=== PATIENT | male | born 1945 | race Caucasian/White ===

== ENCOUNTER 2018-01-18 22:55 | Emergency (ER) | payer MEDICARE, SELFPAY ==
[2018-01-18 22:56] VITALS: BP 107/58; PULSE 76; RESP 16; TEMP 36.7; O2SAT 95; BMI 24.5
--- NOTE | 2018-01-18 23:06 | ED.VISSUMM ---
- ER Visit Summary Date of Service: 01/18/18 Chief Complaint: Intoxicated History of Present Illness: The patient is a 72 M denies any significant past medical history. Currently is on no medications and also does not have a primary care physician. Patient states that he has been drinking heavily today he drinks daily and knows that he is an alcoholic. He has been through detox before but has no interest in detox at this time. States he was at a [facility] was transiently lightheaded which is since resolved. And they want to have him evaluated. He denies any falls or trauma. He denies any headaches, chest pain, shortness of breath, abdominal pain, nausea, vomiting, diarrhea, melena or fever. Currently states he feels fine. There was a male friend here with him and he told him was a gentleman was leaving that he was seen at the [facility]. Currently he denies any complaints whatsoever. Physical Examination: Well appearing older male. Vital signs are stable and afebrile. He does not look septic or toxic. He is in no acute distress. Clinically I assume that he is intoxicated but is a chronic alcoholic and tolerates this well. HEENT exam unremarkable. No facial droop. No signs of trauma. Moist mucous membranes. Neck nontender. No lymphadenopathy. Lungs clear to auscultation bilaterally. Heart regular rhythm no murmur. Chest wall nontender. Abdomen soft and nontender. Normal bowel sounds no peritoneal signs. Moving all 4 extremities. Neurovascularly intact. Nontender no deformity. Normal range of motion. Back exam nontender and no signs of trauma. Neurologically is awake and alert. He is answering questions and following commands. He is not belligerent or violent. He is calm and follows commands. Test Results: Alcohol level equals 96. Emergency Department Course and Treatment: Clinically this patient looks good and stable. Checking alcohol level. Treatment Plan: Repeat exam at 2338 the patient is doing well. His son is present in the room. And is comfortable taking his dad at home. He will overseen the night and ensures me that he would only drink anymore alcohol. Repeat exam the patient is doing well. His vital signs are stable. Disposition: Discharge Impression: Acute alcohol intoxication History of chronic alcoholism This note was generated with [employer] dictation software. It may contain incorrect words, spelling, and punctuation that were not noted in review of the chart prior to signing ED Disposition - Plan for ED Patient: Disposition: Home or Assisted Living Chief Complaint: ETOH Intox Instructions: ED Alcohol Intoxication Referrals: Brennon Arriaza MD [STAFF PHYSICIAN] - 1 Week Additional Instructions: Plenty of fluids and rest. Tylenol for headache and hangover. Probably consider alcohol counseling and detoxification. Definitely try to decrease her alcohol consumption. Stop smoking
--- NOTE | 2018-01-18 23:10 | ED.DCSUM_ITS ---
- ER Visit Summary Date of Service: 01/18/18 Chief Complaint: Intoxicated History of Present Illness: The patient is a 72 M denies any significant past medical history. Currently is on no medications and also does not have a primary care physician. Patient states that he has been drinking heavily today he drinks daily and knows that he is an alcoholic. He has been through detox before but has no interest in detox at this time. States he was at a [facility] was transiently lightheaded which is since resolved. And they want to have him evaluated. He denies any falls or trauma. He denies any headaches, chest pain, shortness of breath, abdominal pain, nausea, vomiting, diarrhea, melena or fever. Currently states he feels fine. There was a male friend here with him and he told him was a gentleman was leaving that he was seen at the [facility]. Currently he denies any complaints whatsoever. Physical Examination: Well appearing older male. Vital signs are stable and afebrile. He does not look septic or toxic. He is in no acute distress. Clinically I assume that he is intoxicated but is a chronic alcoholic and tolerates this well. HEENT exam unremarkable. No facial droop. No signs of trauma. Moist mucous membranes. Neck nontender. No lymphadenopathy. Lungs clear to auscultation bilaterally. Heart regular rhythm no murmur. Chest wall nontender. Abdomen soft and nontender. Normal bowel sounds no peritoneal signs. Moving all 4 extremities. Neurovascularly intact. Nontender no deformity. Normal range of motion. Back exam nontender and no signs of trauma. Neurologically is awake and alert. He is answering questions and following commands. He is not belligerent or violent. He is calm and follows commands. Test Results: Alcohol level equals 96. Emergency Department Course and Treatment: Clinically this patient looks good and stable. Checking alcohol level. Treatment Plan: Repeat exam at 2338 the patient is doing well. His son is present in the room. And is comfortable taking his dad at home. He will overseen the night and ensures me that he would only drink anymore alcohol. Repeat exam the patient is doing well. His vital signs are stable. Disposition: Discharge Impression: Acute alcohol intoxication History of chronic alcoholism This note was generated with [employer] dictation software. It may contain incorrect words, spelling, and punctuation that were not noted in review of the chart prior to signing ED Disposition - Plan for ED Patient: Disposition: Home or Assisted Living Chief Complaint: ETOH Intox Instructions: ED Alcohol Intoxication Referrals: Brennon Arriaza MD [STAFF PHYSICIAN] - 1 Week Additional Instructions: Plenty of fluids and rest. Tylenol for headache and hangover. Probably consider alcohol counseling and detoxification. Definitely try to decrease her alcohol consumption. Stop smoking
--- NOTE | 2018-01-18 23:16 | ED.DEP ---
ED Disposition - Plan for ED Patient: Disposition: Home or Assisted Living Chief Complaint: ETOH Intox Instructions: ED Alcohol Intoxication Referrals: Brennon Arriaza MD [STAFF PHYSICIAN] - 1 Week Additional Instructions: Plenty of fluids and rest. Tylenol for headache and hangover. Probably consider alcohol counseling and detoxification. Definitely try to decrease her alcohol consumption. Stop smoking
[2018-01-18 23:40] VITALS: BP 114/62; PULSE 79; RESP 18; O2SAT 97
--- NOTE | 2018-01-18 23:46 | ED.RN ---
pt sent home with son and son states he will be responsible for him.
== END 2018-01-18 23:46 | disposition home or self-care (01) ==
PROVIDERS: Emergency Provider Emergency Medicine
DX: F10.229 Alcohol dependence with intoxication, unspecified (principal); Y90.4 Blood alcohol level of 80-99 mg/100 ml; Z72.0 Tobacco use
CPT/HCPCS: 80320; 99285; A4216; G0480

== ENCOUNTER 2019-03-30 02:17 | Observation (INO) | payer MEDICARE, SELFPAY ==
[2019-03-30] VITALS (10 sets, daily range): BP systolic 98–149; BP diastolic 45–87; PULSE 48–547; RESP 15–24; TEMP 36.7–37.7; O2SAT 93–98; BMI 25.2; BMI 23.0
--- NOTE | 2019-03-30 02:28 | CT_ITS ---
STUDY: CT BRAIN WITHOUT CONTRAST REASON FOR EXAM: Male, 73 years old. Fall, EtOH RADIATION DOSAGE (If Supplied By Facility): CTDIvol = ( 44.99 ) mGy, DLP = ( 849.54 ) mGycm TECHNIQUE: Transaxial CT imaging of the brain was performed without administration of intravenous contrast material. Individualized dose optimization techniques were used for this CT. COMPARISON: CT head from 07/19/2014 FINDINGS: Normal soft tissue structures. Normal calvarium. Normal size ventricles and extra-axial spaces for the patient's age. Normal white matter tracts of the cerebral hemispheres. Normal basal ganglia and thalami. Normal brainstem. Normal cerebellum. There is no intracranial hemorrhage. There are no findings of an acute ischemic infarction. There is opacification of the left maxillary sinus. CT/Brain/Head without Contrast IMPRESSION: Negative unenhanced CT scan of the brain for acute intracranial abnormality. Left maxillary sinusitis. Electronically Signed: Rigoberto Reeves, at 3:02 EDT Tel , Service support ,
--- NOTE | 2019-03-30 02:30 | ED.DCSUM_ITS ---
History of Present Illness Chief Complaint: Fall Informant: Patient, Cast Associate Onset: Hours - 1 Mechanism/Context: Fall Quality of Pain: Aching Location: left ribcage Current Severity: Moderate Maximum Severity: Moderate Worsened by: palpation, movement, deep breathing, coughing Relieved by: breathing easy, remaining still Associated Symptoms: Loss of consciousness. Negative for: Parasthesias, Weakness, Loss of function, Inability to ambulate, Amnesia Length of loss of consciousness: brief Narrative: Patient states he was drinking the night, he went to the refrigerator to get some ice water, lost his balance and fell into the refrigerator hitting his head on it, and thinks he lost consciousness as a result of hitting his head which he does remember. He woke up and felt a lot of pain in his left rib cage from hitting it on a nearby counter/cabinet. He feels a little short of breath because it hurts to breathe. He denies headache or vision trouble. No bleeding from anywhere or epistaxis. No other injuries. States his roommate called the ambulance for him. Recent Illness/Hospitalization: No Past Medical History - Allergies and Home Meds Allergies/Adverse Reactions: Allergies No Known Allergies Allergy (Verified 01/18/18 22:56) Primary Care Physician: Ez Alexandre MD [Primary Care Provider] - Past Medical History: None - I drink too much, but I do OK for an old man Lives: Roommate Smoking Status: Current every day smoker Alcohol: Occasional Drugs: None Review of Systems General: Denies: Chills, Fever, Sweats Eyes: Denies: Visual changes - bilaterally, Diplopia ENT: Denies: Rhinorrhea, Sore throat Cardiovascular: Reports: Chest pain. Denies: Palpitations Respiratory: Reports: Dyspnea, Dyspnea on exertion - occasionally. Denies: Cough Gastrointestinal: Reports: Hematochezia - occasionally, not today. Denies: Abdominal pain, Nausea, Vomiting, Diarrhea, Melena Genitourinary: Denies: Dysuria, Hematuria, Frequency Musculoskeletal: Denies: Back pain, Extremity Pain Skin: Reports: Abrasions - LUE. Denies: Rash, Wounds Neurological: Denies: Headache, Weakness, Numbness Physical Exam Vital Signs/Narrative: Vital Signs Temp Pulse Resp BP Pulse Ox 03/30/19 02:21 92 24 H 149/70 H 97 03/30/19 02:18 98.0 F 547 H 17 149/70 H 94 Inital Vital Signs reviewed: Yes General: Well nourished, Well developed Head: Normocephalic, Atraumatic Eyes: Perrl, EOMI ENT: TM's clear, No hemotympanum or drainage, No trauma, - - no Morrison sign. no CSF otorhinorrhea.. Negative for: Nasal trauma Neck: Nontender, Full ROM. Negative for: Spinal Tenderness Cardiovascular: Regular rate, Regular rhythm, No murmurs Respiratory: No distress, CTA bilaterally, Chest tenderness - w/ guarding left ant-lat ribcage around 6-7th ribs. no crepitance, no flail. no outward signs of trauma on inspection. no posterior or sternal or clavicular tenderness. Abdomen: Soft, Nontender, Nondistended, Normal bowel sounds Back: Nontender Extremeties: Full range of motion throughout all 4 extremities, abrasion and ecchymosis dorsal proximal left forearm, no bony tenderness. Skin: Normal color, No rash, Trauma - abrasion/contusion left dorsal forearm Neurological: Alert, Oriented x3, Cranial nerves II-XII grossly intact, Normal Strength, Normal Sensation, - - pleasantly intoxicated Psychological: Normal affect, Normal Mood - Glascow Coma Scale Eye Opening: Spontaneous Motor: Obeys Commands Verbal: Oriented Coma Scale Total: 15 Diagnostic/Tx/Re-eval Impressions Brain CT 03/30/19 02:28 IMPRESSION: Negative unenhanced CT scan of the brain for acute intracranial abnormality. Left maxillary sinusitis. Electronically Signed: Rigoberto Reeves, at 3:02 EDT Tel , Service support , Ribs w/Chest X-Ray 03/30/19 02:50 IMPRESSION: RIBS: Left lateral fifth to seventh rib fractures. CHEST: Probable left lung base atelectasis. No pneumothorax visualized. Electronically Signed: Rigoberto Reeves, at 3:30 EDT Tel , Service support , Chest CT 03/30/19 03:33 IMPRESSION: Left 5th-7th rib fractures. No evidence for pneumothorax. Bibasilar lung atelectasis. Right glenoid fracture with extension into the joint space. Electronically Signed: Rigoberto Reeves, at 4:24 EDT Tel , Service support , 03/30/19 02:28 Brain/Head without Contrast [CT] Stat 03/30/19 02:50 Ribs Uni Min 3V w/PA Chest [RAD] Stat 03/30/19 03:33 CT Chest [Chest without Contrast] [CT] Stat Laboratory Results 03/30/19 03/30/19 03/30/19 03:30 03:30 03:30 WBC 4.8 RBC 3.69 L Hgb 7.5 L Hct 26.5 L MCV 71.8 L MCH 20.3 L MCHC 28.3 L RDW 18.3 H RDW Differential 46.3 H Plt Count 227 MPV 8.8 Immature Gran % (Auto) 0.200 Neut % (Auto) 70.7 H Lymph % (Auto) 17.4 L [place] % (Auto) 10.5 H Eos % (Auto) 0.8 Baso % (Auto) 0.4 Absolute Neuts (auto) 3.4 Absolute Lymphs (auto) 0.84 Total Counted Not Reportable Differential Comment SCANNED Platelet Estimate ADEQUATE Hypochromasia 3+ Microcytosis 2+ Macrocytosis RARE Sodium 135 L Potassium 4.5 Chloride 104 Carbon Dioxide 20.0 L Anion Gap 11 BUN 13 Creatinine 0.88 Estim Creat Clear Calc 80.81 Est GFR (MDRD) Af Amer 109 Est GFR (MDRD) Non-Af 90 BUN/Creatinine Ratio 14.8 Glucose 91 Calcium 8.3 L Troponin I Ethyl Alcohol 148.0 03/30/19 03:30 WBC RBC Hgb Hct MCV MCH MCHC RDW RDW Differential Plt Count MPV Immature Gran % (Auto) Neut % (Auto) Lymph % (Auto) [place] % (Auto) Eos % (Auto) Baso % (Auto) Absolute Neuts (auto) Absolute Lymphs (auto) Total Counted Differential Comment Platelet Estimate Hypochromasia Microcytosis Macrocytosis Sodium Potassium Chloride Carbon Dioxide Anion Gap BUN Creatinine Estim Creat Clear Calc Est GFR (MDRD) Af Amer Est GFR (MDRD) Non-Af BUN/Creatinine Ratio Glucose Calcium Troponin I < 0.015 Ethyl Alcohol - EKG Initial EKG Interpretation: No Acute Injury Pattern, - - Wandering pacemaker. PVCs and fusion beats present. occasional nonconducted P waves. - Medical Decision Making CT head shows no acute traumatic abnormality, rib series with PA chest shows no pneumothorax and atelectasis in the base on the left. My concern is that this could represent a traumatic pulmonary contusion given its proximity with the acute rib fracture. My suspicion for this was high because patient felt dyspneic, had some occasional Rales in the left base, and occasionally dropped his pulse ox although the waveform was not necessarily good on the monitor when this happened. Therefore I obtain CT of the thorax, and it shows no evidence for lung injury or pulmonary contusion. It does, however, show a displaced glenoid fossa fracture on the right. I reexamined the patient. He has full range of motion of the right shoulder and states it does not hurt. However when I axially loaded his glenoid with lateral pressure on the humeral head, he does have pain. He is neurovascularly intact distally. I discussed this finding with orthopedics Dr. Hare, who states given that abnormality he can follow-up with a sling as an outpatient. Given all this, I do not think he needs to be transferred to a trauma center at this time. In further evaluating his blunt thoracic trauma, I obtained EKG and troponin, the latter of which is normal. His EKG shows an irregular rhythm that appears to be most consistent with wandering pacemaker but he has some occasional nonconducted Ps and ectopy that confuses the interpretation. I see no signs of an acute injury. His heart rate varies from 45-90. He has no symptoms when he is bradycardic and does not have any noticeable palpitations in his chest or angina. His alcohol is in the 160s. 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 My other main concern is his hemoglobin of 7.5. The last reading that we have was over 11 but it was 2 years ago. He states he occasionally has some minor rectal bleeding but denies any significant heavy bleeding recently or melena. I performed a rectal, there was nonbloody non-melanotic stool, and Hemoccult was sent to the lab and is negative. In further discussion with the patient, this is likely chronic. It is microcytic and may be iron deficiency-related. I added iron studies; they all returned while pt was in the ED, and are consistent with iron deficiency. I will prescribe him iron in addition to analgesics. Given his lack of symptoms, I do not think he requires an emergent blood transfusion at this time. I offered admission for his pain but he declines and states the analgesics made it tolerable and prefers to sleep until his son can pick him up, then go home. He will be observed and allowed to sleep off his alcohol here in the emergency department until he can get his ride home. Will be discussed w/ oncoming ED physician for continued care until discharge. ED Disposition - Plan for ED Patient: Disposition: Home or Assisted Living Diagnosis: Multiple fractures of ribs, left side, initial encounter for closed fracture, Closed fracture of glenoid cavity of right scapula, Microcytic anemia, Alcohol intoxication, Closed head injury without concussion Instructions: FRACTURE, Shoulder, ANEMIA, Iron Deficiency (Adult), FRACTURE, Rib, Sling Prescriptions: Docusate Sodium [Colace] 100 mg PO DAILY #30 cap Prescription Printed Ferrous Sulfate [Iron] 325 mg PO TID #90 tab Prescription Printed Hydrocodone Bitart/Apap 5-325 [[place] 5MG-325MG] 1 tab PO Q4H PRN PRN 2 Days #10 tab PRN Reason: Pain Prescription Printed Referrals: Ez Alexandre MD [Primary Care Provider] - 3-5 Days (call today for appt) Gianluca Hare MD [STAFF PHYSICIAN] - As soon as possible (regarding your right shoulder; call for appt)
[2019-03-30] MEDS: HYDROcodone Bitartrate/Apap 5/325 Tablet PO (02:32)
--- NOTE | 2019-03-30 02:50 | RAD_ITS ---
STUDY: X-RAY - UNILATERAL RIBS ( LEFT ) WITH CHEST REASON FOR EXAM: Male, 73 years old. Left mid chest pain TECHNIQUE - RIBS: 5 view(s) of the ribs. TECHNIQUE - CHEST: PA COMPARISON: None. FINDINGS - RIBS: There are fractures of the left lateral fifth through seventh ribs. FINDINGS - CHEST: The lungs demonstrate mild patchy left lung base opacity. There is no demonstrated pleural abnormality. Normal size heart. Normal mediastinum and samson. Normal visualized pulmonary arteries. Normal visualized aortic arch and descending thoracic aorta. There are diffuse degenerative changes of the visualized thoracic spine. There is no demonstrated abnormality of the visualized soft tissue structures of the upper abdomen. RAD/Ribs Uni Min 3V w/PA Chest IMPRESSION: RIBS: Left lateral fifth to seventh rib fractures. CHEST: Probable left lung base atelectasis. No pneumothorax visualized. Electronically Signed: Rigoberto Reeves, at 3:30 EDT Tel , Service support ,
[2019-03-30] MEDS: Morphine 4 MG/ML Syringe IV (03:29)
--- NOTE | 2019-03-30 03:33 | CT_ITS ---
STUDY: CT CHEST WITHOUT CONTRAST REASON FOR EXAM: Male, 73 years old. Fall with left-sided chest. RADIATION DOSAGE (If Supplied By Facility): CTDIvol = ( 14.34 ) mGy, DLP = ( 93016 ) mGycm TECHNIQUE: Transaxial imaging was performed without the administration of intravenous contrast material. Individualized dose optimization techniques were used for this CT. COMPARISON: None. FINDINGS: The lungs demonstrate bibasilar atelectasis and a small apical subpleural bleb formation.. There is no demonstrated pleural abnormality. No pneumothorax visualized. Normal heart and pericardium. Normal mediastinum. Normal hilar regions. Normal unenhanced pulmonary arteries. Normal aorta arch and descending thoracic aorta. There is fracture of the left lateral 5th-7th ribs which are minimally displaced. Also noted is fracture of the right glenoid which is minimally displaced with extension into the joint space. No shoulder dislocation. There is no demonstrated abnormality of the visualized upper abdomen. Tiny gallbladder calculus versus wall calcification. CT/Chest without Contrast IMPRESSION: Left 5th-7th rib fractures. No evidence for pneumothorax. Bibasilar lung atelectasis. Right glenoid fracture with extension into the joint space. Electronically Signed: Rigoberto Reeves, at 4:24 EDT Tel , Service support ,
--- NOTE | 2019-03-30 03:35 | EKG12_ITS ---
Test Reason : FALL Blood Pressure : / mmHG Vent. Rate : 072 BPM Atrial Rate : 082 BPM P-R Int : 000 ms QRS Dur : 102 ms QT Int : 422 ms P-R-T Axes : 000 056 035 degrees QTc Int : 462 ms Normal Sinus Rhythm with PAC's Otherwise normal ECG Confirmed by CHRISTINA CAMPBELL, RASHID ([id number]), newspaper or periodical editor RENALDO ACOSTA ([id number]) on 03/30/2019 1:17:45 PM Referred By: BB Confirmed By:RASHID VASQUEZ MD
[2019-03-30 03:46] LABS: Absolute Lymphocyte Count 0.84 X10^3/ul (0.83-4.51); Absolute Neutrophil Count 3.4 X10^3/uL (2.0-7.7); Basophil# 0.02 X10^3/uL; Basophil% 0.4 % (0-1); Eosinophil# 0.04 X10^3/uL; Eosinophils% 0.8 % (0-5); Hematocrit 26.5 % (40-54); Hemoglobin 7.5 g/dl (13.0-16.5); Lymphocyte # 0.84 X10^3/ul (4.0); Lymphocyte % 17.4 % (19-41); Mean Corp Hgb Conc 28.3 g/gl (32-36); Mean Corpuscular Hgb 20.3 pg (27.0-32.0); Mean Corpuscular Volume 71.8 fL (80-94); Mean Platelet Vol. 8.8 fl (6.2-12.0); Monocyte# 0.51 X10^3/uL; Monocyte% 10.5 % (0-10); Neutrophil # 3.42 X10^3/uL (2.7-7.7); Neutrophil % 70.7 % (47-70); Platelet Count 227 K/mm3 (150-450); RBC Distribution Width CV 18.3 % (11.6-14.6); RBC Distribution Width SD 46.3 fl (35.1-43.9); Red Blood Count 3.69 M/mm3 (4.6-6.2); White Blood Count 4.8 K/mm3 (4.4-11.0)
[2019-03-30 03:48] LABS: Anion Gap 11 (5-15); BUN 13 mg/dL (7-18); BUN/Creat Ratio 14.8 RATIO (10-20); Calcium,Total 8.3 mg/dL (8.5-10.1); Chloride 104 mmol/L (98-107); Creatinine, Serum 0.88 mg/dL (0.70-1.30); EST Glomerular Filtration Rate 90 mL/min (>60); Est Glom Filt Rate - Afr Amer 109 mL/min (>60); Estimated Creatinine Clearance 80.81 ml/min; Glucose 91 mg/dL (74-106); Potassium 4.5 mmol/L (3.5-5.1); Sodium Level 135 mmol/L (136-145)
[2019-03-30 03:49] LABS: Differential Indicated SCAN CRITERIA MET; POSITIVE COUNT NO; POSITIVE DIFFERENTIAL NO; POSITIVE MORPHOLOGY YES
[2019-03-30 04:14] LABS: Differential Comment SCANNED; Hypochromasia 3+; Macrocytosis RARE; Microcytosis 2+; Platelet Estimate ADEQUATE (ADEQ)
[2019-03-30 06:29] LABS: Ferritin 14 ng/mL (26-388); Iron 23 ug/dL (65-175); Iron Binding Capacity,Total 480 ug/dL (250-450); PERCENT IRON SATURATION 4.8 % (15.0-55.0)
--- NOTE | 2019-03-30 08:12 | CT_ITS ---
STUDY: CT ABDOMEN AND PELVIS WITHOUT CONTRAST REASON FOR EXAM: Male, 73 years old. Fall, ethanol, left rib pain and fractures. RADIATION DOSAGE (If Supplied By Facility): CTDIvol = ( 9.19 ) mGy, DLP = ( 514.19 ) mGycm TECHNIQUE: Transaxial images were obtained from the dome of the diaphragm to the symphysis pubis without oral contrast, and without intravenous contrast. Sagittal and coronal images were reconstructed. Individualized dose optimization techniques were used for this CT. COMPARISON: CT chest 03/30/2019, x-ray ribs 03/30/2019. FINDINGS: Body wall soft tissues: No acute process. Osseous structures: Fractures of the left lateral 10th, and 9th ribs, subtle, nondisplaced. Displaced fracture of the lateral 8th and 7th ribs. No visible spinal fracture. L5-S1 anterolisthesis 10 mm associated with facet hypertrophy, mild disc bulging and foraminal narrowing. L4-L5 minimal retrolisthesis severe disc narrowing and facet hypertrophy associated with moderate bilateral foraminal narrowing. Mild disc narrowing between L2-L3 and L3-L4 associated with facet hypertrophy and mild foraminal stenosis. Sacrum, pelvis, hips intact. Inferior chest: Bibasilar atelectasis, minimal left effusion. Normal distal esophagus. Mild cardiomegaly. Mild aortic valve calcifications. No pericardial effusion. Hepatobiliary: Nodular contour the liver consistent with cirrhosis with minimal ascites adjacent. Normal gallbladder and biliary tree. Pancreas: No acute process. Spleen: Borderline splenic megaly, craniocaudal spleen 12.5 cm. Adrenal glands: Normal. Urogenital: Unremarkable kidneys, collecting systems, ureters, urinary bladder. Mild prostatomegaly. Pelvic floor and sidewalls and retroperitoneum: No mass or adenopathy. Vasculature: Mild atherosclerosis of the aorta, moderate plaque in the proximal internal iliac arteries, minimal plaque in the external iliac arteries. Dense focus of plaque in the right [facility] may contribute to stenosis in the range of 50%. Moderate plaque in the left [employer]. Stomach: No acute process. Small bowel and mesentery: No acute process. Large bowel: Normal appendix. Sigmoid diverticulosis without diverticulitis. Normal rectum. Free fluid or free air: Trace ascites. CT/Abdomen/Pelvis without Cont IMPRESSION: Cirrhosis, borderline splenomegaly, no varices, trace ascites. Bibasilar atelectasis of the lungs. Trace left effusion. Left rib fractures. No acute intra-abdominal injury. Multilevel lumbar spondylosis with L4-L5 and L5-S1 spondylolisthesis. No evidence of spinal injury. Electronically Signed: Temo Schmid MD at 9:01 EDT Tel , Service support ,
--- NOTE | 2019-03-30 09:09 | NURSING ---
DR CHERRIE LAROSE
--- NOTE | 2019-03-30 09:13 | NURSING ---
MED SURG CHERRIE OBS FALL, MULTIPLE LEFT SIDED RIB FXS, RT GLENOID FX, ALCOHOL ABUSE
--- NOTE | 2019-03-30 10:11 | PCM.HP.STD ---
History of Present Illness The patient is a 73 year old M [] Past Medical History Allergies No Known Allergies Allergy (Verified 01/18/18 22:56) Home Medications: Ambulatory Orders Medication Instructions Recorded Docusate Sodium [Colace] 100 mg PO DAILY #30 cap 03/30/19 Ferrous Sulfate [Iron] 325 mg PO TID #90 tab 03/30/19 Hydrocodone Bitart/Apap 5-325 1 tab PO Q4H PRN PRN 2 Days #10 tab 03/30/19 [[place] 5MG-325MG] Lives: Roommate Smoking Status: Current every day smoker Alcohol: Occasional Drugs: None Patient Problems: Active and Suspected Problems Multiple fractures of ribs, left side, initial encounter for closed fracture (Acute) Closed fracture of glenoid cavity of right scapula (Acute) Microcytic anemia (Acute) Alcohol intoxication (Acute) Closed head injury without concussion (Acute) - Physical Exam Vital Signs Temp Pulse Resp BP Pulse Ox 98.0 F 61 15 98/45 L 95 03/30/19 02:18 03/30/19 09:33 03/30/19 09:33 03/30/19 09:33 03/30/19 09:33 Oxygen Flow Rate (L/min) 2 Oxygen Delivery Method Room Air Weight: 180 lb 12.465 oz Body Mass Index (BMI) 25.2 Microbiology Past 72 Hours 03/30/19 05:30 Stool Occult Blood (BOBBY) - Final Stool Laboratory Tests Past 24 Hrs 03/30/19 03/30/19 03/30/19 03:30 03:30 03:30 WBC 4.8 RBC 3.69 L Hgb 7.5 L Hct 26.5 L MCV 71.8 L MCH 20.3 L MCHC 28.3 L RDW 18.3 H RDW Differential 46.3 H Plt Count 227 MPV 8.8 Immature Gran % (Auto) 0.200 Neut % (Auto) 70.7 H Lymph % (Auto) 17.4 L [place] % (Auto) 10.5 H Eos % (Auto) 0.8 Baso % (Auto) 0.4 Absolute Neuts (auto) 3.4 Absolute Lymphs (auto) 0.84 Total Counted Not Reportable Differential Comment SCANNED Platelet Estimate ADEQUATE Hypochromasia 3+ Microcytosis 2+ Macrocytosis RARE Sodium 135 L Potassium 4.5 Chloride 104 Carbon Dioxide 20.0 L Anion Gap 11 BUN 13 Creatinine 0.88 Estim Creat Clear Calc 80.81 Est GFR (MDRD) Af Amer 109 Est GFR (MDRD) Non-Af 90 BUN/Creatinine Ratio 14.8 Glucose 91 Calcium 8.3 L Iron TIBC Iron Saturation Ferritin Troponin I Ethyl Alcohol 148.0 03/30/19 03/30/19 03:30 03:30 WBC RBC Hgb Hct MCV MCH MCHC RDW RDW Differential Plt Count MPV Immature Gran % (Auto) Neut % (Auto) Lymph % (Auto) [place] % (Auto) Eos % (Auto) Baso % (Auto) Absolute Neuts (auto) Absolute Lymphs (auto) Total Counted Differential Comment Platelet Estimate Hypochromasia Microcytosis Macrocytosis Sodium Potassium Chloride Carbon Dioxide Anion Gap BUN Creatinine Estim Creat Clear Calc Est GFR (MDRD) Af Amer Est GFR (MDRD) Non-Af BUN/Creatinine Ratio Glucose Calcium Iron 23 L TIBC 480 H Iron Saturation 4.8 L Ferritin 14 L Troponin I < 0.015 Ethyl Alcohol Assessment/Plan All Active Problems Multiple fractures of ribs, left side, initial encounter for closed fracture (Acute) Closed fracture of glenoid cavity of right scapula (Acute) Microcytic anemia (Acute) Alcohol intoxication (Acute) Closed head injury without concussion (Acute)
[2019-03-30 12:32] LABS: AST(SGOT) 44 U/L (15-37); Alanine Aminotransfer ALT/SGPT 23 U/L (16-61); Albumin, Serum 3.5 g/dL (3.2-5.0); Alkaline Phosphatase 90 U/L (45-117); Bilirubin, Direct 0.21 mg/dL (0.00-0.30); Globulin 4.7 g/dL (2.2-4.2); Protein, Total 8.2 g/dL (6.4-8.2)
[2019-03-30 12:34] LABS: Vitamin B12 306 pg/mL (211-911)
[2019-03-30 12:39] LABS: Lipase 275 U/L (73-393)
[2019-03-30] MEDS: LORazepam 1 MG Tablet PO ×3 (13:28→19:53)
--- NOTE | 2019-03-30 13:46 | HP.PCM_ITS ---
<Cooper Anand - Last Filed: 03/30/19 13:46> Problem List (1) Closed head injury without concussion Status: Acute (2) Multiple fractures of ribs, left side, initial encounter for closed fracture Status: Acute (3) Closed fracture of glenoid cavity of right scapula Status: Acute (4) Alcohol intoxication Status: Acute (5) Alcoholism Status: Chronic (6) Cirrhosis Status: Chronic (7) Hepatitis C Status: Chronic (8) Nicotine abuse Status: Chronic (9) Microcytic anemia Status: Chronic History of Present Illness Date of Admission: 03/30/19 Chief Complaint: left shoulder and rib pain The patient is a 73 year old M with pmhx of hepatitis C, alcoholism since late teens, cirrhosis, nicotine abuse, who presented to the ER after falling this AM. The patient was intoxicated and walked to the fridge to get a snack. He slipped and lost balance on the kitchen floor, falling forward. He struck his forehead on the fridge, and struck his ribs and shoulder on a counter. He fell to the floor and lost consciousness. He woke up about a half hour later (he estimates based on the tv show he was watching). His roomate called the squad who brought him to the ER. He had left rib and left shoulder pain - Xray revealed left 5th- 7th rib fracture, and glenoid fracture. He currently has no headache, blurry vi marlon, double vision, numbness/tingling, nausea, vomiting, or vertigo. He complains of aching pain in the above locations. [] Past Medical History Past Medical History (Chronic Problems): Chronic Problems Microcytic anemia (Chronic) Alcoholism (Chronic) Cirrhosis (Chronic) Hepatitis C (Chronic) Nicotine abuse (Chronic) Allergies No Known Allergies Allergy (Verified 01/18/18 22:56) Home Medications: Ambulatory Orders Medication Instructions Recorded Docusate Sodium [Colace] 100 mg PO DAILY #30 cap 03/30/19 Ferrous Sulfate [Iron] 325 mg PO TID #90 tab 03/30/19 Hydrocodone Bitart/Apap 5-325 1 tab PO Q4H PRN PRN 2 Days #10 tab 03/30/19 [[place] 5MG-325MG] Surgical History: herniorrhaphy Psychiatric History: No pertinent psych hx Lives: Roommate Smoking Status: Current every day smoker Tobacco Use: Cigarettes Alcohol: Heavy Drugs: None - *Family History Maternal History Items: Diabetes Paternal History Items: - - alcoholism Review of Systems Constitutional: Denies: Chills, Fever, Weight Change HEENT: Denies: Head Aches, Sinus Congestion, Sinus Drainage Cardiovascular: Denies: Chest Pain, Palpitations Respiratory: Denies: Cough, Shortness of breath at rest, Sputum production Gastrointestinal: Denies: Abdominal Pain, Nausea, Vomiting Genitourinary: Denies: Dysuria Musculoskeletal: Reports: Joint swelling, Joint Tenderness, Shoulder Pain, - - rib pain. Denies: Joint Pain Skin: Denies: Rash, Wounds Neurological: Denies: Numbness, Tingling, Focal weakness Psychiatric: Denies: Anxiety, Depression, Homicidal Ideations, Suicidal Ideations Hematologic/ Lymphatic: Denies: Easy Bruising, Easy Bleeding VTE Information - Inpt Only VTE Present on Admission: No VTE Mechan Device Prophylaxis: None VTE Pharm Prophylaxis ordered?: Yes Patient Problems: Active and Suspected Problems Multiple fractures of ribs, left side, initial encounter for closed fracture (Acute) Closed fracture of glenoid cavity of right scapula (Acute) Alcohol intoxication (Acute) Closed head injury without concussion (Acute) - Physical Exam General: Alert, Oriented x3, Cooperative HEENT: Atraumatic, PERRLA, EOMI, Normocephalic Neck: Supple, No JVD, Negative Carotid Bruits Lungs: Clear to auscultation, Normal air movement Cardiovascular: Regular rate, Murmur - RSB 2nd ic space, 2/6 Abdomen: Bowel Sounds Present, Soft, Non Tender Extremities: No edema, Capillary Refill Less than 3 Seconds Skin: No rashes, No breakdown Musculoskeletal: No Tenderness to Palpation of Joints or Extremities Neurological: Cranial nerves II-XII grossly intact Psych/Mental Status: Normal Affect, Appropriate, Alert and oriented to time, place, person, mood and affect Vital Signs Temp Pulse Resp BP Pulse Ox 98.4 F 78 18 126/68 H 97 03/30/19 10:56 03/30/19 10:56 03/30/19 10:56 03/30/19 10:56 03/30/19 10:56 Oxygen Flow Rate (L/min) 2 Oxygen Delivery Method Room Air Weight: 165 lb Body Mass Index (BMI) 23.0 Intake and Output for Last 24 Hours 03/28/19 03/29/19 03/30/19 23:59 23:59 23:59 Intake Total 0 / 0 Output Total 450 / 450 Balance -450 / -450 Microbiology Past 72 Hours 03/30/19 05:30 Stool Occult Blood (BOBBY) - Final Stool Laboratory Tests Past 24 Hrs 03/30/19 03/30/19 03/30/19 03:30 03:30 03:30 WBC 4.8 RBC 3.69 L Hgb 7.5 L Hct 26.5 L MCV 71.8 L MCH 20.3 L MCHC 28.3 L RDW 18.3 H RDW Differential 46.3 H Plt Count 227 MPV 8.8 Immature Gran % (Auto) 0.200 Neut % (Auto) 70.7 H Lymph % (Auto) 17.4 L [place] % (Auto) 10.5 H Eos % (Auto) 0.8 Baso % (Auto) 0.4 Absolute Neuts (auto) 3.4 Absolute Lymphs (auto) 0.84 Total Counted Not Reportable Differential Comment SCANNED Platelet Estimate ADEQUATE Hypochromasia 3+ Microcytosis 2+ Macrocytosis RARE Sodium 135 L Potassium 4.5 Chloride 104 Carbon Dioxide 20.0 L Anion Gap 11 BUN 13 Creatinine 0.88 Estim Creat Clear Calc 80.81 Est GFR (MDRD) Af Amer 109 Est GFR (MDRD) Non-Af 90 BUN/Creatinine Ratio 14.8 Glucose 91 Calcium 8.3 L Iron TIBC Iron Saturation Ferritin Total Bilirubin Direct Bilirubin AST ALT Alkaline Phosphatase Troponin I Total Protein Albumin Globulin Lipase Vitamin B12 Folate Ethyl Alcohol 148.0 03/30/19 03/30/19 03/30/19 03:30 03:30 03:30 WBC RBC Hgb Hct MCV MCH MCHC RDW RDW Differential Plt Count MPV Immature Gran % (Auto) Neut % (Auto) Lymph % (Auto) [place] % (Auto) Eos % (Auto) Baso % (Auto) Absolute Neuts (auto) Absolute Lymphs (auto) Total Counted Differential Comment Platelet Estimate Hypochromasia Microcytosis Macrocytosis Sodium Potassium Chloride Carbon Dioxide Anion Gap BUN Creatinine Estim Creat Clear Calc Est GFR (MDRD) Af Amer Est GFR (MDRD) Non-Af BUN/Creatinine Ratio Glucose Calcium Iron 23 L TIBC 480 H Iron Saturation 4.8 L Ferritin 14 L Total Bilirubin Direct Bilirubin AST ALT Alkaline Phosphatase Troponin I < 0.015 Total Protein Albumin Globulin Lipase 275 Vitamin B12 Folate 18.00 Ethyl Alcohol 03/30/19 03/30/19 03:30 03:30 WBC RBC Hgb Hct MCV MCH MCHC RDW RDW Differential Plt Count MPV Immature Gran % (Auto) Neut % (Auto) Lymph % (Auto) [place] % (Auto) Eos % (Auto) Baso % (Auto) Absolute Neuts (auto) Absolute Lymphs (auto) Total Counted Differential Comment Platelet Estimate Hypochromasia Microcytosis Macrocytosis Sodium Potassium Chloride Carbon Dioxide Anion Gap BUN Creatinine Estim Creat Clear Calc Est GFR (MDRD) Af Amer Est GFR (MDRD) Non-Af BUN/Creatinine Ratio Glucose Calcium Iron TIBC Iron Saturation Ferritin Total Bilirubin 0.50 Direct Bilirubin 0.21 AST 44 H ALT 23 Alkaline Phosphatase 90 Troponin I Total Protein 8.2 Albumin 3.5 Globulin 4.7 H Lipase Vitamin B12 306 Folate Ethyl Alcohol Assessment/Plan All Active Problems Multiple fractures of ribs, left side, initial encounter for closed fracture (Acute) Closed fracture of glenoid cavity of right scapula (Acute) Alcohol intoxication (Acute) Closed head injury without concussion (Acute) 1. Fall with head contusion, LOC, ? concussion, left rib fractures, glenoid fracture - consult Orthopedics. Supportive care. arm in sling, add IS. 2. Alcoholism - long hx alcoholism and many times through rehab. States he drinks up to 6 budweisers per day, no liquor. CIWA protocol, ativan taper. No hx withdrawal seizure. Intoxicated at presentation. B12 / folate normal. EtOH 148 at admission. 3. Cirrhosis - pt previously unaware, seen on imaging today. Likely 2/2 untreated hep C and alcoholism. AST elevated. 4. Iron def anemia - Hgb 7.6. No acute bleeding noted. see iron studies from today. Stool occult blood negative. Give venofer x 3 and start PO iron. 5. Abd pain - lipase negative. no hx pancreatitis. ? gastritis - start PPI. 6. Nicotine abuse - smokes 1/2 ppd. Declines patch. DVT ppx: SCDs DC planning: PTOT This patient was seen by Cooper Anand PA-C under the supervision of Dr. Orona. <Eliseo Orona - Last Filed: 03/30/19 16:10> History of Present Illness The patient is a 73 year old M with history of chronic alcohol use, dependence and tolerance since late teen, chronic nicotine use and hepatitis C was found to cirrhosis with trace ascites on CT abdomen in ER is being admitted for fall, fracture of ribs and left glenoid fracture. Patient is intoxicated with alcohol and had slip and fall on left side. He was on the floor for about 30 minutes with loss of consciousness. Patient further outside he had blood in the stool about 2 years ago but never had formal EGD or colonoscopy. EGD was found left-sided fifth through seventh rib fracture and glenoid fracture. [] Past Medical History Allergies No Known Allergies Allergy (Verified 01/18/18 22:56) Review of Systems Constitutional: Denies: Chills, Fever, Weight Change Musculoskeletal: Reports: Joint swelling, Joint Tenderness, Shoulder Pain, - VTE Information - Inpt Only VTE Present on Admission: No VTE Mechan Device Prophylaxis: None VTE Pharm Prophylaxis ordered?: No Reason prophylaxis not ordered:: Medical Contraindication - Stool for occult blood positive. - Physical Exam General: Alert, Oriented x3, Cooperative, - - Sometimes he speaks fast and mix of the sentence. HEENT: Atraumatic, PERRLA, EOMI, Normocephalic Oral: - - Missing teeth Neck: Supple, No JVD, Negative Carotid Bruits Lungs: Clear to auscultation, Normal air movement, No rhonchi, No wheeze, No rales, Diminished Cardiovascular: Regular rate, Normal S1, Normal S2, Murmur, - Abdomen: Bowel Sounds Present, Soft, Non Tender, Non-Distended, - - No ascites on palpation Extremities: No edema, Capillary Refill Less than 3 Seconds, Tenderness - Disorder left side of rib. Skin: No rashes, No breakdown Musculoskeletal: No Tenderness to Palpation of Joints or Extremities, Arthritic Changes, Muscle Wasting Neurological: Cranial nerves II-XII grossly intact, Deep Tendon Reflexes 2+/4 and Symmetrical, Neuro grossly intact Psych/Mental Status: Normal Affect, Appropriate Vital Signs Temp Pulse Resp BP Pulse Ox 98.4 F 60 18 124/67 H 93 03/30/19 14:50 03/30/19 14:50 03/30/19 14:50 03/30/19 14:50 03/30/19 14:50 Oxygen Flow Rate (L/min) 2 Oxygen Delivery Method Room Air Weight: 165 lb Body Mass Index (BMI) 23.0 Intake and Output for Last 24 Hours 03/28/19 03/29/19 03/30/19 23:59 23:59 23:59 Intake Total 0 / 0 Output Total 450 / 450 Balance -450 / -450 Microbiology Past 72 Hours 03/30/19 05:30 Stool Occult Blood (BOBBY) - Final Stool Laboratory Tests Past 24 Hrs 03/30/19 03/30/19 03/30/19 03:30 03:30 03:30 WBC 4.8 RBC 3.69 L Hgb 7.5 L Hct 26.5 L MCV 71.8 L MCH 20.3 L MCHC 28.3 L RDW 18.3 H RDW Differential 46.3 H Plt Count 227 MPV 8.8 Immature Gran % (Auto) 0.200 Neut % (Auto) 70.7 H Lymph % (Auto) 17.4 L [place] % (Auto) 10.5 H Eos % (Auto) 0.8 Baso % (Auto) 0.4 Absolute Neuts (auto) 3.4 Absolute Lymphs (auto) 0.84 Total Counted Not Reportable Differential Comment SCANNED Platelet Estimate ADEQUATE Hypochromasia 3+ Microcytosis 2+ Macrocytosis RARE Sodium 135 L Potassium 4.5 Chloride 104 Carbon Dioxide 20.0 L Anion Gap 11 BUN 13 Creatinine 0.88 Estim Creat Clear Calc 80.81 Est GFR (MDRD) Af Amer 109 Est GFR (MDRD) Non-Af 90 BUN/Creatinine Ratio 14.8 Glucose 91 Calcium 8.3 L Iron TIBC Iron Saturation Ferritin Total Bilirubin Direct Bilirubin AST ALT Alkaline Phosphatase Troponin I Total Protein Albumin Globulin Lipase Vitamin B12 Folate Ethyl Alcohol 148.0 03/30/19 03/30/19 03/30/19 03:30 03:30 03:30 WBC RBC Hgb Hct MCV MCH MCHC RDW RDW Differential Plt Count MPV Immature Gran % (Auto) Neut % (Auto) Lymph % (Auto) [place] % (Auto) Eos % (Auto) Baso % (Auto) Absolute Neuts (auto) Absolute Lymphs (auto) Total Counted Differential Comment Platelet Estimate Hypochromasia Microcytosis Macrocytosis Sodium Potassium Chloride Carbon Dioxide Anion Gap BUN Creatinine Estim Creat Clear Calc Est GFR (MDRD) Af Amer Est GFR (MDRD) Non-Af BUN/Creatinine Ratio Glucose Calcium Iron 23 L TIBC 480 H Iron Saturation 4.8 L Ferritin 14 L Total Bilirubin Direct Bilirubin AST ALT Alkaline Phosphatase Troponin I < 0.015 Total Protein Albumin Globulin Lipase 275 Vitamin B12 Folate 18.00 Ethyl Alcohol 03/30/19 03/30/19 03:30 03:30 WBC RBC Hgb Hct MCV MCH MCHC RDW RDW Differential Plt Count MPV Immature Gran % (Auto) Neut % (Auto) Lymph % (Auto) [place] % (Auto) Eos % (Auto) Baso % (Auto) Absolute Neuts (auto) Absolute Lymphs (auto) Total Counted Differential Comment Platelet Estimate Hypochromasia Microcytosis Macrocytosis Sodium Potassium Chloride Carbon Dioxide Anion Gap BUN Creatinine Estim Creat Clear Calc Est GFR (MDRD) Af Amer Est GFR (MDRD) Non-Af BUN/Creatinine Ratio Glucose Calcium Iron TIBC Iron Saturation Ferritin Total Bilirubin 0.50 Direct Bilirubin 0.21 AST 44 H ALT 23 Alkaline Phosphatase 90 Troponin I Total Protein 8.2 Albumin 3.5 Globulin 4.7 H Lipase Vitamin B12 306 Folate Ethyl Alcohol Assessment/Plan This is a 73-year-old gentleman who is admitted after a fall with injury, possible head contusion and has loss of consciousness. Patient had fracture of left-sided ribs and glenoid cavity of right side. Patient is on IV fluid. Patient also has iron deficiency anemia with hemoglobin 7.6. Stool for occult blood negative. CT abdomen shows cirrhosis with trace edema, borderline splenomegaly but no varices. No acute intra-abdominal injury. CT head is negative of acute intracranial abnormality. Patient had mild abdominal pain in the epigastric region mostly secondary to GERD or peptic ulcer disease. Patient has severe iron Anemia with hemoglobin 7.6. Possible has chronic GI blood loss. Currently stool for occult blood negative. No aspirin/antiplatelet or anticoagulation. Will need outpatient EGD/colonoscopy with GI work-up. Continue PPI. Alcohol withdrawal: CIWA monitoring. On Ativan as needed protocol. Orthopedic surgery was consulted and wanted the patient to the office. Clinical Impression(s) from Imaging Studies Brain CT 03/30/19 02:28 IMPRESSION: Negative unenhanced CT scan of the brain for acute intracranial abnormality. Left maxillary sinusitis. Ribs w/Chest X-Ray 03/30/19 02:50 IMPRESSION: RIBS: Left lateral fifth to seventh rib fractures. CHEST: Probable left lung base atelectasis. No pneumothorax visualized. Chest CT 03/30/19 03:33 IMPRESSION: Left 5th-7th rib fractures. No evidence for pneumothorax. Bibasilar lung atelectasis. Right glenoid fracture with extension into the joint space. Abdomen/Pelvis CT 03/30/19 08:12 IMPRESSION: Cirrhosis, borderline splenomegaly, no varices, trace ascites. Bibasilar atelectasis of the lungs. Trace left effusion. Left rib fractures. No acute intra-abdominal injury. Multilevel lumbar spondylosis with L4-L5 and L5-S1 spondylolisthesis. No evidence of spinal injury. Code Visit Inpatient E&M: 43855 Init Hosp L3
--- NOTE | 2019-03-30 16:15 | RAD_ITS ---
STUDY: X-RAY - LEFT SHOULDER REASON FOR EXAM: Male, 73 years old. Trauma TECHNIQUE: 2 view(s) of the shoulder. COMPARISON: None. FINDINGS: Normal glenohumeral articulation. Normal acromioclavicular joint. Normal acromion. Normal humeral head and visualized proximal humerus. The soft tissue structures are unremarkable. There are slightly displaced fractures of the anterior left sixth and seventh ribs. There is left basilar atelectasis. RAD/Shoulder min 2 Views IMPRESSION: There is no evidence of fracture, dislocation, or significant degenerative disease of the osseous structures of the left shoulder joint. There are slightly displaced fractures of the anterior left sixth and seventh ribs. There is left basilar discoid atelectasis. Electronically Signed: Davide Sánchez MD at 16:32 EDT , Service support ,
[2019-03-30] MEDS: Pantoprazole Sodium 40 MG Tablet PO (16:40)
[2019-03-30] MEDS: Ferrous Sulfate 325 MG Tablet PO (16:40)
[2019-03-30 21:30] LABS: Hematocrit 28.8 % (40-54); Hemoglobin 8.1 g/dl (13.0-16.5)
[2019-03-31] MEDS: LORazepam 1 MG Tablet PO ×2 (00:16→04:03)
[2019-03-31 02:00] VITALS: BP 123/57; PULSE 74; RESP 18; TEMP 38.1; O2SAT 93
[2019-03-31] MEDS: oxyCODONE 5 MG Tablet PO (04:31)
[2019-03-31 06:00] VITALS: BP 91/52; PULSE 88; RESP 20; TEMP 37.4; O2SAT 96
[2019-03-31 06:12] LABS: Absolute Lymphocyte Count 0.98 X10^3/ul (0.83-4.51); Absolute Neutrophil Count 4.5 X10^3/uL (2.0-7.7); Basophil# 0.03 X10^3/uL; Basophil% 0.5 % (0-1); Eosinophil# 0.03 X10^3/uL; Eosinophils% 0.5 % (0-5); Hematocrit 26.4 % (40-54); Hemoglobin 7.4 g/dl (13.0-16.5); Lymphocyte # 0.98 X10^3/ul (4.0); Lymphocyte % 15.5 % (19-41); Mean Corpuscular Hgb 20.1 pg (27.0-32.0); Mean Corpuscular Volume 71.5 fL (80-94); Mean Platelet Vol. 8.6 fl (6.2-12.0); Monocyte# 0.79 X10^3/uL; Monocyte% 12.5 % (0-10); Neutrophil # 4.48 X10^3/uL (2.7-7.7); Platelet Count 210 K/mm3 (150-450); RBC Distribution Width CV 18.6 % (11.6-14.6); RBC Distribution Width SD 46.6 fl (35.1-43.9); Red Blood Count 3.69 M/mm3 (4.6-6.2); White Blood Count 6.3 K/mm3 (4.4-11.0)
[2019-03-31 06:15] LABS: Differential Indicated SCAN CRITERIA MET; POSITIVE COUNT NO; POSITIVE DIFFERENTIAL NO; POSITIVE MORPHOLOGY YES
[2019-03-31 06:37] LABS: ALB/GLOB Ratio 0.6 RATIO (0.9-2.4); AST(SGOT) 32 U/L (15-37); Alanine Aminotransfer ALT/SGPT 20 U/L (16-61); Albumin, Serum 2.9 g/dL (3.2-5.0); Alkaline Phosphatase 80 U/L (45-117); Anion Gap 8 (5-15); BUN 10 mg/dL (7-18); BUN/Creat Ratio 13.3 RATIO (10-20); Calcium,Total 8.4 mg/dL (8.5-10.1); Chloride 106 mmol/L (98-107); Creatinine, Serum 0.75 mg/dL (0.70-1.30); EST Glomerular Filtration Rate 108 mL/min (>60); Est Glom Filt Rate - Afr Amer 131 mL/min (>60); Estimated Creatinine Clearance 70.69 ml/min; Globulin 4.6 g/dL (2.2-4.2); Glucose 110 mg/dL (74-106); Potassium 3.8 mmol/L (3.5-5.1); Protein, Total 7.5 g/dL (6.4-8.2); Sodium Level 137 mmol/L (136-145)
[2019-03-31 06:57] LABS: Anisocytosis 1+; Differential Comment SCAN; Hypochromasia 1+; Polychromasia 1+
[2019-03-31 06:58] LABS: Microcytosis 1+
--- NOTE | 2019-03-31 09:06 | RAD_ITS ---
STUDY: X-RAY CHEST REASON FOR EXAM: Male, 73 years old. Cough, left-sided pain TECHNIQUE: PA and lateral views of the chest. COMPARISON: 2012 FINDINGS: Lungs are expanded with superimposed interstitial edema and bilateral pleural effusions best seen on the lateral view. Findings suggest CHF. Follow-up recommended to assure resolution. Normal size heart. Normal mediastinum and samson. Normal visualized pulmonary arteries. Normal visualized aortic arch and descending thoracic aorta. Normal visualized thoracic spine. Normal visualized ribs, clavicles, and shoulders. There is no demonstrated abnormality of the visualized soft tissue structures of the upper abdomen. RAD/Chest PA and Lateral IMPRESSION: Normally expanded lungs with superimposed interstitial edema and bilateral pleural effusions. Findings suggest CHF. Follow-up recommended to assure resolution Electronically Signed: Yonatan Berry MD at 12:19 EDT , Service support ,
[2019-03-31 09:13] VITALS: BP 113/56; PULSE 52; RESP 16; TEMP 36.8; O2SAT 94
[2019-03-31] MEDS: Multivitamins,Therapeutic Tablet 1 TABLET PO (09:16)
[2019-03-31] MEDS: Pantoprazole Sodium 40 MG Tablet PO (09:16)
[2019-03-31] MEDS: Ferrous Sulfate 325 MG Tablet PO ×2 (09:16→15:57)
[2019-03-31] MEDS: Thiamine Hydrochloride 100 MG Tablet PO (09:16)
[2019-03-31] MEDS: Folic Acid 1 MG Tablet PO (09:16)
--- NOTE | 2019-03-31 09:28 | CASEMGMT ---
SW attempted to talk with patient this am regarding ETOH resources. However, he would doze off and was not able to stay engaged in conversation. SW will try again later. Jessica FERRARI MSW
--- NOTE | 2019-03-31 10:01 | PN_ITS ---
<Cooper Anand - Last Filed: 03/31/19 10:01> Patient Problems: Active and Suspected Problems Multiple fractures of ribs, left side, initial encounter for closed fracture (Acute) Closed fracture of glenoid cavity of right scapula (Acute) Alcohol intoxication (Acute) Closed head injury without concussion (Acute) Subjective: Fever 100.6 overnight and development of cough productive of copious white sputum. Denies SOB. Sling on left arm however no fracture here - glenoid fracture on right shoulder. Denies pain in either this AM. Good Active and passive ROM. No CP. He is heavily slurring his speech. His upper extremities are tremulous. He is very weak and unable to sit up in bed without assistance. - Physical Exam General: Alert, Oriented x3, Cooperative HEENT: Atraumatic, PERRLA, EOMI, Normocephalic Neck: Supple, No JVD, Negative Carotid Bruits Lungs: Clear to auscultation, Normal air movement Cardiovascular: Regular rate, No murmurs Abdomen: Bowel Sounds Present, Soft, Non Tender Extremities: No edema, Capillary Refill Less than 3 Seconds Skin: No rashes, No breakdown Musculoskeletal: No Tenderness to Palpation of Joints or Extremities Neurological: Cranial nerves II-XII grossly intact Psych/Mental Status: Normal Affect, Appropriate, Anxious Vital Signs Temp Pulse Resp BP Pulse Ox 98.3 F 52 L 16 113/56 L 94 03/31/19 09:13 03/31/19 09:13 03/31/19 09:13 03/31/19 09:13 03/31/19 09:13 Oxygen Flow Rate (L/min) 2 Oxygen Delivery Method Room Air Weight: 165 lb Body Mass Index (BMI) 23.0 Intake and Output for Last 24 Hours 03/29/19 03/30/19 03/31/19 23:59 23:59 23:59 Intake Total 800 / 800 240 / 240 Output Total 800 / 800 225 / 225 Balance 0 / 0 15 / 15 Microbiology Past 72 Hours 03/30/19 05:30 Stool Occult Blood (BOBBY) - Final Stool Laboratory Tests Past 24 Hrs 03/30/19 03/30/19 03/30/19 03:30 03:30 03:30 WBC RBC Hgb Hct MCV MCH MCHC RDW RDW Differential Plt Count MPV Immature Gran % (Auto) Neut % (Auto) Lymph % (Auto) [place] % (Auto) Eos % (Auto) Baso % (Auto) Absolute Neuts (auto) Absolute Lymphs (auto) Total Counted Differential Comment Polychromasia Hypochromasia Anisocytosis Microcytosis Sodium Potassium Chloride Carbon Dioxide Anion Gap BUN Creatinine Estim Creat Clear Calc Est GFR (MDRD) Af Amer Est GFR (MDRD) Non-Af BUN/Creatinine Ratio Glucose Calcium Total Bilirubin 0.50 Direct Bilirubin 0.21 AST 44 H ALT 23 Alkaline Phosphatase 90 Total Protein 8.2 Albumin 3.5 Globulin 4.7 H Albumin/Globulin Ratio Lipase 275 Vitamin B12 306 Folate 18.00 03/30/19 03/31/19 03/31/19 21:15 05:48 05:48 WBC 6.3 RBC 3.69 L Hgb 8.1 L 7.4 L Hct 28.8 L 26.4 L MCV 71.5 L MCH 20.1 L MCHC 28.0 L RDW 18.6 H RDW Differential 46.6 H Plt Count 210 MPV 8.6 Immature Gran % (Auto) 0.000 Neut % (Auto) 71.0 H Lymph % (Auto) 15.5 L [place] % (Auto) 12.5 H Eos % (Auto) 0.5 Baso % (Auto) 0.5 Absolute Neuts (auto) 4.5 Absolute Lymphs (auto) 0.98 Total Counted Not Reportable Differential Comment SCAN Polychromasia 1+ Hypochromasia 1+ Anisocytosis 1+ Microcytosis 1+ Sodium 137 Potassium 3.8 Chloride 106 Carbon Dioxide 23.0 Anion Gap 8 BUN 10 Creatinine 0.75 Estim Creat Clear Calc 70.69 Est GFR (MDRD) Af Amer 131 Est GFR (MDRD) Non-Af 108 BUN/Creatinine Ratio 13.3 Glucose 110 H Calcium 8.4 L Total Bilirubin 0.70 Direct Bilirubin AST 32 ALT 20 Alkaline Phosphatase 80 Total Protein 7.5 Albumin 2.9 L Globulin 4.6 H Albumin/Globulin Ratio 0.6 L Lipase Vitamin B12 Folate Medical Necessity - Tobacco Use Smoking Status: Current every day smoker Tobacco Use: Cigarettes Assessment/Plan All Active Problems Multiple fractures of ribs, left side, initial encounter for closed fracture (Acute) Closed fracture of glenoid cavity of right scapula (Acute) Alcohol intoxication (Acute) Closed head injury without concussion (Acute) 1. Fall with head contusion, LOC, ? concussion, left rib fractures, glenoid fracture - consult Orthopedics. Supportive care. arm in sling, add IS. Right glenoid fracture - sling removed off left arm. Good ROM/minimal pain. O/p follow up with Ortho. -He had pain in the left shoulder, none today on my exam, left shoulder xray without fracture, suspect strain/sprain . 2. Alcoholism - long hx alcoholism and many times through rehab. States he drinks up to 6 budweisers per day, no liquor. CIWA protocol, ativan taper. No hx withdrawal seizure. Intoxicated at presentation. B12 / folate normal. EtOH 148 at admission. 3. Cough/fever/mucus production - repeat CXR. Check speech eval. Difficulty sp eaking. 4. Cirrhosis - pt previously unaware, seen on imaging today. Likely 2/2 untreated hep C and alcoholism. AST elevated. 5. Iron def anemia - Hgb 7.6. No acute bleeding noted. see iron studies from today. Stool occult blood negative. Give venofer x 3 and start PO iron. 6. Abd pain - lipase negative. no hx pancreatitis. ? gastritis - start PPI. 7. Nicotine abuse - smokes 1/2 ppd. Declines patch. DVT ppx: SCDs DC planning: PTOT This patient was seen by Cooper Anand PA-C under the supervision of Dr. Orona. <Eliseo Orona - Last Filed: 03/31/19 16:42> Subjective: Seen and examined. Patient has alcohol withdrawal symptoms of tremors, slurring speech and difficult comprehensibility. Also noted fever 100.6 Fahrenheit with cough. - Physical Exam General: Alert, Oriented x3, Cooperative HEENT: Atraumatic, PERRLA, EOMI, Normocephalic Neck: Supple, No JVD, Negative Carotid Bruits Lungs: Clear to auscultation, Normal air movement, No rhonchi, No wheeze, No rales, Diminished - Air entry is diminished in bilateral lung bases Cardiovascular: Regular rate, Regular Rhythm, Normal S1, Normal S2, No murmurs Abdomen: Bowel Sounds Present, Soft, Non Tender, Non-Distended Extremities: No edema, Capillary Refill Less than 3 Seconds Skin: No rashes, No breakdown Musculoskeletal: No Tenderness to Palpation of Joints or Extremities, Arthritic Changes, Muscle Wasting, Tenderness - Tenderness on left lower ribs. Tenderness also present on the inferior aspect of left shoulder at the apex of axilla. Neurological: Cranial nerves II-XII grossly intact, Neuro grossly intact Psych/Mental Status: Anxious, Flat Affect Vital Signs Temp Pulse Resp BP Pulse Ox 98.6 F 62 19 H 105/62 92 03/31/19 15:18 03/31/19 15:18 03/31/19 15:18 03/31/19 15:18 03/31/19 15:18 Oxygen Flow Rate (L/min) 2 Oxygen Delivery Method Room Air Weight: 165 lb Body Mass Index (BMI) 23.0 Intake and Output for Last 24 Hours 03/29/19 03/30/19 03/31/19 23:59 23:59 23:59 Intake Total 800 / 800 425 / 425 Output Total 800 / 800 425 / 425 Balance 0 / 0 0 / 0 Microbiology Past 72 Hours 03/30/19 05:30 Stool Occult Blood (BOBBY) - Final Stool Laboratory Tests Past 24 Hrs 03/30/19 03/31/19 03/31/19 21:15 05:48 05:48 WBC 6.3 RBC 3.69 L Hgb 8.1 L 7.4 L Hct 28.8 L 26.4 L MCV 71.5 L MCH 20.1 L MCHC 28.0 L RDW 18.6 H RDW Differential 46.6 H Plt Count 210 MPV 8.6 Immature Gran % (Auto) 0.000 Neut % (Auto) 71.0 H Lymph % (Auto) 15.5 L [place] % (Auto) 12.5 H Eos % (Auto) 0.5 Baso % (Auto) 0.5 Absolute Neuts (auto) 4.5 Absolute Lymphs (auto) 0.98 Total Counted Not Reportable Differential Comment SCAN Polychromasia 1+ Hypochromasia 1+ Anisocytosis 1+ Microcytosis 1+ Sodium 137 Potassium 3.8 Chloride 106 Carbon Dioxide 23.0 Anion Gap 8 BUN 10 Creatinine 0.75 Estim Creat Clear Calc 70.69 Est GFR (MDRD) Af Amer 131 Est GFR (MDRD) Non-Af 108 BUN/Creatinine Ratio 13.3 Glucose 110 H Calcium 8.4 L Total Bilirubin 0.70 AST 32 ALT 20 Alkaline Phosphatase 80 Total Protein 7.5 Albumin 2.9 L Globulin 4.6 H Albumin/Globulin Ratio 0.6 L Assessment/Plan This is a 73-year-old gentleman who is admitted after a fall with injury, possible head contusion and has loss of consciousness. Patient had fracture of left-sided ribs and glenoid cavity of right side. Patient is on IV fluid. Patient has iron deficiency anemia with hemoglobin 7.6. Stool for occult blood negative. Patient received IV iron infusion. Repeat H&H showed transient improvement but back to 7.4/26.4, perhaps related to fluid shift. CT abdomen shows cirrhosis with trace edema, borderline splenomegaly but no varices. No acute intra-abdominal injury. CT head is negative of acute intracranial abnormality. Patient also has a productive cough: Chest x-ray was done and shows shows interstitial edema and bilateral small pleural effusion. Previous chest CT on 03/30 sound bibasilar atelectasis and small apical subpleural bleb formation. Overall imaging suggest patient has possible COPD. Fluid overload from hydration or has baseline heart failure. BNP ordered. 1 dose of Lasix 40 mg ordered. Patient had mild abdominal pain in the epigastric region mostly secondary to GERD or peptic ulcer disease. Patient has severe iron Anemia with hemoglobin 7.6. Possible has chronic GI blood loss. Currently stool for occult blood negative. No aspirin/antiplatelet or anticoagulation. Will need outpatient EGD/colonoscopy with GI work-up. Continue PPI. Alcohol withdrawal: CIWA monitoring. On Ativan as needed protocol. Librium low-dose added for as needed agitation or if CIWA score worsens Orthopedic surgery was consulted and wanted the patient to the office. Microbiology Past 72 Hours 03/30/19 05:30 Stool Stool Occult Blood (BOBBY) - Final Laboratory Results 03/30/19 21:15: Hgb 8.1 L, Hct 28.8 L 03/31/19 05:48: Sodium 137, Potassium 3.8, Chloride 106, Carbon Dioxide 23.0, Anion Gap 8, BUN 10, Creatinine 0.75, Estim Creat Clear Calc 70.69, Est GFR (MDRD) Af Amer 131, Est GFR (MDRD) Non-Af 108, BUN/Creatinine Ratio 13.3, Glucose 110 H, Calcium 8.4 L, Total Bilirubin 0.70, AST 32, ALT 20, Alkaline Phosphatase 80, Total Protein 7.5, Albumin 2.9 L, Globulin 4.6 H, Albumin/Globulin Ratio 0.6 L 03/31/19 05:48: WBC 6.3, RBC 3.69 L, Hgb 7.4 L, Hct 26.4 L, MCV 71.5 L, MCH 20.1 L, MCHC 28.0 L, RDW 18.6 H, RDW Differential 46.6 H, Plt Count 210, MPV 8.6, Immature Gran % (Auto) 0.000, Neut % (Auto) 71.0 H, Lymph % (Auto) 15.5 L, [place] % (Auto) 12.5 H, Eos % (Auto) 0.5, Baso % (Auto) 0.5, Absolute Neuts (auto) 4.5, Absolute Lymphs (auto) 0.98, Total Counted Not Reportable, Differential Comment SCAN, Polychromasia 1+, Hypochromasia 1+, Anisocytosis 1+, Microcytosis 1+ Clinical Impression(s) from Imaging Studies Brain CT 03/30/19 02:28 IMPRESSION: Negative unenhanced CT scan of the brain for acute intracranial abnormality. Left maxillary sinusitis. Ribs w/Chest X-Ray 03/30/19 02:50 IMPRESSION: RIBS: Left lateral fifth to seventh rib fractures. CHEST: Probable left lung base atelectasis. No pneumothorax visualized. Chest CT 03/30/19 03:33 IMPRESSION: Left 5th-7th rib fractures. No evidence for pneumothorax. Bibasilar lung atelectasis. Right glenoid fracture with extension into the joint space. Abdomen/Pelvis CT 03/30/19 08:12 IMPRESSION: Cirrhosis, borderline splenomegaly, no varices, trace ascites. Bibasilar atelectasis of the lungs. Trace left effusion. Left rib fractures. No acute intra-abdominal injury. Multilevel lumbar spondylosis with L4-L5 and L5-S1 spondylolisthesis. No evidence of spinal injury. Code Visit Inpatient E&M: 21463 Subs Hosp L3
--- NOTE | 2019-03-31 10:01 | CASEMGMT ---
Addendum entered by Dayne Parson 03/31/19 10:03: Also attempted to complete RENE form. Pt unable to have form explained and understood at this time. Jennifer RODRIGUEZ Original Note: RN CM Note: Attempted to complete RN CM Assessment. Pt is sleepy and not able to participate at this time. Jennifer STAPLETON RN ACM
[2019-03-31 15:18] VITALS: BP 105/62; PULSE 62; RESP 19; TEMP 37; O2SAT 92
[2019-03-31] MEDS: chlordiazePOXIDE 25 MG Capsule PO (15:57)
--- NOTE | 2019-03-31 16:40 | ECHOD_ITS ---
Reason For Study: Pulm Edema, SOB Procedure This was a 2D Doppler, Color Flow transthoracic echocardiogram. Patient scanned supine due to rib fractures. Exam performed portable in patient room. Left Ventricle Normal size and thickness. The estimated ejection fraction is 60 %. Unable to assess diastolic dysfunction due to arrhythmia. No regional wall motion abnormalities noted. Right Ventricle Normal size and thickness. Normal systolic function. Atria Normal left atrium. Normal right atrium. Normal atrial septum. Mitral Valve The mitral valve is structurally normal. No prolapse or stenosis seen. Tricuspid Valve Normal tricuspid valve. Trivial tricuspid valve insufficiency. Right ventricular systolic pressure estimated to be 29 mmHg. Aortic Valve Trisinus/trileaflet aortic valve. Focal leaflet thickening and calcification along right coronary cusp. Mild restriction of the aortic valve. There is no aortic stenosis. Mild (1+) aortic valve insufficiency. Pulmonic Valve The pulmonic valve is not well visualized. Great Vessels Normal aortic root. Normal arch. The inferior vena cava is dilated. No collapse of the inferior vena cava. Pericardium/Pleural No pericardial effusion. MMode/2D Measurements & Calculations LVIDd: 4.6 cm IVSd: 1.3 cm Ao root diam: 3.3 cm LVIDs: 3.5 cm LVPWd: 1.2 cm RVDd: 3.5 cm FS: 23.2 % LAV(MOD-bp): 26.1 ml LVAd ap4: 25.7 cm2 SV(MOD-sp4): 39.1 ml LAV(MOD-bp) Indexed: 13.4 ml/m2 EDV(MOD-sp4): 76.8 ml LAV(MOD-sp2): 15.7 ml EDV(sp4-el): 79.5 ml LAV(MOD-sp4): 27.0 ml LVAs ap4: 16.5 cm2 ESV(MOD-sp4): 37.7 ml ESV(sp4-el): 38.1 ml EF(MOD-sp4): 50.9 % EF(sp4-el): 52.1 % SV(sp4-el): 41.4 ml LA A4 area: 13.8 cm2 LA dimension(2D): 3.3 cm RA A4 area: 13.7 cm2 Doppler Measurements & Calculations MV E max caity: 97.7 cm/sec Ao V2 max: 186.9 cm/sec LV V1 max: 96.6 cm/sec Ao max P.0 mmHg LV V1 max P.8 mmHg Ao V2 mean: 142.4 cm/sec Ao mean P.7 mmHg Ao V2 VTI: 33.3 cm PA V2 max: 86.9 cm/sec TR max caity: 224.8 cm/sec TR max P.4 mmHg Interpretation Summary The estimated ejection fraction is 60 %. Unable to assess diastolic dysfunction due to arrhythmia. Trivial tricuspid valve insufficiency. Right ventricular systolic pressure estimated to be 29 mmHg, but may be underestimated. Focal leaflet thickening and calcification along right coronary cusp. Mild (1+) aortic valve insufficiency. There is no comparison study available. Ordering Physician: Eliseo Orona Referring Physician: Ez Alexandre Performed By: Lo Roman RDCS, RVT
[2019-03-31] MEDS: Furosemide 40 MG/4 ML Vial IV (17:01)
[2019-03-31 17:46] LABS: BNP,B-Type NATRIURETIC PEPTIDE 311.8 pg/mL (0-100)
[2019-03-31 21:24] VITALS: BP 121/55; PULSE 87; RESP 16; TEMP 37.3; O2SAT 92
[2019-04-01] VITALS (8 sets, daily range): BP systolic 104–121; BP diastolic 53–66; PULSE 65–106; RESP 18–20; TEMP 37.1–37.6; O2SAT 87–94
[2019-04-01] MEDS: Methocarbamol 750 MG Tablet PO (00:02)
[2019-04-01] MEDS: chlordiazePOXIDE 25 MG Capsule PO (03:42)
[2019-04-01 06:12] LABS: Absolute Neutrophil Count 5.8 X10^3/uL (2.0-7.7); Basophil# 0.02 X10^3/uL; Basophil% 0.3 % (0-1); Eosinophil# 0.06 X10^3/uL; Eosinophils% 0.8 % (0-5); Hematocrit 29.2 % (40-54); Hemoglobin 8.3 g/dl (13.0-16.5); Lymphocyte % 12.7 % (19-41); Mean Corp Hgb Conc 28.4 g/gl (32-36); Mean Corpuscular Hgb 20.3 pg (27.0-32.0); Mean Corpuscular Volume 71.6 fL (80-94); Mean Platelet Vol. 8.9 fl (6.2-12.0); Monocyte% 12.7 % (0-10); Neutrophil # 5.78 X10^3/uL (2.7-7.7); Neutrophil % 73.2 % (47-70); Platelet Count 220 K/mm3 (150-450); RBC Distribution Width CV 18.9 % (11.6-14.6); RBC Distribution Width SD 47.2 fl (35.1-43.9); Red Blood Count 4.08 M/mm3 (4.6-6.2); White Blood Count 7.9 K/mm3 (4.4-11.0)
[2019-04-01 06:18] LABS: Differential Indicated SCAN CRITERIA MET; POSITIVE COUNT NO; POSITIVE DIFFERENTIAL NO; POSITIVE MORPHOLOGY YES
[2019-04-01 06:34] LABS: Anisocytosis 1+; Differential Comment SCAN; Hypochromasia 1+; Microcytosis 1+; Platelet Estimate ADEQUATE (ADEQ); Platelet Morphology GIANT; Polychromasia 1+
[2019-04-01] MEDS: Multivitamins,Therapeutic Tablet 1 TABLET PO (09:10)
[2019-04-01] MEDS: Ferrous Sulfate 325 MG Tablet PO ×2 (09:10→17:35)
[2019-04-01] MEDS: Folic Acid 1 MG Tablet PO (09:10)
[2019-04-01] MEDS: Thiamine Hydrochloride 100 MG Tablet PO (09:10)
[2019-04-01] MEDS: Pantoprazole Sodium 40 MG Tablet PO (09:10)
--- NOTE | 2019-04-01 11:23 | CASEMGMT ---
Addendum entered by Mar Duong 04/01/19 12:20: Call from Deepti at [facility] and they are able to accept pt. Precert to be started at this time. With pt permission, phone call to pt son to inform of d/c plan. Call place but unable to leave message as VM is not set up. Plan: [facility], pending insurance authorization NAVDEEP Raphael Original Note: Social Work Spoke with therapist who state pt would benefit from short term SNF and his functionality is declined. SW met with pt in room and pt had friend in room as well. Permission given to speak with friend in the room. Discussed with pt functional limitations and need for short term SNF. Pt is agreeable to SNF for rehab and would like [facility]. SW spoke with pt regarding ETOH. Pt acknowledges that he does have an alcohol problem and has been through every program in the area and none have been helpful. SW inquired about 180. Pt denies use of this program in the past but stating he will focus on physical rehab prior to addressing alcohol abuse issues. Pt stating he knows that he just needs to quite cold turkey. SW discussed with pt option of having a friend clean alcohol out of house prior to return home from SNF as he will have gone through a length of time without alcohol when ready to return home. Pt stating he does not have any alcohol in his home at this time as he drank it all. Referral made to Deepti at [facility] and information faxed. Will await determination if they can accept. Plan: [facility], pending acceptance and insurance preautNAVDEEP Bond
--- NOTE | 2019-04-01 11:30 | PCM.TXEXTCAR ---
- Diet 03/30/19 10:30 Diet: 2 Gram Sodium - Routine Orders/Code Status Suppository Type: Dulcolax 10mg Suppository Frequency: Daily PRN Routine Lab Work: CBC, BMP - on 04/06/19 - Therapies Weight Bearing: Weight bearing as tolerated Extremity Affected:: Bilateral Lower Physical Therapy: Eval and Treat Occupational Therapy: Eval and Treat Speech Therapy: Eval and Treat - Allergies/Procedures Done in Hospital Allergies/Adverse Reactions: Allergies No Known Allergies Allergy (Verified 01/18/18 22:56) - Type of Care/Length of Stay Estimated LOS: Convalescent Care Less Than 30 days Type of Care Needed: Skilled Rehab Potential: Good Prognosis: Good - Additional Orders/Day of Discharge Day of Discharge: 04/01/19 - Follow Up Care Primary Care Physician: Gianluca Hare MD [STAFF PHYSICIAN] - As soon as possible (regarding your right shoulder; call for appt) Ez Alexandre MD [Primary Care Provider] - 3-5 Days (call today for appt) Please Follow Up With: Vasu Cervantes MD When: in 1-2 weeks for anemia for endoscopy evaluation Please Follow Up With: Riki Stoner MD When: 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
--- NOTE | 2019-04-01 12:11 | PCM.DC.SUM ---
Discharge Date and Diagnosis - Problem List Patient Problems: Active and Suspected Problems Multiple fractures of ribs, left side, initial encounter for closed fracture (Acute) Closed fracture of glenoid cavity of right scapula (Acute) Alcohol intoxication (Acute) Closed head injury without concussion (Acute) Date of Admission: 03/30/19 Date of Discharge: 04/01/19 - Primary Discharge Diagnosis Active and Suspected Problems Multiple fractures of ribs, left side, initial encounter for closed fracture (Acute) Closed fracture of glenoid cavity of right scapula (Acute) Alcohol intoxication (Acute) Closed head injury without concussion (Acute) - Secondary Discharge Diagnosis Chronic Problems Microcytic anemia (Chronic) Alcoholism (Chronic) Cirrhosis (Chronic) Hepatitis C (Chronic) Nicotine abuse (Chronic) Hospital Course and Treatment Summary of Care Provided: ] This is a 73-year-old gentleman who is admitted after a fall with injury, possible head contusion and has loss of consciousness. Patient had fracture of left-sided ribs and glenoid cavity of right side. Patient is on IV fluid. Patient has iron deficiency anemia with hemoglobin 7.6. Stool for occult blood negative. Patient received IV iron infusion. Repeat H&H showed transient improvement but back to 7.4/26.4, perhaps related to fluid shift. Repeat H&H showed 8.3/29.2 with microcytic picture in peripheral blood smear. RDW 18.9 high. Patient was given iron infusion and discharged on ferrous sulfate. Currently stool for occult blood negative. No aspirin/antiplatelet or anticoagulation. Will need outpatient EGD/colonoscopy with GI work-up. Continue PPI. Patient has alcoholic cirrhosis. CT abdomen shows cirrhosis with trace edema, borderline splenomegaly but no varices. No acute intra-abdominal injury. CT head is negative of acute intracranial abnormality. Acute pulmonary congestion/bilateral small pleural effusion secondary to fluid overload secondary to aggressive IV fluid resuscitation or acute on chronic heart failure with preserved EF secondary to aggressive fluid resuscitation: Patient also has a productive cough: Chest x-ray was done and shows shows interstitial edema and bilateral small pleural effusion. No focal consolidation. Previous chest CT on 03/30 sound bibasilar atelectasis and small apical subpleural bleb formation. CT chest on 03/30 reviewed and does not show significant pleural effusion. Overall imaging suggest patient has possible COPD. Fluid overload from hydration or has baseline heart failure. BNP 311. Echo shows EF 60% no regional wall motion normal. Normal right ventricle. Normal right and left atria. Mitral valve normal. Trivial TR, RVSP 20 mmHg. Normal tricuspid valve. Mild AI. Patient was diuresed well. Patient does not have shortness of breath. Alcohol withdrawal: CIWA monitoring. On Ativan as needed protocol. Librium low-dose added for as needed agitation or if CIWA score worsens patient received 2 doses of Librium during hospital course. Orthopedic surgery was consulted and wanted the patient to the office. Discharge medication reconciliation done. Discharge follow-up instructions completed. Discharge process discussed with the patient and all questions were answered to patient's satisfaction. Patient is being discharged to SNF. Follow-up appointments given. Total time spent, exact 35 minutes on discharge meds reconciliation, examination, review of imaging and blood test and discussion with the patient on follow-up instructions. Microbiology Past 72 Hours 03/30/19 05:30 Stool Stool Occult Blood (BOBBY) - Final Laboratory Results 03/31/19 05:48: B-Natriuretic Peptide 311.8 H 04/01/19 05:42: WBC 7.9, RBC 4.08 L, Hgb 8.3 L, Hct 29.2 L, MCV 71.6 L, MCH 20.3 L, MCHC 28.4 L, RDW 18.9 H, RDW Differential 47.2 H, Plt Count 220, MPV 8.9, Immature Gran % (Auto) 0.300, Neut % (Auto) 73.2 H, Lymph % (Auto) 12.7 L, Maries % (Auto) 12.7 H, Eos % (Auto) 0.8, Baso % (Auto) 0.3, Absolute Neuts (auto) 5.8, Absolute Lymphs (auto) 1.00, Total Counted Not Reportable, Differential Comment SCAN, Platelet Estimate ADEQUATE, Plt Morphology Comment GIANT, Polychromasia 1+, Hypochromasia 1+, Anisocytosis 1+, Microcytosis 1+ Clinical Impression(s) from Imaging Studies Brain CT 03/30/19 02:28 IMPRESSION: Negative unenhanced CT scan of the brain for acute intracranial abnormality. Left maxillary sinusitis. Electronically Signed: Rigoberto Reeves, at 3:02 EDT Tel , Service support , Ribs w/Chest X-Ray 03/30/19 02:50 IMPRESSION: RIBS: Left lateral fifth to seventh rib fractures. CHEST: Probable left lung base atelectasis. No pneumothorax visualized. Electronically Signed: Rigoberto Reeves, at 3:30 EDT Tel , Service support , Chest CT 03/30/19 03:33 IMPRESSION: Left 5th-7th rib fractures. No evidence for pneumothorax. Bibasilar lung atelectasis. Right glenoid fracture with extension into the joint space. Electronically Signed: Rigboerto Chaneyassen, at 4:24 EDT Tel , Service support , Abdomen/Pelvis CT 03/30/19 08:12 IMPRESSION: Cirrhosis, borderline splenomegaly, no varices, trace ascites. Bibasilar atelectasis of the lungs. Trace left effusion. Left rib fractures. No acute intra-abdominal injury. Multilevel lumbar spondylosis with L4-L5 and L5-S1 spondylolisthesis. No evidence of spinal injury. Electronically Signed: Temo Schmid MD at 9:01 EDT Tel , Service support , Shoulder X-Ray 03/30/19 16:15 IMPRESSION: There is no evidence of fracture, dislocation, or significant degenerative disease of the osseous structures of the left shoulder joint. There are slightly displaced fractures of the anterior left sixth and seventh ribs. There is left basilar discoid atelectasis. Electronically Signed: Davide Sánchez MD at 16:32 EDT , Service support , Chest X-Ray 03/31/19 09:06 IMPRESSION: Normally expanded lungs with superimposed interstitial edema and bilateral pleural effusions. Findings suggest CHF. Follow-up recommended to assure resolution Electronically Signed: Yonatan Berry MD at 12:19 EDT , Service support , Active Medications Chlordiazepoxide (Librium) 25 mg PO TID PRN PRN PRN Reason: AGITATION Last Admin: 04/01/19 03:42 Dose: 25 mg Documented by: Dicyclomine HCl (Bentyl) 20 mg PO Q6H PRN PRN PRN Reason: abdominal discomfort [facility]ous S[facility] ([facility]) [facility] Last Admin: 04/01/19 09:10 Dose: 325 mg Documented by: Folic Acid (Folic Acid) [facility] Stop: 04/02/19 08:01 Last Admin: 04/01/19 09:10 Dose: 1 mg Documented by: Lorazepam (Ativan) 1 mg IV Q4H PRN PRN PRN Reason: Severe Anxiety Lorazepam (Ativan) 2 mg IV X1 PRN PRN Reason: Seizure Methocarbamol (Methocarbamol) 750 mg PO Q6H PRN PRN PRN Reason: Muscle Aches Last Admin: 04/01/19 00:02 Dose: 750 mg Documented by: Multivitamins (Multivitamin) [facility] tablet [facility] Last Admin: 04/01/19 09:10 Dose: 1 tablet Documented by: Pantoprazole Sodium (Protonix) 40 mg PO DAILY [facility] Last Admin: 04/01/19 09:10 Dose: 40 mg Documented by: Sodium Chloride () 10 - 40 ml IV UD PRN PRN Reason: SALINE FLUSH Thiamine HCl (Vitamin B1) [facility] Stop: 04/02/19 08:01 Last Admin: 04/01/19 09:10 Dose: 100 mg Documented by: Patient Problems: Active and Suspected Problems Multiple fractures of ribs, left side, initial encounter for closed fracture (Acute) Closed fracture of glenoid cavity of right scapula (Acute) Alcohol intoxication (Acute) Closed head injury without concussion (Acute) Subjective: The patient seen and examined. Patient is more awake and alert. Withdrawal symptoms been well controlled. Patient also walked along with physical therapist. No fever/chill last 24 hours. - Physical Exam General: Alert, Oriented x3, Cooperative HEENT: Atraumatic, PERRLA, EOMI, Normocephalic Neck: Supple, No JVD, Negative Carotid Bruits Lungs: No rhonchi, No wheeze, No rales, Diminished, - - Air entry is diminished in bilateral lung bases. Tenderness present on left lower ribs and inferior aspect of left shoulder at the apex of axilla. Cardiovascular: Regular rate, Regular Rhythm, Normal S1, Normal S2, No murmurs Abdomen: Bowel Sounds Present, Soft, Non Tender, Non-Distended Extremities: No edema, Capillary Refill Less than 3 Seconds Skin: No rashes, No breakdown Musculoskeletal: No Tenderness to Palpation of Joints or Extremities, Arthritic Changes, Muscle Wasting Lymphatic: No Cervical, Supraclavicular, or Inguinal Adenopathy Neurological: Cranial nerves II-XII grossly intact, Deep Tendon Reflexes 2+/4 and Symmetrical, Neuro grossly intact Psych/Mental Status: Normal Affect, Appropriate Vital Signs Temp Pulse Resp BP Pulse Ox 99.0 F 65 20 H 121/53 H 93 04/01/19 09:09 04/01/19 09:09 04/01/19 09:09 04/01/19 09:09 04/01/19 09:09 Oxygen Flow Rate (L/min) 2 Oxygen Delivery Method Room Air Weight: 165 lb Body Mass Index (BMI) 23.0 Intake and Output for Last 24 Hours 03/30/19 03/31/19 04/01/19 23:59 23:59 23:59 Intake Total 800 / 800 785 / 785 400 / 400 Output Total 800 / 800 875 / 875 950 / 950 Balance 0 / 0 -90 / -90 -550 / -550 Microbiology Past 72 Hours 03/30/19 05:30 Stool Occult Blood (BOBBY) - Final Stool Laboratory Tests Past 24 Hrs 03/31/19 04/01/19 05:48 05:42 WBC 7.9 RBC 4.08 L Hgb 8.3 L Hct 29.2 L MCV 71.6 L MCH 20.3 L MCHC 28.4 L RDW 18.9 H RDW Differential 47.2 H Plt Count 220 MPV 8.9 Immature Gran % (Auto) 0.300 Neut % (Auto) 73.2 H Lymph % (Auto) 12.7 L Maries % (Auto) 12.7 H Eos % (Auto) 0.8 Baso % (Auto) 0.3 Absolute Neuts (auto) 5.8 Absolute Lymphs (auto) 1.00 Total Counted Not Reportable Differential Comment SCAN Platelet Estimate ADEQUATE Plt Morphology Comment GIANT Polychromasia 1+ Hypochromasia 1+ Anisocytosis 1+ Microcytosis 1+ B-Natriuretic Peptide 311.8 H Home Medications: Medications to take at Discharge Docusate Sodium [Colace] 100 mg PO DAILY #30 cap 03/30/19 Ferrous Sulfate [Iron] 325 mg PO TID #90 tab 03/30/19 Ferrous Sulfate 325 mg PO BIDCM tab 04/01/19 Folic Acid 1 mg PO DAILYCM tab 04/01/19 Pantoprazole Sodium [Protonix] 40 mg PO DAILY tab 04/01/19 Thiamine Hydrochloride [Vitamin B1] 100 mg PO DAILYCM tab 04/01/19 Following Prescrptions Were Given to Patient: Docusate Sodium [Colace] 100 mg PO DAILY #30 cap Prescription Printed Ferrous Sulfate [Iron] 325 mg PO TID #90 tab Prescription Printed Primary Care Physician: Gianluca Haer MD [STAFF PHYSICIAN] - As soon as possible (regarding your right shoulder; call for appt) Ez Alexandre MD [Primary Care Provider] - 3-5 Days (call today for appt) Please Follow Up With: Vasu Cervantes MD When: in 1-2 weeks for anemia for endoscopy evaluation Please Follow Up With: Riki Stoner MD When: 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 Patient Instructions: ANEMIA, Iron Deficiency (Adult), FRACTURE, Rib, FRACTURE, Shoulder, Sling Medical Necessity - Tobacco Use Smoking Status: Current every day smoker Tobacco Use: Cigarettes Meaningful Use Info Meaningful Use Diagnoses (Choose all that apply): None applicable Code Visit Inpatient E&M: 03949 Disch Hosp
--- NOTE | 2019-04-01 14:54 | CASEMGMT ---
Intro role of CM to patient and RENE form explained re: Observation status for treatment of rib fractures and closed head injury without concussion. Explained hospitalization will be paid per? insurance policy for Outpatient billing?and condition will continue to be evaluated for Inpt necessity. Also let pt know that [facility] sends paper in the billing packet with their phone number if questions arise. Discussed Pharmacy section of RENE form and self administered medication guideline.? Pt verbalizes understanding and does not have further questions. Form signed and placed in chart, copy to pt. YARON LUTZ BSN CM
--- NOTE | 2019-04-01 16:56 | PCM.PN.HOSP ---
Patient Problems: Active and Suspected Problems Multiple fractures of ribs, left side, initial encounter for closed fracture (Acute) Closed fracture of glenoid cavity of right scapula (Acute) Alcohol intoxication (Acute) Closed head injury without concussion (Acute) Subjective: The patient is mildly short of breath. Saturation 92% on room air. Repeat chest x-ray shows mild bilateral pleural effusion. Echo reviewed. Objective: General: Alert, Oriented x3, Cooperative HEENT: Atraumatic, PERRLA, EOMI, Normocephalic Neck: Supple, No JVD, Negative Carotid Bruits Lungs: No rhonchi, No wheeze, No rales, Diminished, - - Air entry is diminished in bilateral lung bases. Tenderness present on left lower ribs and inferior aspect of left shoulder at the apex of axilla. Cardiovascular: Regular rate, Regular Rhythm, Normal S1, Normal S2, No murmurs Abdomen: Bowel Sounds Present, Soft, Non Tender, Non-Distended Extremities: No edema, Capillary Refill Less than 3 Seconds Skin: No rashes, No breakdown Musculoskeletal: No Tenderness to Palpation of Joints or Extremities, Arthritic Changes, Muscle Wasting Lymphatic: No Cervical, Supraclavicular, or Inguinal Adenopathy Neurological: Cranial nerves II-XII grossly intact, Deep Tendon Reflexes 2+/4 and Symmetrical, Neuro grossly intact Psych/Mental Status: Normal Affect, Appropriate Vitals/I&O's: Vital Signs Temp Pulse Resp BP Pulse Ox 99.3 F H 77 20 H 116/63 92 04/01/19 14:11 04/01/19 14:11 04/01/19 14:11 04/01/19 14:11 04/01/19 14:11 Oxygen Flow Rate (L/min) 2 Oxygen Delivery Method Room Air Weight: 165 lb Body Mass Index (BMI) 23.0 Intake and Output for Last 24 Hours 03/30/19 03/31/19 04/01/19 23:59 23:59 23:59 Intake Total 800 / 800 785 / 785 810 / 810 Output Total 800 / 800 875 / 875 1100 / 1100 Balance 0 / 0 -90 / -90 -290 / -290 Microbiology Past 72 Hours 03/30/19 05:30 Stool Stool Occult Blood (BOBBY) - Final Laboratory Results 03/31/19 05:48: B-Natriuretic Peptide 311.8 H 04/01/19 05:42: WBC 7.9, RBC 4.08 L, Hgb 8.3 L, Hct 29.2 L, MCV 71.6 L, MCH 20.3 L, MCHC 28.4 L, RDW 18.9 H, RDW Differential 47.2 H, Plt Count 220, MPV 8.9, Immature Gran % (Auto) 0.300, Neut % (Auto) 73.2 H, Lymph % (Auto) 12.7 L, Corson % (Auto) 12.7 H, Eos % (Auto) 0.8, Baso % (Auto) 0.3, Absolute Neuts (auto) 5.8, Absolute Lymphs (auto) 1.00, Total Counted Not Reportable, Differential Comment SCAN, Platelet Estimate ADEQUATE, Plt Morphology Comment GIANT, Polychromasia 1+, Hypochromasia 1+, Anisocytosis 1+, Microcytosis 1+ Current Medications Albuterol/Ipratropium (Duoneb) 3 ml INHALATION Q6HWA.RT [facility] Chlordiazepoxide (Librium) 25 mg PO TID PRN PRN PRN Reason: AGITATION Last Admin: 04/01/19 03:42 Dose: 25 mg Documented by: Dicyclomine HCl (Bentyl) 20 mg PO Q6H PRN PRN PRN Reason: abdominal discomfort [facility]ous S[facility] Last Admin: 04/01/19 09:10 Dose: 325 mg Documented by: Folic Acid (Folic Acid) [facility] Stop: 04/02/19 08:01 Last Admin: 04/01/19 09:10 Dose: 1 mg Documented by: Guaifenesin (Mucinex) 1,200 mg PO BID [facility] Lorazepam (Ativan) 1 mg IV Q4H PRN PRN PRN Reason: Severe Anxiety Lorazepam (Ativan) 2 mg IV X1 PRN PRN Reason: Seizure Methocarbamol (Methocarbamol) 750 mg PO Q6H PRN PRN PRN Reason: Muscle Aches Last Admin: 04/01/19 00:02 Dose: 750 mg Documented by: Multivitamins (Multivitamin) [facility] Last Admin: 04/01/19 09:10 Dose: 1 tablet Documented by: Pantoprazole Sodium (Protonix) 40 mg PO DAILY [facility] Last Admin: 04/01/19 09:10 Dose: 40 mg Documented by: Sodium Chloride () 10 - 40 ml IV UD PRN PRN Reason: SALINE FLUSH Thiamine HCl (Vitamin B1) 100 mg PO DAILYCM [facility] Stop: 04/02/19 08:01 Last Admin: 04/01/19 09:10 Dose: 100 mg Documented by: Medical Necessity - Tobacco Use Smoking Status: Current every day smoker Tobacco Use: Cigarettes Assessment/Plan All Active Problems Multiple fractures of ribs, left side, initial encounter for closed fracture (Acute) Closed fracture of glenoid cavity of right scapula (Acute) Alcohol intoxication (Acute) Closed head injury without concussion (Acute) This is a 73-year-old gentleman who is admitted after a fall with injury, possible head contusion and has loss of consciousness. Patient had fracture of left-sided ribs and glenoid cavity of right side. Patient is on IV fluid. Patient has iron deficiency anemia with hemoglobin 7.6. Stool for occult blood negative. Patient received IV iron infusion. Repeat H&H showed transient improvement but back to 7.4/26.4, perhaps related to fluid shift. Repeat H&H showed 8.3/29.2 with microcytic picture in peripheral blood smear. RDW 18.9 high. Patient was given iron infusion and discharged on ferrous sulfate. Currently stool for occult blood negative. No aspirin/antiplatelet or anticoagulation. Will need outpatient EGD/colonoscopy with GI work-up. Continue PPI. Patient has alcoholic cirrhosis. CT abdomen shows cirrhosis with trace edema, borderline splenomegaly but no varices. No acute intra-abdominal injury. CT head is negative of acute intracranial abnormality. Acute pulmonary congestion/bilateral small pleural effusion secondary to fluid overload secondary to aggressive IV fluid resuscitation or acute on chronic heart failure with preserved EF secondary to aggressive fluid resuscitation: Patient also has a productive cough: Chest x-ray was done and shows shows interstitial edema and bilateral small pleural effusion. No focal consolidation. Previous chest CT on 03/30 sound bibasilar atelectasis and small apical subpleural bleb formation. CT chest on 03/30 reviewed and does not show significant pleural effusion. Overall imaging suggest patient has possible COPD. Fluid overload from hydration or has baseline heart failure. BNP 311. Echo shows EF 60% no regional wall motion normal. Normal right ventricle. Normal right and left atria. Mitral valve normal. Trivial TR, RVSP 20 mmHg. Normal tricuspid valve. Mild AI. Patient was diuresed well. Patient does not have shortness of breath. Alcohol withdrawal: CIWA monitoring. On Ativan as needed protocol. Librium low-dose added for as needed agitation or if CIWA score worsens patient received 2 doses of Librium during hospital course. Orthopedic surgery was consulted and wanted the patient to the office. Discharge medication reconciliation done. Discharge follow-up instructions completed. Discharge process discussed with the patient and all questions were answered to patient's satisfaction. Patient is being discharged to SNF. Follow-up appointments given. Total time spent, exact 35 minutes on discharge meds reconciliation, examination, review of imaging and blood test and discussion with the patient on follow-up instructions. Microbiology Past 72 Hours 03/30/19 05:30 Stool Stool Occult Blood (BOBBY) - Final Laboratory Results 03/31/19 05:48: B-Natriuretic Peptide 311.8 H 04/01/19 05:42: WBC 7.9, RBC 4.08 L, Hgb 8.3 L, Hct 29.2 L, MCV 71.6 L, MCH 20.3 L, MCHC 28.4 L, RDW 18.9 H, RDW Differential 47.2 H, Plt Count 220, MPV 8.9, Immature Gran % (Auto) 0.300, Neut % (Auto) 73.2 H, Lymph % (Auto) 12.7 L, Corson % (Auto) 12.7 H, Eos % (Auto) 0.8, Baso % (Auto) 0.3, Absolute Neuts (auto) 5.8, Absolute Lymphs (auto) 1.00, Total Counted Not Reportable, Differential Comment SCAN, Platelet Estimate ADEQUATE, Plt Morphology Comment GIANT, Polychromasia 1+, Hypochromasia 1+, Anisocytosis 1+, Microcytosis 1+ Code Visit Inpatient E&M: 03472 Subs Hosp L3
[2019-04-01] MEDS: Furosemide 40 MG Tablet PO (17:35)
--- NOTE | 2019-04-01 17:49 | PCA ---
precert to snf has been obtained, snf can take patient tomorrow, snf needs a hens form from [facility].
[2019-04-01] MEDS: guaiFENesin 1,200 MG Tablet 1200 MG PO ×2 (18:52→21:11)
[2019-04-01] MEDS: Ipratropium/Albuterol Sulfate 3 ML AMPUL.NEB INHALATION (19:25)
--- NOTE | 2019-04-01 21:40 | EKG12_ITS ---
Test Reason : RHYTHUM Blood Pressure : / mmHG Vent. Rate : 114 BPM Atrial Rate : 019 BPM P-R Int : 000 ms QRS Dur : 092 ms QT Int : 364 ms P-R-T Axes : 000 037 036 degrees QTc Int : 501 ms Atrial fibrillation with rapid ventricular response Abnormal ECG Confirmed by CHRISTINA CAMPBELL, RASHID ([id number]), slot editor RENALDO ACOSTA ([id number]) on 04/07/2019 2:08:04 PM Referred By: CHERRIE Confirmed By:RASHID VASQUEZ MD
--- NOTE | 2019-04-01 22:26 | PCM.PN.BLA ---
Progress Note Notified by nurse that patient had irregular irregular heart rate. Nurse went ahead to get EKG which showed Afib with ventricular rate of 114. Patient documented heart rate is 50S to 80s. Patient was accessed at bedside. Patient denies any history of A. fib. Heart rate irregular irregular. Patient noted to have anemia and received iron transfusion earlier today. Also patient on Protonix. Will not start anticoagulation at this time. Echocardiogram was done today. We will check a TSH and magnesium. Magnesium originally ordered in am by rounding doctor discontinued. Potassium level on 03/31/19 was 3.8. Optimized by giving 20meq KCL. BMP already schedule for am. Patient does not require rate control at this time. Change to PCU status and placed on Telemetry. Consider discussing with Cardiology.
[2019-04-01 23:59] LABS: Magnesium 1.8 mg/dL (1.6-2.6); Thyroid Stim Hormone (TSH) 1.34 uIU/mL (0.358-3.74)
[2019-04-02] VITALS (8 sets, daily range): BP systolic 94–104; BP diastolic 54–68; PULSE 58–100; RESP 18–20; TEMP 36.7–37.3; O2SAT 95–100
[2019-04-02] MEDS: Methocarbamol 750 MG Tablet PO (05:50)
--- NOTE | 2019-04-02 05:55 | EKG12_ITS ---
Test Reason : AM Blood Pressure : / mmHG Vent. Rate : 103 BPM Atrial Rate : 103 BPM P-R Int : 000 ms QRS Dur : 096 ms QT Int : 358 ms P-R-T Axes : 000 043 042 degrees QTc Int : 468 ms Atrial fibrillation with rapid ventricular response with premature ventricular or aberrantly conducte d complexes Abnormal ECG Confirmed by DIAMOND CAMPBELL, JENNIFER ([id number]), editor producer JULIA WEI ([id number]) on 04/06/2019 1:46:04 PM Referred By: CHERRIE Confirmed By:JENNIFER FIELDS MD
--- NOTE | 2019-04-02 07:45 | RAD_ITS ---
STUDY: X-RAY CHEST REASON FOR EXAM: Male, 73 years old. Dyspnea, shortness of breath TECHNIQUE: AP and lateral views of the chest. COMPARISON: 03/31/2019 FINDINGS: There are low lung volumes with airspace disease in the lung bases with pleural effusion best seen on lateral view. Aeration in the left base appears improved. Pleural thickening along the left mid chest wall is stable. There is mild cardiac enlargement. Normal mediastinum and samson. Normal visualized pulmonary arteries. Normal visualized aortic arch and descending thoracic aorta. There are diffuse degenerative changes of the visualized thoracic spine. Normal visualized ribs, clavicles, and shoulders. There is no demonstrated abnormality of the visualized soft tissue structures of the upper abdomen. RAD/Chest PA and Lateral IMPRESSION: Bilateral basilar airspace disease and pleural effusion, cardiac enlargement with improved aeration in the left base. Electronically Signed: Yessi Gamez MD at 11:43 EDT , Service support ,
[2019-04-02 07:58] LABS: Anion Gap 8 (5-15); BUN 13 mg/dL (7-18); BUN/Creat Ratio 17.8 RATIO (10-20); Calcium,Total 8.2 mg/dL (8.5-10.1); Chloride 105 mmol/L (98-107); Creatinine, Serum 0.73 mg/dL (0.70-1.30); EST Glomerular Filtration Rate 112 mL/min (>60); Est Glom Filt Rate - Afr Amer 136 mL/min (>60); Estimated Creatinine Clearance 70.69 ml/min; Glucose 99 mg/dL (74-106); Potassium 3.7 mmol/L (3.5-5.1); Sodium Level 136 mmol/L (136-145)
[2019-04-02] MEDS: Folic Acid 1 MG Tablet PO (08:31)
[2019-04-02] MEDS: Ferrous Sulfate 325 MG Tablet PO (08:31)
[2019-04-02] MEDS: Multivitamins,Therapeutic Tablet 1 TABLET PO (08:31)
[2019-04-02] MEDS: Thiamine Hydrochloride 100 MG Tablet PO (08:31)
[2019-04-02 10:23] LABS: Absolute Lymphocyte Count 1.04 X10^3/ul (0.83-4.51); Absolute Neutrophil Count 5.1 X10^3/uL (2.0-7.7); Basophil# 0.04 X10^3/uL; Basophil% 0.5 % (0-1); Differential Indicated SCAN CRITERIA MET; Eosinophil# 0.25 X10^3/uL; Eosinophils% 3.3 % (0-5); Hematocrit 28.6 % (40-54); Hemoglobin 8.2 g/dl (13.0-16.5); Lymphocyte # 1.04 X10^3/ul (4.0); Lymphocyte % 13.8 % (19-41); Mean Corp Hgb Conc 28.7 g/gl (32-36); Mean Corpuscular Hgb 20.9 pg (27.0-32.0); Mean Corpuscular Volume 72.8 fL (80-94); Mean Platelet Vol. 9.5 fl (6.2-12.0); Monocyte# 1.06 X10^3/uL; Monocyte% 14.1 % (0-10); POSITIVE COUNT NO; POSITIVE DIFFERENTIAL NO; POSITIVE MORPHOLOGY YES; Platelet Count 235 K/mm3 (150-450); RBC Distribution Width CV 19.6 % (11.6-14.6); RBC Distribution Width SD 46.8 fl (35.1-43.9); Red Blood Count 3.93 M/mm3 (4.6-6.2); White Blood Count 7.5 K/mm3 (4.4-11.0)
[2019-04-02 10:33] LABS: Anisocytosis 2+; Differential Comment SCANNED; Hypochromasia 2+; Microcytosis 2+
[2019-04-02] MEDS: guaiFENesin 1,200 MG Tablet 1200 MG PO (10:41)
[2019-04-02] MEDS: Furosemide 20 MG Tablet PO (10:41)
[2019-04-02] MEDS: Pantoprazole Sodium 40 MG Tablet PO (10:41)
--- NOTE | 2019-04-02 10:54 | NURSING ---
Sandra from [facility] called and sated that they received percert. Dr. Orona aware and plans are to dc patient.
--- NOTE | 2019-04-02 11:14 | PCM.TXEXTCAR ---
- Diet 03/30/19 10:30 Diet: 2 Gram Sodium - Routine Orders/Code Status Suppository Type: Dulcolax 10mg Suppository Frequency: Daily PRN Routine Lab Work: CBC, BMP - on 04/06/19 - Therapies Weight Bearing: Weight bearing as tolerated Extremity Affected:: Bilateral Lower Physical Therapy: Eval and Treat Occupational Therapy: Eval and Treat Speech Therapy: Eval and Treat - Allergies/Procedures Done in Hospital Allergies/Adverse Reactions: Allergies No Known Allergies Allergy (Verified 01/18/18 22:56) - Type of Care/Length of Stay Estimated LOS: Convalescent Care Less Than 30 days Type of Care Needed: Skilled Rehab Potential: Good Prognosis: Good - Additional Orders/Day of Discharge Day of Discharge: 04/02/19 - Follow Up Care Primary Care Physician: Gianluca Hare MD [STAFF PHYSICIAN] - As soon as possible (regarding your right shoulder; call for appt) Ez Alexandre MD [Primary Care Provider] - 3-5 Days (call today for appt) Please Follow Up With: Vasu Cervantes MD When: in 1-2 weeks for anemia for endoscopy evaluation Please Follow Up With: Riki Stoner MD When: 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 Please Follow Up With: Estevan Brown MD When: in 3-4 weeks
--- NOTE | 2019-04-02 11:15 | DS.PCM_ITS ---
Discharge Date and Diagnosis Date of Admission: 03/30/19 Date of Discharge: 04/02/19 - Primary Discharge Diagnosis Active and Suspected Problems Multiple fractures of ribs, left side, initial encounter for closed fracture (Acute) Closed fracture of glenoid cavity of right scapula (Acute) Alcohol intoxication (Acute) Closed head injury without concussion (Acute) - Secondary Discharge Diagnosis Chronic Problems Microcytic anemia (Chronic) Alcoholism (Chronic) Cirrhosis (Chronic) Hepatitis C (Chronic) Nicotine abuse (Chronic) Hospital Course and Treatment Imaging Results: 04/02/19 07:45 Chest PA and Lateral [RAD] AM (NON MEDS) Summary of Care Provided: [] This is a 73-year-old gentleman who is admitted after a fall with inj ury, possible head contusion and has loss of consciousness. Patient had fracture of left-sided ribs and glenoid cavity of right side. Patient is on IV fluid. Patient has iron deficiency anemia with hemoglobin 7.6. Stool for occult blood negative. Patient received IV iron infusion. Repeat H&H showed transient improvement but back to 7.4/26.4, perhaps related to fluid shift. Repeat H&H showed 8.3/29.2 with microcytic picture in peripheral blood smear. RDW 18.9 high. Patient was given iron infusion and discharged on ferrous sulfate. Currently stool for occult blood negative. No aspirin/antiplatelet or anticoagulation. Will need outpatient EGD/colonoscopy with GI work-up. Continue PPI. Patient was advised to follow-up with surgical associate. Fall with left-sided rib fracture and right heart fracture with extension into joint space. Patient has decompensated alcoholic cirrhosis with trace ascites, borderline splenomegaly but no gastric varices. CT abdomen shows cirrhosis with trace ascites, borderline splenomegaly but no varices. No acute intra- abdominal injury. CT head is negative of acute intracranial abnormality. A. fib, new onset: Patient heart rate was controlled in the beginning. After fluid retention heart rate went up to maximum 106. Patient was started on metoprolol 12.5 mg twice daily because of tenuous blood pressure. Echo was done as mentioned below. Patient is not a candidate of anticoagulant secondary to severe anemia as noted above along with chronic alcohol use and dependence and fall. Advised to further follow-up with engine research engineer Acute pulmonary congestion/bilateral small pleural effusion secondary acute on chronic heart failure with preserved EF secondary to aggressive fluid resuscitation: Patient also has a productive cough: Chest x-ray was done and shows shows interstitial edema and bilateral small pleural effusion. No focal consolidation. Previous chest CT on 03/30 sound bibasilar atelectasis and small apical subpleural bleb formation. CT chest on 03/30 reviewed and does not show significant pleural effusion. Overall imaging suggest patient has possible COPD. Fluid overload from hydration or has baseline heart failure. BNP 311. Echo shows EF 60% no regional wall motion normal. Normal right ventricle. Normal right and left atria. Mitral valve normal. Trivial TR, RVSP 20 mmHg. Normal tricuspid valve. Mild AI. Patient was diuresed well. Patient does not have shortness of breath. Repeat chest x-ray shows improvement of interstitial edema and pleural effusion. Discharged on Lasix 20 mg as needed for shortness of breath/pulmonary edema or leg edema. Alcohol withdrawal: CIWA monitoring. On Ativan as needed protocol. Librium low-dose added for as needed agitation or if CIWA score worsens patient received 2 doses of Librium during hospital course. Orthopedic surgery was consulted and wanted the patient to the office. Discharge medication reconciliation done. Discharge follow-up instructions completed. Discharge process discussed with the patient, her daughter and daughter's boyfriend and all questions were answered to patient's satisfaction. Patient is being discharged to SNF. Follow-up appointments given. Patient was advised to follow-up with the [facility] engine research engineer in 2 to 3 weeks, orthopedic surgeon in 2 weeks, [facility] in 2 to 3 weeks and PCP in 1 to 2 weeks Total time spent, exact 35 minutes on discharge meds reconciliation, examination, review of imaging and blood test and discussion with the patient on follow-up instructions. Subjective: Seen and examined. Patient shortness of breath is much improved. Patient is also more awake, alert and verbally responsive. Talked with the patient's daughter and daughter's boyfriend present in the room. Patient admission, hospital course and management and further follow-up explained to them. Objective: General: Alert, Oriented x3, Cooperative HEENT: Atraumatic, PERRLA, EOMI, Normocephalic Neck: Supple, No JVD, Negative Carotid Bruits Lungs: No rhonchi, No wheeze, No rales, Air entry is diminished in bilateral lung bases. Tenderness present on left lower ribs and inferior aspect of left shoulder at the apex of axilla although has improved. Cardiovascular: Regular rate, Regular Rhythm, Normal S1, Normal S2, No murmurs Abdomen: Bowel Sounds Present, Soft, Non Tender, Non-Distended. No clinically palpable ascites Extremities: No edema, Capillary Refill Less than 3 Seconds Skin: No rashes, No breakdown Musculoskeletal: No Tenderness to Palpation of Joints or Extremities, Arthritic Changes, Muscle Wasting Lymphatic: No Cervical, Supraclavicular, or Inguinal Adenopathy Neurological: Cranial nerves II-XII grossly intact, Deep Tendon Reflexes 2+/4 and Symmetrical, Neuro grossly intact Psych/Mental Status: Normal Affect, Appropriate - Physical Exam Vital Signs Temp Pulse Resp BP Pulse Ox 98.8 F 58 L 18 94/54 L 95 04/02/19 10:37 04/02/19 10:37 04/02/19 10:37 04/02/19 10:37 04/02/19 10:37 Oxygen Flow Rate (L/min) 4 Oxygen Delivery Method Nasal Cannula Weight: 165 lb Body Mass Index (BMI) 23.0 Intake and Output for Last 24 Hours 03/31/19 04/01/19 04/02/19 23:59 23:59 23:59 Intake Total 785 / 785 1310 / 1310 200 / 200 Output Total 875 / 875 1550 / 1550 300 / 300 Balance -90 / -90 -240 / -240 -100 / -100 Microbiology Past 72 Hours 04/01/19 18:50 Respiratory Panel (PCR) - Final Mucosa - Nasopharyngeal Laboratory Tests Past 24 Hrs 04/01/19 04/02/19 04/02/19 23:19 07:00 07:00 WBC 7.5 RBC 3.93 L Hgb 8.2 L Hct 28.6 L MCV 72.8 L MCH 20.9 L MCHC 28.7 L RDW 19.6 H RDW Differential 46.8 H Plt Count 235 MPV 9.5 Immature Gran % (Auto) 0.300 Neut % (Auto) 68.0 Lymph % (Auto) 13.8 L Hill % (Auto) 14.1 H Eos % (Auto) 3.3 Baso % (Auto) 0.5 Absolute Neuts (auto) 5.1 Absolute Lymphs (auto) 1.04 Total Counted Not Reportable Differential Comment SCANNED Hypochromasia 2+ Anisocytosis 2+ Microcytosis 2+ Sodium 136 Potassium 3.7 Chloride 105 Carbon Dioxide 23.0 Anion Gap 8 BUN 13 Creatinine 0.73 Estim Creat Clear Calc 70.69 Est GFR (MDRD) Af Amer 136 Est GFR (MDRD) Non-Af 112 BUN/Creatinine Ratio 17.8 Glucose 99 Calcium 8.2 L Magnesium 1.8 TSH 1.34 Home Medications: Medications to take at Discharge Docusate Sodium [Colace] 100 mg PO DAILY #30 cap 03/30/19 Ferrous Sulfate [Iron] 325 mg PO TID #90 tab 03/30/19 Folic Acid 1 mg PO DAILYCM tab 04/01/19 Pantoprazole Sodium [Protonix] 40 mg PO DAILY tab 04/01/19 Thiamine Hydrochloride [Vitamin B1] 100 mg PO DAILYCM tab 04/01/19 Furosemide [Lasix] 20 mg PO DAILY PRN PRN tab 04/02/19 Guaifenesin [Mucinex] 1,200 mg PO BID #0 tab 04/02/19 Ipratropium/Albuterol Sulfate [Duoneb] 3 ml INHALATION Q6H PRN PRN ampul.neb 04/02/19 Metoprolol Tartrate [Lopressor (beta violet)] 12.5 mg PO BID tab 04/02/19 Following Prescrptions Were Given to Patient: Docusate Sodium [Colace] 100 mg PO DAILY #30 cap Prescription Printed Ferrous Sulfate [Iron] 325 mg PO TID #90 tab Prescription Printed Primary Care Physician: Gianluca Hare MD [STAFF PHYSICIAN] - As soon as possible (regarding your right shoulder; call for appt) Ez Alexandre MD [Primary Care Provider] - 3-5 Days (call today for appt) Please Follow Up With: Vasu Cervantes MD When: in 1-2 weeks for anemia for endoscopy evaluation Please Follow Up With: Riki Stoner MD When: 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 Please Follow Up With: Estevan Brown MD When: in 3-4 weeks Patient Instructions: ANEMIA, Iron Deficiency (Adult), FRACTURE, Rib, FRACTURE, Shoulder, Sling Medical Necessity - Tobacco Use Smoking Status: Current every day smoker Tobacco Use: Cigarettes Meaningful Use Info Meaningful Use Diagnoses (Choose all that apply): None applicable Code Visit Inpatient E&M: 11467 Disch Hosp
--- NOTE | 2019-04-02 12:56 | NURSING ---
report given to [facility]
== END 2019-04-02 11:30 | disposition skilled nursing facility (03) ==
LOC: ED 06:50 → PCU 09:33
PROVIDERS: Hospitalist; Physician Assistant; Admitting Provider Internal Medicine; Emergency Provider Emergency Medicine; Family Provider Internal Medicine; PCP Internal Medicine; Visit Provider Internal Medicine
DX: S06.891A Other specified intracranial injury with loss of consciousness of 30 minutes or less, initial encounter (principal); S22.42XA Multiple fractures of ribs, left side, initial encounter for closed fracture; S42.142A Displaced fracture of glenoid cavity of scapula, left shoulder, initial encounter for closed fracture; R06.02 Shortness of breath; I50.33 Acute on chronic diastolic (congestive) heart failure; F17.210 Nicotine dependence, cigarettes, uncomplicated; K70.30 Alcoholic cirrhosis of liver without ascites; F10.239 Alcohol dependence with withdrawal, unspecified; I48.91 Unspecified atrial fibrillation; D50.9 Iron deficiency anemia, unspecified; F10.229 Alcohol dependence with intoxication, unspecified; Y90.6 Blood alcohol level of 120-199 mg/100 ml; B18.2 Chronic viral hepatitis C; W18.09XA Striking against other object with subsequent fall, initial encounter; Y93.01 Activity, walking, marching and hiking; Y92.89 Other specified places as the place of occurrence of the external cause; R40.2410 Glasgow coma scale score 13-15, unspecified time; R16.1 Splenomegaly, not elsewhere classified; Z87.19 Personal history of other diseases of the digestive system
CPT/HCPCS: 36415; 70450; 71046; 71101; 71250; 73030; 74176; 80048; 80053; 80076; 80320; 82274; 82607; 82728; 82746; 83540; 83550; 83690; 83735; 83880; 84443; 84484; 85014; 85018; 85025; 87633; 92610; 93005; 93306; 94640; 94667; 96365; 96366; 96375; 97162; 97166; 97530; 97535; 99218; 99285; 99406; J1756; J7040; A4216; G0378; G0480; J1940

== ENCOUNTER 2021-04-10 06:40 | Emergency (ER) | payer MEDICARE, SELFPAY ==
[2021-04-10 06:41] VITALS: BP 115/74; PULSE 70; RESP 12; TEMP 36.1; O2SAT 98; BMI 23.8
[2021-04-10 06:46] VITALS: O2SAT 98
--- NOTE | 2021-04-10 06:48 | CT_ITS ---
STUDY: CT BRAIN WITHOUT CONTRAST REASON FOR EXAM: Male, 75 years old. Trauma RADIATION DOSAGE (If Supplied By Facility): CTDIvol = ( 44.99 ) mGy, DLP = ( 796.11 ) mGycm TECHNIQUE: Transaxial CT imaging of the brain was performed without administration of intravenous contrast material. Individualized dose optimization techniques were used for this CT. COMPARISON: March 30, 2019 CT scan head FINDINGS: There is frontal superficial soft tissue edema. Normal calvarium. There is calcification of the bilateral cavernous carotid arteries. Normal size ventricles and extra-axial spaces for the patient''s age. Normal white matter tracts of the cerebral hemispheres. Normal basal ganglia and thalami. Normal brainstem. There is mild cerebellar atrophy. There is no intracranial hemorrhage. There are no findings of an acute ischemic infarction. Postoperative change within the bilateral anterior maxillary sinuses. There is a prior fracture of the left side lateral wall the maxillary sinus. There are age-indeterminate bilateral nasal bone fractures there is greater fragmentation prior study March 30, 2019. There is superficial soft tissue edema. There is a prior fracture of the left-sided zygomatic arch.. There is likely prior fracture of the right zygomatic arch. CT/Brain/Head without Contrast IMPRESSION: Prior facial trauma postoperative change, anterior morales of the maxillary sinus multiple prior facial bone fractures. Findings suspicious for acute on chronic bilateral nasal bone fractures. Could consider follow-up CT scan facial bones. Electronically Signed: Sari Nunez MD at 7:55 EDT Tel , Service support ,
--- NOTE | 2021-04-10 06:48 | CT_ITS ---
STUDY: CT CERVICAL SPINE WITHOUT CONTRAST REASON FOR EXAM: Male, 75 years old. Trauma RADIATION DOSAGE (If Supplied By Facility): CTDIvol = ( 25.75 ) mGy, DLP = ( 525.66 ) mGycm TECHNIQUE: High resolution transaxial imaging was performed without contrast material. Sagittal and coronal images were reconstructed. Individualized dose optimization techniques were used for this CT. COMPARISON: None FINDINGS: Normal craniovertebral junction. There are degenerative changes of the anterior atlantoaxial articulation. There are erosions of the tip of the odontoid process. There is straightening of the normal cervical lordosis. There is multilevel degenerative change. C2-3: There is facet arthropathy left greater than right with mild left neural foraminal narrowing no significant central stenosis. C3-4: There is facet arthropathy with mild left neural foraminal narrowing no significant central stenosis. C4-5: There is facet arthropathy without neural foramina narrowing, no central stenosis. C5-6: There is disc space narrowing broad disc osteophyte mild neural foramina narrowing no significant central stenosis. C6-7: There is disc space narrowing and broad disc osteophyte mild neural foraminal narrowing no significant central stenosis. C7-T1: There is disc space narrowing mild neural foramina narrowing no significant central stenosis. The visualized atherosclerotic disease of aorta. This visualized emphysematous blebs within the left apex. There is atherosclerotic disease of the carotid arteries. CT/Spine Cervical without Contras IMPRESSION: Multilevel degenerative changes, as described above. No visualized acute fracture. Electronically Signed: Sari Nunez MD at 7:58 EDT Tel , Service support ,
[2021-04-10] MEDS: Lidocaine 1% (20 ml mdv) 20 ML Vial INFILT (07:12)
--- NOTE | 2021-04-10 07:12 | EX.ED.GENINJ ---
HPI History of Present Illness Chief Complaint: Fall Informant: patient and EMS Narrative Narrative: 75-year-old male history of alcoholism states that he got drunk on tequila and [place] [employer] last night. He fell down and struck his head. He is not sure exactly what he hit. He believes he sustained a loss of consciousness versus passing out from the alcohol. EMS notes a facial laceration over the left eyebrow. He notes nasal pain. He denies any dental or jaw pain. At the time he is currently denying neck pain. Last tetanus 5 to 10 years ago. He does not wish to have this updated. Tetanus Immunization: 5-10 years [facility] Medical History (Updated 04/10/21 @ 07:[address] Eric Hinson DO) Acute on chronic diastolic (congestive) heart failure Alcohol abuse with intoxication Alcoholism Cirrhosis Closed fracture of glenoid cavity of right scapula Closed head injury without concussion Hepatitis C Microcytic anemia Multiple fractures of ribs, left side, initial encounter for closed fracture New onset atrial fibrillation Nicotine dependence Allergy/AdvReac Type Severity Reaction Status Date / Time No Known Allergies Allergy Verified 04/22/19 12:59 Family History Father Alcoholism Mother Diabetes Surgical History History of herniorrhaphy Social History Smoking Status: Current every day smoker tobacco type: cigarettes alcohol intake: current alcohol intake frequency: 3 or more drinks per day [facility] ED Constitutional Constitutional ED: Denies chills or weight loss Eyes Eyes: Denies change in vision or diplopia ENT ENT ED: Reports other Details: Nasal pain forehead laceration ; Denies ear pain, rhinorrhea or sore throat Cardiovascular Cardiovascular: Denies chest pain, orthopnea, palpitations or racing heartbeat Respiratory/Chest Respiratory/Chest: Denies cough, dyspnea or orthopnea Gastrointestinal Gastrointestinal: Denies abdominal pain, diarrhea, nausea or vomiting Genitourinary Genitourinary ED: Denies dysuria, hematuria or urinary frequency Musculoskeletal Musculoskeletal: Denies arthralgias or myalgias Integumentary Denies abscess or rash Neurologic Neurologic: Denies headache(s) or weakness Psychiatric Psychiatric: Denies anxiety, depression, suicidal ideation or suicidal thoughts Endocrine Endocrinology: Denies polydipsia, polyphagia or polyuria Allergic/Immunologic Allergic/Immunologic ED: Denies mouth swelling, tongue swelling or urticaria EXAM Physical Exam Const Vital Signs: 04/10/21 06:41 04/10/21 06:46 Temperature 96.9 F L Temperature Source Temporal Pulse Rate 70 Respiratory Rate 12 Respiratory Effort Normal Blood Pressure 115/74 Blood Pressure Mean 87 Pulse Ox 98 98 Oxygen Delivery Method Room Air Room Air Positive well nourished and well developed General Appearance ED: well developed HEENT Reports normocephalic, head/scalp atraumatic and moist mucous membranes HEENT Narrative: There is nasal swelling and tenderness to palpation. No septal hematoma noted on exam. There is a 3 cm left forehead laceration with a slight T component to it. It is gaping. There is no malocclusion. No obvious dental trauma. trauma Eyes PERRL and EOMs intact bilaterally Neck no lymphadenopathy, supple and no JVD Resp normal respiratory effort and clear to auscultation bilaterally Cardio regular rate, regular rhythm and no murmurs GI normal to inspection, nondistended, normoactive bowel sounds and non-tender Palpation: soft Back/Spine no CVA tenderness and normal ROM Extremity normal to inspection General Extremety ED: Negative for edema General Extremity: Negative for edema Neuro oriented x3 and CN's II-XII intact bilaterally Neuro Narrative: Patient smells heavily of alcohol. Sensorium / Orientation: alert Motor Exam: strength 5/5 throughout Psych mental status grossly normal Mood & Affect: Negative for depressed or tearful Skin no rashes or lesions noted and no wounds MDM MDM MDM Narrative Medical decision making narrative: The wound was locally anesthetized using 1% lidocaine. Is washed with Shur-Clens and explored. A total of 7 simple interrupted 4-0 Ethilon sutures were placed. Wound care discussed with patient stitches will need to be removed in [address] of the brain and cervical spine were obtained. If these are negative I would anticipate a discharge. Discharge Plan Triage Chief Complaint: Fall ED Provider: Eric Hinson Dx/Rx/DC Orders Clinical Impression: Forehead laceration, Alcohol abuse with intoxication, Fracture closed, nasal bone Instructions: ED Head Injury (Adult), ED Laceration: All Closures Primary Care Provider: Ez Alexandre Referrals: Ez Alexandre MD [Primary Care Provider] - 7 Days for suture removal Disposition Disposition: Home, Self Care
== END 2021-04-10 09:21 | disposition home or self-care (01) ==
PROVIDERS: Emergency Provider Emergency Medicine; PCP Internal Medicine
DX: S02.2XXA Fracture of nasal bones, initial encounter for closed fracture (principal); S01.81XA Laceration without foreign body of other part of head, initial encounter; F10.129 Alcohol abuse with intoxication, unspecified; Y90.9 Presence of alcohol in blood, level not specified; W19.XXXA Unspecified fall, initial encounter; Y93.9 Activity, unspecified; Y92.9 Unspecified place or not applicable; F17.210 Nicotine dependence, cigarettes, uncomplicated
CPT/HCPCS: 12013; 70450; 72125; 99285

== ENCOUNTER 2021-12-21 17:51 | Inpatient (IN) | payer MEDICARE, SELFPAY ==
[2021-12-21] VITALS (11 sets, daily range): BP systolic 92–118; BP diastolic 58–77; PULSE 54–78; RESP 16–18; TEMP 36.1–37.1; O2SAT 93–97; BMI 27.2; BMI 24.6
--- NOTE | 2021-12-21 18:43 | EKG12_ITS ---
Test Reason : SOB Blood Pressure : / mmHG Vent. Rate : 078 BPM Atrial Rate : 108 BPM P-R Int : 000 ms QRS Dur : 096 ms QT Int : 442 ms P-R-T Axes : 000 061 077 degrees QTc Int : 503 ms Accelerated Junctional rhythm Low voltage QRS Prolonged QT Abnormal ECG Confirmed by CHRISTINA CAMPBELL, RASHID ([id number]), technical writer and editor JULIA WEI ([id number]) on 12/25/2021 10:35:18 AM Referred By: Confirmed By:RASHID VASQUEZ MD
--- NOTE | 2021-12-21 18:43 | EX.ED.DYSGE1 ---
HPI History of Present Illness Chief Complaint: Edema Detail of Chief Complaint: Bilateral lower extremity swelling. Informant: patient Onset/Context/Timing Onset: Weeks Context: Gradual Onset Timing: Continuous Current Severity: Mild Narrative Narrative: 76-year-old male Says a history of CHF, A. fib and cirrhosis. He denies any past medical history. Patient is not a good informant. States for 1 to 2 weeks he has had swelling in his lower extremities. He denies any chest pain or fever. He denies any nausea vomiting or diarrhea. States he has not seen his physician for years. Prior similar symptoms: No Recent Illness/Hospitalization: No [facility] Medical History (Updated 12/21/21 @ 20:[address] Ricky Johnson MD) Acute on chronic diastolic (congestive) heart failure Alcohol abuse with intoxication Alcoholism Cirrhosis Closed fracture of glenoid cavity of right scapula Closed head injury without concussion Hepatitis C Microcytic anemia Multiple fractures of ribs, left side, initial encounter for closed fracture New onset atrial fibrillation Nicotine dependence Home Medications NK 12/21/21 [History Last Taken Unknown] Allergy/AdvReac Type Severity Reaction Status Date / Time No Known Allergies Allergy Verified 08/30/21 09:30 Family History Father Alcoholism Mother Diabetes Surgical History History of herniorrhaphy Social History Smoking Status: Current every day smoker tobacco type: cigarettes alcohol intake: current alcohol intake frequency: 3 or more drinks per day ROS ROS ED ROS Narrative Leg swelling. Generalized weakness. Review of Systems ROS Unobtainable: Denies due to encephalopathy Constitutional Constitutional ED: Denies fever(s) Eyes Eyes: Denies change in vision ENT ENT ED: Denies ear pain Cardiovascular Cardiovascular: Denies chest pain Respiratory/Chest Respiratory/Chest: Reports dyspnea Gastrointestinal Gastrointestinal: Denies abdominal pain, diarrhea, nausea or vomiting Genitourinary Genitourinary ED: Denies dysuria Musculoskeletal Musculoskeletal: Denies myalgias Integumentary Denies rash Neurologic Neurologic: Denies headache(s) Psychiatric Psychiatric: Denies depression Endocrine Endocrinology: Denies polyuria Allergic/Immunologic Allergic/Immunologic ED: Denies urticaria EXAM Physical Exam Narrative Exam Narrative: 76-year-old male no acute distress. Initial blood pressure is 92/77 is tolerating that well. Pulse 54. Afebrile. O2 sat 97% on room air no hypoxia. He is in no distress. H EENT exam unremarkable. Neck nontender. No JVD. Lungs clear to auscultation bilaterally. Heart regular rhythm rate about 60 no murmur. Abdomen soft nontender normal bowel sounds no peritoneal signs. Possible ascites. Moving all 4 extremities. 1-2+ pitting edema both lower extremities. Dorsi plantarflexion intact. Normal vehicle glass technician strength. Back nontender. Neurologically is awake and alert. No focal motor deficits. Const Vital Signs: 12/21/21 17:53 12/21/21 17:56 12/21/21 18:40 Temperature 96.9 F L 96.9 F L Temperature Source Temporal Temporal Pulse Rate 54 L 54 L Respiratory Rate 16 16 Respiratory Pattern Normal Blood Pressure 92/77 92/77 Blood Pressure Mean 82 82 Pulse Ox 97 97 Oxygen Delivery Method Room Air Room Air 12/21/21 18:52 12/21/21 19:50 12/21/21 19:54 Temperature Temperature Source Pulse Rate 78 Respiratory Rate Respiratory Pattern Blood Pressure 112/69 Blood Pressure Mean 83 Pulse Ox 97 93 94 Oxygen Delivery Method Room Air Room Air Room Air Positive well nourished and well developed; Negative for cachectic, contractures or unkempt General Appearance ED: well developed and NAD; Negative for unkempt, cachectic, contractures, cyanotic, diaphoretic or pallor Nutritional Appearance: Negative for cachectic HEENT Reports moist mucous membranes Negative for trauma or tenderness Eyes PERRL and EOMs intact bilaterally General Eye ED: Negative for pale conjunctiva or scleral icterus Neck no lymphadenopathy, supple and no JVD General: Negative for tenderness Chest Wall inspection of chest normal and palpation of chest normal Resp normal respiratory effort and clear to auscultation bilaterally Auscultation: Negative for rales, rhonchi or wheezes Cardio regular rate, regular rhythm, S1 normal heart sound, S2 normal heart sound and no murmurs GI normal to inspection, nondistended, normoactive bowel sounds, non-tender and no masses; Negative for non-distended GI Narrative: Ascites. Auscultation: normoactive bowel sounds Palpation: soft; Negative for tender, guarding or rebound tenderness present Back/Spine no CVA tenderness General Back: Negative for CVA tenderness Cervical Spine: Negative for cervical spine tenderness Thoracic Spine / Upper Back: Negative for thoracic spinal tenderness Extremity Negative for normal to inspection Extremity Narrative: Both lower extremities have normal motor strength. He is 1-2+ pitting edema bilaterally. General Extremety ED: Yes edema; Negative for tenderness General Extremity: edema Neuro oriented x3 Sensorium / Orientation: alert; Negative for orientation impaired, lethargic or stuporous Motor Exam: strength 5/5 throughout Psych mental status grossly normal Appearance: Negative for unkempt Mood & Affect: Negative for depressed or tearful Skin no rashes or lesions noted and no wounds General Skin Exam: Negative for jaundice or pallor MDM MDM MDM Narrative Medical decision making narrative: 76-year-old male with bilateral lower extremity edema. This may be secondary to CHF, renal insufficiency, cirrhosis or other etiologies. Labs and EKG and chest x-ray being obtained. Repeat exam unchanged. Patient resting comfortably. I discussed with him his hemoglobin is 6.3. I will speak to the hospitalist about possible admission for transfusion. I discussed with the hospitalist. To be typed and crossed for 2 units. Lab Data Attestation: I reviewed the patient's lab results. Lab results narrative: CBC shows a white count 3.6. H&H is 6.3 and 23. Platelets of 200. Sodium 131. Gap 2 normal BUN and creatinine. Normal glucose at 94. Troponin 17. BNP 789. Patient has chronic anemia. His hemoglobin is lower. He states he has never needed a transfusion. He has been having for generalized weakness. States he only occasionally has a small amount of bright red blood in his stool but no black stools. Labs: Laboratory Results - last 24 hr 12/21/21 12/21/21 12/21/21 18:50 18:50 18:50 WBC 3.6 L RBC 3.34 L Hgb 6.3 L Hct 23.2 L MCV 69.5 L MCH 18.9 L MCHC 27.2 L RDW Std Deviation 48.3 H RDW Coeff of Hilda 19.5 H Plt Count 200 MPV 9.4 Immature Gran % (Auto) 0.300 Neut % (Auto) 60.5 Lymph % (Auto) 17.5 L [place] % (Auto) 16.1 H Eos % (Auto) 4.2 Baso % (Auto) 1.4 H Absolute Neuts (auto) 2.2 Absolute Lymphs (auto) 0.62 L Nucleated RBC % 0 Sodium 131 L Potassium 4.5 Chloride 103 Carbon Dioxide 26.0 Anion Gap 2 L BUN 12 Creatinine 0.85 Estim Creat Clear Calc 77.53 Est GFR (MDRD) Af Amer 112 Est GFR (MDRD) Non-Af 93 BUN/Creatinine Ratio 14.1 Glucose 94 Calcium 8.5 Troponin I High Sens 17 B-Natriuretic Peptide 789.7 H Radiography Chest X-Ray - ED: 1 View, Read by ED Physician, Heart, Lungs, Bony Structures, No Acute Disease, Chronic Changes and Left Effusion Diagnostic Testing: Clinical Impression(s) from Imaging Studies Chest X-Ray 12/21/21 19:10 IMPRESSION: 1. Mild left lower lobe pneumonia with a mild left pleural effusion. 2. Mild cardiomegaly without heart failure. 3. No evidence of other active cardiopulmonary disease. 4. Mild demineralization. 5. Lordotic view. Electronically Signed: Alvino Lea MD at 19:25 EDT , Chest x-ray, portable, single view interpreted by myself and radiologist shows a left pleural effusion. May or may not be atelectasis. Radiologist is saying there possibly could be a pneumonia clinically and I think so. Rhythm Strip Rhythm Strip: Junctional rhythm Rate: 78 Discharge Plan Dx/Rx/DC Orders Clinical Impression: Anemia, History of alcohol abuse, History of CHF (congestive heart failure), Pleural effusion Disposition Disposition: Acute Care Hospital [facility]
[2021-12-21 19:01] LABS: Absolute Lymphocyte Count 0.62 X10^3/uL (0.83-4.51); Absolute Neutrophil Count 2.2 X10^3/uL (2.0-7.7); Basophil# 0.05 X10^3/uL; Basophil% 1.4 % (0-1); Eosinophil# 0.15 X10^3/uL; Eosinophils% 4.2 % (0-5); Hematocrit 23.2 % (40-54); Hemoglobin 6.3 g/dL (13.0-16.5); Lymphocyte # 0.62 X10^3/ul (0.83-4.51); Lymphocyte % 17.5 % (19-41); Mean Corp Hgb Conc 27.2 g/dL (32-36); Mean Corpuscular Hgb 18.9 pg (27.0-32.0); Mean Corpuscular Volume 69.5 fL (80-94); Mean Platelet Vol. 9.4 fl (6.2-12.0); Monocyte# 0.57 X10^3/uL; Monocyte% 16.1 % (0-10); NRBC Flagged by Analyzer 0 % (0-5); Neutrophil # 2.15 X10^3/uL (2.7-7.7); Neutrophil % 60.5 % (47-70); Platelet Count 200 K/mm3 (150-450); RBC Distribution Width CV 19.5 % (11.6-14.6); RBC Distribution Width SD 48.3 fl (35.1-43.9); Red Blood Count 3.34 M/mm3 (4.6-6.2); White Blood Count 3.6 K/mm3 (4.4-11.0)
--- NOTE | 2021-12-21 19:10 | RAD_ITS ---
STUDY: PORTABLE AP UPRIGHT CHEST X-RAY OF 1901 HOURS ON 12/21/2021 REASON FOR EXAM: Male, 76 years old. chest pain TECHNIQUE: A routine portable AP upright chest x-ray was performed per protocol. COMPARISON: 04/02/2019. FINDINGS: Lordotic view. Mild demineralization. Mild cardiomegaly without heart failure. Mild infiltrative process and a mild pleural effusion in the left lower lobe--pneumonia. No atelectasis or mass lesions. RAD/Chest 1 View (Portable) IMPRESSION: 1. Mild left lower lobe pneumonia with a mild left pleural effusion. 2. Mild cardiomegaly without heart failure. 3. No evidence of other active cardiopulmonary disease. 4. Mild demineralization. 5. Lordotic view. Electronically Signed: Alvino Lea MD at 19:25 EDT ,
[2021-12-21 19:15] LABS: BNP,B-Type NATRIURETIC PEPTIDE 789.7 pg/mL (0-100)
[2021-12-21 19:21] LABS: Anion Gap 2 (5-15); BUN 12 mg/dL (7-18); BUN/Creat Ratio 14.1 RATIO (10-20); Calcium,Total 8.5 mg/dL (8.5-10.1); Chloride 103 mmol/L (98-107); Creatinine, Serum 0.85 mg/dL (0.70-1.30); EST Glomerular Filtration Rate 93 mL/min (>60); Est Glom Filt Rate - Afr Amer 112 mL/min (>60); Estimated Creatinine Clearance 77.53 ml/min; Glucose 94 mg/dL (74-106); Potassium 4.5 mmol/L (3.5-5.1); Sodium Level 131 mmol/L (136-145); Troponin-I HS 17 pg/mL (3.0-78.0)
[2021-12-21 20:53] LABS: Magnesium 1.8 mg/dL (1.6-2.6); Phosphorus 3.3 mg/dL (2.5-4.9)
--- NOTE | 2021-12-21 21:03 | HP.PCM.HOS_ITS ---
HPI - General General Date of Admission: 12/21/21 Date of Service: 12/21/21 Chief Complaint: Bilateral leg swelling HPI Narrative DELPHINE QUIROZ, is a 76 M with chronic alcohol use, hep C, decompensated cirrhosis came to ED for bilateral leg swelling for about 10 days. He still drinks 6-8 tall bottles of beer. Patient is not a good historian and keeps changing the topic and very tangential in explanation. He denies chest pain/pressure or tightness, shortness of breath at rest or on exertion. He states he has good appetite and eats 6-8 times a day. No fever or chills. He has not seen any physician in the last 8 years. Prior to that he was admitted in March 2019 after a fall resulting to head contusion, loss of consciousness fracture of left-sided ribs, closed fracture of glenoid cavity of right scapula when found to have decompensated alcoholic cirrhosis with trace ascites, borderline splenomegaly but no varices. Patient also had pulmonary congestion with small bilateral pleural effusion was found new onset A. fib. In ED, his heart rate in 54, blood pressure on lower side 92/77 no hypoxia or tachypnea. Blood pressure improved after resuscitation in ED. His hemoglobin found very low 6.3/23%. WBC count 3.6 thousand, platelet count 200,000. Mild hyponatremia sodium 131. BNP 789 troponin negative. Chest x-ray individually reviewed and shows a small left pleural effusion, cardiomegaly, mild demineralization but no evidence of other active cardiopulmonary disease. Twelve-lead EKG individually reviewed. Sinus rhythm at 78 bpm, QRS 96 ms, QTC 403 ms. Although reported junctional tachycardia but P wave is discernible in V1 lead Patient is further admitted 2 units of PRBC ordered 1 unit now in PCU. [facility] Medical History (Updated 12/21/21 @ 21:[address] Eliseo Orona MD) Acute on chronic diastolic (congestive) heart failure Alcohol abuse with intoxication Alcoholism Cirrhosis Closed fracture of glenoid cavity of right scapula Closed head injury without concussion Hepatitis C Microcytic anemia Multiple fractures of ribs, left side, initial encounter for closed fracture New onset atrial fibrillation Nicotine dependence Home Medications NK 12/21/21 [History Last Taken Unknown] Allergy/AdvReac Type Severity Reaction Status Date / Time No Known Allergies Allergy Verified 08/30/21 09:30 Family History Father Alcoholism Mother Diabetes Surgical History History of herniorrhaphy Social History Smoking Status: Current every day smoker tobacco type: cigarettes alcohol intake: current alcohol intake frequency: 3 or more drinks per day ROS ROS Narrative Constitutional: Reports fatigue and weakness. No fever HEENT: Reports systems reviewed and no addt'l complaints, except as documented Respiratory/Chest: Denies chest pain, shortness of breath at rest or with exertion Gastrointestinal: twice a week small blood in the stool. He denies hemorrhoid. Denies hematemesis, sushil or vomiting Genitourinary: Denies burning urination or new urinary tract symptoms Musculoskeletal: Reports joint pain and limited range of motion Extremities: Bilateral leg edema Neurologic: Denies seizure-like activity skin: No ulcer. No rash Endocrinology: Reports systems reviewed and no addt'l complaints, except as documented Hematologic/Lymphatic: Severe anemia. reports systems reviewed and no addt'l complaints, except as documented Chronic smoker half to 1 pack since teenage. Rest 14 ROS are negative except as mentioned in HPI Vital Signs Vital Signs Vital Signs: 12/21/21 17:53 12/21/21 17:56 12/21/21 18:40 Temperature 96.9 F L 96.9 F L Temperature Source Temporal Temporal Pulse Rate 54 L 54 L Respiratory Rate 16 16 Respiratory Pattern Normal Blood Pressure 92/77 92/77 Blood Pressure Mean 82 82 Pulse Ox 97 97 Oxygen Delivery Method Room Air Room Air 12/21/21 18:52 12/21/21 19:50 12/21/21 19:54 Temperature Temperature Source Pulse Rate 78 Respiratory Rate Respiratory Pattern Blood Pressure 112/69 Blood Pressure Mean 83 Pulse Ox 97 93 94 Oxygen Delivery Method Room Air Room Air Room Air Weight Weight: 190 lb Body Mass Index (BMI) 27.2 Physical Exam Narrative General: Alert, Oriented x3, Cooperative HEENT: Atraumatic, PERRLA, EOMI, Normocephalic Oral: Oral mucosa dry no Gingival or Mucosal Lesions/ Ulcerations Neck: Supple, No JVD, Negative Carotid Bruits Lungs: Air entry diminished in bilateral lung bases predominantly left lung base. No crepitation/rhonchi Cardiovascular: Regular rate, Regular Rhythm, Normal S1, Normal S2, systolic murmur over right second ICS and LLSB Abdomen: Bowel Sounds Present, Soft, mild tenderness over right upper quadrant. Spleen enlarged. Liver not palpable. No appreciable ascites : No renal angle tenderness. No suprapubic tenderness. Extremities bilateral lower leg pitting edema below knee, Capillary Refill Less than 3 Seconds Skin: No rashes, No breakdown Musculoskeletal: No Tenderness to Palpation of Joints or Extremities Neurological: Cranial nerves II-XII grossly intact, DTR 2+/4 and Symmetrical, Neuro grossly intact Psych/Mental Status: Flat affect. Results Lab / Micro Data Result Diagrams: 12/21/21 18:50 12/21/21 18:50 Labs: Laboratory Results - last 24 hr 12/21/21 18:50: WBC 3.6 L, RBC 3.34 L, Hgb 6.3 L, Hct 23.2 L, MCV 69.5 L, MCH 18.9 L, MCHC 27.2 L, RDW Std Deviation 48.3 H, RDW Coeff of Hilda 19.5 H, Plt Count 200, MPV 9.4, Immature Gran % (Auto) 0.300, Neut % (Auto) 60.5, Lymph % (Auto) 17.5 L, [place] % (Auto) 16.1 H, Eos % (Auto) 4.2, Baso % (Auto) 1.4 H, Absolute Neuts (auto) 2.2, Absolute Lymphs (auto) 0.62 L, Nucleated RBC % 0 12/21/21 18:50: Sodium 131 L, Potassium 4.5, Chloride 103, Carbon Dioxide 26.0, Anion Gap 2 L, BUN 12, Creatinine 0.85, Estim Creat Clear Calc 77.53, Est GFR (MDRD) Af Amer 112, Est GFR (MDRD) Non-Af 93, BUN/Creatinine Ratio 14.1, Glucose 94, Calcium 8.5, Troponin I High Sens 17 12/21/21 18:50: B-Natriuretic Peptide 789.7 H 12/21/21 18:50: Phosphorus 3.3, Magnesium 1.8 12/21/21 20:55: Crossmatch See Detail Rhythm Strip Rhythm Strip: Junctional rhythm Rate: 78 Radiology Impression Chest X-Ray 12/21/21 19:10 IMPRESSION: 1. Mild left lower lobe pneumonia with a mild left pleural effusion. 2. Mild cardiomegaly without heart failure. 3. No evidence of other active cardiopulmonary disease. 4. Mild demineralization. 5. Lordotic view. Electronically Signed: Alvino Lea MD at 19:25 EDT , Assessment & Plan Assessment/Plan (1) Severe anemia: PLAN: 1. Severe microcytic hypochromic anemia along with leukopenia with lymphocytopenia: H&H 6.3/23% low MCV MCH and MCHC. RDW 19.5 overall suggestive of chronic iron deficiency anemia. Patient is being admitted in PCU. Iron work-up with ferritin ordered. 2 units of PRBC typed and crossmatched and trans fused 1 unit today. Stool for occult blood ordered. GI is consulted. Right upper quadrant sonogram ordered. During previous admission he was also admitted with low hemoglobin 7.4 g%. Protonix 40 mg IV twice daily. 2. Decompensated alcoholic and hep C cirrhosis: Previous CT abdomen showed nodu lar liver along with perihepatic ascites, mild splenomegaly but no varices. No acute pancreatitis. Fluid restriction, 2 g sodium diet, spironolactone 25 mg daily with up titration as per tolerated. Potassium and blood pressure. In blood pressure permits, add Lasix. Liver profile and GGT ordered 3. Paroxysmal A. fib: Currently EKG shows sinus rhythm/junctional rhythm. Heart rate is low in 50s in triage but improved to 78/min. At that time patient was started on metoprolol 12.5 mg twice daily and will restart it. Patient was deemed not a candidate for anticoagulant because of recurrent fall, chronic alcohol use and alcoholic cirrhosis history. 4. chronic HFpEF with a small left pleural effusion: Patient denies shortness of breath, dyspnea at rest, orthopnea or PND. BNP elevated. 2D echo in March 2019 reported as EF 60%, no R WMA, normal right ventricle, normal right and left atria, mitral valve normal. Mild AI. If blood pressure improves, consider restarting low-dose furosemide along with spironolactone. 5. Chronic alcohol use disorder with dependence and tolerance: CIWA monitoring. On CIWA protocol with Ativan 6. History of recurrent fall with head injury, left-sided rib fracture, glenoid fracture of left scapula in 2019 for Living will/advanced directive/end of life care: Patient does not have living will or advanced directive. His daughter and son is next of kin. After discussion of benefits/risks procedures involved with full code, DNR CC arrest and DNR CC, the patient does not have deep insight and understanding but he states he does not want to be on life support for long time. He states he want to leave for 5 more year. Until further discussion, we will do full code Patient does want artificial life support including intubation, tube feed, ventilator and/chest compression, central venous catheter, vasopressor and DC shock if needed Total time spent in [id number] encounter in discussion of advanced directive 16 minutes. Charges/Coding Visit Charges Inpatient E&M: 87795 Init Hosp L3 Procedures Hospitalists Procedures: 99369 Advncd Care Plan 30 Min
--- NOTE | 2021-12-21 21:07 | CM.ED ---
RN CM Assessment Introduced role of RN CM to patient.? Patient is alert, oriented and able?to participate in RN CM Assessment. ?Care providers, pharmacy, and demographics verified. Admit Dx: Leg edema, Severe anemia Re-Admit: No Barriers/Issues: Patient has approx 16 steps with rails inside his apartment to get to the bathroom that he states he has to crawl on his hands and knees. Patient lives alone but is close with his dtr Tiarra Abel whom checks on him daily. Patient states he had given his cane away but feels he can benefit from a walker at this time. PCP: Ez Alexandre (Has not seen PCP in approx 8yrs) Specialists: None Preferred [facility]acy: [facility] Insurance: [facility] Rx Benefit:?Yes LNOK: Son Maximus Roman and Dtr Tiarra Roman #[phone] LW/HPOA: States has completed and HPOA is Dtr Tiarra Roman. Aware not on file at [facility]. Living Arrangements:? Lives alone in a gnd level apartment with 2 steps to enter home. ADL?s: Was walking independently up until swelling in b/l LE. Independent with ADLs. Transportation: [facility] Tiarra DME: None HHC: None SNF: Past at [facility] and would not go back there. Goal: Home and would like a walker. DC PLAN: Home with rx for walker. CARY Treadwell
[2021-12-21 22:14] LABS: AST(SGOT) 32 U/L (15-37); Alanine Aminotransfer ALT/SGPT 18 U/L (16-61); Alkaline Phosphatase 76 U/L (45-117); Bilirubin, Direct 0.42 mg/dL (0.00-0.30); Ferritin 13 ng/mL (26-388); GGTP 40 U/L (15-85); Globulin 4.6 g/dL (2.2-4.2); Iron 16 ug/dL (65-175); Iron Binding Capacity,Total 406 ug/dL (250-450); PERCENT IRON SATURATION 3.9 % (15.0-55.0); Protein, Total 7.6 g/dL (6.4-8.2)
[2021-12-21 23:40] LABS: Vitamin B12 579 pg/mL (211-911)
[2021-12-22] VITALS (22 sets, daily range): BP systolic 100–137; BP diastolic 54–72; PULSE 66–94; RESP 16–20; TEMP 36.6–37.2; O2SAT 93–97
--- NOTE | 2021-12-22 02:13 | NURSING ---
Pt was receiving blood before maintenance downtime.This RN obtained VS at 0148 and blood was completed at 0156. Last set of VS obtained and charted. Pt asleep, no any issues at this time.
[2021-12-22 04:13] LABS: Absolute Lymphocyte Count 0.76 X10^3/uL (0.83-4.51); Absolute Neutrophil Count 1.9 X10^3/uL (2.0-7.7); Basophil# 0.04 X10^3/uL; Basophil% 1.2 % (0-1); Eosinophil# 0.07 X10^3/uL; Eosinophils% 2.1 % (0-5); Hematocrit 24.3 % (40-54); Hemoglobin 6.9 g/dL (13.0-16.5); Lymphocyte # 0.76 X10^3/ul (0.83-4.51); Lymphocyte % 23.1 % (19-41); Mean Corp Hgb Conc 28.4 g/dL (32-36); Mean Corpuscular Hgb 19.5 pg (27.0-32.0); Mean Corpuscular Volume 68.8 fL (80-94); Monocyte# 0.55 X10^3/uL; Monocyte% 16.7 % (0-10); NRBC Flagged by Analyzer 0 % (0-5); Neutrophil # 1.86 X10^3/uL (2.7-7.7); Neutrophil % 56.6 % (47-70); Platelet Count 172 K/mm3 (150-450); RBC Distribution Width CV 19.3 % (11.6-14.6); RBC Distribution Width SD 47.6 fl (35.1-43.9); Red Blood Count 3.53 M/mm3 (4.6-6.2); White Blood Count 3.3 K/mm3 (4.4-11.0)
[2021-12-22 04:37] LABS: ALB/GLOB Ratio 0.6 RATIO (0.9-2.4); AST(SGOT) 28 U/L (15-37); Alanine Aminotransfer ALT/SGPT 17 U/L (16-61); Albumin, Serum 2.8 g/dL (3.2-5.0); Alkaline Phosphatase 71 U/L (45-117); Anion Gap 5 (5-15); BUN 13 mg/dL (7-18); BUN/Creat Ratio 16.2 RATIO (10-20); Chloride 106 mmol/L (98-107); Cholesterol 64 mg/dL (200); EST Glomerular Filtration Rate 100 mL/min (>60); Est Glom Filt Rate - Afr Amer 121 mL/min (>60); Estimated Creatinine Clearance 82.38 ml/min; Globulin 4.5 g/dL (2.2-4.2); Glucose 90 mg/dL (74-106); High Density Lipoprotein 33 mg/dL; Potassium 4.2 mmol/L (3.5-5.1); Protein, Total 7.3 g/dL (6.4-8.2); Sodium Level 135 mmol/L (136-145); Triglycerides 38 mg/dL; Very Low Density Lipoprotein 8 mg/dL (5-40)
[2021-12-22] MEDS: Furosemide 20 MG/2 ML VIAL IV (04:41)
[2021-12-22] MEDS: Spironolactone 25 MG Tablet PO (04:42)
[2021-12-22] MEDS: 0.9% Saline Lock 10 ML Syringe IV ×3 (04:43→21:03)
--- NOTE | 2021-12-22 05:55 | ECHOCS_ITS ---
Reason For Study: Heart Failure Procedure This was a 2D Doppler, Color Flow transthoracic echocardiogram. Contrast injection was performed. Exam performed portable in patient room. Left Ventricle Normal left ventricle. The estimated ejection fraction is 55-60 %. Right Ventricle Normal right ventricle. Normal systolic function. Atria Normal left atrium. Normal right atrium. Mitral Valve The mitral valve is structurally normal. No prolapse or stenosis seen. No mitral valve insufficiency. Tricuspid Valve Normal tricuspid valve. No tricuspid valve insufficiency. Aortic Valve Mild diffuse aortic valve calcification. Mild (1+) aortic valve insufficiency. Pulmonic Valve The pulmonic valve is not well visualized. Great Vessels Mildly dilated aortic root. Pericardium/Pleural No pericardial effusion. Medication Diluted definity 6ml given slow IV push to enhance endocardial definition. MMode/2D Measurements & Calculations LVIDd: 5.0 cm IVSd: 1.1 cm Ao root diam: 3.9 cm LVIDs: 3.9 cm LVPWd: 0.94 cm RVDd: 4.6 cm FS: 21.6 % LAV(MOD-bp): 69.8 ml LVAd ap4: 36.6 cm2 SV(MOD-sp4): 67.9 ml LAV(MOD-bp) Indexed: 35.7 ml/m2 LVLd ap4: 8.6 cm LAV(MOD-sp2): 101.4 ml EDV(MOD-sp4): 124.6 ml LAV(MOD-sp4): 49.8 ml EDV(sp4-el): 132.2 ml LVAs ap4: 22.8 cm2 LVLs ap4: 7.5 cm ESV(MOD-sp4): 56.7 ml ESV(sp4-el): 59.0 ml EF(MOD-sp4): 54.5 % EF(sp4-el): 55.4 % SV(sp4-el): 73.2 ml LA A4 area: 19.4 cm2 LA dimension(2D): 4.9 cm RA A4 area: 22.8 cm2 Doppler Measurements & Calculations MV E max caity: 123.3 cm/sec Ao V2 max: 184.6 cm/sec LV V1 max: 121.5 cm/sec Ao max P.7 mmHg LV V1 max P.0 mmHg Ao V2 mean: 139.2 cm/sec Ao mean P.4 mmHg Ao V2 VTI: 33.4 cm PA V2 max: 87.7 cm/sec TR max caity: 266.4 cm/sec TR max P.4 mmHg ECHO/Echo Complete W/ Contrast Interpretation Summary The estimated ejection fraction is 55-60 %. Mild AI No significant difference from previous echo03/2019 Ordering Physician: Eliseo Orona Referring Physician: Ez Alexandre Performed By: Lo Roman, DONNELL, RVT
--- NOTE | 2021-12-22 09:15 | PN.HOSP_ITS ---
Subjective Subjective Patient was seen and examined today, he has this examiner if he can be discharged home today, I explained that he had to be worked up for his anemia. Patient's hemoglobin today is 6.9, it appears that he has had 1 unit of packed red blood cells transfused so far. Another unit is pending to be given to the patient. Patient's iron level was 16. Objective Data Objective Data Vital Signs: Vital Signs Temp Pulse Resp BP Pulse Ox 98.4 F 92 18 137/72 H 95 12/22/21 05:49 12/22/21 07:38 12/22/21 05:49 12/22/21 05:49 12/22/21 05:49 Oxygen Delivery Method Room Air Weight: 78 kg Body Mass Index (BMI) 24.6 Intake & Output: Intake and Output for Last 24 Hours 12/20/21 12/21/21 12/22/21 23:59 23:59 23:59 Intake Total 230 / 230 640 / 640 Output Total 0 / 0 Balance 230 / 230 640 / 640 Lab / Micro Data Result Diagrams: 12/22/21 04:06 12/22/21 04:06 Labs: Laboratory Results - last 24 hr 12/21/21 18:50: WBC 3.6 L, RBC 3.34 L, Hgb 6.3 L, Hct 23.2 L, MCV 69.5 L, MCH 18.9 L, MCHC 27.2 L, RDW Std Deviation 48.3 H, RDW Coeff of Hilda 19.5 H, Plt Count 200, MPV 9.4, Immature Gran % (Auto) 0.300, Neut % (Auto) 60.5, Lymph % (Auto) 17.5 L, [place] % (Auto) 16.1 H, Eos % (Auto) 4.2, Baso % (Auto) 1.4 H, Absolute Neuts (auto) 2.2, Absolute Lymphs (auto) 0.62 L, Nucleated RBC % 0 12/21/21 18:50: Sodium 131 L, Potassium 4.5, Chloride 103, Carbon Dioxide 26.0, Anion Gap 2 L, BUN 12, Creatinine 0.85, Estim Creat Clear Calc 77.53, Est GFR (MDRD) Af Amer 112, Est GFR (MDRD) Non-Af 93, BUN/Creatinine Ratio 14.1, Glucose 94, Calcium 8.5, Troponin I High Sens 17 12/21/21 18:50: B-Natriuretic Peptide 789.7 H 12/21/21 18:50: Phosphorus 3.3, Magnesium 1.8 12/21/21 18:50: Iron 16 L, TIBC 406, Iron Saturation 3.9 L, Ferritin 13 L, Total Bilirubin 0.90, Direct Bilirubin 0.42 H, GGT 40, AST 32, ALT 18, Alkaline Phosphatase 76, Total Protein 7.6, Albumin 3.0 L, Globulin 4.6 H, Folate 13.80 12/21/21 20:55: Blood Type A POSITIVE, Antibody Screen NEGATIVE, Crossmatch See Detail 12/21/21 22:46: Ethyl Alcohol 6.0 12/21/21 22:46: Vitamin B12 579, Vitamin D 25-Hydroxy 9.0 12/22/21 04:06: WBC 3.3 L, RBC 3.53 L, Hgb 6.9 L, Hct 24.3 L, MCV 68.8 L, MCH 19.5 L, MCHC 28.4 L, RDW Std Deviation 47.6 H, RDW Coeff of Hilda 19.3 H, Plt Count 172, MPV 9.0, Immature Gran % (Auto) 0.300, Neut % (Auto) 56.6, Lymph % (Auto) 23.1, [place] % (Auto) 16.7 H, Eos % (Auto) 2.1, Baso % (Auto) 1.2 H, Absolute Neuts (auto) 1.9 L, Absolute Lymphs (auto) 0.76 L, Nucleated RBC % 0 12/22/21 04:06: Sodium 135 L, Potassium 4.2, Chloride 106, Carbon Dioxide 24.0, Anion Gap 5, BUN 13, Creatinine 0.80, Estim Creat Clear Calc 82.38, Est GFR (MDRD) Af Amer 121, Est GFR (MDRD) Non-Af 100, BUN/Creatinine Ratio 16.2, Glucose 90, Calcium 8.0 L, Total Bilirubin 1.20 H, AST 28, ALT 17, Alkaline Phosphatase 71, Total Protein 7.3, Albumin 2.8 L, Globulin 4.5 H, Albumin/Globulin Ratio 0.6 L, Triglycerides 38, Cholesterol 64, LDL Cholesterol 23, VLDL Cholesterol 8, HDL Cholesterol 33 L Radiography Diagnostic Testing: Radiology Impression Chest X-Ray 12/21/21 19:10 IMPRESSION: 1. Mild left lower lobe pneumonia with a mild left pleural effusion. 2. Mild cardiomegaly without heart failure. 3. No evidence of other active cardiopulmonary disease. 4. Mild demineralization. 5. Lordotic view. Electronically Signed: Alvino Lea MD at 19:25 EDT , Rhythm Strip Rhythm Strip: Junctional rhythm Rate: 78 Physical Exam Const alert, oriented x3 and no apparent distress Constitutional Narrative: Patient appears older than his stated age General Appearance: cooperative, well kempt and well developed Orientation / Consciousness: awake, oriented to person, oriented to place and oriented to time HEENT normocephalic, head/scalp atraumatic and moist oral mucous membranes Head and Scalp: normocephalic Eyes PERRL, EOMs intact bilaterally and conjunctivae normal Neck nuchal rigidity, supple, no JVD, thyroid normal and no carotid bruits General: trachea midline Resp normal respiratory effort, no retractions, no use of accessory muscles and clear to auscultation bilaterally Auscultation: Negative for rales, rhonchi or wheezes Cardio S1 normal heart sound, S2 normal heart sound, no murmurs and no rub Cardio Narrative: Heart rate and rhythm is irregular GI normal to inspection, nondistended, normoactive bowel sounds, soft to palpation, non-tender and non-distended Extremity Extremity Narrative: Patient's lower extremities are wrapped with Sonny wraps, there is noted to be pitting edema present bilaterally Skin no rashes or lesions noted General Skin Exam: no breakdown Neuro oriented x3, CN's II-XII intact bilaterally, no focal motor deficits and no sensory deficits noted Sensorium / Orientation: awake and alert Speech: speech normal Psych Psych Narrative: Affect flat patient is appropriate when asked questions Assessment & Plan Assessment/Plan (1) Severe anemia: PLAN: 1. Iron deficiency anemia-etiology unclear, could be nutritional in nature, could be chronic blood loss (? GI source)-patient will be seen by GI today, he will receive 1 more unit of packed red blood cells, labs will be monitored. I will give the patient Venofer today. #2 left pleural effusion with left lower lobe atelectasis-I do not believe the patient has pneumonia at this time, there is not a good indication for acute congestive heart failure either-patient's beta natruretic peptide however is elevated, fluids will be monitored closely on the patient #3 chronic alcoholism-patient does not exhibit any evidence of DTs at this time, patient is on CIWA protocol #4 chronic atrial fibrillation-patient's heart rate appears to be under control at this time, he is on a beta-violet, I do not feel that it is torrez to place the patient on anticoagulant at this time, he will need a GI work-up regarding possible GI blood loss. #5 alcoholic cirrhosis-complicates care and recovery 6. Chronic diastolic congestive heart failure-patient is on a beta-violet at this time, he is on IV furosemide. I do not feel the patient needs an echocardiogram at this time. Charges/Coding Visit Charges Inpatient E&M: 51909 [facility] Hosp L3
[2021-12-22] MEDS: Metoprolol Tartrate 25 MG Tablet 12.5 MG PO ×2 (09:48→20:54)
--- NOTE | 2021-12-22 14:04 | CASEMGMT ---
Pt states would like [facility] at discharge and states no preference on DME company after provided verbal list. [facility] Carmelo LUTZ CM
--- NOTE | 2021-12-22 16:02 | CHAPLAIN ---
Type of Pastoral Visit _x__ Initial Visit ___ Follow-up Visit ___ On-call Visit ___ General Patient Visit ___ Spiritual Assessment ___ Family Conference ___ Bereavement ___ Rapid Response ___ Code Blue ___ Other (describe below) Pastoral Care Referral From _x__ Patient ___ Family ___ Nurse ___ Physician ___ Weaving Machine Operator ___ Clinical Data Assistant ___ Other (describe below) Sacrament/Intervention _x__ Active listening ___ Anointing ___ Mormonism ___ Bereavement ___ Communion ___ Danielle exploration ___ ___ Life review _x__ Prayer ___ Reconciliation ___ Sacrament of Sick _x__ Supportive presence ___ Wedding ___ Other (describe below) Pastoral Comments patient gives brief overview of his health; pt when asked about support states you can say a prayer; pt stated that I have not been baptized when asked about danielle preference; prayer given and patient then fell asleep
--- NOTE | 2021-12-22 16:39 | CASEMGMT ---
Social Work SW met with pt and introduced self and role of SW. SW spoke with pt regarding alcohol use Pt confirms he drinks a 6 pack of tall boys a day and this occurs daily. Pt states he has tried multiple programs over the years and has never been successful in stopping. SW provided information on [employer] and [employer]. Pt declined for SW to set an appointment. No further SW needs. NAVDEEP Raphael
[2021-12-22 20:30] LABS: Hematocrit 26.4 % (40-54); Hemoglobin 7.7 g/dL (13.0-16.5)
[2021-12-23 03:00] VITALS: PULSE 72
[2021-12-23 03:37] VITALS: BP 128/69; PULSE 86; RESP 18; TEMP 36.8; O2SAT 94
[2021-12-23 07:00] VITALS: PULSE 88
[2021-12-23 09:30] VITALS: BP 110/69; PULSE 86; RESP 18; TEMP 36.6; O2SAT 94
--- NOTE | 2021-12-23 10:19 | PCM.DC ---
Discharge Instructions Diet Discharge Diet: No restrictions Activity Discharge Activity: Return to Normal Activity Weight Bearing Status: Full weight bearing Follow Up Care Test Results: Test results from this visit will be discussed in further detail at your follow-up appointment, if applicable. Discharge Plan Admission Admit Date/Time: 12/21/21 20:29 Primary Reason for Your Visit: anemia Attending Provider: Adams Larios Primary Care Provider: Ez Alexandre Instructions Additional Instructions / Restrictions: do not drink alcohol Discharge Orders/Prescriptions Prescriptions: New metoprolol tartrate 25 mg Tablet 12.5 mg PO BID Qty: 30 RF: 0 spironolactone 25 mg Tablet 25 mg PO DAILY Qty: 30 RF: 0 ferrous sulfate 325 mg (65 mg iron) tablet 325 mg PO BID Qty: 60 RF: 0 furosemide [Lasix] 20 mg tablet 20 mg PO DAILY Qty: 30 RF: 0 pantoprazole [Protonix] 40 mg tablet,delayed release (DR/EC) 40 mg PO DAILY Qty: 30 RF: 0 Referrals / Follow Up: Ez Alexandre MD [Primary Care Provider] - Within 2 Weeks (discuss having appointment for colonoscopy/EGD due to your anemia) Disposition Disposition (needs filled in before D/C Order can be placed): Home, Self Care
[2021-12-23 10:27] VITALS: PULSE 86
[2021-12-23] MEDS: Metoprolol Tartrate 25 MG Tablet 12.5 MG PO (10:27)
[2021-12-23] MEDS: Spironolactone 25 MG Tablet PO (10:29)
[2021-12-23] MEDS: Furosemide 20 MG/2 ML VIAL IV (10:29)
[2021-12-23] MEDS: 0.9% Saline Lock 10 ML Syringe IV (10:33)
--- NOTE | 2021-12-23 10:36 | CASEMGMT ---
RN CM NOTE: Edin Wright RN, WW has been delivered to pt--it is in his room. Suzanne STAPLETON RN CM
[2021-12-23 10:45] VITALS: PULSE 69
--- NOTE | 2021-12-23 19:12 | PCM.DC.SUM ---
Providers Date of Admission: 12/21/21 Date of Discharge: 12/23/21 Primary Care Physician: Dr. Ez Alexandre MD Reason For Visit: LEG EDEMA, SEVERE ANEMIA Diagnosis Discharge Diagnosis (1) Severe anemia: Status: Acute Code(s): D64.9 - Anemia, unspecified Plan: 1. Iron deficiency anemia-etiology unclear #2 left pleural effusion with left lower lobe atelectasis #3 chronic alcoholism #4 chronic atrial fibrillation #5 alcoholic cirrhosis #6. Chronic diastolic congestive heart failure Medications at Discharge Home Medications ferrous sulfate 325 mg PO BID #60 tab 12/23/21 furosemide [Lasix] 20 mg PO DAILY #30 tab 12/23/21 metoprolol tartrate 12.5 mg PO BID #30 tab 12/23/21 pantoprazole [Protonix] 40 mg PO DAILY #30 tab 12/23/21 spironolactone 25 mg PO DAILY #30 tab 12/23/21 Hospital Course Operations None Procedures 2-D Echocardiogram and Blood transfusion Summary of Care Provided Minutes Spent on Discharge: 32 Hospital Course: This 76-year-old white male was seen in the emergency room at [facility] with a chief complaint of bilateral leg swelling. Patient has a history of chronic alcohol abuse and cirrhosis. Labs in the emergency room showed a low hemoglobin at 6.3, beta natruretic peptide was 789, troponin was unremarkable. Chest x-ray showed a small left pleural effusion cardiomegaly but no evidence of active cardiopulmonary disease. Patient was admitted to PCU, he received blood transfusion, and IV diuresis. Patient's overall medical status improved, serum iron was found to be low. On 12/23/2021, patient requested to be discharged home and did not want to undergo any more blood transfusions or see any specialist. On 12/23/2021, patient was seen and examined:alert, oriented x3 and no apparent distress Constitutional Narrative: Patient appears older than his stated age General Appearance: cooperative, well kempt and well developed Orientation / Consciousness: awake, oriented to person, oriented to place and oriented to time HEENT normocephalic, head/scalp atraumatic and moist oral mucous membranes Head and Scalp: normocephalic Eyes PERRL, EOMs intact bilaterally and conjunctivae normal Neck nuchal rigidity, supple, no JVD, thyroid normal and no carotid bruits General: trachea midline Resp normal respiratory effort, no retractions, no use of accessory muscles and clear to auscultation bilaterally Auscultation: Negative for rales, rhonchi or wheezes Cardio S1 normal heart sound, S2 normal heart sound, no murmurs and no rub Cardio Narrative: Heart rate and rhythm is irregular GI normal to inspection, nondistended, normoactive bowel sounds, soft to palpation, non-tender and non-distended Extremity Extremity Narrative: Patient's lower extremities are wrapped with Sonny wraps, there is noted to be pitting edema present bilaterally Skin no rashes or lesions noted General Skin Exam: no breakdown Neuro oriented x3, CN's II-XII intact bilaterally, no focal motor deficits and no sensory deficits noted Sensorium / Orientation: awake and alert Speech: speech normal Psych Psych Narrative: Affect flat patient is appropriate when asked questions On 12/23/2021, patient was discharged home in stable condition, he was advised to follow-up as an outpatient with his PCP due to his anemia. Weight / BMI Weight Weight: 77.4 kg Body Mass Index (BMI) 24.6 ABG / Lab / Microbiology Data Result Diagrams: 12/22/21 20:13 12/22/21 04:06 Laboratory: Laboratory Results - last 24 hr 12/22/21 20:13: Hgb 7.7 L, Hct 26.4 L D/C Instructions Discharge Diet: No restrictions Weight Bearing Status: Full weight bearing Meaningful Use Info Meaningful Use Diagnoses (Choose all that apply): None applicable Discharge Plan Admission Admit Date/Time: 12/21/21 20:29 Primary Reason for Your Visit: anemia Attending Provider: Adams Larios Primary Care Provider: Ez Alexandre Instructions Additional Instructions / Restrictions: do not drink alcohol Discharge Orders/Prescriptions Prescriptions: New metoprolol tartrate 25 mg Tablet 12.5 mg PO BID Qty: 30 RF: 0 spironolactone 25 mg Tablet 25 mg PO DAILY Qty: 30 RF: 0 ferrous sulfate 325 mg (65 mg iron) tablet 325 mg PO BID Qty: 60 RF: 0 furosemide [Lasix] 20 mg tablet 20 mg PO DAILY Qty: 30 RF: 0 pantoprazole [Protonix] 40 mg tablet,delayed release (DR/EC) 40 mg PO DAILY Qty: 30 RF: 0 Referrals / Follow Up: Ez Alexandre MD [Primary Care Provider] - Within 2 Weeks (discuss having appointment for colonoscopy/EGD due to your anemia) Disposition Disposition (needs filled in before D/C Order can be placed): Home, Self Care Charges/Coding Visit Charges Inpatient E&M: 21379 [facility] Hosp
== END 2021-12-23 11:21 | disposition home or self-care (01) | DRG 812 ==
LOC: ED 20:38 → PCU 21:16
PROVIDERS: Admitting Provider Internal Medicine; Emergency Provider Emergency Medicine; PCP Internal Medicine; Visit Provider Internal Medicine
DX: D50.9 Iron deficiency anemia, unspecified (principal); J90 Pleural effusion, not elsewhere classified; I50.32 Chronic diastolic (congestive) heart failure; I48.20 Chronic atrial fibrillation, unspecified; J98.11 Atelectasis; K70.30 Alcoholic cirrhosis of liver without ascites; F10.20 Alcohol dependence, uncomplicated; K76.89 Other specified diseases of liver; D72.810 Lymphocytopenia; F17.210 Nicotine dependence, cigarettes, uncomplicated; Z66 Do not resuscitate; Y90.9 Presence of alcohol in blood, level not specified
CPT/HCPCS: 36415; 71045; 80048; 80053; 80061; 80076; 82077; 82306; 82607; 82728; 82746; 82977; 83540; 83550; 83735; 83880; 84100; 84484; 85014; 85018; 85025; 86850; 86900; 86901; 86920; 86922; 93005; 93306; 99285; J7040; J7050; P9016; Q9957; A4216; C8929; J1940; J2916

== ENCOUNTER 2023-01-10 15:35 | Emergency (ER) | payer MEDICARE, MEDICAID, SELFPAY ==
[2023-01-10 15:36] VITALS: BP 113/57; PULSE 78; RESP 18; TEMP 36.6; O2SAT 97; BMI 22.9
--- NOTE | 2023-01-10 16:01 | EKG12_ITS ---
Test Reason : DIZZINESS Blood Pressure : / mmHG Vent. Rate : 094 BPM Atrial Rate : 000 BPM P-R Int : 000 ms QRS Dur : 094 ms QT Int : 398 ms P-R-T Axes : 000 031 081 degrees QTc Int : 497 ms Atrial fibrillation with premature ventricular or aberrantly conducted complexes Prolonged QT Abnormal ECG Confirmed by MACHELLE TRACY ([id number]), editor at large JULIA WEI ([id number]) on 01/15/2023 7:40:20 AM Referred By: OSWALD Confirmed By:MACHELLE TRACY
[2023-01-10] MEDS: 0.9% Normal Saline 1,000 ML 1000 ML IV (16:19)
--- NOTE | 2023-01-10 16:35 | EX.ED.DYSGE1 ---
HPI History of Present Illness Chief Complaint: Dizziness Informant: patient Narrative Narrative: Patient presenting private vehicle multiple complaints. Crusting in both eyes causing bloody vision and 2 days. No fevers. States polyuria and polydipsia noting more so started 8 years ago more so the last 2 months. No diagnosis of diabetes however states family history of diabetes. He also states right ankle pain. He denies any dizzy or spinning. Denies palpitations. Denies cough. Denies any bloody stools. Denies dysuria. He states he does not take any daily medications. He was denying any initial past medical history on evaluation states he has not seen his PCP for the past 8 years. After initial work-up review of records, admitted 3 weeks ago for anemia status post 2 units of blood did not want any further work-up in the hospital and did a prescription of furosemide, metoprolol, Lasix spironolactone. Peers to have diagnosed alcohol cirrhosis he denies any alcohol today. He states he is not taking any medications. [facility] Medical History (Updated 01/10/23 @ 18:[address] Jaron Gonzalez DO) Acute on chronic diastolic (congestive) heart failure Alcohol abuse with intoxication Alcoholism Cirrhosis Closed fracture of glenoid cavity of right scapula Closed head injury without concussion Hepatitis C History of CHF (congestive heart failure) Microcytic anemia Multiple fractures of ribs, left side, initial encounter for closed fracture New onset atrial fibrillation Nicotine dependence Pleural effusion Home Medications ferrous sulfate 325 mg (65 mg iron) tablet 325 mg PO BID #60 tabs 12/23/21 [Rx Last Taken Unknown] furosemide 20 mg tablet (Lasix) 20 mg PO DAILY #30 tabs 12/23/21 [Rx Last Taken Unknown] metoprolol tartrate 25 mg tablet 12.5 mg PO BID #30 tabs 12/23/21 [Rx Last Taken Unknown] pantoprazole 40 mg tablet,delayed release (Protonix) 40 mg PO DAILY #30 tabs 12/23/21 [Rx Last Taken Unknown] spironolactone 25 mg tablet 25 mg PO DAILY #30 tabs 12/23/21 [Rx Last Taken Unknown] Allergy/AdvReac Type Severity Reaction Status Date / Time No Known Allergies Allergy Verified 01/10/23 15:36 Family History Father Alcoholism Mother Diabetes Surgical History History of herniorrhaphy Social History Smoking Status: Current every day smoker tobacco type: cigarettes alcohol intake: current alcohol intake frequency: 3 or more drinks per day ROS ROS ED Constitutional Constitutional ED: Denies chills, fever(s) or sweats Eyes Eyes: Denies change in vision ENT ENT ED: Reports other Details: Eye crusting ; Denies dysphagia or sore throat Cardiovascular Cardiovascular: Denies chest pain, leg edema, palpitations or racing heartbeat Respiratory/Chest Respiratory/Chest: Denies cough, dyspnea or dyspnea on exertion Gastrointestinal Gastrointestinal: Denies abdominal pain, diarrhea, nausea or vomiting Genitourinary Genitourinary ED: Reports urinary frequency; Denies dysuria or hematuria Musculoskeletal Musculoskeletal: Reports extremity pain; Denies back pain or neck pain Integumentary Denies rash or wounds Neurologic Neurologic: Denies headache(s), paresthesias or weakness Endocrine Endocrinology: Reports polydipsia and polyuria EXAM Physical Exam Const Vital Signs: 01/10/23 15:36 Temperature 97.8 F Temperature Source Temporal Pulse Rate 78 Respiratory Rate 18 Blood Pressure 113/57 L Blood Pressure Mean 75 Pulse Ox 97 Oxygen Delivery Method Room Air Positive well nourished and well developed General Appearance ED: well developed and NAD HEENT Reports moist mucous membranes normocephalic and atraumatic Eyes PERRL, EOMs intact bilaterally and conjunctivae normal Eyes Narrative: Crusting bilateral eyes left greater than right, no erythema of the sclera. General Eye ED: Yes normal appearance of both eyes Neck no lymphadenopathy and supple General: Negative for tenderness Chest Wall Chest: Negative for tenderness Resp normal respiratory effort and normal air movement Effort and Inspection: symmetric chest movement; Negative for respiratory distress Cardio regular rate and no murmurs Rhythm: abnormal rhythm Peripheral Pulses: pulses 2+ throughout GI normal to inspection, nondistended, normoactive bowel sounds and non-tender Palpation: Negative for guarding or rebound tenderness present Back/Spine no CVA tenderness and no thoracic nor lumbar tenderness Extremity Extremity Narrative: Right lower extremity: Tender palpation right ATFL no malleoli or tenderness or swelling. No foot tenderness. Skin intact. Distal pulses intact bilateral feet. General Extremety ED: Negative for edema or tenderness General Extremity: Negative for edema Neuro oriented x3, CN's II-XII intact bilaterally and no sensory deficits noted Sensorium / Orientation: awake and alert Skin no rashes or lesions noted and no wounds MDM MDM MDM Narrative Medical decision making narrative: Interventions / MDM: Differential diagnosis: Conjunctivitis, right ankle sprain, diabetes, electrolyte abnormalities Diagnosis considered but do not suspect: N/A My EKG interpretation: Rate controlled A-fib rate of 94, PVC noted, no ST changes. Imaging independently reviewed and interpreted by myself: N/A External documents reviewed: Recent inpatient admission, status post 2 units of blood, however declined further work-up for his anemia. Prescriptions medications for which he states he is not taking. Test considered but not ordered:N/A ED course: Patient with multiple complaints, vital stable bilateral conjunctivitis with crusting there is no scleral erythema. EKG rate controlled A-fib. Laboratory work notes current hemoglobin of 6.4. States no recent rectal bleeding. He declines blood at this time. He is walking in the room asymptomatic. Urine obtain and results are pending. He declined chest x-ray and right ankle x-ray. White count 2.7. He wanted to go home. He is alert and oriented x4 is capable of making decisions. He signed out AGAINST MEDICAL ADVICE. Discussed follow with his PCP tomorrow. Discussed returning if he wants reevaluation and treatment. Re-evaluation: stable Disposition discussed with patient/family/significant other: Patient Case discussed with consulting clinician: N/A Lab Data Attestation: I reviewed the patient's lab results. Labs: Laboratory Results - last 24 hr 01/10/23 01/10/23 01/10/23 16:25 16:25 16:25 WBC 2.7 L RBC 3.53 L Hgb 6.4 L Hct 24.5 L MCV 69.4 L MCH 18.1 L MCHC 26.1 L RDW Std Deviation 48.3 H RDW Coeff of Hilda 19.5 H Plt Count 165 MPV 8.8 Immature Gran % (Auto) 0.400 Neut % (Auto) 51.8 Lymph % (Auto) 28.8 [place] % (Auto) 12.8 H Eos % (Auto) 4.7 Baso % (Auto) 1.5 H Absolute Neuts (auto) 1.4 L Absolute Lymphs (auto) 0.79 L Nucleated RBC % 0 PT 16.1 H INR 1.3 APTT 34.8 Sodium 139 Potassium 4.1 Chloride 111 H Carbon Dioxide 24.0 Anion Gap 4 L BUN 16 Creatinine 0.82 Estim Creat Clear Calc 78.57 Est GFR (MDRD) Af Amer 117 Est GFR (MDRD) Non-Af 97 BUN/Creatinine Ratio 19.5 Glucose 86 Calcium 8.3 L Urine Color Urine Clarity Urine pH Ur Specific [place] Urine Protein Urine Glucose (UA) Urine Ketones Urine Occult Blood Urine Nitrite Urine Bilirubin Urine Urobilinogen Ur Leukocyte Esterase Urine RBC Urine WBC Ur Squamous Epith Cells Urine Bacteria Urine Mucus POC Glucose 01/10/23 01/10/23 16:43 17:41 WBC RBC Hgb Hct MCV MCH MCHC RDW Std Deviation RDW Coeff of Hilda Plt Count MPV Immature Gran % (Auto) Neut % (Auto) Lymph % (Auto) [place] % (Auto) Eos % (Auto) Baso % (Auto) Absolute Neuts (auto) Absolute Lymphs (auto) Nucleated RBC % PT INR APTT Sodium Potassium Chloride Carbon Dioxide Anion Gap BUN Creatinine Estim Creat Clear Calc Est GFR (MDRD) Af Amer Est GFR (MDRD) Non-Af BUN/Creatinine Ratio Glucose Calcium Urine Color Yellow Urine Clarity Sl. Cloudy Urine pH 6.0 Ur Specific [place] 1.020 Urine Protein 15 H Urine Glucose (UA) Normal Urine Ketones Negative Urine Occult Blood Negative Urine Nitrite Negative Urine Bilirubin Negative Urine Urobilinogen 1 H Ur Leukocyte Esterase 500 H Urine RBC 0 SEEN Urine WBC 25-50 SEEN Ur Squamous Epith Cells 0-5 SEEN Urine Bacteria 2+ Urine Mucus 0 SEEN POC Glucose 82 Discharge Plan Triage Chief Complaint: Dizziness Other Complaint: Eye Problem Complaint Lower Extremity Injury ED Provider: Jaron Gonzalez Dx/Rx/DC Orders Clinical Impression: Anemia, Conjunctivitis, Urine frequency, Right ankle sprain Instructions: Anemia, ED Conjunctivitis, Nonspecific, ED Ankle Sprain (Adult) Prescriptions: No Action metoprolol tartrate 25 mg Tablet 12.5 mg PO BID Qty: 30 0RF spironolactone 25 mg Tablet 25 mg PO DAILY Qty: 30 0RF ferrous sulfate 325 mg (65 mg iron) tablet 325 mg PO BID Qty: 60 0RF furosemide [Lasix] 20 mg tablet 20 mg PO DAILY Qty: 30 0RF pantoprazole [Protonix] 40 mg tablet,delayed release (/EC) 40 mg PO DAILY Qty: 30 0RF Primary Care Provider: Ez Alexandre Referrals: Ez Alexandre MD [Primary Care Provider] - 1 Day Disposition Disposition: Against Medical Advice Discharge Date/Time: 01/10/23 18:12
[2023-01-10 16:42] LABS: Absolute Lymphocyte Count 0.79 X10^3/uL (0.83-4.51); Absolute Neutrophil Count 1.4 X10^3/uL (2.0-7.7); Basophil# 0.04 X10^3/uL; Basophil% 1.5 % (0-1); Eosinophil# 0.13 X10^3/uL; Eosinophils% 4.7 % (0-5); Hematocrit 24.5 % (40-54); Hemoglobin 6.4 g/dL (13.0-16.5); Lymphocyte # 0.79 X10^3/ul (0.83-4.51); Lymphocyte % 28.8 % (19-41); Mean Corp Hgb Conc 26.1 g/dL (32-36); Mean Corpuscular Hgb 18.1 pg (27.0-32.0); Mean Corpuscular Volume 69.4 fL (80-94); Mean Platelet Vol. 8.8 fl (6.2-12.0); Monocyte# 0.35 X10^3/uL; Monocyte% 12.8 % (0-10); NRBC Flagged by Analyzer 0 % (0-5); Neutrophil # 1.42 X10^3/uL (2.7-7.7); Neutrophil % 51.8 % (47-70); Platelet Count 165 K/mm3 (150-450); RBC Distribution Width CV 19.5 % (11.6-14.6); RBC Distribution Width SD 48.3 fl (35.1-43.9); Red Blood Count 3.53 M/mm3 (4.6-6.2); White Blood Count 2.7 K/mm3 (4.4-11.0)
[2023-01-10 16:56] LABS: Anion Gap 4 (5-15); BUN 16 mg/dL (7-18); BUN/Creat Ratio 19.5 RATIO (10-20); Calcium,Total 8.3 mg/dL (8.5-10.1); Chloride 111 mmol/L (98-107); Creatinine, Serum 0.82 mg/dL (0.70-1.30); EST Glomerular Filtration Rate 97 mL/min (>60); Est Glom Filt Rate - Afr Amer 117 mL/min (>60); Estimated Creatinine Clearance 78.57 ml/min; Glucose 86 mg/dL (74-106); Potassium 4.1 mmol/L (3.5-5.1); Sodium Level 139 mmol/L (136-145)
[2023-01-10 16:58] LABS: International Normalized Ratio 1.3; Prothrombin Time (Protime)PT. 16.1 SECONDS (11.7-14.9)
[2023-01-10 16:59] LABS: Partial Thromboplast Time 34.8 Seconds (24.1-36.2)
[2023-01-10 17:06] LABS: Bedside Glucose 82 mg/dL (74-106)
[2023-01-10 17:58] LABS: Mucous, Urine 0 SEEN /hpf (<or=2+); Red Blood Cells-Urine 0 SEEN /hpf (0-5)
[2023-01-10 18:06] LABS: Color, Urine Yellow (Yellow); Glucose, Dipstick Normal (Normal); Ketone-Dipstick Negative (Negative); Leukocyte Esterase-Dipstick 500 /ul (Negative); Nitrite-Dipstick Negative (Negative); Occult Blood-Urine Negative /ul (Negative); Protein-Dipstick 15 mg/dl (Negative); Urine Bilirubin Dipstick Negative (Negative); Urine Clarity Sl. Cloudy (Clear); Urine Urobilinogen 1 mg/dl (Normal)
--- NOTE | 2023-01-10 18:10 | ED.RN ---
Dr. Gonzalez to cart side to speak with patient. Patient states he wants to leave.
[2023-01-10 18:12] LABS: White Blood Cells 25-50 SEEN /hpf (0-5)
[2023-01-10 18:13] LABS: Bacteria 2+ /hpf (None Seen); Squamous Epithelial Cells - UA 0-5 SEEN /hpf (0-5)
== END 2023-01-10 18:12 | disposition left against medical advice (07) ==
PROVIDERS: Emergency Provider Emergency Medicine; PCP Internal Medicine; Visit Provider Emergency Medicine
DX: D64.9 Anemia, unspecified (principal); I48.91 Unspecified atrial fibrillation; H10.9 Unspecified conjunctivitis; I49.3 Ventricular premature depolarization; R35.0 Frequency of micturition; S93.401A Sprain of unspecified ligament of right ankle, initial encounter; X58.XXXA Exposure to other specified factors, initial encounter
CPT/HCPCS: 80048; 81001; 82962; 85025; 85610; 85730; 93005; 99283; J7030; A4216

== ENCOUNTER 2023-10-23 13:08 | Inpatient (IN) | payer MEDICARE, SELFPAY ==
[2023-10-23] VITALS (28 sets, daily range): BP systolic 85–108; BP diastolic 49–80; PULSE 68–110; RESP 16–25; TEMP 35.5–36.9; O2SAT 78–100; BMI 27.7; BMI 25.6
[2023-10-23] MEDS: Albuterol 2.5 MG/3 ML VIAL.NEB. INHALATION (13:20)
[2023-10-23] MEDS: Ipratropium/Albuterol Sulfate 3 ML AMPUL.NEB INHALATION ×2 (13:20→17:13)
--- NOTE | 2023-10-23 13:21 | EDS_ITS ---
HPI History of Present Illness Chief Complaint: GI Bleed Detail of Chief Complaint: Presented for GI bleed however patient in respiratory distress with hypoxia Informant: patient and other (ER nurse) Onset/Context/Timing Onset: - (Unknown) Quality: Vomiting blood, shortness of breath with wheezing and rhonchi and pulse ox Location: Respiratory and GI Current Severity: Severe Maximum Severity: Severe Worsened by: Unknown Relieved by: Nothing Associated Symptoms Associated Symptoms: Unknown Narrative Narrative: patient is a 78-year-old male with history of cirrhosis, severe anemia, atrial fibrillation, alcoholism who presented by ambulance because of vomiting blood. Arrival he is noted to be tachypneic and breathing much more rapidly than 16 times a minute. There is use of accessory muscles and retractions. Patient has wheezing and rhonchi throughout. He also complains of increased abdominal girth. He does not know whether he has liver disease or ascites. He denied black or maroon-colored stool. Prior similar symptoms: No Recent Illness/Hospitalization: No [facility] Medical History (Updated 10/23/23 @ 14:[address] Demario Bernal MD) Acute on chronic diastolic (congestive) heart failure Alcohol abuse with intoxication Alcoholism Cirrhosis Closed fracture of glenoid cavity of right scapula Closed head injury without concussion Hepatitis C History of CHF (congestive heart failure) Microcytic anemia Multiple fractures of ribs, left side, initial encounter for closed fracture New onset atrial fibrillation Nicotine dependence Pleural effusion Home Medications ferrous sulfate 325 mg (65 mg iron) tablet 325 mg PO BID #60 tabs 12/23/21 [Rx Last Taken Unknown] furosemide 20 mg tablet (Lasix) 20 mg PO DAILY #30 tabs 12/23/21 [Rx Last Taken Unknown] metoprolol tartrate 25 mg tablet 12.5 mg (1/2 x 25 mg) PO BID #30 tabs 12/23/21 [Rx Last Taken Unknown] pantoprazole 40 mg tablet,delayed release (Protonix) 40 mg PO DAILY #30 tabs 12/23/21 [Rx Last Taken Unknown] spironolactone 25 mg tablet 25 mg PO DAILY #30 tabs 12/23/21 [Rx Last Taken Unknown] Allergy/AdvReac Type Severity Reaction Status Date / Time No Known Allergies Allergy Verified 10/23/23 13:09 Family History Father Alcoholism Mother Diabetes Surgical History History of herniorrhaphy Social History Smoking Status: Current every day smoker tobacco type: cigarettes alcohol intake: current alcohol intake frequency: 3 or more drinks per day ROS ROS ED Review of Systems ROS Unobtainable: other Details: Limited to the fact the patient is in respiratory distress and not able to say 1 word without gasping for breath. Respiratory therapist asked if I would put a number for order for DuoNeb since he is in respiratory distress and hypoxic. EXAM Physical Exam Const Vital Signs: 10/23/23 13:11 10/23/23 13:43 10/23/23 13:20 Temperature 97.6 F L Temperature Source Temporal Pulse Rate 110 H 106 H Respiratory Rate 16 24 H Blood Pressure 106/66 Blood Pressure Mean 79 Pulse Ox 78 90 Oxygen Delivery Method Room Air Nasal Cannula Oxygen Flow Rate (L/min) 2 10/23/23 14:07 Temperature Temperature Source Pulse Rate 93 Respiratory Rate 22 H Blood Pressure 98/58 L Blood Pressure Mean 71 Pulse Ox 96 Oxygen Delivery Method Room Air Oxygen Flow Rate (L/min) Positive well nourished and well developed Constitutional Narrative: Patient has altered mental status. This may be due to the fact he is hypoxic. He does not appear well. Question of mild jaundice and pallor. General Appearance ED: well developed, cyanotic and pallor; Negative for diaphoretic or NAD HEENT Reports dry mucous membranes HEENT Narrative: Head is atraumatic and normocephalic. Ears are normal. Posterior pharynx is unremarkable. Mouth ED: Yes dry mucous membranes Mouth: dry mucous membranes Eyes PERRL and EOMs intact bilaterally General Eye ED: Yes pale conjunctiva and scleral icterus Neck no lymphadenopathy, supple and no JVD Neck Narrative: Trachea is midline. Chest Wall inspection of chest normal and palpation of chest normal Resp No normal respiratory effort and No clear to auscultation bilaterally Effort and Inspection: retractions intercostal Auscultation: rales bilateral lower, wheezes expiratory wheezes and throughout and diminished lung sounds diffuse Cardio S1 normal heart sound, S2 normal heart sound and no murmurs Rate: tachycardic GI GI Narrative: Abdomen is distended. There is a fluid wave. He has prominent vessels noted. Auscultation: hypoactive bowel sounds Back/Spine no CVA tenderness Extremity Negative for normal to inspection Extremity Narrative: Patient has bilateral pitting edema. Neuro CN's II-XII intact bilaterally and no sensory deficits noted Sensorium / Orientation: Negative for alert Psych mental status grossly normal Skin no wounds and skin turgor normal General Skin Exam: jaundice and pallor MDM MDM MDM Narrative Medical decision making narrative: Patient with multiple problems. Since he has been vomiting and now has abnormal respiratory sounds hypoxia need to consider aspiration versus exacerbation of COPD versus pneumonia. With history of vomiting blood will have nurse place NG to see if he is still actively bleeding. Need to consider variceal bleed. If there is bright red blood we will start on octreotide and administer Protonix IV and Rocephin. Also will consult Dr. Schwartz who is on-call for GI. H&H is obtained. Will type and screen patient. Patient will require admission. ABG was obtained to assess acid-base status and evaluate for hypercapnia since he is not alert. Patient has bright red blood. Patient was to the Rocephin, Protonix IV bolus and drip and octreotide. Case was discussed Dr. Schwartz. Plan is OR for emergent EGD and possible banding of varices. History & Record Review Additional record(s) reviewed:: Prior ED visit (Admitted approximately 1 year ago for severe anemia.) and Prior labs Lab Data Attestation: I reviewed the patient's lab results. Lab results narrative: H&H is 4.9 and 19.8 with an MCV of 69. Differential and white count are unremarkable. PT is slightly elevated 18.3 with a normal INR 1.5. Electrolyte panel reveals a sodium of 135. BNP is elevated 659.9. Albumin is low at 2.8. Alcohol is slightly elevated. Labs: Laboratory Results - last 24 hr 10/23/23 13:25 WBC 5.0 RBC 2.85 L Hgb 4.9 L* Hct 19.8 L MCV 69.5 L MCH 17.2 L MCHC 24.7 L RDW Std Deviation 50.2 H RDW Coeff of Hilda 19.9 H Plt Count 217 MPV 9.3 Immature Gran % (Auto) 0.600 Neut % (Auto) 66.8 Lymph % (Auto) 16.1 L [place] % (Auto) 12.7 H Eos % (Auto) 3.0 Baso % (Auto) 0.8 Absolute Neuts (auto) 3.3 Absolute Lymphs (auto) 0.80 L Nucleated RBC % 0.8 Diff Path Review January foll PT 18.6 H INR 1.5 Sodium 135 L Potassium 4.1 Chloride 106 Carbon Dioxide 23.0 Anion Gap 6 BUN 13 Creatinine 0.81 Estim Creat Clear Calc 78.86 Est GFR (MDRD) Af Amer 119 Est GFR (MDRD) Non-Af 98 BUN/Creatinine Ratio 16.0 Glucose 92 Calcium 7.9 L Total Bilirubin 1.00 AST 22 ALT 14 L Alkaline Phosphatase 80 Troponin I High Sens 50 B-Natriuretic Peptide 659.9 H Total Protein 7.4 Albumin 2.8 L Globulin 4.6 H Albumin/Globulin Ratio 0.6 L Ethyl Alcohol 7.0 ABG Data Attestation: I personally reviewed and interpreted this ABG as follows: Interpretation: Patient was removed from oxygen for a brief time before the O2 and oxygen saturation are not accurate. pH is normal. Base excess is -4. pCO2 is 32.3. pO2 is 56. This reveals an increased AA gradient otherwise unremarkable. ABG results: ABG 10/23/23 13:33 Specimen Type ART Sample Site R Radial pH 7.42 Bicarbonate Actual 20.7 L Total CO2 22 Base Excess -4 L O2 Saturation 89 L ABG pCO2 32.3 L ABG pO2 56 L Josef Test Positive O2 Delivery Device Room Air Vent Mode Not entered Radiography Chest X-Ray - ED: 1 View and Read by ED Physician (Moderate effusion left cannot rule out infiltrate. There is cephalization and findings are consistent with patient being fluid overloaded. This may represent high-output heart failure since he is anemic. This was independent reviewed interpreted by me at 1356.) Diagnostic Testing: Clinical Impression(s) from Imaging Studies Chest X-Ray 10/23/23 13:45 IMPRESSION: Increasing left pleural effusion with left basilar infiltration and/or atelectasis with superimposed CHF. Electronically Signed: Johnson Lambert MD at 14:22 EST , EKG Initial EKG: Attestation: I personally reviewed and interpreted this EKG as follows: Interpretation: Atrial Fibrillation (Rate is 98. QRS duration 106 ms. QT durations are 78 ms. [place] is normal. There is artifact due to his respiratory distress.) Management Discussion w/another healthcare provider: Hospitalist (Will speak with Dr. Mortensen and then place order for admission.) Critical Care Time Critical Care Time: Yes Critical care time (excluding procedures): 30-74 minutes (37), Including time spent: (History, physical, documentation, independent rotation of laboratory results and images, initiation of therapy), Discussing w/Patient &/or Family/[employer], Discussing w/Consultants (Hospitalist and water mangle tender), Arranging Admission or Transfer and - (Patient to go to OR.) Discharge Plan Triage Chief Complaint: GI Bleed ED Provider: Demario Bernal Dx/Rx/DC Orders Clinical Impression: Acute upper gastrointestinal bleeding, History of alcohol abuse, Anemia due to acute blood loss, Signs and symptoms of anemia, Symptomatic anemia, Atrial fibrillation with RVR, Ascites, Cirrhosis of liver, Diastolic congestive heart failure, Acute hypoxemic respiratory failure Prescriptions: No Action metoprolol tartrate 25 mg Tablet 12.5 mg PO BID Qty: 30 0RF spironolactone 25 mg Tablet 25 mg PO DAILY Qty: 30 0RF ferrous sulfate 325 mg (65 mg iron) tablet 325 mg PO BID Qty: 60 0RF furosemide [Lasix] 20 mg tablet 20 mg PO DAILY Qty: 30 0RF pantoprazole [Protonix] 40 mg tablet,delayed release (DR/EC) 40 mg PO DAILY Qty: 30 0RF Primary Care Provider: Ez Alexandre Referrals: Ez Alexandre MD [Primary Care Provider] - Disposition Disposition: Acute Care Hospital [facility]
[2023-10-23 13:36] LABS: Allen Test Positive; Base Excess -4 mmol/L (-2 to +2); Bicarbonate 20.7 mmol/L (22-26); Blood Gas Specimen Type ART; Mode Not entered; O2 Delivery Device Room Air; PO2 56 mmHG (75-100); SITE R Radial; SO2 89 % (95-99); Total Carbon Dioxide 22 mmol/L; pCO2 32.3 mmHg (35-45); pH 7.42 (7.35-7.45)
[2023-10-23 13:36] LABS: Absolute Neutrophil Count 3.3 X10^3/uL (2.0-7.7); Basophil# 0.04 X10^3/uL; Basophil% 0.8 % (0-1); Eosinophil# 0.15 X10^3/uL; Hematocrit 19.8 % (40-54); Hemoglobin 4.9 g/dL (13.0-16.5); Lymphocyte % 16.1 % (19-41); Mean Corp Hgb Conc 24.7 g/dL (32-36); Mean Corpuscular Hgb 17.2 pg (27.0-32.0); Mean Corpuscular Volume 69.5 fL (80-94); Mean Platelet Vol. 9.3 fl (6.2-12.0); Monocyte# 0.63 X10^3/uL; Monocyte% 12.7 % (0-10); NRBC Flagged by Analyzer 0.8 % (0-5); Neutrophil # 3.31 X10^3/uL (2.7-7.7); Neutrophil % 66.8 % (47-70); POSITIVE COUNT YES; Platelet Count 217 K/mm3 (150-450); RBC Distribution Width CV 19.9 % (11.6-14.6); RBC Distribution Width SD 50.2 fl (35.1-43.9); Red Blood Count 2.85 M/mm3 (4.6-6.2)
--- NOTE | 2023-10-23 13:45 | RAD_ITS ---
STUDY: X-RAY CHEST REASON FOR EXAM: Male, 78 years old. Respiratory distress and hypoxia TECHNIQUE: Single AP portable view of the chest. COMPARISON: Comparison is made with prior study dated December 21, 2021. FINDINGS: EKG electrodes are seen. Moderate sized left pleural effusion with left basilar infiltration and/or atelectasis. Superimposed vascular congestion and mild CHF. There is mild cardiac enlargement. Normal mediastinum and samson. Normal visualized pulmonary arteries. There is atherosclerotic calcification of the aortic arch with tortuosity. There are diffuse degenerative changes of the visualized thoracic spine. Normal visualized ribs, clavicles, and shoulders. There is no demonstrated abnormality of the visualized soft tissue structures of the upper abdomen. RAD/Chest 1 View (Portable) IMPRESSION: Increasing left pleural effusion with left basilar infiltration and/or atelectasis with superimposed CHF. Electronically Signed: Johnson Lambert MD at 14:22 EST ,
--- NOTE | 2023-10-23 13:46 | ED.RN ---
lab called hemoglobin of 4.9. dr willson
--- NOTE | 2023-10-23 13:55 | ED.RN ---
dr hutchins at the bedside to attempt NG unsuccessful x 2 attempts- tried OG also unsuccessful. blood noted on NG tube. Dr hutchins stopped procedure.
[2023-10-23 14:03] LABS: BNP,B-Type NATRIURETIC PEPTIDE 659.9 pg/mL (0-100)
[2023-10-23 14:04] LABS: International Normalized Ratio 1.5; Prothrombin Time (Protime)PT. 18.6 SECONDS (11.7-14.9)
[2023-10-23 14:07] LABS: ALB/GLOB Ratio 0.6 RATIO (0.9-2.4); AST(SGOT) 22 U/L (15-37); Alanine Aminotransfer ALT/SGPT 14 U/L (16-61); Albumin, Serum 2.8 g/dL (3.2-5.0); Alkaline Phosphatase 80 U/L (45-117); Anion Gap 6 (5-15); BUN 13 mg/dL (7-18); Calcium,Total 7.9 mg/dL (8.5-10.1); Chloride 106 mmol/L (98-107); Creatinine, Serum 0.81 mg/dL (0.70-1.30); EST Glomerular Filtration Rate 98 mL/min (>60); Est Glom Filt Rate - Afr Amer 119 mL/min (>60); Estimated Creatinine Clearance 78.86 ml/min; Globulin 4.6 g/dL (2.2-4.2); Glucose 92 mg/dL (74-106); Potassium 4.1 mmol/L (3.5-5.1); Protein, Total 7.4 g/dL (6.4-8.2); Sodium Level 135 mmol/L (136-145); Troponin-I HS 50 pg/mL (3.0-78.0)
[2023-10-23 14:27] LABS: Lactic Acid 2.1 mmol/L (0.4-1.9)
--- NOTE | 2023-10-23 14:37 | HP.PCM.HOS_ITS ---
HPI - General General Date of Admission: 10/23/23 Date of Service: 10/23/23 Chief Complaint: Hematemesis and tachypnea HPI Narrative DELPHINE QUIROZ, is a 78 M who presented to [facility] ED on 10/23/2023 via EMS with hematemesis and tachypnea. On arrival to the ED, patient was noted to be confused and had increased work of breathing. Was also noted to have increased abdominal girth concerning for ascites, as well as possible mild jaundice with pallor. Was found to have a hemoglobin of 4.9 and continue to have episodes of hematemesis in the ED. Given concern for underlying cirrhosis with a possible variceal bleed, patient was taken emergently to the OR for EGD with Dr. Schwartz. Was found on EGD to have type I isolated gastric varices without bleeding; instead there were 2 bleeding angiodysplastic lesions in stoma ch treated with APC and using duodenal ulcers with visible vessel that was injected and treated with heater probe. Patient was stable post EGD with no evidence of tachypnea, satting in the mid to high 90s on 3 to 4 L nasal cannula. Patient was transported up to the ICU after his EGD. I saw the patient at bedside in the ICU about 30 minutes after he arrived there from EGD. Patient was sitting up in bed fairly comfortably, in no acute distress. Breathing comfortably on 4 L with oxygen saturations in the high 90s, no increased work of breathing noted. Patient was alert and making appropriate eye contact with me, but he frequently mumbled when answering questions and was difficult to under stand. Patient denied any esophageal discomfort after his EGD. Stated that he had not had hematemesis before like he had this morning. Was unable to ascertain the patient's home living situation. Patient does state that he drinks as much alcohol as he can get his hands on . States that he drinks both beer and heavy liquor. States he has had alcohol withdrawal symptoms before with shakiness and jitteriness, was not sure if he had experienced withdrawal seizures. Patient was fairly wheezy bilaterally in upper airways on auscultation. States that he smokes 10 to 20 cigarettes daily but due to finances sometimes goes without smoking for few days. Patient states he has not had abdominal swelling like this before and has noticed that it has been worsening over the past several weeks. States he has been eating and drinking less because of this. He otherwise denies any chest pain, fevers or chills. Does report worsening lower extremity swelling as well, over the same timeframe as his abdominal swelling. He denies any specific abdominal pain or tenderness to palpation. No other acute concerns this time. [facility]LY [facility] Medical History (Updated 10/23/23 @ 20:[address] Loco Mortensen, DO) Acute on chronic diastolic (congestive) heart failure Alcohol abuse with intoxication Alcoholism Cirrhosis Closed fracture of glenoid cavity of right scapula Closed head injury without concussion Hepatitis C History of CHF (congestive heart failure) Microcytic anemia Multiple fractures of ribs, left side, initial encounter for closed fracture New onset atrial fibrillation Nicotine dependence Pleural effusion Home Medications ferrous sulfate 325 mg (65 mg iron) tablet 325 mg PO BID #60 tabs 12/23/21 [Rx Last Taken Unknown] furosemide 20 mg tablet (Lasix) 20 mg PO DAILY #30 tabs 12/23/21 [Rx Last Taken Unknown] metoprolol tartrate 25 mg tablet 12.5 mg (1/2 x 25 mg) PO BID #30 tabs 12/23/21 [Rx Last Taken Unknown] pantoprazole 40 mg tablet,delayed release (Protonix) 40 mg PO DAILY #30 tabs 12/23/21 [Rx Last Taken Unknown] spironolactone 25 mg tablet 25 mg PO DAILY #30 tabs 12/23/21 [Rx Last Taken Unknown] Allergy/AdvReac Type Severity Reaction Status Date / Time No Known Allergies Allergy Verified 10/23/23 13:09 Family History Father Alcoholism Mother Diabetes Surgical History History of herniorrhaphy Social History Smoking Status: Current every day smoker tobacco type: cigarettes alcohol intake: current alcohol intake frequency: 3 or more drinks per day ROS Constitutional Constitutional: Denies chills, fatigue, fever(s) or weakness Eyes Eyes: Denies change in vision ENT HEENT: Denies dysphagia or sore throat Cardiovascular Cardiovascular: Reports edema; Denies chest pain, dyspnea on exertion or lightheadedness Respiratory/Chest Respiratory/Chest: Denies cough, productive cough, shortness of breath at rest, shortness of breath with exertion or wheezing Gastrointestinal Gastrointestinal: Reports hematemesis, nausea and vomiting; Denies abdominal pain, constipation, diarrhea, hematochezia, loose stools or melena Genitourinary Genitourinary: Denies dysuria Musculoskeletal Musculoskeletal: Denies arthralgias or back pain Neurologic Neurologic: Denies dizziness, focal weakness, headache(s), numbness, paresthesias or tremor(s) Vital Signs Vital Signs Vital Signs: 10/23/23 13:11 10/23/23 13:43 10/23/23 13:20 Temperature 97.6 F L Temperature Source Temporal Pulse Rate 110 H 106 H Respiratory Rate 16 24 H Blood Pressure 106/66 Blood Pressure Mean 79 Pulse Ox 78 90 Oxygen Delivery Method Room Air Nasal Cannula Oxygen Flow Rate (L/min) 2 10/23/23 14:07 Temperature Temperature Source Pulse Rate 93 Respiratory Rate 22 H Blood Pressure 98/58 L Blood Pressure Mean 71 Pulse Ox 96 Oxygen Delivery Method Room Air Oxygen Flow Rate (L/min) Weight Weight: 87.6 kg Body Mass Index (BMI) 27.7 Physical Exam Const alert and no apparent distress Constitutional Narrative: Elderly male, disheveled appearing, sitting up comfortably in bed, making appropriate eye contact and answering questions but consistently mumbling and difficult to understand, no acute distress. General Appearance: cooperative HEENT normocephalic, head/scalp atraumatic, hearing grossly normal bilaterally and nasal mucous membranes and turbinates normal Eyes PERRL, EOMs intact bilaterally and conjunctivae normal Neck full ROM, no lymphadenopathy and supple Lymph Lymphatic: no lymphadenopathy noted Chest inspection of chest normal Resp normal respiratory effort and no use of accessory muscles Resp Narrative: Moderate wheezing noted in upper airways bilaterally. Decreased breath sounds in left lung base. No crackles noted. Cardio regular rate, regular rhythm, no murmurs and peripheral pulses 2+ throughout GI GI Narrative: Moderately distended and hard. However, nontender to palpation. Back/Spine normal ROM Extremity normal to inspection and full ROM Extremity Narrative: +2-3 lower extremity pitting edema. Neuro moves all extremities and no focal motor deficits Psych Mood & Affect: anxious Results Lab / Micro Data 10/23/23 18:00 10/23/23 13:25 Labs: Laboratory Results - last 24 hr 10/23/23 13:25: WBC 5.0, RBC 2.85 L, Hgb 4.9 L*, Hct 19.8 L, MCV 69.5 L, MCH 17.2 L, MCHC 24.7 L, RDW Std Deviation 50.2 H, RDW Coeff of Hilda 19.9 H, Plt Count 217, MPV 9.3, Immature Gran % (Auto) 0.600, Neut % (Auto) 66.8, Lymph % (Auto) 16.1 L, [place] % (Auto) 12.7 H, Eos % (Auto) 3.0, Baso % (Auto) 0.8, Absolute Neuts (auto) 3.3, Absolute Lymphs (auto) 0.80 L, Nucleated RBC % 0.8, Diff Path Review January, PT 18.6 H, INR 1.5, Sodium 135 L, Potassium 4.1, Chloride 106, Carbon Dioxide 23.0, Anion Gap 6, BUN 13, Creatinine 0.81, Estim Creat Clear Calc 78.86, Est GFR (MDRD) Af Amer 119, Est GFR (MDRD) Non-Af 98, BUN/Creatinine Ratio 16.0, Glucose 92, Lactic Acid 2.1 H*, Calcium 7.9 L, Total Bilirubin 1.00, AST 22, ALT 14 L, Alkaline Phosphatase 80, Troponin I High Sens 50, B-Natriuretic Peptide 659.9 H, Total Protein 7.4, Albumin 2.8 L, Globulin 4.6 H, Albumin/Globulin Ratio 0.6 L, Ethyl Alcohol 7.0 10/23/23 13:35: Blood Type A POSITIVE, Antibody Screen NEGATIVE ABG Data ABG results: ABG 10/23/23 13:33 Specimen Type ART Sample Site R Radial pH 7.42 Bicarbonate Actual 20.7 L Total CO2 22 Base Excess -4 L O2 Saturation 89 L ABG pCO2 32.3 L ABG pO2 56 L Josef Test Positive O2 Delivery Device Room Air Vent Mode Not entered Imagaing Radiology Impression Chest X-Ray 10/23/23 13:45 IMPRESSION: Increasing left pleural effusion with left basilar infiltration and/or atelectasis with superimposed CHF. Electronically Signed: Johnson Lambert MD at 14:22 EST , Assessment & Plan Assessment/Plan (1) Anemia due to acute blood loss: (2) Acute upper gastrointestinal bleeding: (3) Atrial fibrillation with RVR: (4) Decompensation of cirrhosis of liver: (5) Hypoxia: (6) Ascites: (7) History of alcohol abuse: PLAN: Plan Patient is a 78-year-old male who presented to [facility] ED on 10/23/2023 with hematemesis and tachypnea. 1. Acute blood loss anemia secondary to upper GI bleed with hematemesis Taken to emergent EGD on admit with concern for variceal bleed. EGD showed type I varices without bleeding, 2 bleeding angiodysplastic lesions in stomach and oozing duodenal ulcer that were both treated. Hemoglobin 4.9 on admit, s/p 2 units packed red blood cells, repeat hemoglobin pending. Iron studies show severe iron deficiency anemia with ferritin of 11. ? Admit under inpatient status to the ICU. Consumer Relations Complaint Clerk and GI consulted. Follow-up repeat hemoglobin, transfuse for hemoglobin less than 7 as needed. Monitor CBC every 6 hours for now. Continue PPI drip, octreotide drip, and Rocephin as noted below. SCDs for DVT prophylaxis. 2. Decompensated cirrhosis with ascites and suspected encephalopathy Patient with known longstanding history of alcohol abuse. Last abdominal imaging was in 2019, CT abdomen pelvis then showed cirrhosis with borderline splenomegaly, no varices and trace ascites. Has Lasix and spironolactone on home medication list, has not been taking. Meld?NA score on admit of 15, Maddrey's score of 31. Suspected large volume ascites on exam and concern for hepatic encephalopathy. ? GI consulted. Continue PPI drip, octreotide drip, Rocephin for SBP prophylaxis in setting of GI bleed. Ultrasound-guided paracentesis ordered with labs to rule out SBP, recommend not having more than 5 L removed at that time. Holding on diuretics for now given low blood pressures, defer to GI on timing of restarting these. 3. Alcohol abuse Unclear on estimated daily alcohol intake as patient is a poor historian with some confusion. States he drinks close whenever he can get his hands on . Drinks both beer and hard liquor. Reports history of withdrawal symptoms but no withdrawal seizures. Alcohol level 7 on admit. ? Will start with CIWA protocol for now, low threshold to escalate to phenobarbital taper. Folate and thiamine ordered. 4. Acute hypoxia, recurrent left pleural effusion, history of diastolic heart failure Seems most likely multifactorial secondary to volume overload with left oral effusion as noted below likely due to a degree of heart failure, along with moderate wheezing possibly secondary to mild COPD exacerbation. Chest x-ray on admit showed moderate size left pleural effusion, superimposed vascular conges tion and mild CHF. Satting in high 90s on 3 to 4 L nasal cannula. Known significant smoking history, does not appear to have formal diagnosis of COPD. Last echo in 2019 showed EF 60%, unable to assess diastolic dysfunction, no significant valve abnormalities. BNP 659. ? Repeat echo ordered. Unable to diurese right now due to hypotension as noted above. Consumer Relations Complaint Clerk consulted as above. Can consider thoracentesis if needed. Will treat wheezing with scheduled DuoNebs every 4 hours for now with DuoNebs as needed as well. No other infectious symptoms, afebrile, low concern for pneumonia. Treated with ceftriaxone as above, will not add on azithromycin or steroids at this time. Wean supplemental oxygen as able. 5. Elevated lactic acid, resolved ? Lactate 2.1 on admit, improved to 1.5 after IV fluid and blood administration. Resolved. 6. A-fib with RVR ? Previous reported history of A-fib, not on any anticoagulation. EKG on admit showed A-fib with rate around 100, no other abnormalities. Has Lopressor listed on home med list, not taking. Heart rate appears improved after IV fluid and blood administration. Continue cardiac monitoring. Holding on anticoagulation given GI bleed as noted above. Holding Lopressor for now due to hypotension, can restart as able. 7. Tobacco abuse ? Current smoker with longstanding smoking history, smokes 1/2 to 1 pack/day. Denied need for nicotine replacement therapy. 8. Debility with suspected malnutrition ? Albumin 2.8 on admit. Functional status at baseline unclear but he appears to be in fairly poor health overall. Unclear living situation as well. PT/OT/case management consulted. Heavy Equipment Mechanic consulted. DVT prophylaxis: SCDs CODE STATUS: Full code, unverified Expected disposition: TBD Total clinical time spent by myself addressing the patient's medical issues, reviewing all the data, and collaborating with patient's care team: 75 minutes. Charges/Coding Visit Charges Inpatient E&M: 91330 Init Hosp L3
--- NOTE | 2023-10-23 14:41 | NURSING ---
TRICIA THEN ICU FRIEND THEN CAROL UPPER GI BLEED, SYMPOTOMATIC ANEMIA
--- NOTE | 2023-10-23 14:50 | CON.PCM.GI_ITS ---
HPI Consult Data Date of Consult: 10/23/23 HPI Narrative Reason for Consultation: GI bleeding HPI Narrative: DELPHINE QUIROZ, is a 78 M who presents with bleeding from his mouth after vomiting multiple times in bright red blood per rectum. 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 As per his son who I spoke with on the phone he has a history of crack cocaine which she does on almost a daily basis. He still drinks 6-8 tall bottles of beer. Patient is not a good historian and keeps changing the topic and very tangential in explanation. He denies chest pain/pressure or tightness, shortness of breath at rest or on exertion. He states he has good appetite and eats 6-8 times a day. No fever or chills. He has not seen any physician in the last 10 years. He denies any NSAIDs. He does have a history of severe iron deficiency anemia, atrial fibrillation but is not on anticoagulation. He was admitted previously in 2021 for alcoholic intoxication and was supposed to be seen by myself but he left AMA. In ED, his heart rate in 54, blood pressure on lower side 92/77 no hypoxia or tachypnea. Blood pressure improved after resuscitation in ED. His hemoglobin found very low 4.9. WBC count 3.6 thousand, platelet count 200,000. Mild hyponatremia sodium 131. BNP elevated. Chest x-ray individually reviewed and shows a small left pleural effusion, cardiomegaly, mild demineralization but no evidence of other active cardiopulmonary disease. Twelve-lead EKG individually reviewed. Sinus rhythm at 78 bpm, QRS 96 ms, QTC 403 ms. Although reported junctional tachycardia but P wave is discernible in V1 lead I was consulted for GI bleed [facility] Medical History (Updated 10/23/23 @ 14:[address] Demario Bernal MD) Acute on chronic diastolic (congestive) heart failure Alcohol abuse with intoxication Alcoholism Cirrhosis Closed fracture of glenoid cavity of right scapula Closed head injury without concussion Hepatitis C History of CHF (congestive heart failure) Microcytic anemia Multiple fractures of ribs, left side, initial encounter for closed fracture New onset atrial fibrillation Nicotine dependence Pleural effusion Home Medications ferrous sulfate 325 mg (65 mg iron) tablet 325 mg PO BID #60 tabs 12/23/21 [Rx Last Taken Unknown] furosemide 20 mg tablet (Lasix) 20 mg PO DAILY #30 tabs 12/23/21 [Rx Last Taken Unknown] metoprolol tartrate 25 mg tablet 12.5 mg (1/2 x 25 mg) PO BID #30 tabs 12/23/21 [Rx Last Taken Unknown] pantoprazole 40 mg tablet,delayed release (Protonix) 40 mg PO DAILY #30 tabs 12/23/21 [Rx Last Taken Unknown] spironolactone 25 mg tablet 25 mg PO DAILY #30 tabs 12/23/21 [Rx Last Taken Unknown] Allergy/AdvReac Type Severity Reaction Status Date / Time No Known Allergies Allergy Verified 10/23/23 13:09 Family History Father Alcoholism Mother Diabetes Surgical History History of herniorrhaphy Social History Smoking Status: Current every day smoker tobacco type: cigarettes alcohol intake: current alcohol intake frequency: 3 or more drinks per day ROS ROS Narrative Constitutional: Reports fatigue and weakness. No fever HEENT: Reports systems reviewed and no addt'l complaints, except as documented Respiratory/Chest: Denies chest pain, shortness of breath at rest or with exertion Gastrointestinal: twice a week small blood in the stool. He denies hemorrhoid. Denies hematemesis, sushil or vomiting Genitourinary: Denies burning urination or new urinary tract symptoms Musculoskeletal: Reports joint pain and limited range of motion Extremities: Bilateral leg edema Neurologic: Denies seizure-like activity skin: No ulcer. No rash Endocrinology: Reports systems reviewed and no addt'l complaints, except as documented Hematologic/Lymphatic: Severe anemia. reports systems reviewed and no addt'l complaints, except as documented Chronic smoker half to 1 pack since teenage. Rest 14 ROS are negative except as mentioned in HPI Physical Exam Const alert, oriented x3 and no apparent distress Constitutional Narrative: Patient appears older than his stated age General Appearance: cooperative, well kempt and well developed Orientation / Consciousness: awake, oriented to person, oriented to place and oriented to time HEENT normocephalic, head/scalp atraumatic and moist oral mucous membranes Head and Scalp: normocephalic Eyes PERRL, EOMs intact bilaterally and conjunctivae normal Neck nuchal rigidity, supple, no JVD, thyroid normal and no carotid bruits General: trachea midline Resp normal respiratory effort, no retractions, no use of accessory muscles and clear to auscultation bilaterally Auscultation: Negative for rales, rhonchi or wheezes Cardio S1 normal heart sound, S2 normal heart sound, no murmurs and no rub Cardio Narrative: Heart rate and rhythm is irregular GI normal to inspection, nondistended, normoactive bowel sounds, soft to palpation, non-tender and non-distended Extremity Extremity Narrative: Patient's lower extremities are wrapped with Sonny wraps, there is noted to be pitting edema present bilaterally Skin no rashes or lesions noted General Skin Exam: no breakdown Neuro oriented x3, CN's II-XII intact bilaterally, no focal motor deficits and no sensory deficits noted Sensorium / Orientation: awake and alert Speech: speech normal Psych Psych Narrative: Affect flat patient is appropriate when asked questions Lab / Micro Data 10/23/23 13:25 10/23/23 13:25 Labs: Laboratory Results - last 24 hr 10/23/23 13:25: WBC 5.0, RBC 2.85 L, Hgb 4.9 L*, Hct 19.8 L, MCV 69.5 L, MCH 17.2 L, MCHC 24.7 L, RDW Std Deviation 50.2 H, RDW Coeff of Hilda 19.9 H, Plt Count 217, MPV 9.3, Immature Gran % (Auto) 0.600, Neut % (Auto) 66.8, Lymph % (Auto) 16.1 L, [place] % (Auto) 12.7 H, Eos % (Auto) 3.0, Baso % (Auto) 0.8, Absolute Neuts (auto) 3.3, Absolute Lymphs (auto) 0.80 L, Nucleated RBC % 0.8, Diff Path Review January foll, PT 18.6 H, INR 1.5, Sodium 135 L, Potassium 4.1, Chl oride 106, Carbon Dioxide 23.0, Anion Gap 6, BUN 13, Creatinine 0.81, Estim Creat Clear Calc 78.86, Est GFR (MDRD) Af Amer 119, Est GFR (MDRD) Non-Af 98, BUN/Creatinine Ratio 16.0, Glucose 92, Lactic Acid 2.1 H*, Calcium 7.9 L, Total Bilirubin 1.00, AST 22, ALT 14 L, Alkaline Phosphatase 80, Troponin I High Sens 50, B-Natriuretic Peptide 659.9 H, Total Protein 7.4, Albumin 2.8 L, Globulin 4.6 H, Albumin/Globulin Ratio 0.6 L, Ethyl Alcohol 7.0 10/23/23 13:35: Blood Type A POSITIVE, Antibody Screen NEGATIVE, Crossmatch See Detail ABG Data ABG results: ABG 10/23/23 13:33 Specimen Type ART Sample Site R Radial pH 7.42 Bicarbonate Actual 20.7 L Total CO2 22 Base Excess -4 L O2 Saturation 89 L ABG pCO2 32.3 L ABG pO2 56 L Josef Test Positive O2 Delivery Device Room Air Vent Mode Not entered Imagaing Radiology Impression Chest X-Ray 10/23/23 13:45 IMPRESSION: Increasing left pleural effusion with left basilar infiltration and/or atelectasis with superimposed CHF. Electronically Signed: Johnson Lambert MD at 14:22 EST , Assessment & Plan Assessment/Plan (1) Severe anemia: PLAN: Plan 78-year-old gentleman with past medical history of cirrhosis secondary to hepatitis C and alcohol with concomitant microcytic anemia from unknown source. As per son he has never had a colonoscopy. He presents with upper and lower GI bleeding. -GI bleed: The differential diagnosis for upper GI bleed does include variceal bleed, peptic ulcer disease, angiodysplasia, Nusrat-Manning tear, erosive esophagitis, neoplasia. Differential diagnosis for lower GI bleed does include ischemic disease affecting the colon, upper GI bleed with rapid transit, lower GI bleed secondary to malignancy, diverticular bleed, hemorrhoidal bleed. He should undergo an upper endoscopy and later a colonoscopy to evaluate his severe microcytic anemia. He was explained alternatives, risk, benefit including not withstanding bleeding, infection, sepsis, perforation, need for emergent surgery . He will have an ASA of 3. Recommend to continue PPI drip, octreotide. Recommend ceftriaxone 1 g and keep n.p.o. for emergent endoscopy. - Severe microcytic hypochromic anemia along with leukopenia with lymphocytopenia: H&H 4.9 low MCV MCH and MCHC. RDW 19.5 overall suggestive of chronic iron deficiency anemia. Iron work-up with ferritin ordered. 2 units of PRBC typed and crossmatched and transfused 1 unit today. He should get a colonoscopy. - Decompensated alcoholic and hep C cirrhosis: Previous CT abdomen showed nodular liver along with perihepatic ascites, mild splenomegaly but no varices. No acute pancreatitis. Fluid restriction, 2 g sodium diet, spironolactone 25 mg daily with up titration as per tolerated. He needs CT scan abdomen pelvis to look for signs of ischemia, malignancy. Hepatitis C PCR RNA, chronic hepatitis B PCR DNA, alpha-fetoprotein 4 hepatocellular carcinoma, INR, PTT - Paroxysmal A. fib: Currently EKG shows A-fib with RVR. Heart rate is in the 120s to 150s. Patient was deemed not a candidate for anticoagulant because of current GI bleeding recurrent fall, chronic alcohol use and alcoholic cirrhosis history. - Chronic alcohol use disorder with dependence and tolerance: CIWA monitoring. On CIWA protocol with Ativan Charges/Coding Visit Charges Inpatient E&M: 25635 Init Hosp L3
--- NOTE | 2023-10-23 15:39 | OP.CCLET_ITS ---
10/23/2023 Ez Alexandre [address] [place] [address] Re : Upper GI endoscopy procedure for Maximus Roman Dear Dr. Alexandre This procedure was performed on Monday, October 23, 2023. My impressions and recommendations are as follows: Impressions : - Normal esophagus. - Type 1 isolated gastric varices (IGV1, varices located in the fundus), without bleeding. - Two bleeding angiodysplastic lesions in the stomach. Treated with argon plasma coagulation (APC). - Oozing duodenal ulcers with a visible vessel. Injected. Treated with a heater probe. hemostatic spray applied. - No specimens collected. Recommendations : - Return patient to ICU for ongoing care. - Clear liquid diet today. - Continue present medications. My findings are described in the full procedure note, which is enclosed. If I can be of further assistance, please feel free to contact me at . Sincerely, Grover Schwartz, 10/23/2023 3:39:08 PM This report has been signed electronically.
--- NOTE | 2023-10-23 15:39 | OP.EGD_ITS ---
Patient Name: Maximus Roman Procedure Date: 10/23/2023 2:57 PM Date of : 1945 Age: 78 Procedure: Upper GI endoscopy Indications: Hematemesis, Hematochezia, Melena Providers: Grover Schwartz DO Medicines: Monitored Anesthesia Care Patient Profile: This is a 78 year old male. Refer to note in patient chart for documentation of history and physical. Patient has symptoms of acute vomiting. Complications: No immediate complications. Procedure: Pre-Anesthesia Assessment: - Prior to the procedure, a History and Physical was performed, and patient medications and allergies were reviewed. The patient is competent. The risks and benefits of the procedure and the sedation options and risks were discussed with the patient. All questions were answered and informed consent was obtained. Patient identification and proposed procedure were verified by the physician in the pre-procedure area. Mental Status Examination: normal. Airway Examination: normal oropharyngeal airway and neck mobility. Respiratory Examination: clear to auscultation. CV Examination: normal. Prophylactic Antibiotics: The patient does not require prophylactic antibiotics. Prior Anticoagulants: The patient has taken no anticoagulant or antiplatelet agents. ASA Grade Assessment: IV - A patient with severe systemic disease that is a constant threat to life. After reviewing the risks and benefits, the patient was deemed in satisfactory condition to undergo the procedure. The anesthesia plan was to use monitored anesthesia care (MAC). Immediately prior to administration of medications, the patient was re-assessed for adequacy to receive sedatives. The heart rate, respiratory rate, oxygen saturations, blood pressure, adequacy of pulmonary ventilation, and response to care were monitored throughout the procedure. The physical status of the patient was re-assessed after the procedure. After obtaining informed consent, the endoscope was passed under direct vision. Throughout the procedure, the patient's blood pressure, pulse, and oxygen saturations were monitored continuously. The Endoscope was introduced through the mouth, and advanced to the second part of duodenum. The upper GI endoscopy was accomplished without difficulty. The patient tolerated the procedure well. Scope In: 3:12:04 PM Scope Out: 3:17:46 PM Total Procedure Duration Time 0 hours 5 minutes 42 seconds Findings: The examined esophagus was normal. Type 1 isolated gastric varices (IGV1, varices located in the fundus) with no bleeding were found in the cardia. There were no stigmata of recent bleeding. They were 5 mm in largest diameter. Two 5 mm angiodysplastic lesions with bleeding were found on the lesser curvature of the stomach. Coagulation for hemostasis using argon plasma at 0.3 liters/minute and 20 parks was successful. Estimated blood loss was minimal. Many oozing cratered duodenal ulcers with a visible vessel were found in the duodenal bulb. The largest lesion was 10 mm in largest dimension. Area was successfully injected with 10 mL of a 0.1 mg/mL solution of epinephrine for hemostasis. Coagulation for hemostasis using heater probe was successful. To stop active bleeding, hemostatic spray was deployed. Three sprays were applied. There was no bleeding at the end of the procedure. Impression: - Normal esophagus. - Type 1 isolated gastric varices (IGV1, varices located in the fundus), without bleeding. - Two bleeding angiodysplastic lesions in the stomach. Treated with argon plasma coagulation (APC). - Oozing duodenal ulcers with a visible vessel. Injected. Treated with a heater probe. hemostatic spray applied. - No specimens collected. Recommendation: - Return patient to ICU for ongoing care. - Clear liquid diet today. - Continue present medications. Procedure Code(s): --- Professional --- 17508, Esophagogastroduodenoscopy, flexible, transoral; with control of bleeding, any method CPT copyright 2021 [employer]. All rights reserved. The codes documented in this report are preliminary and upon mobile battery technician review may be revised to meet current compliance requirements. Grover Schwartz DO 10/23/2023 3:39:08 PM This report has been signed electronically. Number of Addenda: 0 Note Initiated On: 10/23/2023 2:57 PM
--- OUTSIDE RECORDS SUMMARY | 2023-10-23 15:39 | XMS RPT_ITS | CCD ---
Author Name Unknown Address [address] [place] [id number] Organization [facility] Results Test Name Value Interpretation Reference Range Facil ity Progress note 04-25-2021 Note Date & Type Note Facility 04-25-2021 Note HNO ID: [id number] Author: Mynor Roberts APRN.PHARMACIST CRITICAL CARE Service: ? Author Type: Nurse Practitioner Type: Progress Notes Filed: 04/25/2021 5:57 PM Note Text: Subjective HPI HPI Delphine Roman is a 75 year old male who presents today for CC of suture removal, placed in ER 14 days ago. Reports healing well. .Patient presents with: Suture Removal PAST MEDICAL HISTORY Diagnosis Date - Depressive disorder, not elsewhere classified 05/31/2005 - Hepatitis C 1994 - Hypertrophy of prostate with urinary obstruction and other lower urinary tract symptoms (LUTS) 05/31/2005 - Illicit drug use 02/22/2016 - Impotence 12/01/2009 - INGUINAL HERNIA, UNILATERAL W/O GANGRENE/OBSTRUCTION 02/18/2009 - Lumbago 05/31/2005 - Other and unspecified alcohol dependence, unspecified drinking behavior ALCOHOLISM - Personal history of alcoholism (HCC) 05/31/2005 - Positive urine drug screen 02/29/2016 - Thoracic or lumbosacral neuritis or radiculitis, unspecified 05/31/2005 L4-L5 DDD, Spondylolisthesis L5-S1 - Unspecified viral hepatitis C without hepatic coma 05/31/2005 hep B PAST SURGICAL HISTORY Procedure Laterality Date - PAST SURGICAL HISTORY OF OR/F facial fractures - PAST SURGICAL HISTORY OF right finger - PAST SURGICAL HISTORY OF right toe - REPAIR ING HERNIA,5+Y/O,REDUCIBL 1995 Hernia repair, inguinal - REPAIR ING HERNIA,5+Y/O,REDUCIBL 03/15/09 left ALLERGIES Patient has no known allergies. MEDICATIONS multivitamin tablet Take 1 tablet by mouth once daily. yxwcqdhu-vsqelhflv-xgjmkutcrcbzvs (CORTISPORIN) 3.5-10,000-1 mg/mL-unit/mL-% otic suspension 2 Drops twice daily. FAMILY HISTORY Problem Relation Age of Onset - Cancer Father of lung cancer age 80 - Diabetes Mother well at age 85 - Lipids Mother - Diabetes Sister - Colon Cancer Son - Cancer Brother lung - Colon Cancer Paternal Grandfather - Cancer Mother age 86 of unspecified metastatic cancer Social History Tobacco Use - Smoking status: Current Every Day Smoker Packs/day: 0.50 Years: 23.00 Pack years: 11.50 Types: Cigarettes - Smokeless tobacco: Never Used Substance Use Topics - Alcohol use: Yes Alcohol/week: 25.0 standard drinks Types: 10 Cans of Beer (12oz) per week Comment: recovering alcoholic. Quit 2005, and . 2012, drinks on weekends. - Drug use: Yes Types: Amphetamines, Cocaine, Marijuana Comment: Positive multiple substance toxicology ROS Objective Blood pressure 118/60, pulse 82, temperature 36.2 ?C (97.1 ?F), resp. rate 20, weight 73.8 kg (162 lb 9.6 oz), SpO2 96 %. Physical Exam Constitutional: General: He is not in acute distress. Appearance: He is not toxic-appearing or diaphoretic. HENT: Head: Normocephalic and atraumatic. Pulmonary: Effort: Pulmonary effort is normal. No accessory muscle usage or respiratory distress. Skin: Neurological: Mental Status: He is alert and oriented to person, place, and time. ASSESSMENT/PLAN: 1. Visit for suture removal - ICD9: V58.32, ICD10: Z48.02 5 sutures removed intact. Patient tolerated well. F/u if s/s infection occur. Mynor Roberts APRN.PHARMACIST CRITICAL CARE [facility] Clinical Note 11-30-2020 Note Date & Type Note Facility 11-30-2020 Note Patient Outreach (ROSEANNE LOFTON) RICHIE,ADRIANA ([id number]) 1945 M Date Time Provider Department 11/30/20 YESENIA LANDIN During your visit today, we recorded the following information about you: Yesenia Landin Population Health Navigator 11/30/2020 10:27 AM Signed POPULATION HEALTH NAVIGATION OUTREACH Action/FYI Left Voice Mail for patient to return my call to schedule Deferred Care gaps. last pcp visit-04/09/2016 Contact made with patient or family member? NO Pt identified by name and : NO Outreach Outcome/Action Unable to reach patient: Left message Reason for Outreach Care Gap or Scheduling/Wellness visits Payer: Payor: [employer] MEDICARE / Plan: [facility] PCP / Product Type: HMO / Care Gap Reviewed:: Annual Wellness visit Reminder: Reminder note to check Health Maintenance for items below Health Maintenance items due: SHINGRIX VACCINE(1 of 2) due on 1996 ADVANCE DIRECTIVE DISCUSSION due on 06/25/2014 COLORECTAL CANCER SCREENING due on 02/21/2017 DEPRESSION SCREENING due on 04/09/2017 LIPID SCREEN due on 09/16/2017 DTAP,TDAP,TD(2 - Td) due on 03/02/2018 DIABETES SCREEN due on 05/13/2018 INFLUENZA(1) due on 05/31/2020 Advanced Directives Completed: Have you ever planned for future healthcare decisions with a power of health care attorney, living will, or advance directives? Yes. Have you shared those records with your doctor? Yes Referrals: N/A Message Sent to Practice: NO Navigation Signature: Yesenia Landin Population Health Navigator November 30, 2020 10:24 AM Allergies As of Date: 11/30/2020 (No Known Allergies) Date Reviewed: 05/29/2017 Reviewed by: Shavonne Vences RN - Fully Assessed Reason for Visit: Population Health Navigation Outreach [3910] Cmt: Health Maintenance -Deferred Care Prescriptions as of 11/30/2020 Sig: [id number] * 2 Drops twice daily. MULTIVITAMIN TABLET Take 1 tablet by mouth once d* Problem List As Of Date 11/30/2020 Noted Resolved LUMBAGO [M54.5] 05/31/2005 Spondylolisthesis, lumbosacral region [M43.17] 05/31/2005 More... Hepatitis C virus infection without hepatic com*05/31/2005 PERS HX OF ALCOHOLISM [F10.21] 05/31/2005 TOBACCO USE DISORDER [F17.200] 02/20/2007 INGUINAL HERNIA, UNILATERAL W/O GANGRENE/OBSTRU*02/18/2009 06/25/2012 Impotence [N52.9] 12/01/2009 BPH with obstruction/lower urinary tract sympto*06/25/2012 Positive urine drug screen [R82.5] 02/29/2016 Encounter Status:Closed by [facility] YESENIA FRANKS on 11/30/20 [facility] Progress note 11-30-2020 Note Date & Type Note Facility 11-30-2020 Note HNO ID: [id number] Author: Kinsey Gomez Service: ? Author Type: ? Type: Progress Notes Filed: 11/30/2020 10:27 AM Note Text: POPULATION HEALTH NAVIGATION OUTREACH Action/FYI Left Voice Mail for patient to return my call to schedule Deferred Care gaps. last pcp visit-04/09/2016 Contact made with patient or family member? NO Pt identified by name and : NO Outreach Outcome/Action Unable to reach patient: Left message Reason for Outreach Care Gap or Scheduling/Wellness visits Payer: Payor: [employer] MEDICARE / Plan: [facility] PCP / Product Type: HMO / Care Gap Reviewed:: Annual Wellness visit Reminder: Reminder note to check Health Maintenance for items below Health Maintenance items due: SHINGRIX VACCINE(1 of 2) due on 1996 ADVANCE DIRECTIVE DISCUSSION due on 06/25/2014 COLORECTAL CANCER SCREENING due on 02/21/2017 DEPRESSION SCREENING due on 04/09/2017 LIPID SCREEN due on 09/16/2017 DTAP,TDAP,TD(2 - Td) due on 03/02/2018 DIABETES SCREEN due on 05/13/2018 INFLUENZA(1) due on 05/31/2020 Advanced Directives Completed: Have you ever planned for future healthcare decisions with a power of health care attorney, living will, or advance directives? Yes. Have you shared those records with your doctor? Yes Referrals: N/A Message Sent to Practice: NO Navigation Signature: Kinsey [facility] Julio C November 30, 2020 10:24 AM [facility] Summary Purpose Family History No Family History Records Found Advance Directives No Advanced Directives Records Found Additional Source Comments (unrecognized sect ion and content) No Status Records Found INFORMATION SOURCE (unrecogn ized section and content) FOR RECORDS PERTAINING TO PATIENTS WHO ARE OR HAVE BEEN ENROLLED IN A CHEMICAL DEPENDENCY/SUBSTANCEABUSE PROGRAM, SOME INFORMATION MAY BE OMITTED. This clinical summary was aggregated from multiple sources. Caution should be exercised in using it in the provision of clinical care. This summary normalizes information from multiple sources, and as a consequence, information in this document may materially change the coding, format and clinical context of patient data. In addition, data may be omitted in some cases. CLINICAL DECISIONS SHOULD BE BASED ON THE PRIMARY CLINICAL RECORDS. [facility]. provides no warranty or guarantee of the accuracy or completeness of information in this document.
[2023-10-23] MEDS: 0.9% Saline Lock 10 ML Syringe IV (17:01)
[2023-10-23] MEDS: Ceftriaxone 1 GM/50 ML BAG IV (17:01)
[2023-10-23] MEDS: 0.9% Normal Saline (250mL Bag) 250 ML 15 ML IV (17:01)
[2023-10-23] MEDS: Pantoprazole Sodium 80 MG in 0.9% Normal Saline (50mL Bag) 15 ML 420 MG IV BOLUS (17:13)
[2023-10-23] MEDS: Pantoprazole Sodium 80 MG in 0.9% Normal Saline (100mL Bag) 80 ML 10 MG CONT INF (17:18)
[2023-10-23 17:32] LABS: Reflex Lactate? Y
[2023-10-23] MEDS: 0.9% Normal Saline (500mL Bag) 500 ML 15 ML IV (17:46)
[2023-10-23 18:08] LABS: Hematocrit 20.8 % (40-54); Mean Corp Hgb Conc 26.4 g/dL (32-36); Mean Corpuscular Hgb 18.8 pg (27.0-32.0); Mean Platelet Vol. 9.5 fl (6.2-12.0); POSITIVE COUNT YES; POSITIVE MORPHOLOGY YES; Platelet Count 190 K/mm3 (150-450); RBC Distribution Width CV 21.2 % (11.6-14.6); RBC Distribution Width SD 53.9 fl (35.1-43.9); Red Blood Count 2.93 M/mm3 (4.6-6.2); White Blood Count 4.3 K/mm3 (4.4-11.0)
[2023-10-23 18:14] LABS: Hemoglobin 5.5 g/dL (13.0-16.5); Scan Indicated on CBC? Y/N YES- FLAGS NOTED
[2023-10-23 18:28] LABS: Vitamin B12 823 pg/mL (211-911)
[2023-10-23 18:29] LABS: Differential Comment SCANNED
[2023-10-23 18:36] LABS: Ferritin 11 ng/mL (26-388); Iron 25 ug/dL (65-175); Iron Binding Capacity,Total 338 ug/dL (250-450); PERCENT IRON SATURATION 7.4 % (15.0-55.0)
[2023-10-23 18:48] LABS: Lactic Acid 1.5 mmol/L (0.4-1.9)
[2023-10-23] MEDS: MELATONIN 3 MG TABLET PO (21:03)
[2023-10-23] MEDS: Gabapentin 300 MG Capsule PO (21:03)
[2023-10-23] MEDS: Phenobarbital 32.4 MG Tablet 97.2000000000000028 MG PO ×2 (21:04→23:42)
[2023-10-23] MEDS: traZODone 100 MG Tablet PO (23:42)
[2023-10-23] MEDS: hydrOXYzine PAM 25 MG Capsule 50 MG PO (23:42)
[2023-10-23 23:47] LABS: Hematocrit 25.8 % (40-54); Hemoglobin 7.1 g/dL (13.0-16.5); Mean Corp Hgb Conc 27.5 g/dL (32-36); Mean Corpuscular Hgb 20.6 pg (27.0-32.0); Mean Corpuscular Volume 74.8 fL (80-94); POSITIVE MORPHOLOGY YES; Platelet Count 183 K/mm3 (150-450); RBC Distribution Width CV 22.6 % (11.6-14.6); RBC Distribution Width SD 61.1 fl (35.1-43.9); Red Blood Count 3.45 M/mm3 (4.6-6.2)
[2023-10-24] VITALS (36 sets, daily range): BP systolic 58–128; BP diastolic 42–87; PULSE 46–137; RESP 16–28; TEMP 36–37.1; O2SAT 90–100; BMI 26.4
[2023-10-24 00:38] LABS: Scan Indicated on CBC? Y/N YES- FLAGS NOTED
--- NOTE | 2023-10-24 02:00 | NURSING ---
Pt's CIWA score 11, agitated and restless in bed, yelling. Other PRN medications ineffective, PRN ativan ordered for CIWAs. Pt's primary RN providing care to another pt at this time, PRN ativan given per CIWA protocol. IV lasix also given, pt's breathing labored and lung sounds with coarse crackles. Bath given and primofit applied at this time.
--- NOTE | 2023-10-24 02:03 | PCM.HOSP.N ---
Hospitalist Note Patient with crackles, evidence overload s/p 3 u PRBC administration with underlying HF. Will dose with lasix 20 mg IV x 1 now and may add pulse dosing further pending re-evaluation/response. Also, patient with ongoing agitation despite phenobarbital taper and EtOH withdrawal order set thus will add overlapping CIWA.
[2023-10-24] MEDS: LORazepam 2 MG/ML Syringe IV (02:12)
[2023-10-24] MEDS: 0.9% Saline Lock 10 ML Syringe IV ×3 (02:12→05:51)
[2023-10-24] MEDS: Furosemide 20 MG/2 ML VIAL IV ×2 (02:12→10:30)
[2023-10-24] MEDS: Pantoprazole Sodium 80 MG in 0.9% Normal Saline (100mL Bag) 80 ML 10 MG CONT INF ×3 (03:34→23:35)
--- NOTE | 2023-10-24 04:07 | PCM.HOSP.N ---
Hospitalist Note Patient with ongoing atrial fibrillation but now rate in 110-130s, will dose x 1 with lopressor 2.5 x 1 given low normal BP range.
[2023-10-24] MEDS: CHLORHEXIDINE GLUC 2% CLOTH 1 EACH TOWELETTE TOPICAL (05:02)
[2023-10-24] MEDS: Metoprolol Tartrate 5 MG/5 ML Vial 2.5 MG IV (05:02)
[2023-10-24 05:24] LABS: Hematocrit 27.2 % (40-54); Hemoglobin 7.5 g/dL (13.0-16.5); Mean Corp Hgb Conc 27.6 g/dL (32-36); Mean Corpuscular Hgb 21.2 pg (27.0-32.0); Mean Corpuscular Volume 76.8 fL (80-94); Mean Platelet Vol. 8.7 fl (6.2-12.0); POSITIVE MORPHOLOGY YES; Platelet Count 170 K/mm3 (150-450); RBC Distribution Width CV 22.3 % (11.6-14.6); RBC Distribution Width SD 61.5 fl (35.1-43.9); Red Blood Count 3.54 M/mm3 (4.6-6.2)
[2023-10-24 05:25] LABS: Scan Indicated on CBC? Y/N YES- FLAGS NOTED
[2023-10-24 05:25] LABS: Allen Test Positive; Base Excess -5 mmol/L (-2 to +2); Bicarbonate 24.4 mmol/L (22-26); Blood Gas Specimen Type ART; Mode Not entered; O2 Delivery Device Cannula; PO2 77 mmHG (75-100); SITE R Brach; SO2 88 % (95-99); Total Carbon Dioxide 27 mmol/L; pCO2 78.8 mmHg (35-45)
--- NOTE | 2023-10-24 05:30 | PN.HOSP_ITS ---
Hospitalist Note From discussions patient had been administered Lasix at approximately 2:30 AM as well as Ativan per the CIIL protocol and was stable at that time appropriately awakening to questioning and no evidence of any respiratory distress or severe overload. Upon reassessment at 5:05 AM, nursing noted worsened status, unresponsive, difficulty managing secretions with no gag reflex noted even with suctioning with evidence of overload despite attempted diuresis and poor output even with this. Intubation Note: Patient with evidence of respiratory and/or impending distress with increased respiratory rate, accessory muscle usage, overt overload and unresponsiveness. Medications administered: Succinylcholine and etomidate. ETT size: 7.5. Patient intubated in standard fashion with visualization of the vocal cords and passage of the ETT. Positioning verified with auscultation. Post-intubation CXR requested. Patient maintained in the ICU with hospice consultant consultation already in place. Will initiate sedation with propofol and fentanyl. Will administer pulse dose Lasix 20 mg IV x 1 additional now. Procedures Hospitalists Procedures: 33638 Insert Emergency Airway
[2023-10-24 05:39] LABS: ALB/GLOB Ratio 0.7 RATIO (0.9-2.4); AST(SGOT) 23 U/L (15-37); Alanine Aminotransfer ALT/SGPT 14 U/L (16-61); Albumin, Serum 2.8 g/dL (3.2-5.0); Alkaline Phosphatase 76 U/L (45-117); Anion Gap 3 (5-15); BUN 14 mg/dL (7-18); BUN/Creat Ratio 16.6 RATIO (10-20); Calcium,Total 7.6 mg/dL (8.5-10.1); Chloride 107 mmol/L (98-107); Creatinine, Serum 0.84 mg/dL (0.70-1.30); EST Glomerular Filtration Rate 94 mL/min (>60); Est Glom Filt Rate - Afr Amer 114 mL/min (>60); Estimated Creatinine Clearance 76.04 ml/min; Globulin 4.3 g/dL (2.2-4.2); Glucose 134 mg/dL (74-106); Potassium 4.5 mmol/L (3.5-5.1); Protein, Total 7.1 g/dL (6.4-8.2); Sodium Level 135 mmol/L (136-145)
[2023-10-24] MEDS: Etomidate 20 MG/10 ML Vial IV (05:45)
[2023-10-24] MEDS: Succinylcholine Chloride 200 MG/10 ML SYRINGE 75 MG IV (05:46)
--- NOTE | 2023-10-24 05:48 | RAD_ITS ---
STUDY: X-RAY CHEST REASON FOR EXAM: Male, 78 years old patient with endotracheal tube (ETT) placement. TECHNIQUE: Single AP portable view of the chest. COMPARISON: Chest radiograph dated October 23, 2023. FINDINGS: Enteric tube is present with the tip of the tube located below the hemidiaphragms and below the inferior edge of the image. Cardiac monitoring leads are present. Tip of the endotracheal tube is located approximately 3 cm proximal to the leah. The lungs are underexpanded. There appears to be diffuse bilateral airspace disease. Patchy airspace consolidation in the right lung. There is ground glass attenuation in the left lung. There are bilateral pleural effusions, left larger than right. There is mild cardiac enlargement. Normal mediastinum and samson. Normal visualized pulmonary arteries. Normal visualized aortic arch and descending thoracic aorta. There are diffuse degenerative changes of the visualized thoracic spine. Normal visualized ribs, clavicles, and shoulders. There is no demonstrated abnormality of the visualized soft tissue structures of the upper abdomen. RAD/Chest 1 View (Portable) IMPRESSION: 1. Enteric tube is visible but the tip is below the inferior edge of the image. 2. Appropriate positioning of endotracheal tube. 3. Worsening pulmonary edema and probably congestive heart failure. Electronically Signed: AnaM aria Huerta MD at 7:10 EST ,
--- NOTE | 2023-10-24 05:48 | RAD_ITS ---
STUDY: X-RAY - ABDOMEN/PELVIS REASON FOR EXAM: Male, 78 years old patient with orogastric (OG) tube placement. TECHNIQUE: Two AP supine views of the abdomen and pelvis. COMPARISON: CT of the abdomen and pelvis dated March 30, 2019. FINDINGS: There are bilateral pleural effusions. There appears to be pulmonary congestion. There is an unremarkable bowel gas pattern. Enteric tube is visible with the tip in the right upper quadrant probably in the distal stomach. There is no obvious organomegaly, mass, dilated bowel or pathologic calcifications. Normal soft tissue structures. There are diffuse degenerative changes of the visualized spine. RAD/Abdomen Single View (Portable) IMPRESSION: 1. The tip of enteric tube is in the stomach. 2. Bilateral pleural effusions. Electronically Signed: Ana Maria Huerta MD at 7:16 EST ,
--- NOTE | 2023-10-24 05:54 | NURSING ---
0515- Came in to assess patient and draw morning labs. Patient was non arousable at this time. Vitals appeared WNL but patient had pink froth coming out of mouth and didn't appear to be protecting airway. When suctioning patient he still didn't wake up and barely had a gag. Dr. Staton was paged at this time and updated on patient's change in condition, an ABG was ordered. 0530- ABG results were sent to Dr. Staton. She stated she would be up to see the patient and to prepare for intubation. 0540- Dr. Staton is at bedside assessing patient and preparing for intubation. 0545- Etomidate 20mg IVP given 0546- Succ 75mg IVP given 0548- Patient successfully intubated. 7.5mm ETT, 23cm@ the lip. Positive color change noted and bilateral breath sounds auscultated. 0550- OG placed. Chest x-ray and KUB ordered at this time to verify placement.
--- NOTE | 2023-10-24 06:00 | US_ITS ---
STUDY: ABDOMINAL ULTRASOUND -4 quadrants. REASON FOR VISIT: Male, 78 years old suspect cirrhosis w/ ascites, r/o SBP -- diagnostic and therapeutic TECHNIQUE: Ultrasound evaluation of the 4 quadrants was performed with real-time and static guerrier-scale imaging. TECHNICAL QUALITY: Adequate. COMPARISON: None. FINDINGS: Imaging of the 4 quadrants of the abdomen were obtained for assessment of ascites. Not enough ascites for safe paracentesis. US/Abdomen Limited IMPRESSION: Not enough ascites for a safe paracentesis. Electronically Signed: Johnson Lambert MD at 13:13 EST ,
[2023-10-24] MEDS: fentaNYL drip 100 ML 2.5 MCG CONT INF (06:15)
[2023-10-24 06:23] LABS: CPK Total, Creatine Kinase 76 U/L (39-308); Triglycerides 42 mg/dL
[2023-10-24] MEDS: Norepinephrine 8 MG in 0.9% Normal Saline (250mL Bag) 242 ML 9.40000000000000036 MG CONT INF (06:55)
[2023-10-24] MEDS: Ipratropium/Albuterol Sulfate 3 ML AMPUL.NEB INHALATION ×5 (06:59→23:25)
--- NOTE | 2023-10-24 07:00 | EX.PCM.CONCC ---
Assessment & Plan Assessment/Plan (1) Decompensation of cirrhosis of liver: (2) Acute hypoxemic respiratory failure: PLAN: Plan RECOMMENDATIONS: 1. Broaden antimicrobials to include Zosyn and vancomycin. 2. Continue Levophed to maintain a mean arterial pressure at or above 65 mmHg. 3. Continue to monitor H&H. Transfuse if hemoglobin drops below 7 g/dL. 4. Continue PPI therapy. 5. Continue thiamine and folic acid repletion. 6. Additional medical management per gastroenterology. 7. Proceed with paracentesis. 8. Obtain surface echocardiogram. IMPRESSIONS: 1. Acute blood loss anemia secondary to upper GI bleed EGD completed on October 23 demonstrated type I isolated gastric varices along with 2 angiodysplastic lesions in the stomach and an oozing duodenal ulcer, all of which was intervened upon. The patient has received multiple units of packed red blood cells with stabilization in his H&H. Plan to continue to monitor blood counts and transfuse if hemoglobin drops below 7 g/dL. Continue PPI therapy as ordered. 2. Multifactorial shock The patient is profoundly hypotensive, which is likely a combination of sepsis, hemorrhage and hemodynamic effects of sedating medications. In addition, the patient has known cirrhosis with a tendency to third space fluids. At the present time, there are several potential sources of infection including pneumonia and SBP. The patient will remain on appropriate broad-spectrum antimicrobials. Cultures will be obtained. There are tentative plans for ultrasound-guided paracentesis today. Otherwise, plan to continue Levophed to maintain a mean arterial pressure at or above 65 mmHg. 3. Acute decompensated cirrhosis/hepatic encephalopathy Continue medical management per gastroenterology recommendations. 4. Paroxysmal atrial fibrillation Continue current supportive care and obtain echocardiogram. The patient is not a candidate for anticoagulation. 5. History of polysubstance dependency Continue current sedation regimen along with thiamine and folic acid repletion. TIME: 42 minutes of critical care time, independent of procedures, was spent addressing the patient's acute blood loss anemia secondary to upper GI bleed, multifactorial shock, acute decompensated cirrhosis, paroxysmal atrial fibrillation, metabolic encephalopathy, review of all data and collaboration with the care team. HPI Consult Data Date of Consult: 10/24/23 HPI Narrative Reason for Consultation: Acute respiratory failure HPI Narrative: The patient is a 78-year-old male, with a history as outlined below, who presented to the emergency department on October 23 with hematemesis. The patient has a known history of chronic alcohol and tobacco dependency, along with hepatitis C. There is clinical concern for underlying alcohol related cirrhosis as well. The patient also has a remote history of IV drug abuse. On presentation to the emergency department, the patient was documented to be afebrile but was hypotensive and tachypneic. Initial laboratory evaluation revealed a hemoglobin of 4.9 g/dL. Platelet count was within normal limits. Chemistry profile was unrevealing. Lactate was elevated at 2.1. Total bili was increased to 2.8 with an ammonia of 69. Serum alcohol level was documented to be 7.0. Chest x-ray demonstrated a possible left lower lobe infiltrate with associated effusion. The patient was seen in consultation by gastroenterology and taken to endoscopy for upper GI evaluation. EGD demonstrated type I isolated gastric varices without bleeding, 2 bleeding angiodysplastic lesions in the stomach and 1 oozing duodenal ulcer. Post procedure, the patient returned to the medical intensive care unit. In total, the patient was transfused 3 units of packed red blood cells. He subsequently developed concerns for pulmonary edema and volume overload. He was treated by the overnight hospitalist with IV Lasix. The patient also developed atrial fibrillation with RVR. Ultimately, at approximately 5 AM, the patient was noted to have difficulty managing secretions. Therefore, the decision was made to proceed with intubation. [facility] Medical History (Updated 10/23/23 @ 20:[address] Loco Mortensen, ) Acute on chronic diastolic (congestive) heart failure Alcohol abuse with intoxication Alcoholism Cirrhosis Closed fracture of glenoid cavity of right scapula Closed head injury without concussion Hepatitis C History of CHF (congestive heart failure) Microcytic anemia Multiple fractures of ribs, left side, initial encounter for closed fracture New onset atrial fibrillation Nicotine dependence Pleural effusion Home Medications ferrous sulfate 325 mg (65 mg iron) tablet 325 mg PO BID #60 tabs 12/23/21 [Rx Last Taken Unknown] furosemide 20 mg tablet (Lasix) 20 mg PO DAILY #30 tabs 12/23/21 [Rx Last Taken Unknown] metoprolol tartrate 25 mg tablet 12.5 mg (1/2 x 25 mg) PO BID #30 tabs 12/23/21 [Rx Last Taken Unknown] pantoprazole 40 mg tablet,delayed release (Protonix) 40 mg PO DAILY #30 tabs 12/23/21 [Rx Last Taken Unknown] spironolactone 25 mg tablet 25 mg PO DAILY #30 tabs 12/23/21 [Rx Last Taken Unknown] Allergy/AdvReac Type Severity Reaction Status Date / Time No Known Allergies Allergy Verified 10/23/23 13:09 Family History Father Alcoholism Mother Diabetes Surgical History History of herniorrhaphy Social History Smoking Status: Current every day smoker tobacco type: cigarettes alcohol intake: current alcohol intake frequency: 3 or more drinks per day ROS Review of Systems ROS Unobtainable: due to endotracheal tube and due to mental status Physical Exam Const Constitutional Narrative: Intubated, sedated and mechanically ventilated. No ventilator dyssynchrony noted. HEENT normocephalic and head/scalp atraumatic Mouth: endotracheal tube in place and OG tube in place Eyes PERRL Neck supple General: trachea midline Chest inspection of chest normal Resp Auscultation: rales and wheezes Cardio regular rate and regular rhythm GI soft to palpation Inspection: anasarca present and abdominal distention Palpation: ascites Extremity General Extremity: edema; Negative for clubbing Skin no rashes or lesions noted Neuro Sensorium / Orientation: sedated on vent Lab / Micro Data 10/24/23 05:05 10/24/23 05:05 Labs: Laboratory Results - last 24 hr 10/23/23 13:25: WBC 5.0, RBC 2.85 L, Hgb 4.9 L*, Hct 19.8 L, MCV 69.5 L, MCH 17.2 L, MCHC 24.7 L, RDW Std Deviation 50.2 H, RDW Coeff of Hilda 19.9 H, Plt Count 217, MPV 9.3, Immature Gran % (Auto) 0.600, Neut % (Auto) 66.8, Lymph % (Auto) 16.1 L, [place] % (Auto) 12.7 H, Eos % (Auto) 3.0, Baso % (Auto) 0.8, Absolute Neuts (auto) 3.3, Absolute Lymphs (auto) 0.80 L, Nucleated RBC % 0.8, Diff Path Review May , PT 18.6 H, INR 1.5, Sodium 135 L, Potassium 4.1, Chloride 106, Carbon Dioxide 23.0, Anion Gap 6, BUN 13, Creatinine 0.81, Estim Creat Clear Calc 78.86, Est GFR (MDRD) Af Amer 119, Est GFR (MDRD) Non-Af 98, BUN/Creatinine Ratio 16.0, Glucose 92, Lactic Acid 2.1 H*, Calcium 7.9 L, Total Bilirubin 1.00, AST 22, ALT 14 L, Alkaline Phosphatase 80, Troponin I High Sens 50, B-Natriuretic Peptide 659.9 H, Total Protein 7.4, Albumin 2.8 L, Globulin 4.6 H, Albumin/Globulin Ratio 0.6 L, Ethyl Alcohol 7.0 10/23/23 13:35: Blood Type A POSITIVE, Antibody Screen NEGATIVE, Crossmatch See Detail 10/23/23 18:00: WBC 4.3 L, RBC 2.93 L, Hgb 5.5 L*, Hct 20.8 L, MCV 71.0 L, MCH 18.8 L, MCHC 26.4 L D, RDW Std Deviation 53.9 H, RDW Coeff of Hilda 21.2 H, Plt Count 190, MPV 9.5, Differential Comment SCANNED, Diff Path Review January rachell, Lactic Acid 1.5, Iron 25 L, TIBC 338, Iron Saturation 7.4 L, Ferritin 11 L, Vitamin B12 823, Folate 14.20 10/23/23 21:05: Ammonia 69.0 H 10/23/23 23:40: WBC 5.0, RBC 3.45 L, Hgb 7.1 L, Hct 25.8 L, MCV 74.8 L D, MCH 20.6 L, MCHC 27.5 L, RDW Std Deviation 61.1 H, RDW Coeff of Hilda 22.6 H, Plt Count 183, MPV 9.0 10/24/23 05:05: WBC 6.0, RBC 3.54 L, Hgb 7.5 L, Hct 27.2 L, MCV 76.8 L, MCH 21.2 L, MCHC 27.6 L, RDW Std Deviation 61.5 H, RDW Coeff of Hilda 22.3 H, Plt Count 170, MPV 8.7, Sodium 135 L, Potassium 4.5, Chloride 107, Carbon Dioxide 25.0, Anion Gap 3 L, BUN 14, Creatinine 0.84, Estim Creat Clear Calc 76.04, Est GFR (MDRD) Af Amer 114, Est GFR (MDRD) Non-Af 94, BUN/Creatinine Ratio 16.6, Glucose 134 H, Calcium 7.6 L, Total Bilirubin 2.80 H, AST 23, ALT 14 L, Alkaline Phosphatase 76, Total Creatine Kinase 76, Total Protein 7.1, Albumin 2.8 L, Globulin 4.3 H, Albumin/Globulin Ratio 0.7 L, Triglycerides 42 ABG Data ABG results: ABG 10/23/23 10/24/23 13:33 05:21 Specimen Type ART ART Sample Site R Radial R Brach pH 7.42 7.10 L* Bicarbonate Actual 20.7 L 24.4 Total CO2 22 27 Base Excess -4 L -5 L O2 Saturation 89 L 88 L O2 % 10.0 ABG pCO2 32.3 L 78.8 H* ABG pO2 56 L 77 Josef Test Positive Positive O2 Delivery Device Room Air Cannula Vent Mode Not entered Not entered Crit Call To/Read Back Yes Blood Gas Notified Whom White Blood Gas Notified Time 05:22:25 Imagaing Radiology Impression Chest X-Ray 10/23/23 13:45 IMPRESSION: Increasing left pleural effusion with left basilar infiltration and/or atelectasis with superimposed CHF. Electronically Signed: Johnson Lambert MD at 14:22 EST , Charges/Coding Procedures Hospitalists Procedures: [id number] Critical Care 1st Hr
--- NOTE | 2023-10-24 07:07 | NURSING ---
0650- This RN called patient's son Maximus and updated him on patient's change in condition. I explained that patient's respiratory status had decompensated and needed to be intubated. Patient's blood pressure also dropped and needs the placement of a CVC for medication to bring his blood pressure up and the benefits and risks of this. The son Maximus stated that he would consent and to please do everything to save him. Courtney Huerta RN listened in and also received consent for CVC placement.
[2023-10-24 07:27] LABS: Base Excess -4 mmol/L (-2 to +2); Bicarbonate 21.9 mmol/L (22-26); Blood Gas Specimen Type ART; Mode AC; O2 Delivery Device Adult Vent; PEEP 5; PO2 131 mmHG (75-100); RR 16; SITE R Brach; SO2 99 % (95-99); Total Carbon Dioxide 23 mmol/L; pCO2 39.4 mmHg (35-45); pH 7.35 (7.35-7.45)
--- NOTE | 2023-10-24 08:03 | RAD_ITS ---
STUDY: X-RAY CHEST REASON FOR EXAM: Male, 78 years old. resistor distress TECHNIQUE: Single AP portable view of the chest. COMPARISON: Comparison is made with prior examination done earlier in the day. FINDINGS: An endotracheal tube is in situ. The tip is at the level of the tracheal bifurcation. This should be withdrawn approximately 2.6 cm. EKG electrodes are seen. An orogastric tube is seen with the tip in the body of the stomach. Bilateral pleural effusions left greater than right. Bibasilar atelectasis worse on the left side. There is no demonstrated pleural abnormality. Normal size heart. Normal mediastinum and samson. Normal visualized pulmonary arteries. Normal visualized aortic arch and descending thoracic aorta. Normal visualized thoracic spine. Normal visualized ribs, clavicles, and shoulders. There is no demonstrated abnormality of the visualized soft tissue structures of the upper abdomen. RAD/Chest 1 View (Portable) IMPRESSION: The tip of the endotracheal tube should be withdrawn approximately 2.6 cm. The remainder of the examination is unchanged. The tip of the orogastric tube is in the body of the stomach. Electronically Signed: Johnson Lambert MD at 8:40 EST ,
--- NOTE | 2023-10-24 08:10 | PCM.OP.PRO ---
Procedure Report Date of Procedure: 10/24/23 Central Venous Catheter Indication: Hemorrhagic shock Consent was obtained from: Patient's son A time-out was completed verifying correct patient, procedure, site, positioning, and special equipment if applicable. The patient was placed in a dependent position appropriate for central line placement based on the vein to be cannulated. An initial attempt was made to cannulate the right IJ. However, the guidewire would not advance. Therefore, the procedure was aborted. The left IJ was evaluated under ultrasound guidance. The vessel itself appeared quite tortuous. As such, the decision was made to proceed to a femoral access site. The patient's left femoral was prepped and draped in a sterile fashion. A triple-lumen catheter was introduced into the left femoral vein using the Seldinger technique and under ultrasound guidance. The catheter was threaded smoothly over the guidewire and appropriate blood return was obtained. Each lumen of the catheter was evacuated of air and flushed with sterile saline. The catheter was then sutured in place to the skin and a sterile dressing applied. ULTRASOUND GUIDANCE STATEMENT (Vascular Access): I performed ultrasound image acquisition and interpretation for needle placement during the procedure. The vessel was identified and found to be free of thrombosis by compression technique. A safe point of entry was marked at the skin in an angle for axis was determined. The needle was guided by obtaining free-flowing fluid and by real-time visualization. Procedures Hospitalists Procedures: [id number] Insert Non-tunnel CV Cath
--- NOTE | 2023-10-24 08:51 | ECHOD_ITS ---
Reason For Study: congenital heart disease Procedure This was a 2D Doppler, Color Flow transthoracic echocardiogram. The study was technically difficult. PT is on vent. Exam performed portable in ICU/CCU. Left Ventricle Normal LV size. The estimated ejection fraction is 65 %. Unable to assess diastolic dysfunction. No regional wall motion abnormalities noted. Right Ventricle Normal right ventricle. Normal systolic function. Atria Normal left atrium. Normal right atrium. No doppler evidence for ASD. Mitral Valve There is no mitral valve stenosis. No mitral valve insufficiency. Tricuspid Valve There is no tricuspid stenosis. Trivial tricuspid valve insufficiency. Unable to estimate RV systolic pressure due to insufficient tricuspid regurgitant envelope. Aortic Valve Trisinus/trileaflet aortic valve. Mild aortic stenosis. Trivial aortic valve insufficiency. Pulmonic Valve There is no pulmonic valvular stenosis. No pulmonic valve insufficiency. Great Vessels Normal aortic root. Pericardium/Pleural No pericardial effusion. MMode/2D Measurements & Calculations LVIDd: 5.6 cm IVSd: 0.73 cm LVOT diam: 2.3 cm LVIDs: 3.5 cm LVPWd: 0.85 cm LVOT area: 4.1 cm2 RVDd: 3.5 cm FS: 38.1 % Ao root diam: 4.0 cm LAV(MOD-bp): 129.2 ml LA A4 area: 32.6 cm2 LAV(MOD-bp) Indexed: 63.9 ml/m2 LAV(MOD-sp2): 121.0 ml LAV(MOD-sp4): 123.7 ml LA dimension(2D): 4.1 cm TAPSE: 2.0 cm RA A4 area: 22.6 cm2 Time Measurements MV dec time: 0.22 sec Doppler Measurements & Calculations MV E max kirill: 119.5 cm/sec Med Peak E' Kirill: 8.4 cm/sec MV V2 max: 124.5 cm/sec MV A max kirill: 49.1 cm/sec E/E' med: 14.2 MV max P.2 mmHg MV E/A: 2.4 MV V2 mean: 63.0 cm/sec MV mean P.0 mmHg MV V2 VTI: 32.2 cm MVA(VTI): 2.3 cm2 Ao V2 max: 220.8 cm/sec AI max kirill: 351.7 cm/sec LV V1 max: 83.1 cm/sec Ao max P.5 mmHg AI max P.5 mmHg LV V1 max P.8 mmHg Ao V2 mean: 158.0 cm/sec LV V1 mean P.5 mmHg Ao mean P.8 mmHg AI dec slope: 212.2 cm/sec2 LV V1 mean: 59.0 cm/sec Ao V2 VTI: 46.0 cm AI P1/2t: 485.4 msec LV V1 VTI: 17.8 cm AV (velocity ratio): 0.39 ALTHEA(I,D): 1.6 cm2 ALTHEA(V,D): 1.5 cm2 SV(LVOT): 73.0 ml PA V2 max: 129.8 cm/sec TR max kirill: 242.0 cm/sec PA V2 mean: 81.9 cm/sec TR max P.4 mmHg ECHO/Echo Complete Interpretation Summary The estimated ejection fraction is 65 %. Trivial aortic valve insufficiency. Mild aortic stenosis. Ordering Physician: Juan Alberto Browne Referring Physician: ZAKIA HUDDLESTON Performed By: Shelia Argueta, RDCS, RVT
--- NOTE | 2023-10-24 09:59 | CASEMGMT ---
RN?CM?ENDOSCOPY TECHNICIAN?CM?to room to meet w/family for initial transition planning/care coordination?assessment. Pt is currently intubated. ?RN?CM?introduced self and role at [facility].? Daughter, Tiarra, and son, Maximus, and family friend @ bedside. Tiarra and Maximus consent to family friend being present while BOLIVAR BIRD discussing pt history. Care providers, pharmacy, and demographics verified/updated at this time. PCP: No PCP. Pt used to see Dr Alexandre, but son states he does not think he has been in to see him for years. BOLIVAR BIRD placed call to Dr Alexandre's office. Last visit was in 2015 and pt is no longer a pt of Dr Alexandre's. [employer] Police Officer states Dr Alexandre is not accepting new pt's at this time. Preferred Pharmacy: [facility] Insurance[facility] [employer] [facility] Prescription Benefit:?yes Living Will/HPOA:? No LW or HCPOA on file. Maximus and Tiarra state they are not aware that he has completed these. Noted in BOLIVAR BIRD assessment 11/2021, that pt stated he has completed HCPOA and that his dtr, Tiarra, is his POA. Tiarra states she was not aware of this. They do not think they would be able to find this document, but Maximus states he can look for it. Pt has 2 other sons. Maximus and Tiarra made aware all 4 of pt's adult children would be medical decision makers for pt until pt is able to make his own decisions, unless HCPOA was located. They were made aware, if SW available once pt awake/oriented, AD could be completed w/him, if he desires to complete. They voice understanding. LNOK: Dtr, Tiarra Roman. Son, Maximus Abel. Son, Braxton Alcaraz, Son, Obdulio Roman Per TiarraObdulio is autistic and lives w/his mother in [place]. She states he is able to make decisions, but she is not sure how good those decisions would be. Living Arrangements: Lives alone in ground-level apt w/2 steps to enter. There are 16 steps up to the bathroom, that pt has had to crawl up on his hands and knees in the past. Maximus and Tiarra are not sure how well he has been navigating these recently. They state pt is supposed to be moving into a one-story/ground-floor apt, but it is not ready yet and they are not sure how soon it will be ready. Pt is indep w/ADL's and does his own grocery shopping. He does not take any medications to manages. Transportation:?Pt does not drive. Sister, daughter, or son provide transportation. DME: ?Pt does not currently use any DME. Son states he thinks he has a WW in his home but does not use it. HHC/SNF: Hx of going to [facility] in 2019. No hx of [facility]. Substance use/abuse: Smoking-Pt smokes about 1 PPD ETOH: Drinks 4-6 tall boys daily Crack Cocaine-son states pt uses regularly and has used approx 30 yrs. Son and dtr voice no further concerns/needs at this time.? Advised them to ask for?CM?if any further questions/concerns/needs arise.? They voice understanding. PLAN:??TBD by course of treatment and progress w/therapy CM/SW following. Suzanne BSN?RN?CM
[2023-10-24 10:14] LABS: Pathologist Review Reviewed
[2023-10-24] MEDS: Vancomycin HCl 2,000 MG in 0.9% Normal Saline (500mL Bag) 500 ML 250 MG IV (10:14)
[2023-10-24] MEDS: Chlorhexidine 15 ML PO ×2 (10:17→21:10)
[2023-10-24] MEDS: 0.9% Normal Saline (250mL Bag) 250 ML 15 ML IV (10:26)
[2023-10-24] MEDS: Piperacil/Tazobactam 3.375 GM in 0.9% Normal Saline (50mL MB+) 50 ML IV ×3 (10:27→21:10)
[2023-10-24 10:39] LABS: Pathologist Review Reviewed
--- NOTE | 2023-10-24 11:18 | CHAPLAIN ---
Type of Pastoral Visit _x__ Initial Visit ___ Follow-up Visit ___ On-call Visit ___ General Patient Visit ___ Spiritual Assessment _x__ Family Conference ___ Bereavement ___ Rapid Response ___ Code Blue ___ Other (describe below) Pastoral Care Referral From ___ Patient _x__ Family _x__ Nurse ___ Physician ___ Inspector Exhaust Emissions ___ Tube Tester ___ Other (describe below) Sacrament/Intervention _x__ Active listening ___ Anointing ___ Hinduism ___ Bereavement ___ Communion _x__ Danielle exploration ___ _x__ Life review _x__ Prayer ___ Reconciliation ___ Sacrament of Sick _x__ Supportive presence ___ Wedding ___ Other (describe below) Pastoral Comments patient had a rapid decline and has been intubated this morning; family members are in the room and have requested the coverstitch elastic attacher to come to them and to pray for the patient for spiritual concerns; RN notified this coverstitch elastic attacher; met with three family members (son Maximus, daughter Tiarra, and sister); family gives some background information but are mostly concerned if pt dies that he is not spiritually ready; spiritual guidance given, prayers around the bed were given, a plan made for when pt is extubated with a preparatory call to volunteer on coverstitch elastic attacher scheduled for tomorrow; support and presence given to family members
--- NOTE | 2023-10-24 11:33 | PCM.RX.CS ---
Consult Antibiotic Management Pharmacy has been consulted to manage selected antibiotic: Vancomycin Type of Intervention Type of Consult: New start Suspected Infection Suspected Infection: Other Labs Labs: Sodium 135 mmol/L (136-145) L 10/24/23 05:05 Potassium 4.5 mmol/L (3.5-5.1) 10/24/23 05:05 Chloride 107 mmol/L (98-107) 10/24/23 05:05 Carbon Dioxide 25.0 mmol/L (21.0-32.0) 10/24/23 05:05 Anion Gap 3 (5-15) L 10/24/23 05:05 BUN 14 mg/dL (7-18) 10/24/23 05:05 Creatinine 0.84 mg/dL (0.70-1.30) 10/24/23 05:05 Est GFR (MDRD) Af Amer 114 mL/min (>60) 10/24/23 05:05 Est GFR (MDRD) Non-Af 94 mL/min (>60) 10/24/23 05:05 BUN/Creatinine Ratio 16.6 RATIO (10-20) 10/24/23 05:05 Glucose 134 mg/dL (74-106) H 10/24/23 05:05 Microbiology Microbiology: Microbiology 10/24/23 06:00 Sputum, Induced/Lukens Gram Stain - Final Pharmacy Plan for Drug Dosing Pharmacy Plan for Drug Dosing: NEW START IV VANCOMYCIN Consulting Physician: NATALIO Indication: SHOCK Goal Trough: 15-20 MG/DL SrCr: 0.84 MG/DL (10/24) CrCl: 77.2 ML/MIN Comments: 2000MG loading dose given 10/24 @ 1014 Vancomycin Dose: Will start 1250mg Q12 @ 2200 and get a trough prior to 4th total dose per policy. Pending Level: 10/25/23 @ 2130 Pharmacy Service will continue to monitor and adjust dosing as required.
[2023-10-24 12:27] LABS: Hematocrit 26.5 % (40-54); Hemoglobin 7.4 g/dL (13.0-16.5); Mean Corp Hgb Conc 27.9 g/dL (32-36); Mean Corpuscular Hgb 20.8 pg (27.0-32.0); Mean Corpuscular Volume 74.6 fL (80-94); Mean Platelet Vol. 8.6 fl (6.2-12.0); POSITIVE MORPHOLOGY YES; Platelet Count 178 K/mm3 (150-450); RBC Distribution Width CV 22.2 % (11.6-14.6); RBC Distribution Width SD 59.7 fl (35.1-43.9); Red Blood Count 3.55 M/mm3 (4.6-6.2); White Blood Count 6.5 K/mm3 (4.4-11.0)
[2023-10-24 12:31] LABS: Scan Indicated on CBC? Y/N YES- FLAGS NOTED
--- NOTE | 2023-10-24 13:31 | PN.GI_ITS ---
Subjective Subjective Patient is status post EGD with control of upper GI bleeding. Overnight he was noted to have worsening respiratory compromise with severe hypotension resulting in the need for pressor therapy and to be intubated for airway protection. Patient is still intubated and sedated at this time. Objective Data Objective Data Vital Signs: Vital Signs Temp Pulse Resp BP Pulse Ox O2 Del Method O2 Flow Rate 98.3 F 93 18 88/61 L 96 Mechanical Ventilator 10 10/24/23 04:00 10/24/23 13:24 10/24/23 13:24 10/24/23 07:15 10/24/23 13:24 10/24/23 07:00 10/24/23 05:00 FiO2 35 10/24/23 13:24 Oxygen Flow Rate (L/min) 10 Oxygen Delivery Method Mechanical Ventilator Weight: 186 lb 8.177 oz Body Mass Index (BMI) 26.4 Intake & Output: Intake and Output for Last 24 Hours 10/22/23 10/23/23 10/24/23 23:59 23:59 23:59 Intake Total 388 / 388 232.73 / 232.73 Output Total 150 / 250 300 / 300 Balance 238 / 138 -67.27 / -67.27 Lab / Micro Data 10/24/23 12:15 10/24/23 05:05 Labs: Laboratory Results - last 24 hr 10/23/23 13:25: WBC 5.0, RBC 2.85 L, Hgb 4.9 L*, Hct 19.8 L, MCV 69.5 L, MCH 17.2 L, MCHC 24.7 L, RDW Std Deviation 50.2 H, RDW Coeff of Hilda 19.9 H, Plt Count 217, MPV 9.3, Immature Gran % (Auto) 0.600, Neut % (Auto) 66.8, Lymph % (Auto) 16.1 L, Gonzales % (Auto) 12.7 H, Eos % (Auto) 3.0, Baso % (Auto) 0.8, Absolute Neuts (auto) 3.3, Absolute Lymphs (auto) 0.80 L, Nucleated RBC % 0.8, Diff Path Review Reviewed, PT 18.6 H, INR 1.5, Sodium 135 L, Potassium 4.1, Chloride 106, Carbon Dioxide 23.0, Anion Gap 6, BUN 13, Creatinine 0.81, Estim Creat Clear Calc 78.86, Est GFR (MDRD) Af Amer 119, Est GFR (MDRD) Non-Af 98, BUN/Creatinine Ratio 16.0, Glucose 92, Lactic Acid 2.1 H*, Calcium 7.9 L, Total Bilirubin 1.00, AST 22, ALT 14 L, Alkaline Phosphatase 80, Troponin I High Sens 50, B-Natriuretic Peptide 659.9 H, Total Protein 7.4, Albumin 2.8 L, Globulin 4.6 H, Albumin/Globulin Ratio 0.6 L, Ethyl Alcohol 7.0 10/23/23 13:35: Blood Type A POSITIVE, Antibody Screen NEGATIVE, Crossmatch See Detail 10/23/23 18:00: WBC 4.3 L, RBC 2.93 L, Hgb 5.5 L*, Hct 20.8 L, MCV 71.0 L, MCH 18.8 L, MCHC 26.4 L D, RDW Std Deviation 53.9 H, RDW Coeff of Hilda 21.2 H, Plt Count 190, MPV 9.5, Differential Comment SCANNED, Diff Path Review Reviewed, Lactic Acid 1.5, Iron 25 L, TIBC 338, Iron Saturation 7.4 L, Ferritin 11 L, Vitamin B12 823, Folate 14.20 10/23/23 21:05: Ammonia 69.0 H 10/23/23 23:40: WBC 5.0, RBC 3.45 L, Hgb 7.1 L, Hct 25.8 L, MCV 74.8 L D, MCH 20.6 L, MCHC 27.5 L, RDW Std Deviation 61.1 H, RDW Coeff of Hilda 22.6 H, Plt Count 183, MPV 9.0 10/24/23 05:05: WBC 6.0, RBC 3.54 L, Hgb 7.5 L, Hct 27.2 L, MCV 76.8 L, MCH 21.2 L, MCHC 27.6 L, RDW Std Deviation 61.5 H, RDW Coeff of Hilda 22.3 H, Plt Count 170, MPV 8.7, Sodium 135 L, Potassium 4.5, Chloride 107, Carbon Dioxide 25.0, Anion Gap 3 L, BUN 14, Creatinine 0.84, Estim Creat Clear Calc 76.04, Est GFR (MDRD) Af Amer 114, Est GFR (MDRD) Non-Af 94, BUN/Creatinine Ratio 16.6, Glucose 134 H, Calcium 7.6 L, Total Bilirubin 2.80 H, AST 23, ALT 14 L, Alkaline Phosphatase 76, Total Creatine Kinase 76, Total Protein 7.1, Albumin 2.8 L, Globulin 4.3 H, Albumin/Globulin Ratio 0.7 L, Triglycerides 42 10/24/23 12:15: WBC 6.5, RBC 3.55 L, Hgb 7.4 L, Hct 26.5 L, MCV 74.6 L, MCH 20.8 L, MCHC 27.9 L, RDW Std Deviation 59.7 H, RDW Coeff of Hilda 22.2 H, Plt Count 178, MPV 8.6 Micro: Microbiology 10/24/23 06:00 Sputum, Induced/Lukens Gram Stain - Final ABG Data ABG results: ABG 10/23/23 10/24/23 10/24/23 13:33 05:21 07:24 Specimen Type ART ART ART Sample Site R Radial R Brach R Brach pH 7.42 7.10 L* 7.35 Bicarbonate Actual 20.7 L 24.4 21.9 L Total CO2 22 27 23 Base Excess -4 L -5 L -4 L O2 Saturation 89 L 88 L 99 O2 % 10.0 70.0 ABG pCO2 32.3 L 78.8 H* 39.4 ABG pO2 56 L 77 131 H Josef Test Positive Positive Respiration Rate 16 O2 Delivery Device Room Air Cannula Adult Vent Vent Mode Not entered Not entered AC Tidal Volume 450.0 POC PEEP 5 Crit Call To/Read Back Yes Blood Gas Notified Whom White Blood Gas Notified Time 05:22:25 Radiography Diagnostic Testing: Radiology Impression Chest X-Ray 10/23/23 13:45 IMPRESSION: Increasing left pleural effusion with left basilar infiltration and/or atelectasis with superimposed CHF. Electronically Signed: Johnson Lambert MD at 14:22 EST , Chest X-Ray 10/24/23 05:48 IMPRESSION: 1. Enteric tube is visible but the tip is below the inferior edge of the image. 2. Appropriate positioning of endotracheal tube. 3. Worsening pulmonary edema and probably congestive heart failure. Electronically Signed: Ana Maria Huerat MD at 7:10 EST , KUB X-Ray 10/24/23 05:48 IMPRESSION: 1. The tip of enteric tube is in the stomach. 2. Bilateral pleural effusions. Electronically Signed: Ana Maria Huerta MD at 7:16 EST , Abdomen Ultrasound 10/24/23 06:00 IMPRESSION: Not enough ascites for a safe paracentesis. Electronically Signed: Johnson Lambert MD at 13:13 EST , Chest X-Ray 10/24/23 08:03 IMPRESSION: The tip of the endotracheal tube should be withdrawn approximately 2.6 cm. The remainder of the examination is unchanged. The tip of the orogastric tube is in the body of the stomach. Electronically Signed: Johnson Lambert MD at 8:40 EST , Physical Exam Const Constitutional Narrative: Intubated, sedated and mechanically ventilated. HEENT normocephalic and head/scalp atraumatic Mouth: endotracheal tube in place and OG tube in place Eyes PERRL Neck supple General: trachea midline Chest inspection of chest normal Resp Auscultation: rales and wheezes Cardio regular rate and regular rhythm GI soft to palpation Inspection: anasarca present and abdominal distention Palpation: ascites Extremity General Extremity: edema; Negative for clubbing Skin no rashes or lesions noted Neuro Sensorium / Orientation: sedated on vent Assessment & Plan Assessment/Plan (1) Severe anemia: PLAN: Plan 78-year-old gentleman with past medical history of cirrhosis secondary to hepatitis C and alcohol with concomitant microcytic anemia from unknown source. As per son he has never had a colonoscopy. He presents with upper and lower GI bleeding. -GI bleed: The differential diagnosis for upper GI bleed does include variceal bleed, peptic ulcer disease, angiodysplasia, Nusrat-Manning tear, erosive esophagitis, neoplasia. Differential diagnosis for lower GI bleed does include ischemic disease affecting the colon, upper GI bleed with rapid transit, lower GI bleed secondary to malignancy, diverticular bleed, hemorrhoidal bleed. He should undergo an upper endoscopy and later a colonoscopy to evaluate his severe microcytic anemia. He was explained alternatives, risk, benefit including not withstanding bleeding, infection, sepsis, perforation, need for emergent surgery . He will have an ASA of 3. Recommend to continue PPI drip, octreotide. Recommend ceftriaxone 1 g and keep n.p.o. for emergent endoscopy. - Severe microcytic hypochromic anemia along with leukopenia with lymphocytopenia: H&H 4.9 low MCV MCH and MCHC. RDW 19.5 overall suggestive of chronic iron deficiency anemia. Iron work-up with ferritin ordered. 2 units of PRBC typed and crossmatched and transfused 1 unit today. He should get a colonoscopy. - Decompensated alcoholic and hep C cirrhosis: Previous CT abdomen showed nodular liver along with perihepatic ascites, mild splenomegaly but no varices. No acute pancreatitis. Fluid restriction, 2 g sodium diet, spironolactone 25 mg daily with up titration as per tolerated. He needs CT scan abdomen pelvis to look for signs of ischemia, malignancy. Hepatitis C PCR RNA, chronic hepatitis B PCR DNA, alpha-fetoprotein 4 hepatocellular carcinoma, INR, PTT - Paroxysmal A. fib: Currently EKG shows A-fib with RVR. Heart rate is in the 120s to 150s. Patient was deemed not a candidate for anticoagulant because of current GI bleeding recurrent fall, chronic alcohol use and alcoholic cirrhosis history. - Chronic alcohol use disorder with dependence and tolerance: CIWA monitoring. On CIWA protocol with Ativan 10/24-severely decompensated liver disease with an acute upper GI bleed, new onset ascites, acute renal failure, hypotension with respiratory depression and respiratory failure status postintubation. I called his worsening respiratory status. I also let him know that his MELD score is a little bit more severe today despite that his LFTs are not severely increased but his bilirubin increased which is associated with a worsening outcome in the setting of acute decompensated cirrhosis. A paracentesis was not performed because of his fluid was not sufficient for removal and was not an a safe location in the setting of severe liver disease with coagulopathy. He has been maintained on PPI drip. He has not shown any signs of withdrawal at this time. His blood work is consistent with alcoholic hepatitis. Poor prognosis. Charges/Coding Visit Charges Inpatient E&M: 74339 Subs Hosp L3
[2023-10-24 13:33] LABS: Differential Comment SCANNED
[2023-10-24] MEDS: Propofol 10MG/Ml 1,000 MG/100 ML Bottle 5.09999999999999964 MG CONT INF ×2 (14:23→23:35)
--- NOTE | 2023-10-24 14:28 | PN_ITS ---
Subjective Subjective Patient seen and examined. He was intubated and sedated. His son and grandson were by his bedside. He was admitted with a complaitn of UGI bleed and had emergent EGD which showed bleeding angiodysplastic lesions. His Hb is 7.4. Objective Data Objective Data Vital Signs: Vital Signs Temp Pulse Resp BP Pulse Ox O2 Del Method O2 Flow Rate 98.3 F 93 18 88/61 L 96 Mechanical Ventilator 10 10/24/23 04:00 10/24/23 13:24 10/24/23 13:24 10/24/23 07:15 10/24/23 13:24 10/24/23 07:00 10/24/23 05:00 FiO2 35 10/24/23 13:24 Oxygen Flow Rate (L/min) 10 Oxygen Delivery Method Mechanical Ventilator Weight: 186 lb 8.177 oz Body Mass Index (BMI) 26.4 Intake & Output: Intake and Output for Last 24 Hours 10/22/23 10/23/23 10/24/23 23:59 23:59 23:59 Intake Total 388 / 388 917.73 / 917.73 Output Total 150 / 250 300 / 300 Balance 238 / 138 617.73 / 617.73 Lab / Micro Data 10/24/23 12:15 10/24/23 05:05 Labs: Laboratory Results - last 24 hr 10/23/23 13:25: Diff Path Review Reviewed 10/23/23 13:35: Blood Type A POSITIVE, Antibody Screen NEGATIVE, Crossmatch See Detail 10/23/23 18:00: WBC 4.3 L, RBC 2.93 L, Hgb 5.5 L*, Hct 20.8 L, MCV 71.0 L, MCH 18.8 L, MCHC 26.4 L D, RDW Std Deviation 53.9 H, RDW Coeff of Hilda 21.2 H, Plt Count 190, MPV 9.5, Differential Comment SCANNED, Diff Path Review Reviewed, Lactic Acid 1.5, Iron 25 L, TIBC 338, Iron Saturation 7.4 L, Ferritin 11 L, Vitamin B12 823, Folate 14.20 10/23/23 21:05: Ammonia 69.0 H 10/23/23 23:40: WBC 5.0, RBC 3.45 L, Hgb 7.1 L, Hct 25.8 L, MCV 74.8 L D, MCH 20.6 L, MCHC 27.5 L, RDW Std Deviation 61.1 H, RDW Coeff of Hilda 22.6 H, Plt Count 183, MPV 9.0 10/24/23 05:05: WBC 6.0, RBC 3.54 L, Hgb 7.5 L, Hct 27.2 L, MCV 76.8 L, MCH 21.2 L, MCHC 27.6 L, RDW Std Deviation 61.5 H, RDW Coeff of Hilda 22.3 H, Plt Count 170, MPV 8.7, Sodium 135 L, Potassium 4.5, Chloride 107, Carbon Dioxide 25.0, Anion Gap 3 L, BUN 14, Creatinine 0.84, Estim Creat Clear Calc 76.04, Est GFR (MDRD) Af Amer 114, Est GFR (MDRD) Non-Af 94, BUN/Creatinine Ratio 16.6, Glucose 134 H, Calcium 7.6 L, Total Bilirubin 2.80 H, AST 23, ALT 14 L, Alkaline Phosphatase 76, Total Creatine Kinase 76, Total Protein 7.1, Albumin 2.8 L, Globulin 4.3 H, Albumin/Globulin Ratio 0.7 L, Triglycerides 42 10/24/23 12:15: WBC 6.5, RBC 3.55 L, Hgb 7.4 L, Hct 26.5 L, MCV 74.6 L, MCH 20.8 L, MCHC 27.9 L, RDW Std Deviation 59.7 H, RDW Coeff of Hilda 22.2 H, Plt Count 178, MPV 8.6, Differential Comment SCANNED Micro: Microbiology 10/24/23 06:00 Sputum, Induced/Lukens Gram Stain - Final ABG Data ABG results: ABG 10/24/23 10/24/23 05:21 07:24 Specimen Type ART ART Sample Site R Brach R Brach pH 7.10 L* 7.35 Bicarbonate Actual 24.4 21.9 L Total CO2 27 23 Base Excess -5 L -4 L O2 Saturation 88 L 99 O2 % 10.0 70.0 ABG pCO2 78.8 H* 39.4 ABG pO2 77 131 H Josef Test Positive Respiration Rate 16 O2 Delivery Device Cannula Adult Vent Vent Mode Not entered AC Tidal Volume 450.0 POC PEEP 5 Crit Call To/Read Back Yes Blood Gas Notified Whom White Blood Gas Notified Time 05:22:25 Radiography Diagnostic Testing: Radiology Impression Chest X-Ray 10/24/23 05:48 IMPRESSION: 1. Enteric tube is visible but the tip is below the inferior edge of the image. 2. Appropriate positioning of endotracheal tube. 3. Worsening pulmonary edema and probably congestive heart failure. Electronically Signed: Ana Maria Huerta MD at 7:10 EST , KUB X-Ray 10/24/23 05:48 IMPRESSION: 1. The tip of enteric tube is in the stomach. 2. Bilateral pleural effusions. Electronically Signed: Ana Maria Huerta MD at 7:16 EST , Abdomen Ultrasound 10/24/23 06:00 IMPRESSION: Not enough ascites for a safe paracentesis. Electronically Signed: Johnson Lambert MD at 13:13 EST , Chest X-Ray 10/24/23 08:03 IMPRESSION: The tip of the endotracheal tube should be withdrawn approximately 2.6 cm. The remainder of the examination is unchanged. The tip of the orogastric tube is in the body of the stomach. Electronically Signed: Johnson Lambert MD at 8:40 EST , Physical Exam Const Constitutional Narrative: intubated, sedated, RASS score is -4. HEENT normocephalic and head/scalp atraumatic Mouth: dry mucous membranes Eyes PERRL Neck no lymphadenopathy General: trachea midline Lymph Lymphatic: no lymphadenopathy noted and no lymphedema noted Resp Resp Narrative: intubated, sedated, RASS score is -4; breath sounds diminished bilaterally, no wheezes or crackles. Cardio regular rate, regular rhythm, S1 normal heart sound, S2 normal heart sound and no murmurs GI normal to inspection, nondistended, normoactive bowel sounds GI Narrative: mild to moderate distension, no tenderness, positive fluid thrill. Extremity normal capillary refill, no clubbing, cyanosis or edema and no calf tenderness General Extremity: no tenderness to palpation of joints or extremities Skin General Skin Exam: no breakdown and turgor normal Neuro Neuro Narrative: intubated, sedated, RASS score is -4. Psych Psych Narrative: as under neurology. Assessment & Plan Assessment/Plan (1) Acute hypoxemic respiratory failure: (2) Decompensation of cirrhosis of liver: (3) Diastolic congestive heart failure: (4) Cirrhosis of liver: (5) Ascites: (6) Atrial fibrillation with RVR: PLAN: Plan #Acute blood loss anemia due to UGI bleed with hematemesis * had an emergen EGD due to concerns for variceal bleed. * EGD showed type 1 esophageal varices without bleeding, and 2 bleeding angiodysplastic lesions int he stomach and oozing duodenal ulcer that were both treated. * Hb was 4.9 on admission, and is s/p transfusion of 2 units of PRBCs. * iron studies showed iron deficiency anemia with low iron stores. * GI and critical care on board. * on PPI drip, octreotide drip. * #Multifactorial shock due to GI bleed, but also could be due to sepsis. * currently on levophed. Hb is up to 7.4. * Titrate levophed to aim for MAP >65. Critical care on board,. * Placed on IV vancomycin and Zosyn. #Decompensated alcoholic liver cirrhosis with ascites and possible encephalopathy * has a long history of alcohol abuse. * was on lasix and spironolactone, but had not been taking it. * gastroenterology on board. * diuretics held. * management as per GI. * On thiamine and folic acid. 12 paracentesis today. * #Acute hypoxic respiratory failure due to recurrent left pleural effusion. * Chest x-ray on admission showed moderate size left pleural effusion with vascular congestion and mild CHF. * 2D echo ordered. Critical care on board. * Had to be intubated and sedated. * Titrate oxygen to maintain saturation above 90%. * #Afib with RVR * no previous history of afib. Not anticoagulated. * EKG on admission showed A-fib. On Lopressor at home but is currently on hold due to hypotension. * DVT prophylaxis; SCDs. * Charges/Coding Visit Charges Inpatient E&M: 28940 Subs Hosp L3
[2023-10-24] MEDS: Norepinephrine 8 MG in 0.9% Normal Saline (250mL Bag) 242 ML 28.1000000000000014 MG CONT INF ×2 (15:44→23:35)
[2023-10-24 17:17] LABS: M R Staph aureus DNA By PCR Negative (Negative); Probe Check PASS; Specimen Processing Control PASS
[2023-10-24] MEDS: fentaNYL drip 100 ML 10 MCG CONT INF (18:13)
[2023-10-24] MEDS: Vancomycin HCl 1,250 MG in 0.9% Normal Saline (250mL Bag) 250 ML 167 MG IV (21:10)
[2023-10-25] VITALS (40 sets, daily range): BP systolic 91–161; BP diastolic 48–96; PULSE 59–100; RESP 15–26; TEMP 37.2–38.3; O2SAT 91–99; BMI 25.9
[2023-10-25 03:00] LABS: Absolute Lymphocyte Count 0.76 X10^3/uL (0.83-4.51); Absolute Neutrophil Count 4.8 X10^3/uL (2.0-7.7); Basophil# 0.09 X10^3/uL; Basophil% 1.4 % (0-1); Eosinophil# 0.15 X10^3/uL; Eosinophils% 2.3 % (0-5); Hematocrit 27.1 % (40-54); Hemoglobin 7.5 g/dL (13.0-16.5); Lymphocyte # 0.76 X10^3/ul (0.83-4.51); Lymphocyte % 11.5 % (19-41); Mean Corp Hgb Conc 27.7 g/dL (32-36); Mean Corpuscular Hgb 20.4 pg (27.0-32.0); Mean Corpuscular Volume 73.8 fL (80-94); Mean Platelet Vol. 8.9 fl (6.2-12.0); Monocyte# 0.81 X10^3/uL; Monocyte% 12.2 % (0-10); NRBC Flagged by Analyzer 0.6 % (0-5); Neutrophil # 4.79 X10^3/uL (2.7-7.7); Neutrophil % 72.3 % (47-70); POSITIVE MORPHOLOGY YES; Platelet Count 171 K/mm3 (150-450); RBC Distribution Width CV 23.3 % (11.6-14.6); RBC Distribution Width SD 61.3 fl (35.1-43.9); Red Blood Count 3.67 M/mm3 (4.6-6.2); White Blood Count 6.6 K/mm3 (4.4-11.0)
[2023-10-25 03:01] LABS: Differential Indicated SCAN CRITERIA MET
[2023-10-25 03:15] LABS: Anion Gap 3 (5-15); BUN 12 mg/dL (7-18); BUN/Creat Ratio 13.1 RATIO (10-20); Calcium,Total 7.6 mg/dL (8.5-10.1); Chloride 111 mmol/L (98-107); Creatinine, Serum 0.92 mg/dL (0.70-1.30); EST Glomerular Filtration Rate 85 mL/min (>60); Est Glom Filt Rate - Afr Amer 103 mL/min (>60); Estimated Creatinine Clearance 69.43 ml/min; Glucose 101 mg/dL (74-106); Potassium 3.7 mmol/L (3.5-5.1); Sodium Level 139 mmol/L (136-145)
[2023-10-25 03:31] LABS: Anisocytosis 2+; Differential Comment SCANNED; Microcytosis 1+
[2023-10-25 03:32] LABS: Hypochromasia 2+
[2023-10-25] MEDS: Ipratropium/Albuterol Sulfate 3 ML AMPUL.NEB INHALATION ×6 (03:50→22:51)
[2023-10-25] MEDS: fentaNYL drip 100 ML 5 MCG CONT INF (04:27)
[2023-10-25] MEDS: Piperacil/Tazobactam 3.375 GM in 0.9% Normal Saline (50mL MB+) 50 ML IV ×3 (04:59→21:14)
[2023-10-25] MEDS: 0.9% Saline Lock 10 ML Syringe IV (04:59)
[2023-10-25] MEDS: CHLORHEXIDINE GLUC 2% CLOTH 1 EACH TOWELETTE TOPICAL (05:00)
--- NOTE | 2023-10-25 05:10 | NURSING ---
Propofol paused and fentanyl turned down for awakening trial. Pt lasted for an hour until he became tachycardia and hypoxic, HR in the 130s and SpO2 dropping to low 80s with agitation following mouth care. HR sustaining in the 130s. Sedation increased to previous amounts, see MAR.
[2023-10-25] MEDS: TITRATION PARAMETER CHANGE 1 EACH IV (05:36)
--- NOTE | 2023-10-25 06:51 | PN.CC_ITS ---
Assessment & Plan Assessment/Plan (1) Decompensation of cirrhosis of liver: (2) Acute hypoxemic respiratory failure: PLAN: Plan RECOMMENDATIONS: 1. Continue broad-spectrum antimicrobials. 2. Continue Levophed to maintain a mean arterial pressure at or above 65 mmHg. 3. Continue to monitor H&H. Transfuse if hemoglobin drops below 7 g/dL. 4. Continue PPI therapy. 5. Continue thiamine and folic acid repletion. 6. Additional medical management per gastroenterology. IMPRESSIONS: 1. Acute blood loss anemia secondary to upper GI bleed EGD completed on October 23 demonstrated type I isolated gastric varices along with 2 angiodysplastic lesions in the stomach and an oozing duodenal ulcer, all of which was intervened upon. The patient has received multiple units of packed red blood cells with stabilization in his H&H. Plan to continue to monitor blood counts and transfuse if hemoglobin drops below 7 g/dL. Continue PPI therapy as ordered. 2. Multifactorial shock The patient is profoundly hypotensive, which is likely a combination of sepsis, hemorrhage and hemodynamic effects of sedating medications. In addition, the patient has known cirrhosis with a tendency to third space fluids. At the present time, there are several potential sources of infection including pneumonia and SBP. The patient will remain on appropriate broad-spectrum antimicrobials. Cultures are pending. Continue to wean Levophed, as tolerated, to maintain a mean arterial pressure at or above 65 mmHg. 3. Acute combined respiratory failure The patient was initially intubated in the setting of profound metabolic encephalopathy with concern for airway protection and acute CO2 retention and hypoxemia. The patient will be continued on assist-control mode of mechanical ventilation. In light of his history of tobacco dependency, scheduled bronchodilators will be continued. Plan to continue to wean FiO2 to maintain oxygen saturations at or above 90%. Continue antimicrobials as ordered. Recommend daily paired spontaneous awakening and breathing trials, as tolerated. 4. Acute decompensated cirrhosis/hepatic encephalopathy Continue medical management per gastroenterology recommendations. 5. Paroxysmal atrial fibrillation Continue current supportive care. The patient is not a candidate for anticoagulation. 6. History of polysubstance dependency Continue current sedation regimen along with thiamine and folic acid repletion. TIME: 36 minutes of critical care time, independent of procedures, was spent addressing the patient's acute blood loss anemia secondary to upper GI bleed, multifactorial shock, acute combined respiratory failure, acute decompensated cirrhosis, paroxysmal atrial fibrillation, metabolic encephalopathy, review of all data and collaboration with the care team. Subjective Subjective The patient was seen and examined at the bedside this morning. Events from the last 24 hours have been reviewed. The patient currently has low-grade fevers and remains on Levophed at 20 mcg/min to maintain hemodynamic stability. The patient remains on assist-control mode of mechanical ventilation with an FiO2 requirement of 35% and PEEP of 5. Hemoglobin is stable at 7.5 g/dL. Platelet count is normal at 171,000. Chemistry profile was within normal limits. Paracentesis was not completed yesterday as there was an inadequate amount of ascites to perform the procedure safely. Objective Data Objective Data The patient's most recent lab work, culture data and imaging studies have all been personally reviewed. Surface echocardiogram demonstrated normal LV size with normal function and ejection fraction of 65%. Blood, urine and sputum cultures are pending. Vital Signs: Vital Signs Temp Pulse Resp BP Pulse Ox O2 Del Method O2 Flow Rate 100.5 F H 79 16 109/56 L 95 Mechanical Ventilator 10 10/25/23 06:00 10/25/23 06:00 10/25/23 06:00 10/25/23 06:45 10/25/23 06:00 10/25/23 06:00 10/24/23 05:00 FiO2 35 10/25/23 06:00 Oxygen Flow Rate (L/min) 10 Oxygen Delivery Method Mechanical Ventilator Weight: 183 lb 10.321 oz Body Mass Index (BMI) 25.9 Intake & Output: Intake and Output for Last 24 Hours 10/23/23 10/24/23 10/25/23 23:59 23:59 23:59 Intake Total 388 / 388 2419.92 / 2443.76 600.93 / 600.93 Output Total 150 / 250 3150 / 3150 375 / 375 Balance 238 / 138 -730.08 / -706.24 225.93 / 225.93 Lab / Micro Data Attestation: I reviewed the patient's lab results. 10/25/23 02:56 10/25/23 02:56 Labs: Laboratory Results - last 24 hr 10/23/23 13:25: Diff Path Review Reviewed 10/23/23 18:00: Diff Path Review Reviewed 10/24/23 12:15: WBC 6.5, RBC 3.55 L, Hgb 7.4 L, Hct 26.5 L, MCV 74.6 L, MCH 20.8 L, MCHC 27.9 L, RDW Std Deviation 59.7 H, RDW Coeff of Hilda 22.2 H, Plt Count 178, MPV 8.6, Differential Comment SCANNED 10/24/23 15:45: MRSA (PCR) Negative 10/25/23 02:56: WBC 6.6, RBC 3.67 L, Hgb 7.5 L, Hct 27.1 L, MCV 73.8 L, MCH 20.4 L, MCHC 27.7 L, RDW Std Deviation 61.3 H, RDW Coeff of Hilda 23.3 H, Plt Count 171, MPV 8.9, Immature Gran % (Auto) 0.300, Neut % (Auto) 72.3 H, Lymph % (Auto) 11.5 L, Jennings % (Auto) 12.2 H, Eos % (Auto) 2.3, Baso % (Auto) 1.4 H, Absolute Neuts (auto) 4.8, Absolute Lymphs (auto) 0.76 L, Nucleated RBC % 0.6, Differential Comment SCANNED, Hypochromasia 2+, Anisocytosis 2+, Microcytosis 1+, Sodium 139, Potassium 3.7, Chloride 111 H, Carbon Dioxide 25.0, Anion Gap 3 L, BUN 12, Creatinine 0.92, Estim Creat Clear Calc 69.43, Est GFR (MDRD) Af Amer 103, Est GFR (MDRD) Non-Af 85, BUN/Creatinine Ratio 13.1, Glucose 101, Calcium 7.6 L Micro: Microbiology 10/24/23 06:00 Sputum, Induced/Lukens Gram Stain - Final ABG Data ABG results: ABG 10/24/23 07:24 Specimen Type ART Sample Site R Brach pH 7.35 Bicarbonate Actual 21.9 L Total CO2 23 Base Excess -4 L O2 Saturation 99 O2 % 70.0 ABG pCO2 39.4 ABG pO2 131 H Respiration Rate 16 O2 Delivery Device Adult Vent Vent Mode AC Tidal Volume 450.0 POC PEEP 5 Radiography Diagnostic Testing: Radiology Impression Chest X-Ray 10/24/23 05:48 IMPRESSION: 1. Enteric tube is visible but the tip is below the inferior edge of the image. 2. Appropriate positioning of endotracheal tube. 3. Worsening pulmonary edema and probably congestive heart failure. Electronically Signed: Ana Maria Huerta MD at 7:10 EST , KUB X-Ray 10/24/23 05:48 IMPRESSION: 1. The tip of enteric tube is in the stomach. 2. Bilateral pleural effusions. Electronically Signed: Ana Maria Huerta MD at 7:16 EST , Abdomen Ultrasound 10/24/23 06:00 IMPRESSION: Not enough ascites for a safe paracentesis. Electronically Signed: Johnson Lambert MD at 13:13 EST , Chest X-Ray 10/24/23 08:03 IMPRESSION: The tip of the endotracheal tube should be withdrawn approximately 2.6 cm. The remainder of the examination is unchanged. The tip of the orogastric tube is in the body of the stomach. Electronically Signed: Johnson Lambert MD at 8:40 EST , Echocardiogram 10/24/23 08:51 Interpretation Summary The estimated ejection fraction is 65 %. Trivial aortic valve insufficiency. Mild aortic stenosis. Ordering Physician: Juan Alberto Browne Referring Physician: ZKAIA HUDDLESTON Performed By: Kendall, Shelia, RDCS, RVT Physical Exam Const Constitutional Narrative: Intubated, sedated and mechanically ventilated. No ventilator dyssynchrony noted. HEENT normocephalic and head/scalp atraumatic Mouth: endotracheal tube in place and OG tube in place Eyes PERRL Neck supple General: trachea midline Chest inspection of chest normal Resp Resp Narrative: Coarse mechanical breath sounds. Cardio regular rate and regular rhythm GI soft to palpation Inspection: abdominal distention Extremity General Extremity: Negative for clubbing or edema Skin no rashes or lesions noted Neuro Sensorium / Orientation: sedated on vent Charges/Coding Procedures Hospitalists Procedures: 99207 Critical Care 1st Hr
[2023-10-25 07:41] LABS: AST(SGOT) 18 U/L (15-37); Alanine Aminotransfer ALT/SGPT 10 U/L (16-61); Albumin, Serum 2.3 g/dL (3.2-5.0); Alkaline Phosphatase 63 U/L (45-117); Bilirubin, Direct 1.37 mg/dL (0.00-0.30); Globulin 3.8 g/dL (2.2-4.2); Protein, Total 6.1 g/dL (6.4-8.2)
[2023-10-25] MEDS: Chlorhexidine 15 ML PO ×2 (07:41→22:06)
[2023-10-25] MEDS: Folic Acid 1 MG Tablet PO (07:41)
[2023-10-25] MEDS: Thiamine Hydrochloride 100 MG Tablet PO (07:41)
[2023-10-25] MEDS: Norepinephrine 8 MG in 0.9% Normal Saline (250mL Bag) 242 ML 37.5 MG CONT INF ×3 (07:41→21:08)
[2023-10-25] MEDS: Vancomycin HCl 1,250 MG in 0.9% Normal Saline (250mL Bag) 250 ML 167 MG IV (09:09)
[2023-10-25] MEDS: Acetaminophen 650 MG/20 ML UDC GT (09:35)
--- NOTE | 2023-10-25 10:03 | PN_ITS ---
Subjective Subjective Patient seen and examined. He remains intubated and sedated. He failed his breathing trial today. He remains on the levophed. His son was by his bedside. Unable to do review of systems as he is intubated and sedated. Objective Data Objective Data Vital Signs: Vital Signs Temp Pulse Resp BP Pulse Ox O2 Del Method O2 Flow Rate 100.8 F H 80 16 102/50 L 97 Mechanical Ventilator 10 10/25/23 07:41 10/25/23 08:58 10/25/23 08:58 10/25/23 07:41 10/25/23 08:58 10/25/23 08:58 10/24/23 05:00 FiO2 35 10/25/23 08:58 Oxygen Flow Rate (L/min) 10 Oxygen Delivery Method Mechanical Ventilator Weight: 183 lb 10.321 oz Body Mass Index (BMI) 25.9 Intake & Output: Intake and Output for Last 24 Hours 10/23/23 10/24/23 10/25/23 23:59 23:59 23:59 Intake Total 388 / 388 2419.92 / 2443.76 800.93 / 800.93 Output Total 150 / 250 3150 / 3150 375 / 375 Balance 238 / 138 -730.08 / -706.24 425.93 / 425.93 Lab / Micro Data 10/25/23 02:56 10/25/23 02:56 Labs: Laboratory Results - last 24 hr 10/23/23 13:25: Diff Path Review Reviewed 10/23/23 18:00: Diff Path Review Reviewed 10/24/23 12:15: WBC 6.5, RBC 3.55 L, Hgb 7.4 L, Hct 26.5 L, MCV 74.6 L, MCH 20.8 L, MCHC 27.9 L, RDW Std Deviation 59.7 H, RDW Coeff of Hilda 22.2 H, Plt Count 178, MPV 8.6, Differential Comment SCANNED 10/24/23 15:45: MRSA (PCR) Negative 10/25/23 02:56: WBC 6.6, RBC 3.67 L, Hgb 7.5 L, Hct 27.1 L, MCV 73.8 L, MCH 20.4 L, MCHC 27.7 L, RDW Std Deviation 61.3 H, RDW Coeff of Hilda 23.3 H, Plt Count 171, MPV 8.9, Immature Gran % (Auto) 0.300, Neut % (Auto) 72.3 H, Lymph % (Auto) 11.5 L, [place] % (Auto) 12.2 H, Eos % (Auto) 2.3, Baso % (Auto) 1.4 H, Absolute Neuts (auto) 4.8, Absolute Lymphs (auto) 0.76 L, Nucleated RBC % 0.6, Differential Comment SCANNED, Hypochromasia 2+, Anisocytosis 2+, Microcytosis 1+, Sodium 139, Potassium 3.7, Chloride 111 H, Carbon Dioxide 25.0, Anion Gap 3 L, BUN 12, Creatinine 0.92, Estim Creat Clear Calc 69.43, Est GFR (MDRD) Af Amer 103, Est GFR (MDRD) Non-Af 85, BUN/Creatinine Ratio 13.1, Glucose 101, Calcium 7.6 L 10/25/23 06:58: Total Bilirubin 2.10 H, Direct Bilirubin 1.37 H, AST 18, ALT 10 L, Alkaline Phosphatase 63, Ammonia 41.0 H, Total Protein 6.1 L, Albumin 2.3 L, Globulin 3.8 Micro: Microbiology 10/24/23 06:00 Sputum, Induced/Lukens Gram Stain - Final Radiography Diagnostic Testing: Radiology Impression Abdomen Ultrasound 10/24/23 06:00 IMPRESSION: Not enough ascites for a safe paracentesis. Electronically Signed: Johnson Lambert MD at 13:13 EST , Echocardiogram 10/24/23 08:51 Interpretation Summary The estimated ejection fraction is 65 %. Trivial aortic valve insufficiency. Mild aortic stenosis. Ordering Physician: Juan Alberto Browne Referring Physician: ZAKIA HUDDLESTON Performed By: Shelia Argueta, RDCS, RVT Physical Exam Const alert and no apparent distress Constitutional Narrative: intubated, sedated, RASS score remains -4. General Appearance: cooperative HEENT normocephalic, head/scalp atraumatic, hearing grossly normal bilaterally and nasal mucous membranes and turbinates normal Eyes PERRL, EOMs intact bilaterally and conjunctivae normal Neck full ROM, no lymphadenopathy and supple General: trachea midline Lymph Lymphatic: no lymphadenopathy noted and no lymphedema noted Chest inspection of chest normal Resp normal respiratory effort and no use of accessory muscles Resp Narrative: intubated, sedated, RASS score is -4; breath sounds diminished bilaterally, no wheezes or crackles. Cardio regular rate, regular rhythm, S1 normal heart sound, S2 normal heart sound, no murmurs and peripheral pulses 2+ throughout GI normal to inspection, nondistended, normoactive bowel sounds GI Narrative: mild to moderate distension, no tenderness, positive fluid thrill. Extremity normal to inspection, normal capillary refill, no clubbing, cyanosis or edema and no calf tenderness Extremity Narrative: +2-3 lower extremity pitting edema. General Extremity: no tenderness to palpation of joints or extremities Skin General Skin Exam: no breakdown and turgor normal Neuro no focal motor deficits and no sensory deficits noted Neuro Narrative: intubated, sedated, RASS score is -4. Psych Psych Narrative: as under neurology. Assessment & Plan Assessment/Plan (1) Acute hypoxemic respiratory failure: (2) Decompensation of cirrhosis of liver: (3) Diastolic congestive heart failure: (4) Cirrhosis of liver: (5) Ascites: (6) Atrial fibrillation with RVR: PLAN: Plan #Acute blood loss anemia due to UGI bleed with hematemesis * had an emergent EGD due to concerns for variceal bleed. * EGD showed type 1 esophageal varices without bleeding, and 2 bleeding angiodysplastic lesions int he stomach and oozing duodenal ulcer that were both treated. * Hb was 4.9 on admission, and is s/p transfusion of 2 units of PRBCs. * Hb today is 7.5 * iron studies showed iron deficiency anemia with low iron stores. * GI and critical care on board. * on PPI drip, octreotide drip. * #Multifactorial shock due to GI bleed, but also could be due to sepsis. * remains on levophed. Hb is up to 7.4. * Titrate levophed to aim for MAP >65. Critical care on board,. * on IV vancomycin and Zosyn. * blood cultures pending. #Decompensated alcoholic liver cirrhosis with ascites and possible enc ephalopathy * has a long history of alcohol abuse. * was on lasix and spironolactone, but had not been taking it. * gastroenterology on board. * diuretics held. * management as per GI. * On thiamine and folic acid. * #Acute hypoxic respiratory failure due to recurrent left pleural effusion. * Chest x-ray on admission showed moderate size left pleural effusion with vascular congestion and mild CHF. * 2D echo showed EF of 65% with no regional wall motion abnormalities with mild aortic stenosis * Had to be intubated and sedated. * Titrate oxygen to maintain saturation above 90%. * #Afib with RVR * no previous history of afib. Not anticoagulated. * EKG on admission showed A-fib. On Lopressor at home but is currently on hold due to hypotension. * #History of cocaine abuse * Per patient's son, patient admits to taking crack cocaine at home * also drinks heavily. On thiamine and folic acid for alcohol use disorder. * DVT prophylaxis; SCDs. Charges/Coding Visit Charges Inpatient E&M: 03382 Subs Hosp L3
[2023-10-25] MEDS: Pantoprazole Sodium 80 MG in 0.9% Normal Saline (100mL Bag) 80 ML 10 MG CONT INF ×2 (10:43→18:48)
[2023-10-25] MEDS: Propofol 10MG/Ml 1,000 MG/100 ML Bottle 5 MG CONT INF (14:15)
[2023-10-25] MEDS: fentaNYL drip 100 ML 10 MCG CONT INF (14:40)
[2023-10-25 21:54] LABS: Vancomycin, Trough Level 20.7 ug/mL (5.0-15.0)
--- NOTE | 2023-10-25 22:00 | PCM.RX.CS ---
Consult Antibiotic Management Pharmacy has been consulted to manage selected antibiotic: Vancomycin Type of Intervention Type of Consult: Follow-up Labs Labs: Sodium 139 mmol/L (136-145) 10/25/23 02:56 Potassium 3.7 mmol/L (3.5-5.1) 10/25/23 02:56 Chloride 111 mmol/L (98-107) H 10/25/23 02:56 Carbon Dioxide 25.0 mmol/L (21.0-32.0) 10/25/23 02:56 Anion Gap 3 (5-15) L 10/25/23 02:56 BUN 12 mg/dL (7-18) 10/25/23 02:56 Creatinine 0.92 mg/dL (0.70-1.30) 10/25/23 02:56 Est GFR (MDRD) Af Amer 103 mL/min (>60) 10/25/23 02:56 Est GFR (MDRD) Non-Af 85 mL/min (>60) 10/25/23 02:56 BUN/Creatinine Ratio 13.1 RATIO (10-20) 10/25/23 02:56 Glucose 101 mg/dL (74-106) 10/25/23 02:56 Vancomycin Trough 20.7 ug/mL (5.0-15.0) H 10/25/23 21:20 Microbiology Microbiology: Microbiology 10/24/23 08:00 Urine Catheter - Saldivar Urine Culture - Preliminary Culture exhibits no growth. 10/24/23 06:00 Sputum, Induced/Lukens Gram Stain - Final 10/24/23 06:00 Sputum, Induced/Lukens Respiratory Culture - Preliminary Appears to be normal respiratory edwin. Further studies to follow. Pharmacy Plan for Drug Dosing Pharmacy Plan for Drug Dosing: Pharmacy Service will continue to monitor and adjust dosing as required. TROUGH 20.7 @ 12 HOURS. HOLD DOSE AND DRAW RANDOM LEVEL IN 8 HOURS Follow-Up Labs Follow-Up Labs: Trough: Vancomycin Date/Time Labs Ordered Labs to be done on [date and time ordered]: 10/26 @ 0140
[2023-10-26] VITALS (75 sets, daily range): BP systolic 83–124; BP diastolic 49–75; PULSE 70–136; RESP 14–21; TEMP 36.7–38; O2SAT 83–100; BMI 26.1
[2023-10-26] MEDS: fentaNYL drip 100 ML 7.5 MCG CONT INF (01:34)
[2023-10-26] MEDS: Ipratropium/Albuterol Sulfate 3 ML AMPUL.NEB INHALATION ×5 (02:16→19:30)
[2023-10-26] MEDS: Propofol 10MG/Ml 1,000 MG/100 ML Bottle 5 MG CONT INF (02:17)
[2023-10-26] MEDS: Pantoprazole Sodium 80 MG in 0.9% Normal Saline (100mL Bag) 80 ML 10 MG CONT INF ×3 (04:48→23:08)
[2023-10-26] MEDS: Norepinephrine 8 MG in 0.9% Normal Saline (250mL Bag) 242 ML 26.3000000000000007 MG CONT INF (04:58)
[2023-10-26] MEDS: 0.9% Saline Lock 10 ML Syringe IV ×3 (05:12→17:53)
[2023-10-26 05:21] LABS: Absolute Lymphocyte Count 0.96 X10^3/uL (0.83-4.51); Absolute Neutrophil Count 5.7 X10^3/uL (2.0-7.7); Basophil% 1.3 % (0-1); Eosinophil# 0.21 X10^3/uL; Eosinophils% 2.6 % (0-5); Hematocrit 28.8 % (40-54); Hemoglobin 7.8 g/dL (13.0-16.5); Lymphocyte # 0.96 X10^3/ul (0.83-4.51); Mean Corp Hgb Conc 27.1 g/dL (32-36); Mean Corpuscular Hgb 20.4 pg (27.0-32.0); Mean Corpuscular Volume 75.4 fL (80-94); Mean Platelet Vol. 8.5 fl (6.2-12.0); Monocyte# 1.02 X10^3/uL; Monocyte% 12.8 % (0-10); NRBC Flagged by Analyzer 0.4 % (0-5); Neutrophil # 5.67 X10^3/uL (2.7-7.7); Neutrophil % 70.8 % (47-70); POSITIVE MORPHOLOGY YES; Platelet Count 150 K/mm3 (150-450); RBC Distribution Width CV 24.4 % (11.6-14.6); RBC Distribution Width SD 64.6 fl (35.1-43.9); Red Blood Count 3.82 M/mm3 (4.6-6.2)
[2023-10-26 05:22] LABS: Differential Indicated SCAN CRITERIA MET
[2023-10-26 05:36] LABS: Anion Gap 3 (5-15); BUN 10 mg/dL (7-18); BUN/Creat Ratio 10.5 RATIO (10-20); Calcium,Total 7.3 mg/dL (8.5-10.1); Chloride 110 mmol/L (98-107); Creatinine, Serum 0.95 mg/dL (0.70-1.30); EST Glomerular Filtration Rate 82 mL/min (>60); Est Glom Filt Rate - Afr Amer 99 mL/min (>60); Estimated Creatinine Clearance 67.24 ml/min; Glucose 79 mg/dL (74-106); Magnesium 1.7 mg/dL (1.6-2.6); Potassium 3.6 mmol/L (3.5-5.1); Sodium Level 138 mmol/L (136-145)
[2023-10-26 05:43] LABS: Vancomycin, Random Level 15.8 ug/mL (0.0-15.0)
[2023-10-26 05:50] LABS: Phosphorus 2.9 mg/dL (2.5-4.9)
[2023-10-26] MEDS: Vancomycin Trough/Random Due 1 LAB MC (06:03)
[2023-10-26] MEDS: Vancomycin IV 1,000 MG/200 ML BAG 200 MG IV ×2 (06:03→17:53)
--- NOTE | 2023-10-26 06:04 | PCM.RX.CS ---
Consult Antibiotic Management Pharmacy has been consulted to manage selected antibiotic: Vancomycin Type of Intervention Type of Consult: Follow-up Labs Labs: Sodium 138 mmol/L (136-145) 10/26/23 05:10 Potassium 3.6 mmol/L (3.5-5.1) 10/26/23 05:10 Chloride 110 mmol/L (98-107) H 10/26/23 05:10 Carbon Dioxide 25.0 mmol/L (21.0-32.0) 10/26/23 05:10 Anion Gap 3 (5-15) L 10/26/23 05:10 BUN 10 mg/dL (7-18) 10/26/23 05:10 Creatinine 0.95 mg/dL (0.70-1.30) 10/26/23 05:10 Est GFR (MDRD) Af Amer 99 mL/min (>60) 10/26/23 05:10 Est GFR (MDRD) Non-Af 82 mL/min (>60) 10/26/23 05:10 BUN/Creatinine Ratio 10.5 RATIO (10-20) 10/26/23 05:10 Glucose 79 mg/dL (74-106) 10/26/23 05:10 Vancomycin Trough 20.7 ug/mL (5.0-15.0) H 10/25/23 21:20 Random Vancomycin 15.8 ug/mL (0.0-15.0) H 10/26/23 05:10 Microbiology Microbiology: Microbiology 10/24/23 08:00 Urine Catheter - Saldivar Urine Culture - Preliminary Culture exhibits no growth. 10/24/23 06:00 Sputum, Induced/Lukens Gram Stain - Final 10/24/23 06:00 Sputum, Induced/Lukens Respiratory Culture - Preliminary Appears to be normal respiratory edwin. Further studies to follow. Pharmacy Plan for Drug Dosing Pharmacy Plan for Drug Dosing: Pharmacy Service will continue to monitor and adjust dosing as required. RANDOM LEVEL 15.8 @ 20 HOURS. START 1GM Q12H AND FOLLOW UP TROUGH PRIOR TO 4TH DOSE Follow-Up Labs Follow-Up Labs: Trough: Vancomycin Date/Time Labs Ordered Labs to be done on [date and time ordered]: 10/27 @ 93532
[2023-10-26] MEDS: Piperacil/Tazobactam 3.375 GM in 0.9% Normal Saline (50mL MB+) 50 ML IV ×3 (06:05→21:32)
--- NOTE | 2023-10-26 06:45 | CPS ---
Decreased O2 on vent from 30% to 24% but he desated to 89% & had more ectopy so this RT put O2 back on 30%.
--- NOTE | 2023-10-26 07:50 | PCM.PN.TICU ---
Objective Data Objective Data Vital Signs: Vital Signs Last response Temperature 37.7 C H 10/26/23 07:00 Temperature Source Core 10/26/23 07:00 Pulse Rate 104 H 10/26/23 07:00 Pulse Strength Weak (1+) 10/25/23 10:00 Respiratory Rate 16 10/26/23 07:00 Respiratory Effort Mechanically Ventilated 10/26/23 05:00 Respiratory Depth Normal 10/26/23 05:00 Respiratory Pattern Normal 10/26/23 06:45 Blood Pressure 95/51 L 10/26/23 07:00 Blood Pressure Mean 65 10/26/23 07:00 Blood Pressure Source Monitor 10/26/23 07:00 Blood Pressure Position Semi-Fowlers 10/26/23 07:00 Blood Pressure Location Right Arm 10/26/23 07:00 Baseline BP 95/58 10/23/23 16:21 Pulse Ox 95 10/26/23 07:00 Oxygen Delivery Method Mechanical Ventilator 10/26/23 07:00 Oxygen Flow Rate (L/min) 10 10/24/23 05:00 Fraction of Inspired Oxygen (FIO2) 30 10/26/23 07:00 I&O: I&O Last 24 Hours 10/25/23 10/25/23 10/26/23 11:59 23:59 11:59 Intake Total 1510.31 / 3405.76 1845.45 / 3405.76 473.77 / 473.77 Output Total 375 / 975 600 / 975 350 / 350 Balance 1135.31 / 2430.76 1245.45 / 2430.76 123.77 / 123.77 I&O: Total Stay 10/23/23 13:08 thru 10/26/23 07:00 Intake Total 6637.45 Output Total 4625 Balance 2012.45 Current Meds Ordered / Administered: Current meds ordered / Administered Generic Name Dose Route Start Last Admin Trade Name Freq PRN Reason Stop Dose Admin Acetaminophen 650 mg 10/25/23 08:01 10/25/23 09:35 Acetaminophen 650 Mg/20 Ml Udc GT 650 mg Q6H PRN PRN Administration Pain 1-10 Or Fever>100.7 Albuterol/Ipratropium 3 ml 10/23/23 17:30 10/26/23 06:45 Ipratropium/Albuterol Sulfate 3 Ml Ampul.Neb INHALATION 3 ml Q4H.RT MAX Administration Chlorhexidine Gluconate 1 each 10/24/23 10:00 10/25/23 05:00 Chlorhexidine Gluc 2% Cloth 1 Each [place] TOPICAL 1 each DAILY AMX Administration Chlorhexidine Gluconate 15 ml 10/24/23 10:00 10/25/23 22:06 Chlorhexidine 15 Ml PO 15 ml BID MAX Administration Dicyclomine HCl 20 mg 10/25/23 08:01 Dicyclomine 10 Mg Capsule GT Q6H PRN PRN abdominal discomfort Folic Acid 1 mg 10/26/23 08:00 Folic Acid 1 Mg Tablet GT DAILY@0800 MAX Gabapentin 300 mg 10/25/23 08:03 Gabapentin 300 Mg Capsule GT Q8H PRN PRN moderate to severe anxiety Pantoprazole Sodium 80 mg/ 100 mls @ 10 mls/hr 10/23/23 14:00 10/26/23 04:48 Sodium Chloride CONT INF 10 mls/hr Q10H MAX Administration Sodium Chloride 500 mls @ 15 mls/hr 10/23/23 16:48 10/25/23 20:13 IV Infused PRN PRN Infusion Blood Transfusion Sodium Chloride 250 mls @ 15 mls/hr 10/23/23 16:48 10/25/23 03:07 IV Infused .[id number] PRN Infusion Additional IVPB Infusion Sodium Chloride 250 mls @ 15 mls/hr 10/23/23 16:48 10/24/23 01:05 IV Infused .[id number] PRN Infusion Saline Flush Propofol 1,000 mg in 100 mls @ 4.998 mls/hr 10/24/23 05:55 10/26/23 07:00 Diprivan CONT INF 10 mcg/kg/min .Q12H MAX 5 mls/hr Titration Protocol 10 MCG/KG/MIN Fentanyl 100 mls @ 2.5 mls/hr 10/24/23 05:55 10/26/23 07:00 CONT INF 75 mcg/hr UD MAX 7.5 mls/hr Titration Protocol 25 MCG/HR Norepinephrine Bitartrate 8 mg 250 mls @ 9.375 mls/hr 10/24/23 06:35 10/26/23 07:00 / Sodium Chloride CONT INF 14 mcg/min .[id number] MAX 26.3 mls/hr Titration Protocol 5 MCG/MIN Piperacillin Sod/Tazobactam 50 mls @ 12.5 mls/hr 10/24/23 08:50 10/26/23 06:05 Sod 3.375 gm/ Sodium Chloride IV 12.5 mls/hr Q8 MAX Administration Vancomycin IV-PHARMACY TO DOSE 500 mls @ 250 mls/hr 10/24/23 08:50 1 each/ Sodium Chloride IV X1 PRN Rx to Dose Protocol Vancomycin HCl 1,000 mg in 200 mls @ 200 mls/hr 10/26/23 06:00 10/26/23 06:03 Vancomycin IV 200 mls/hr Q12H MAX Administration Loperamide HCl 2 mg 10/25/23 08:03 Loperamide 2 Mg Capsule GT Q4H PRN PRN LOOSE STOOLS Melatonin 3 mg 10/25/23 08:03 Melatonin 3 Mg Tablet GT QHS PRN PRN INSOMNIA Ondansetron HCl 4 mg 10/23/23 16:22 Ondansetron 4 Mg/2 Ml Vial IV Q8H PRN PRN NAUSEA/VOMITING Ondansetron HCl 8 mg 10/25/23 08:02 Ondansetron 8 Mg Tablet GT Q8H PRN PRN NAUSEA Sodium Chloride 10 - 40 ml 10/23/23 16:48 10/26/23 05:12 0.9% Saline Lock 10 Ml Syringe IV 20 ml UD PRN Administration SALINE FLUSH Thiamine HCl 100 mg 10/26/23 08:00 Thiamine Hydrochloride 100 Mg Tablet GT DAILYCM [facility] Vancomycin Protocol 1 lab 10/27/23 15:30 Vancomycin Trough/Random Due MC 10/27/23 19:30 DAILY [facility] Lab / Micro Data 10/26/23 05:10 10/26/23 05:10 Labs: Laboratory Results - last 24 hr 10/25/23 21:20: Vancomycin Trough 20.7 H 10/26/23 05:10: WBC 8.0, RBC 3.82 L, Hgb 7.8 L, Hct 28.8 L, MCV 75.4 L, MCH 20.4 L, MCHC 27.1 L, RDW Std Deviation 64.6 H, RDW Coeff of Hilda 24.4 H, Plt Count 150, MPV 8.5, Immature Gran % (Auto) 0.500, Neut % (Auto) 70.8 H, Lymph % (Auto) 12.0 L, [place] % (Auto) 12.8 H, Eos % (Auto) 2.6, Baso % (Auto) 1.3 H, Absolute Neuts (auto) 5.7, Absolute Lymphs (auto) 0.96, Nucleated RBC % 0.4, Sodium 138, Potassium 3.6, Chloride 110 H, Carbon Dioxide 25.0, Anion Gap 3 L, BUN 10, Creatinine 0.95, Estim Creat Clear Calc 67.24, Est GFR (MDRD) Af Amer 99, Est GFR (MDRD) Non-Af 82, BUN/Creatinine Ratio 10.5, Glucose 79, Calcium 7.3 L, Phosphorus 2.9, Magnesium 1.7, Random Vancomycin 15.8 H Micro: Microbiology 10/24/23 08:00 Urine Catheter - Saldivar Urine Culture - Preliminary Culture exhibits no growth. 10/24/23 06:00 Sputum, Induced/Lukens Gram Stain - Final 10/24/23 06:00 Sputum, Induced/Lukens Respiratory Culture - Preliminary Appears to be normal respiratory edwin. Further studies to follow. Assessment and Plan . Assessment and plan: Critical Care Time: The entirety of this encounter was done via Telemedicine
[2023-10-26] MEDS: Chlorhexidine 15 ML PO ×2 (08:00→21:35)
--- NOTE | 2023-10-26 08:00 | NURSING ---
L fem TL site bleeding readily, cleansed, surgicel and new drsg applied
--- NOTE | 2023-10-26 09:36 | PN_ITS ---
Subjective Subjective Patient seen and examined. He remains intubated and sedated. FiO2 requirements had increased to 40% today. Unable to do review of systems as his RASS score is -4. Objective Data Objective Data Vital Signs: Vital Signs Temp Pulse Resp BP Pulse Ox O2 Del Method O2 Flow Rate 99.8 F H 98 16 95/51 L 100 Mechanical Ventilator 10 10/26/23 07:00 10/26/23 09:08 10/26/23 09:08 10/26/23 07:00 10/26/23 09:08 10/26/23 07:00 10/24/23 05:00 FiO2 40 10/26/23 09:08 Oxygen Flow Rate (L/min) 10 Oxygen Delivery Method Mechanical Ventilator Weight: 184 lb 8.43 oz Body Mass Index (BMI) 26.1 Intake & Output: Intake and Output for Last 24 Hours 10/24/23 10/25/23 10/26/23 23:59 23:59 23:59 Intake Total 2419.92 / 2443.76 3355.76 / 3405.76 503.77 / 503.77 Output Total 3150 / 3150 975 / 975 510 / 510 Balance -730.08 / -706.24 2380.76 / 2430.76 -6.23 / -6.23 Lab / Micro Data 10/26/23 05:10 10/26/23 05:10 Labs: Laboratory Results - last 24 hr 10/25/23 21:20: Vancomycin Trough 20.7 H 10/26/23 05:10: WBC 8.0, RBC 3.82 L, Hgb 7.8 L, Hct 28.8 L, MCV 75.4 L, MCH 20.4 L, MCHC 27.1 L, RDW Std Deviation 64.6 H, RDW Coeff of Hilda 24.4 H, Plt Count 150, MPV 8.5, Immature Gran % (Auto) 0.500, Neut % (Auto) 70.8 H, Lymph % (Auto) 12.0 L, [place] % (Auto) 12.8 H, Eos % (Auto) 2.6, Baso % (Auto) 1.3 H, Absolute Neuts (auto) 5.7, Absolute Lymphs (auto) 0.96, Nucleated RBC % 0.4, Sodium 138, Potassium 3.6, Chloride 110 H, Carbon Dioxide 25.0, Anion Gap 3 L, BUN 10, Creatinine 0.95, Estim Creat Clear Calc 67.24, Est GFR (MDRD) Af Amer 99, Est GFR (MDRD) Non-Af 82, BUN/Creatinine Ratio 10.5, Glucose 79, Calcium 7.3 L, Phosphorus 2.9, Magnesium 1.7, Random Vancomycin 15.8 H Micro: Microbiology 10/24/23 08:00 Urine Catheter - Saldivar Urine Culture - Final Culture exhibits no growth. 10/24/23 06:00 Sputum, Induced/Lukens Gram Stain - Final 10/24/23 06:00 Sputum, Induced/Lukens Respiratory Culture - Final Physical Exam Const Constitutional Narrative: intubated, sedated, RASS score remains -4. HEENT normocephalic, head/scalp atraumatic, hearing grossly normal bilaterally and nasal mucous membranes and turbinates normal Eyes PERRL, EOMs intact bilaterally and conjunctivae normal Neck no lymphadenopathy General: trachea midline Lymph Lymphatic: no lymphadenopathy noted and no lymphedema noted Chest inspection of chest normal Resp Resp Narrative: intubated, sedated, RASS score is -4; breath sounds diminished bilaterally, no wheezes or crackles. Cardio regular rate, regular rhythm, S1 normal heart sound, S2 normal heart sound, no murmurs and peripheral pulses 2+ throughout GI GI Narrative: soft, nontender, no organomegaly Extremity normal to inspection, full ROM, normal capillary refill and no calf tenderness Extremity Narrative: +2-3 lower extremity pitting edema. General Extremity: no tenderness to palpation of joints or extremities Skin General Skin Exam: no breakdown and turgor normal Neuro Neuro Narrative: intubated, sedated, RASS score is -4. Psych Psych Narrative: as under neurology. Assessment & Plan Assessment/Plan (1) Acute hypoxemic respiratory failure: (2) Decompensation of cirrhosis of liver: (3) Diastolic congestive heart failure: (4) Cirrhosis of liver: (5) Ascites: (6) Atrial fibrillation with RVR: PLAN: Plan #Acute blood loss anemia due to UGI bleed with hematemesis * had an emergent EGD due to concerns for variceal bleed. * EGD showed type 1 esophageal varices without bleeding, and 2 bleeding angiodysplastic lesions int he stomach and oozing duodenal ulcer that were both treated. * Hb was 4.9 on admission, and is s/p transfusion of 2 units of PRBCs. * Hb today is 7.8 * iron studies showed iron deficiency anemia with low iron stores. * GI and critical care on board. * on PPI drip, octreotide drip. * #Multifactorial shock due to GI bleed, but also could be due to sepsis. * remains on levophed. Hb is up to 7.8. * Titrate levophed to aim for MAP >65. Critical care on board,. * on IV vancomycin and Zosyn. * blood cultures pending. #Decompensated alcoholic liver cirrhosis with ascites and possible encephalopath y * has a long history of alcohol abuse. * gastroenterology on board. * diuretics held. * management as per GI. * On thiamine and folic acid. * #Acute hypoxic respiratory failure due to recurrent left pleural effusion. * Chest x-ray on admission showed moderate size left pleural effusion with vascular congestion and mild CHF. * 2D echo showed EF of 65% with no regional wall motion abnormalities with mild aortic stenosis * Had to be intubated and sedated. * Titrate oxygen to maintain saturation above 90%. * #Afib with RVR * no previous history of afib. Not anticoagulated. * EKG on admission showed A-fib. On Lopressor at home but is currently on hold due to hypotension. * patient tachycardic today, with HR in the 130s during my review. * #History of cocaine abuse * Per patient's son, patient admits to taking crack cocaine at home * also drinks heavily. On thiamine and folic acid for alcohol use disorder. * DVT prophylaxis; SCDs. Charges/Coding Visit Charges Inpatient E&M: 49606 [facility], [place] Hosp L3
[2023-10-26 10:00] LABS: Allen Test Positive; Base Excess -3 mmol/L (-2 to +2); Bicarbonate 22.2 mmol/L (22-26); Blood Gas Specimen Type ART; Mode AC; O2 Delivery Device Adult Vent; PEEP 5; PO2 79 mmHG (75-100); RR 16; SITE R Radial; SO2 96 % (95-99); Total Carbon Dioxide 23 mmol/L; pCO2 36.2 mmHg (35-45)
[2023-10-26] MEDS: Magnesium Sulfate 2 GM in Dextrose 5%-Water (100mL Bag) 100 ML IV (10:14)
[2023-10-26] MEDS: Folic Acid 1 MG Tablet GT (10:16)
[2023-10-26] MEDS: Thiamine Hydrochloride 100 MG Tablet GT (10:16)
[2023-10-26] MEDS: Potassium Chloride Oral Soln 20 MEQ/15 ML UDC 40 MEQ PO (10:17)
[2023-10-26] MEDS: Lactulose 20 GM/30 ML UDC PO ×2 (10:18→21:34)
[2023-10-26] MEDS: Albumin Human 25% (100 mL) 25 GM/100 ML BAG IV ×3 (10:30→21:34)
[2023-10-26 10:46] LABS: Mucous, Urine 0 SEEN /hpf (<or=2+); Red Blood Cells-Urine 0 SEEN /hpf (0-5)
[2023-10-26 10:54] LABS: Color, Urine Yellow (Yellow); Glucose, Dipstick Normal (Normal); Ketone-Dipstick 5 mg/dl (Negative); Leukocyte Esterase-Dipstick 500 /ul (Negative); Nitrite-Dipstick Negative (Negative); Occult Blood-Urine 25 /ul (Negative); Protein-Dipstick 30 mg/dl (Negative); Urine Clarity Clear (Clear); Urine Urobilinogen 4 mg/dl (Normal)
[2023-10-26 10:58] LABS: International Normalized Ratio 1.9; Prothrombin Time (Protime)PT. 21.6 SECONDS (11.7-14.9)
[2023-10-26 10:59] LABS: Fibrinogen 227 mg/dl (203-444); Partial Thromboplast Time 44.5 Seconds (24.1-36.2)
[2023-10-26 11:04] LABS: Urine Bilirubin Dipstick 1 mg/dL (Negative)
[2023-10-26 11:10] LABS: Bacteria 1+ /hpf (None Seen); Squamous Epithelial Cells - UA 0-5 SEEN /hpf (0-5); White Blood Cells 10-25 SEEN /hpf (0-5)
[2023-10-26 11:18] LABS: Procalcitonin 0.34 ng/mL (0.00-0.09)
--- NOTE | 2023-10-26 12:00 | RAD_ITS ---
HISTORY: Respiratory failure, PNA, intubated. TECHNIQUE: XR Chest 1 View. COMPARISON: 10/24/2023. FINDINGS: LINES/TUBES: Endotracheal tube tip less than 2 cm above the leah. Nasogastric tube again directed toward the stomach. CARDIOMEDIASTINAL BORDERS: Stable. LUNGS: Mixed interstitial and alveolar opacities again seen bilaterally. PLEURA: Increased right pleural effusion. Moderate left pleural effusion. RAD/Chest 1 View (Portable) IMPRESSION: Low position of endotracheal tube; recommend 2-3 cm retraction. Bilateral pleural effusions, increased on the right. Persistent diffuse pulmonary edema, pneumonia, or ARDS. Electronically Signed: Yolanda Morales MD at 12:56 EST ,
--- NOTE | 2023-10-26 12:11 | PCM.PN.TICU ---
Objective Data Objective Data Vital Signs: Vital Signs Last response Temperature 37.4 C H 10/26/23 11:00 Temperature Source Core 10/26/23 11:00 Pulse Rate 114 H 10/26/23 11:00 Pulse Strength Weak (1+) 10/25/23 10:00 Respiratory Rate 16 10/26/23 11:00 Respiratory Effort Mechanically Ventilated 10/26/23 08:00 Respiratory Depth Normal 10/26/23 08:00 Respiratory Pattern Normal 10/26/23 10:40 Blood Pressure 91/72 10/26/23 11:00 Blood Pressure Mean 78 10/26/23 11:00 Blood Pressure Source Monitor 10/26/23 11:00 Blood Pressure Position Semi-Fowlers 10/26/23 11:00 Blood Pressure Location Right Arm 10/26/23 11:00 Baseline BP 95/58 10/23/23 16:21 Pulse Ox 94 10/26/23 11:00 Oxygen Delivery Method Mechanical Ventilator 10/26/23 11:00 Oxygen Flow Rate (L/min) 10 10/24/23 05:00 Fraction of Inspired Oxygen (FIO2) 40 10/26/23 11:00 I&O: I&O Last 24 Hours 10/25/23 10/26/23 10/26/23 23:59 11:59 23:59 Intake Total 1845.45 / 3405.76 984.35 / 984.35 Output Total 600 / 975 510 / 510 Balance 1245.45 / 2430.76 474.35 / 474.35 I&O: Total Stay 10/23/23 13:08 thru 10/26/23 11:00 Intake Total 7148.03 Output Total 4785 Balance 2363.03 Current Meds Ordered / Administered: Current meds ordered / Administered Generic Name Dose Route Start Last Admin Trade Name Freq PRN Reason Stop Dose Admin Acetaminophen 650 mg 10/25/23 08:01 10/25/23 09:35 Acetaminophen 650 Mg/20 Ml Udc GT 650 mg Q6H PRN PRN Administration Pain 1-10 Or Fever>100.7 Albuterol/Ipratropium 3 ml 10/23/23 17:30 10/26/23 10:40 Ipratropium/Albuterol Sulfate 3 Ml Ampul.Neb INHALATION 3 ml Q4H.RT MAX Administration Chlorhexidine Gluconate 1 each 10/24/23 10:00 10/25/23 05:00 Chlorhexidine Gluc 2% Cloth 1 Each [place] TOPICAL 1 each DAILY MAX Administration Chlorhexidine Gluconate 15 ml 10/24/23 10:00 10/26/23 08:00 Chlorhexidine 15 Ml PO 15 ml BID MAX Administration Dicyclomine HCl 20 mg 10/25/23 08:01 Dicyclomine 10 Mg Capsule GT Q6H PRN PRN abdominal discomfort Folic Acid 1 mg 10/26/23 08:00 10/26/23 10:16 Folic Acid 1 Mg Tablet GT 1 mg DAILY@0800 MAX Administration Gabapentin 300 mg 10/25/23 08:03 Gabapentin 300 Mg Capsule GT Q8H PRN PRN moderate to severe anxiety Hydrocortisone Sodium Succinate 50 mg 10/26/23 12:00 Hydrocortisone Sod Succinate 100 Mg/2 Ml Vial IV Q6 MAX Pantoprazole Sodium 80 mg/ 100 mls @ 10 mls/hr 10/23/23 14:00 10/26/23 11:00 Sodium Chloride CONT INF 10 mls/hr Q10H MAX Infusion Sodium Chloride 500 mls @ 15 mls/hr 10/23/23 16:48 10/25/23 20:13 IV Infused PRN PRN Infusion Blood Transfusion Sodium Chloride 250 mls @ 15 mls/hr 10/23/23 16:48 10/25/23 03:07 IV Infused .[id number] PRN Infusion Additional IVPB Infusion Sodium Chloride 250 mls @ 15 mls/hr 10/23/23 16:48 10/24/23 01:05 IV Infused .[id number] PRN Infusion Saline Flush Propofol 1,000 mg in 100 mls @ 4.998 mls/hr 10/24/23 05:55 10/26/23 11:00 Diprivan CONT INF 20 mcg/kg/min .Q12H MAX 10 mls/hr Titration Protocol 10 MCG/KG/MIN Fentanyl 100 mls @ 2.5 mls/hr 10/24/23 05:55 10/26/23 11:00 CONT INF 100 mcg/hr UD MAX 10 mls/hr Titration Protocol 25 MCG/HR Norepinephrine Bitartrate 8 mg 250 mls @ 9.375 mls/hr 10/24/23 06:35 10/26/23 11:00 / Sodium Chloride CONT INF 13 mcg/min .[id number] MAX 24.4 mls/hr Titration Protocol 5 MCG/MIN Piperacillin Sod/Tazobactam 50 mls @ 12.5 mls/hr 10/24/23 08:50 10/26/23 10:09 Sod 3.375 gm/ Sodium Chloride IV Infused Q8 MAX Infusion Vancomycin IV-PHARMACY TO DOSE 500 mls @ 250 mls/hr 10/24/23 08:50 1 each/ Sodium Chloride IV X1 PRN Rx to Dose Protocol Vancomycin HCl 1,000 mg in 200 mls @ 200 mls/hr 10/26/23 06:00 10/26/23 10:09 Vancomycin IV Infused Q12H MAX Infusion Albumin Human 25 gm in 100 mls @ 60 mls/hr 10/26/23 09:30 IV TID MAX Lactulose 20 gm 10/26/23 10:00 10/26/23 10:18 Lactulose 20 Gm/30 Ml Udc PO 20 gm BID MAX Administration Loperamide HCl 2 mg 10/25/23 08:03 Loperamide 2 Mg Capsule GT Q4H PRN PRN LOOSE STOOLS Melatonin 3 mg 10/25/23 08:03 Melatonin 3 Mg Tablet GT QHS PRN PRN INSOMNIA Ondansetron HCl 4 mg 10/23/23 16:22 Ondansetron 4 Mg/2 Ml Vial IV Q8H PRN PRN NAUSEA/VOMITING Ondansetron HCl 8 mg 10/25/23 08:02 Ondansetron 8 Mg Tablet GT Q8H PRN PRN NAUSEA Sodium Chloride 10 - 40 ml 10/23/23 16:48 10/26/23 05:12 0.9% Saline Lock 10 Ml Syringe IV 20 ml UD PRN Administration SALINE FLUSH Thiamine HCl 100 mg 10/26/23 08:00 10/26/23 10:16 Thiamine Hydrochloride 100 Mg Tablet GT 100 mg DAILYCM MAX Administration Vancomycin Protocol 1 lab 10/27/23 15:30 Vancomycin Trough/Random Due MC 10/27/23 19:30 DAILY [facility] Lab / Micro Data 10/26/23 05:10 10/26/23 05:10 Labs: Laboratory Results - last 24 hr 10/25/23 21:20: Vancomycin Trough 20.7 H 10/26/23 05:10: WBC 8.0, RBC 3.82 L, Hgb 7.8 L, Hct 28.8 L, MCV 75.4 L, MCH 20.4 L, MCHC 27.1 L, RDW Std Deviation 64.6 H, RDW Coeff of Hilda 24.4 H, Plt Count 150, MPV 8.5, Immature Gran % (Auto) 0.500, Neut % (Auto) 70.8 H, Lymph % (Auto) 12.0 L, [place] % (Auto) 12.8 H, Eos % (Auto) 2.6, Baso % (Auto) 1.3 H, Absolute Neuts (auto) 5.7, Absolute Lymphs (auto) 0.96, Nucleated RBC % 0.4, Sodium 138, Potassium 3.6, Chloride 110 H, Carbon Dioxide 25.0, Anion Gap 3 L, BUN 10, Creatinine 0.95, Estim Creat Clear Calc 67.24, Est GFR (MDRD) Af Amer 99, Est GFR (MDRD) Non-Af 82, BUN/Creatinine Ratio 10.5, Glucose 79, Calcium 7.3 L, Phosphorus 2.9, Magnesium 1.7, Random Vancomycin 15.8 H 10/26/23 10:20: Urine Color Yellow, Urine Clarity Clear, Urine pH 6.0, Ur Specific [place] 1.020, Urine Protein 30 H, Urine Glucose (UA) Normal, Urine Ketones 5 H, Urine Occult Blood 25 H, Urine Nitrite Negative, Urine Bilirubin 1 H, Urine Urobilinogen 4 H, Ur Leukocyte Esterase 500 H, Urine RBC 0 SEEN, Urine WBC 10-25 SEEN, Ur Squamous Epith Cells 0-5 SEEN, Urine Bacteria 1+, Urine Mucus 0 SEEN 10/26/23 10:30: PT 21.6 H, INR 1.9, APTT 44.5 H, Fibrinogen 227, Procalcitonin 0.34 H Micro: Microbiology 10/26/23 09:38 Mucosa - Nasopharyngeal Coronavirus COVID-19 PCR - Final 10/24/23 08:00 Urine Catheter - Saldivar Urine Culture - Final Culture exhibits no growth. 10/24/23 06:00 Sputum, Induced/Lukens Gram Stain - Final 10/24/23 06:00 Sputum, Induced/Lukens Respiratory Culture - Final ABG Data ABG results: ABG 10/26/23 09:56 Specimen Type ART Sample Site R Radial pH 7.40 Bicarbonate Actual 22.2 Total CO2 23 Base Excess -3 L O2 Saturation 96 O2 % 40.0 ABG pCO2 36.2 ABG pO2 79 Josef Test Positive Respiration Rate 16 O2 Delivery Device Adult Vent Vent Mode AC Tidal Volume 450.0 POC PEEP 5 Assessment and Plan . Assessment and plan: Subjective: No acute events o/n. Having fevers and increased thick sputum secretions today. Remains on pressors. Failed SAT this AM Physical Exam: Gen - NAD, ill-appearing HEENT - MMM. ETT in place Resp - Diminished BS. Mechanically ventilated CV - Tachycardic. No m/g/r Abd - Soft, distended Ext - No c/c. +edema Skin - Mild erythematous rash on R foot Neuro - Sedated, intubated I have reviewed the pertinent vital sign, laboratory, and imaging data. ASSESSMENT: # Shock - multifactorial, septic, hemorrhagic # Acute hypoxic respiratory failure # UGIB - s/p EGD with treatment of duodenal ulcer and gastric angiodysplagia # Possible PNA # Pleural effusion # EtOH cirrhosis # Acute encephalopathy # Afib w/ RVR # Acute blood loss anemia # Polysubstance abuse - EtOH, tobacco, cocaine PLAN: -Cont VC vent 450/16/5/40%. Follow ABG/CXR. Daily SAT/SBT, failed SAT today d/t agitation and desaturation -Wean propofol, may need to switch to versed if worsening hypotension -Wean levophed to keep MAP > 65. Add scheduled albumin, stress dose hydrocortisone -Empiric vanc/zosyn, may need to broaden further if worsening. Repeat cultures, UA, COVID/viral panel. Procal elevated -May need thoracentesis pending repeat imaging. Insufficient fluid for paracentesis -Follow CBC, monitor for recurrent bleeding. Cont PPI gtt. GI following -Start lactulose -Monitor for worsening Afib -Cont nebs -Thiamine/folate FEN/GI: NPO, can likely start TF soon if stable Proph DVT/GI: SCDs, protonix Updated son at bedside Critical Care Time: 50 mins The entirety of this encounter was completed via telemedicine
[2023-10-26] MEDS: CHLORHEXIDINE GLUC 2% CLOTH 1 EACH TOWELETTE TOPICAL (12:13)
[2023-10-26] MEDS: fentaNYL drip 100 ML 10 MCG CONT INF (13:57)
[2023-10-26] MEDS: Norepinephrine 8 MG in 0.9% Normal Saline (250mL Bag) 242 ML 24.3999999999999986 MG CONT INF (13:59)
[2023-10-26] MEDS: Hydrocortisone Sod Succinate 100 MG/2 ML Vial 50 MG IV ×3 (14:00→23:08)
[2023-10-26] MEDS: Propofol 10MG/Ml 1,000 MG/100 ML Bottle 10 MG CONT INF ×2 (14:02→23:08)
--- NOTE | 2023-10-26 16:25 | EX.PCM.PN.GI ---
Subjective Subjective Patient is still intubated and sedated. Review of systems not able to be obtained. He failed weaning trial. Objective Data Objective Data Vital Signs: Vital Signs Temp Pulse Resp BP Pulse Ox O2 Del Method O2 Flow Rate 99.5 F H 94 16 83/59 L 95 Mechanical Ventilator 10 10/26/23 15:00 10/26/23 15:00 10/26/23 15:00 10/26/23 16:15 10/26/23 15:00 10/26/23 15:00 10/24/23 05:00 FiO2 30 10/26/23 15:00 Oxygen Flow Rate (L/min) 10 Oxygen Delivery Method Mechanical Ventilator Weight: 184 lb 8.43 oz Body Mass Index (BMI) 26.1 Intake & Output: Intake and Output for Last 24 Hours 10/24/23 10/25/23 10/26/23 23:59 23:59 23:59 Intake Total 2419.92 / 2443.76 3355.76 / 3405.76 1604.80 / 1604.80 Output Total 3150 / 3150 975 / 975 670 / 670 Balance -730.08 / -706.24 2380.76 / 2430.76 934.80 / 934.80 Lab / Micro Data 10/26/23 05:10 10/26/23 05:10 Labs: Laboratory Results - last 24 hr 10/23/23 13:35: Crossmatch See Detail 10/25/23 21:20: Vancomycin Trough 20.7 H 10/26/23 05:10: WBC 8.0, RBC 3.82 L, Hgb 7.8 L, Hct 28.8 L, MCV 75.4 L, MCH 20.4 L, MCHC 27.1 L, RDW Std Deviation 64.6 H, RDW Coeff of Hilda 24.4 H, Plt Count 150, MPV 8.5, Immature Gran % (Auto) 0.500, Neut % (Auto) 70.8 H, Lymph % (Auto) 12.0 L, [place] % (Auto) 12.8 H, Eos % (Auto) 2.6, Baso % (Auto) 1.3 H, Absolute Neuts (auto) 5.7, Absolute Lymphs (auto) 0.96, Nucleated RBC % 0.4, Sodium 138, Potassium 3.6, Chloride 110 H, Carbon Dioxide 25.0, Anion Gap 3 L, BUN 10, Creatinine 0.95, Estim Creat Clear Calc 67.24, Est GFR (MDRD) Af Amer 99, Est GFR (MDRD) Non-Af 82, BUN/Creatinine Ratio 10.5, Glucose 79, Calcium 7.3 L, Phosphorus 2.9, Magnesium 1.7, Random Vancomycin 15.8 H 10/26/23 10:20: Urine Color Yellow, Urine Clarity Clear, Urine pH 6.0, Ur Specific [place] 1.020, Urine Protein 30 H, Urine Glucose (UA) Normal, Urine Ketones 5 H, Urine Occult Blood 25 H, Urine Nitrite Negative, Urine Bilirubin 1 H, Urine Urobilinogen 4 H, Ur Leukocyte Esterase 500 H, Urine RBC 0 SEEN, Urine WBC 10-25 SEEN, Ur Squamous Epith Cells 0-5 SEEN, Urine Bacteria 1+, Urine Mucus 0 SEEN 10/26/23 10:30: PT 21.6 H, INR 1.9, APTT 44.5 H, Fibrinogen 227, Procalcitonin 0.34 H Micro: Microbiology 10/24/23 08:25 Blood Culture (Wb) - Central Line Blood Culture - Preliminary No growth in 48 hours. 10/24/23 09:25 Blood Culture (Wb) - Right Forearm Blood Culture - Preliminary No growth in 48 hours. 10/26/23 10:03 Sputum, Induced/Lukens Gram Stain - Final 10/26/23 09:38 Mucosa - Nasopharyngeal Coronavirus COVID-19 PCR - Final 10/26/23 09:38 Mucosa - Nasopharyngeal Respiratory Panel (PCR) - Final 10/24/23 08:00 Urine Catheter - Saldivar Urine Culture - Final Culture exhibits no growth. 10/24/23 06:00 Sputum, Induced/Lukens Gram Stain - Final 10/24/23 06:00 Sputum, Induced/Lukens Respiratory Culture - Final ABG Data ABG results: ABG 10/26/23 09:56 Specimen Type ART Sample Site R Radial pH 7.40 Bicarbonate Actual 22.2 Total CO2 23 Base Excess -3 L O2 Saturation 96 O2 % 40.0 ABG pCO2 36.2 ABG pO2 79 Josef Test Positive Respiration Rate 16 O2 Delivery Device Adult Vent Vent Mode AC Tidal Volume 450.0 POC PEEP 5 Radiography Diagnostic Testing: Radiology Impression Chest X-Ray 10/26/23 12:00 IMPRESSION: Low position of endotracheal tube; recommend 2-3 cm retraction. Bilateral pleural effusions, increased on the right. Persistent diffuse pulmonary edema, pneumonia, or ARDS. Electronically Signed: Yolanda Morales MD at 12:56 EST , Physical Exam Const Constitutional Narrative: intubated, sedated HEENT normocephalic, head/scalp atraumatic, hearing grossly normal bilaterally and nasal mucous membranes and turbinates normal Eyes PERRL, EOMs intact bilaterally and conjunctivae normal Neck no lymphadenopathy General: trachea midline Lymph Lymphatic: no lymphadenopathy noted and no lymphedema noted Chest inspection of chest normal Resp Resp Narrative: intubated, sedated, RASS score is -4; breath sounds diminished bilaterally, no wheezes or crackles. Cardio regular rate, regular rhythm, S1 normal heart sound, S2 normal heart sound, no murmurs and peripheral pulses 2+ throughout GI GI Narrative: soft, nontender, no organomegaly Extremity normal to inspection, full ROM, normal capillary refill and no calf tenderness Extremity Narrative: +2-3 lower extremity pitting edema. General Extremity: no tenderness to palpation of joints or extremities Skin General Skin Exam: no breakdown and turgor normal Neuro Neuro Narrative: intubated, sedated, RASS score is -4. Psych Psych Narrative: as under neurology. Assessment & Plan Assessment/Plan (1) Severe anemia: PLAN: Plan 78-year-old gentleman with past medical history of cirrhosis secondary to hepatitis C and alcohol with concomitant microcytic anemia from unknown source. As per son he has never had a colonoscopy. He presents with upper and lower GI bleeding. -GI bleed: The differential diagnosis for upper GI bleed does include variceal bleed, peptic ulcer disease, angiodysplasia, Nusrat-Manning tear, erosive esophagitis, neoplasia. Differential diagnosis for lower GI bleed does include ischemic disease affecting the colon, upper GI bleed with rapid transit, lower GI bleed secondary to malignancy, diverticular bleed, hemorrhoidal bleed. He should undergo an upper endoscopy and later a colonoscopy to evaluate his severe microcytic anemia. He was explained alternatives, risk, benefit including not withstanding bleeding, infection, sepsis, perforation, need for emergent surgery . He will have an ASA of 3. Recommend to continue PPI drip, octreotide. Recommend ceftriaxone 1 g and keep n.p.o. for emergent endoscopy. - Severe microcytic hypochromic anemia along with leukopenia with lymphocytopenia: H&H 4.9 low MCV MCH and MCHC. RDW 19.5 overall suggestive of chronic iron deficiency anemia. Iron work-up with ferritin ordered. 2 units of PRBC typed and crossmatched and transfused 1 unit today. He should get a colonoscopy. - Decompensated alcoholic and hep C cirrhosis: Previous CT abdomen showed nodular liver along with perihepatic ascites, mild splenomegaly but no varices. No acute pancreatitis. Fluid restriction, 2 g sodium diet, spironolactone 25 mg daily with up titration as per tolerated. He needs CT scan abdomen pelvis to look for signs of ischemia, malignancy. Hepatitis C PCR RNA, chronic hepatitis B PCR DNA, alpha-fetoprotein 4 hepatocellular carcinoma, INR, PTT - Paroxysmal A. fib: Currently EKG shows A-fib with RVR. Heart rate is in the 120s to 150s. Patient was deemed not a candidate for anticoagulant because of current GI bleeding recurrent fall, chronic alcohol use and alcoholic cirrhosis history. - Chronic alcohol use disorder with dependence and tolerance: CIWA monitoring. On CIWA protocol with Ativan 10/24-severely decompensated liver disease with an acute upper GI bleed, new onset ascites, acute renal failure, hypotension with respiratory depression and respiratory failure status postintubation. I called his worsening respiratory status. I also let him know that his MELD score is a little bit more severe today despite that his LFTs are not severely increased but his bilirubin increased which is associated with a worsening outcome in the setting of acute decompensated cirrhosis. A paracentesis was not performed because of his fluid was not sufficient for removal and was not an a safe location in the setting of severe liver disease with coagulopathy. He has been maintained on PPI drip. He has not shown any signs of withdrawal at this time. His blood work is consistent with alcoholic hepatitis. Poor prognosis. 10/26-continued decompensated liver disease with acute hypoxic respiratory failure intubated and sedated. 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 His hemoglobin remains stable which is a good sign on PPI drip and octreotide for stress gastritis associated with intubation and decompensated cirrhosis. His MELD is 20, child Stephenson class C. Carries a 25% mortality rate in 90 days. It is a good sign that his kidney function remains normal. Guarded prognosis. Charges/Coding Visit Charges Inpatient E&M: 86939 Subs Hosp L3
[2023-10-27] VITALS (62 sets, daily range): BP systolic 82–117; BP diastolic 41–81; PULSE 74–127; RESP 15–24; TEMP 36.2–37.1; O2SAT 83–98; BMI 26.5
[2023-10-27] MEDS: Ipratropium/Albuterol Sulfate 3 ML AMPUL.NEB INHALATION ×7 (00:20→23:34)
[2023-10-27 04:08] LABS: Absolute Lymphocyte Count 0.26 X10^3/uL (0.83-4.51); Absolute Neutrophil Count 5.3 X10^3/uL (2.0-7.7); Basophil# 0.01 X10^3/uL; Basophil% 0.2 % (0-1); Eosinophil# 0.01 X10^3/uL; Eosinophils% 0.2 % (0-5); Hematocrit 24.9 % (40-54); Hemoglobin 6.9 g/dL (13.0-16.5); Lymphocyte # 0.26 X10^3/ul (0.83-4.51); Lymphocyte % 4.5 % (19-41); Mean Corp Hgb Conc 27.7 g/dL (32-36); Mean Corpuscular Hgb 21.3 pg (27.0-32.0); Mean Corpuscular Volume 76.9 fL (80-94); Mean Platelet Vol. 9.1 fl (6.2-12.0); Monocyte# 0.25 X10^3/uL; Monocyte% 4.3 % (0-10); NRBC Flagged by Analyzer 0 % (0-5); Neutrophil # 5.27 X10^3/uL (2.7-7.7); Neutrophil % 90.1 % (47-70); POSITIVE DIFFERENTIAL YES; POSITIVE MORPHOLOGY YES; Platelet Count 121 K/mm3 (150-450); RBC Distribution Width CV 25.2 % (11.6-14.6); RBC Distribution Width SD 66.1 fl (35.1-43.9); Red Blood Count 3.24 M/mm3 (4.6-6.2); White Blood Count 5.8 K/mm3 (4.4-11.0)
[2023-10-27 04:10] LABS: Differential Indicated SCAN CRITERIA MET
[2023-10-27 04:31] LABS: Anion Gap 4 (5-15); BUN 11 mg/dL (7-18); BUN/Creat Ratio 12.3 RATIO (10-20); Calcium,Total 8.4 mg/dL (8.5-10.1); Chloride 112 mmol/L (98-107); EST Glomerular Filtration Rate 87 mL/min (>60); Est Glom Filt Rate - Afr Amer 106 mL/min (>60); Estimated Creatinine Clearance 70.97 ml/min; Glucose 142 mg/dL (74-106); Potassium 3.7 mmol/L (3.5-5.1); Sodium Level 139 mmol/L (136-145)
[2023-10-27] MEDS: Vancomycin IV 1,000 MG/200 ML BAG 200 MG IV (04:59)
[2023-10-27] MEDS: CHLORHEXIDINE GLUC 2% CLOTH 1 EACH TOWELETTE TOPICAL (05:00)
[2023-10-27] MEDS: 0.9% Saline Lock 10 ML Syringe IV ×5 (05:00→23:24)
[2023-10-27] MEDS: Piperacil/Tazobactam 3.375 GM in 0.9% Normal Saline (50mL MB+) 50 ML IV ×3 (05:00→20:30)
[2023-10-27] MEDS: Hydrocortisone Sod Succinate 100 MG/2 ML Vial 50 MG IV ×4 (05:01→23:24)
--- NOTE | 2023-10-27 05:55 | RAD_ITS ---
EXAM: XR CHEST, 1 VIEW CLINICAL INDICATION: Respiratory failure. Pneumonia. Intubated. TECHNIQUE: Frontal view of the chest. COMPARISON: 10/26/2023. FINDINGS: LUNGS AND PLEURAL SPACES: Asymmetric pulmonary interstitial and alveolar airspace disease in the lungs, left greater than right. Marked pulmonary hypoinflation. Right pleural effusion is unchanged. Moderately large left subpulmonic pleural effusion with compressive atelectasis of the left lower lobe. No pneumothorax. HEART: Unremarkable. Cardiac silhouette not enlarged. MEDIASTINUM: Central airways and mediastinal contour are unremarkable. BONES/JOINTS: Unremarkable. No acute fracture. SOFT TISSUES: Unremarkable. TUBES, LINES AND DEVICES: ET tube tip is just above the leah but facing right mainstem bronchus. OG tube courses down into the abdomen. RAD/Chest 1 View (Portable) IMPRESSION: 1. Increase moderate left subpulmonic pleural effusion with compressive atelectasis of left lower lobe. 2. Mixed interstitial and airspace disease in the lungs, left greater than right without obvious significant change. 3. Mild right pleural effusion is unchanged. 4. Satisfactory placement of ET tube and OG tube. Electronically Signed: Landon Pace MD at 12:35 EST ,
[2023-10-27] MEDS: Albumin Human 25% (100 mL) 25 GM/100 ML BAG IV ×3 (06:33→20:59)
[2023-10-27] MEDS: TITRATION PARAMETER CHANGE 1 EACH IV (06:35)
[2023-10-27 06:49] LABS: Anisocytosis 2+; Differential Comment SCANNED
[2023-10-27] MEDS: Chlorhexidine 15 ML PO ×2 (08:00→20:31)
--- NOTE | 2023-10-27 08:23 | PCM.PN.TICU ---
Objective Data Objective Data Vital Signs: Vital Signs Last response Temperature 36.2 C L 10/27/23 07:00 Temperature Source Core 10/27/23 07:00 Pulse Rate 79 10/27/23 07:19 Pulse Strength Weak (1+) 10/26/23 19:43 Respiratory Rate 16 10/27/23 07:19 Respiratory Effort Normal, Non-Labored, Mechanically Ventilated 10/27/23 03:55 Respiratory Depth Normal 10/27/23 03:55 Respiratory Pattern Normal 10/27/23 07:19 Blood Pressure 111/63 10/27/23 07:00 Blood Pressure Mean 79 10/27/23 07:00 Blood Pressure Source Monitor 10/27/23 07:00 Blood Pressure Position Semi-Fowlers 10/27/23 07:00 Blood Pressure Location Right Arm 10/27/23 07:00 Baseline BP 95/58 10/23/23 16:21 Pulse Ox 96 10/27/23 07:19 Oxygen Delivery Method Mechanical Ventilator 10/27/23 07:00 Oxygen Flow Rate (L/min) 10 10/24/23 05:00 Fraction of Inspired Oxygen (FIO2) 30 10/27/23 07:19 I&O: I&O Last 24 Hours 10/26/23 10/26/23 10/27/23 11:59 23:59 11:59 Intake Total 1117.65 / 2433.03 1287.81 / 2433.03 451.85 / 451.85 Output Total 555 / 1020 395 / 1020 295 / 295 Balance 562.65 / 1413.03 892.81 / 1413.03 156.85 / 156.85 I&O: Total Stay 10/23/23 13:08 thru 10/27/23 07:00 Intake Total 9020.99 Output Total 5520 Balance 3500.99 Current Meds Ordered / Administered: Current meds ordered / Administered Generic Name Dose Route Start Last Admin Trade Name Freq PRN Reason Stop Dose Admin Acetaminophen 650 mg 10/25/23 08:01 10/25/23 09:35 Acetaminophen 650 Mg/20 Ml Udc GT 650 mg Q6H PRN PRN Administration Pain 1-10 Or Fever>100.7 Albuterol/Ipratropium 3 ml 10/23/23 17:30 10/27/23 07:19 Ipratropium/Albuterol Sulfate 3 Ml Ampul.Neb INHALATION 3 ml Q4H.RT MAX Administration Chlorhexidine Gluconate 1 each 10/24/23 10:00 10/27/23 05:00 Chlorhexidine Gluc 2% Cloth 1 Each [place] TOPICAL 1 each DAILY MAX Administration Chlorhexidine Gluconate 15 ml 10/24/23 10:00 10/26/23 21:35 Chlorhexidine 15 Ml PO 15 ml BID MAX Administration Dicyclomine HCl 20 mg 10/25/23 08:01 Dicyclomine 10 Mg Capsule GT Q6H PRN PRN abdominal discomfort Folic Acid 1 mg 10/26/23 08:00 10/26/23 10:16 Folic Acid 1 Mg Tablet GT 1 mg DAILY@0800 MAX Administration Gabapentin 300 mg 10/25/23 08:03 Gabapentin 300 Mg Capsule GT Q8H PRN PRN moderate to severe anxiety Hydrocortisone Sodium Succinate 50 mg 10/26/23 12:00 10/27/23 05:01 Hydrocortisone Sod Succinate 100 Mg/2 Ml Vial IV 50 mg Q6 MAX Administration Pantoprazole Sodium 80 mg/ 100 mls @ 10 mls/hr 10/23/23 14:00 10/26/23 23:08 Sodium Chloride CONT INF 10 mls/hr Q10H MAX Administration Sodium Chloride 500 mls @ 15 mls/hr 10/23/23 16:48 10/25/23 20:13 IV Infused PRN PRN Infusion Blood Transfusion Sodium Chloride 250 mls @ 15 mls/hr 10/23/23 16:48 10/25/23 03:07 IV Infused .[id number] PRN Infusion Additional IVPB Infusion Sodium Chloride 250 mls @ 15 mls/hr 10/23/23 16:48 10/24/23 01:05 IV Infused .[id number] PRN Infusion Saline Flush Propofol 1,000 mg in 100 mls @ 5.106 mls/hr 10/24/23 05:55 10/27/23 07:00 Diprivan CONT INF 10 mcg/kg/min .Q12H MAX 5.1 mls/hr Titration Protocol 10 MCG/KG/MIN Fentanyl 100 mls @ 2.5 mls/hr 10/24/23 05:55 10/27/23 07:00 CONT INF 100 mcg/hr UD MAX 10 mls/hr Titration Protocol 25 MCG/HR Norepinephrine Bitartrate 8 mg 250 mls @ 9.375 mls/hr 10/24/23 06:35 10/27/23 07:00 / Sodium Chloride CONT INF 5 mcg/min .[id number] MAX 9.4 mls/hr Titration Protocol 5 MCG/MIN Piperacillin Sod/Tazobactam 50 mls @ 12.5 mls/hr 10/24/23 08:50 10/27/23 05:00 Sod 3.375 gm/ Sodium Chloride IV 12.5 mls/hr Q8 MAX Administration Vancomycin IV-PHARMACY TO DOSE 500 mls @ 250 mls/hr 10/24/23 08:50 1 each/ Sodium Chloride IV X1 PRN Rx to Dose Protocol Vancomycin HCl 1,000 mg in 200 mls @ 200 mls/hr 10/26/23 06:00 10/27/23 06:31 Vancomycin IV Infused Q12H MAX Infusion Albumin Human 25 gm in 100 mls @ 60 mls/hr 10/26/23 09:30 10/27/23 06:33 IV 60 mls/hr TID MAX Administration Lactulose 20 gm 10/26/23 10:00 10/26/23 21:34 Lactulose 20 Gm/30 Ml Udc PO 20 gm BID MAX Administration Loperamide HCl 2 mg 10/25/23 08:03 Loperamide 2 Mg Capsule GT Q4H PRN PRN LOOSE STOOLS Melatonin 3 mg 10/25/23 08:03 Melatonin 3 Mg Tablet GT QHS PRN PRN INSOMNIA Ondansetron HCl 4 mg 10/23/23 16:22 Ondansetron 4 Mg/2 Ml Vial IV Q8H PRN PRN NAUSEA/VOMITING Ondansetron HCl 8 mg 10/25/23 08:02 Ondansetron 8 Mg Tablet GT Q8H PRN PRN NAUSEA Sodium Chloride 10 - 40 ml 10/23/23 16:48 10/27/23 05:00 0.9% Saline Lock 10 Ml Syringe IV 20 ml UD PRN Administration SALINE FLUSH Thiamine HCl 100 mg 10/26/23 08:00 10/26/23 10:16 Thiamine Hydrochloride 100 Mg Tablet GT 100 mg DAILYCM MAX Administration Vancomycin Protocol 1 lab 10/27/23 15:30 Vancomycin Trough/Random Due MC 10/27/23 19:30 DAILY MAX Lab / Micro Data 10/27/23 03:44 10/27/23 03:44 Labs: Laboratory Results - last 24 hr 10/23/23 13:35: Crossmatch See Detail 10/26/23 10:20: Urine Color Yellow, Urine Clarity Clear, Urine pH 6.0, Ur Specific [place] 1.020, Urine Protein 30 H, Urine Glucose (UA) Normal, Urine Ketones 5 H, Urine Occult Blood 25 H, Urine Nitrite Negative, Urine Bilirubin 1 H, Urine Urobilinogen 4 H, Ur Leukocyte Esterase 500 H, Urine RBC 0 SEEN, Urine WBC 10-25 SEEN, Ur Squamous Epith Cells 0-5 SEEN, Urine Bacteria 1+, Urine Mucus 0 SEEN 10/26/23 10:30: PT 21.6 H, INR 1.9, APTT 44.5 H, Fibrinogen 227, Procalcitonin 0.34 H 10/27/23 03:44: WBC 5.8, RBC 3.24 L, Hgb 6.9 L, Hct 24.9 L, MCV 76.9 L, MCH 21.3 L, MCHC 27.7 L, RDW Std Deviation 66.1 H, RDW Coeff of Hilda 25.2 H, Plt Count 121 L, MPV 9.1, Immature Gran % (Auto) 0.700, Neut % (Auto) 90.1 H, Lymph % (Auto) 4.5 L, [place] % (Auto) 4.3, Eos % (Auto) 0.2, Baso % (Auto) 0.2, Absolute Neuts (auto) 5.3, Absolute Lymphs (auto) 0.26 L, Nucleated RBC % 0, Differential Comment SCANNED, Anisocytosis 2+, Sodium 139, Potassium 3.7, Chloride 112 H, Carbon Dioxide 23.0, Anion Gap 4 L, BUN 11, Creatinine 0.90, Estim Creat Clear Calc 70.97, Est GFR (MDRD) Af Amer 106, Est GFR (MDRD) Non-Af 87, BUN/Creatinine Ratio 12.3, Glucose 142 H, Calcium 8.4 L Micro: Microbiology 10/24/23 08:25 Blood Culture (Wb) - Central Line Blood Culture - Preliminary No growth in 48 hours. 10/24/23 09:25 Blood Culture (Wb) - Right Forearm Blood Culture - Preliminary No growth in 48 hours. 10/26/23 10:03 Sputum, Induced/Lukens Gram Stain - Final 10/26/23 09:38 Mucosa - Nasopharyngeal Coronavirus COVID-19 PCR - Final 10/26/23 09:38 Mucosa - Nasopharyngeal Respiratory Panel (PCR) - Final 10/24/23 08:00 Urine Catheter - Saldivar Urine Culture - Final Culture exhibits no growth. 10/24/23 06:00 Sputum, Induced/Lukens Gram Stain - Final 10/24/23 06:00 Sputum, Induced/Lukens Respiratory Culture - Final ABG Data ABG results: ABG 10/26/23 09:56 Specimen Type ART Sample Site R Radial pH 7.40 Bicarbonate Actual 22.2 Total CO2 23 Base Excess -3 L O2 Saturation 96 O2 % 40.0 ABG pCO2 36.2 ABG pO2 79 Josef Test Positive Respiration Rate 16 O2 Delivery Device Adult Vent Vent Mode AC Tidal Volume 450.0 POC PEEP 5 Imaging Radiology Impression Chest X-Ray 10/26/23 12:00 IMPRESSION: Low position of endotracheal tube; recommend 2-3 cm retraction. Bilateral pleural effusions, increased on the right. Persistent diffuse pulmonary edema, pneumonia, or ARDS. Electronically Signed: Yolanda Morales MD at 12:56 EST , Assessment and Plan . Assessment and plan: Subjective: No acute events o/n. Physical Exam: Gen - NAD, ill-appearing HEENT - MMM. ETT in place Resp - Diminished BS. Mechanically ventilated CV - Tachycardic. No m/g/r Abd - Soft, distended Ext - No c/c. +edema Skin - Mild erythematous rash on R foot Neuro - Sedated, intubated I have reviewed the pertinent vital sign, laboratory, and imaging data. ASSESSMENT: # Shock - multifactorial, septic, hemorrhagic # Acute hypoxic respiratory failure # UGIB - s/p EGD with treatment of duodenal ulcer and gastric angiodysplagia # Possible PNA # Pleural effusion # UTI # EtOH cirrhosis # Acute encephalopathy # Afib w/ RVR # Acute blood loss anemia # Polysubstance abuse - EtOH, tobacco, cocaine PLAN: -Cont VC vent 450/16/5/40%. Follow ABG/CXR. Daily SAT/SBT, failed SAT d/t agitation and desaturation -Wean sedation as tolerated -Pull back ETT, discussed with RT -Wean levophed to keep MAP > 65, down to 4 mcg/min now. Added scheduled albumin, stress dose hydrocortisone -Empiric vanc/zosyn, may need to broaden further if worsening though fevers resolved now. f/u repeat Cx, COVID/viral panel. Procal elevated. MRSA neg, can stop vanc if Cx remain negative -Recommend L sided diagnostic/therapeutic thoracentesis when able. Insufficient fluid for paracentesis -Trial of diuresis now, will need to stop though if worsening pressor requirements -Follow CBC, monitor for recurrent bleeding. Transfuse 1U pRBC today. Cont PPI gtt. GI following -Started lactulose, awaiting BM -Monitor for worsening Afib -Cont nebs -Thiamine/folate FEN/GI: Start TF Proph DVT/GI: SCDs, protonix Updated son at bedside yest Critical Care Time: 50 mins The entirety of this encounter was completed via telemedicine
--- NOTE | 2023-10-27 09:29 | PN_ITS ---
Subjective Subjective Patient seen and examined. He remains intubated and sedated. His Hb is down to 6.9 today. Patient was being suctioned and got quite agitated, so he is being switched to precedex. Unable to do review of systems as he remains intubated and sedated. Objective Data Objective Data Vital Signs: Vital Signs Temp Pulse Resp BP Pulse Ox O2 Del Method O2 Flow Rate 97.1 F L 102 H 18 111/63 92 Mechanical Ventilator 10 10/27/23 07:00 10/27/23 08:52 10/27/23 08:52 10/27/23 07:00 10/27/23 08:52 10/27/23 07:00 10/24/23 05:00 FiO2 30 10/27/23 08:52 Oxygen Flow Rate (L/min) 10 Oxygen Delivery Method Mechanical Ventilator Weight: 187 lb 9.814 oz Body Mass Index (BMI) 26.5 Intake & Output: Intake and Output for Last 24 Hours 10/25/23 10/26/23 10/27/23 23:59 23:59 23:59 Intake Total 3355.76 / 3405.76 2405.46 / 2433.03 451.85 / 451.85 Output Total 975 / 975 950 / 1020 295 / 295 Balance 2380.76 / 2430.76 1455.46 / 1413.03 156.85 / 156.85 Lab / Micro Data 10/27/23 03:44 10/27/23 03:44 Labs: Laboratory Results - last 24 hr 10/23/23 13:35: Crossmatch See Detail 10/26/23 10:20: Urine Color Yellow, Urine Clarity Clear, Urine pH 6.0, Ur Specific [place] 1.020, Urine Protein 30 H, Urine Glucose (UA) Normal, Urine Ketones 5 H, Urine Occult Blood 25 H, Urine Nitrite Negative, Urine Bilirubin 1 H, Urine Urobilinogen 4 H, Ur Leukocyte Esterase 500 H, Urine RBC 0 SEEN, Urine WBC 10-25 SEEN, Ur Squamous Epith Cells 0-5 SEEN, Urine Bacteria 1+, Urine Mucus 0 SEEN 10/26/23 10:30: PT 21.6 H, INR 1.9, APTT 44.5 H, Fibrinogen 227, Procalcitonin 0.34 H 10/27/23 03:44: WBC 5.8, RBC 3.24 L, Hgb 6.9 L, Hct 24.9 L, MCV 76.9 L, MCH 21.3 L, MCHC 27.7 L, RDW Std Deviation 66.1 H, RDW Coeff of Hilda 25.2 H, Plt Count 121 L, MPV 9.1, Immature Gran % (Auto) 0.700, Neut % (Auto) 90.1 H, Lymph % (Auto) 4.5 L, [place] % (Auto) 4.3, Eos % (Auto) 0.2, Baso % (Auto) 0.2, Absolute Neuts (auto) 5.3, Absolute Lymphs (auto) 0.26 L, Nucleated RBC % 0, Differential Comment SCANNED, Anisocytosis 2+, Sodium 139, Potassium 3.7, Chloride 112 H, Carbon Dioxide 23.0, Anion Gap 4 L, BUN 11, Creatinine 0.90, Estim Creat Clear Calc 70.97, Est GFR (MDRD) Af Amer 106, Est GFR (MDRD) Non-Af 87, BUN/Creatinine Ratio 12.3, Glucose 142 H, Calcium 8.4 L Micro: Microbiology 10/26/23 10:03 Sputum, Induced/Lukens Gram Stain - Final 10/26/23 10:03 Sputum, Induced/Lukens Respiratory Culture - Preliminary Culture exhibits no growth. 10/24/23 08:25 Blood Culture (Wb) - Central Line Blood Culture - Preliminary No growth in 48 hours. 10/24/23 09:25 Blood Culture (Wb) - Right Forearm Blood Culture - Preliminary No growth in 48 hours. 10/26/23 09:38 Mucosa - Nasopharyngeal Coronavirus COVID-19 PCR - Final 10/26/23 09:38 Mucosa - Nasopharyngeal Respiratory Panel (PCR) - Final 10/24/23 08:00 Urine Catheter - Saldivar Urine Culture - Final Culture exhibits no growth. 10/24/23 06:00 Sputum, Induced/Lukens Gram Stain - Final 10/24/23 06:00 Sputum, Induced/Lukens Respiratory Culture - Final ABG Data ABG results: ABG 10/26/23 09:56 Specimen Type ART Sample Site R Radial pH 7.40 Bicarbonate Actual 22.2 Total CO2 23 Base Excess -3 L O2 Saturation 96 O2 % 40.0 ABG pCO2 36.2 ABG pO2 79 Josef Test Positive Respiration Rate 16 O2 Delivery Device Adult Vent Vent Mode AC Tidal Volume 450.0 POC PEEP 5 Radiography Diagnostic Testing: Radiology Impression Chest X-Ray 10/26/23 12:00 IMPRESSION: Low position of endotracheal tube; recommend 2-3 cm retraction. Bilateral pleural effusions, increased on the right. Persistent diffuse pulmonary edema, pneumonia, or ARDS. Electronically Signed: Yolanda Morales MD at 12:56 EST Reading Location ID and State: [facility] / [place] Tel , Service support , Physical Exam Const Constitutional Narrative: intubated, sedated, RASS score remains +4 today, patient was quite agitated and had to be placed in restraints. HEENT normocephalic, head/scalp atraumatic, hearing grossly normal bilaterally and nasal mucous membranes and turbinates normal Eyes PERRL, EOMs intact bilaterally and conjunctivae normal Neck full ROM, no lymphadenopathy and supple General: trachea midline Lymph Lymphatic: no lymphadenopathy noted and no lymphedema noted Chest inspection of chest normal Resp normal respiratory effort and no use of accessory muscles Resp Narrative: intubated, sedated, RASS score is +4, has coarse crackles in all the lung wallace. Cardio regular rate, regular rhythm, S1 normal heart sound, S2 normal heart sound, no murmurs and peripheral pulses 2+ throughout GI normal to inspection, nondistended, normoactive bowel sounds GI Narrative: soft, nontender, no organomegaly Back/Spine normal ROM Extremity normal to inspection, full ROM, normal capillary refill, no clubbing, cyanosis or edema and no calf tenderness Extremity Narrative: +2-3 lower extremity pitting edema. General Extremity: no tenderness to palpation of joints or extremities Skin General Skin Exam: no breakdown and turgor normal Neuro moves all extremities, no focal motor deficits and no sensory deficits noted Neuro Narrative: intubated, sedated, RASS score is +4; agitated, thrashing about. Psych Psych Narrative: as under neurology. Assessment & Plan Assessment/Plan (1) Acute hypoxemic respiratory failure: (2) Decompensation of cirrhosis of liver: (3) Diastolic congestive heart failure: (4) Cirrhosis of liver: (5) Ascites: (6) Atrial fibrillation with RVR: PLAN: Plan #Acute blood loss anemia due to UGI bleed with hematemesis * had an emergent EGD due to concerns for variceal bleed. * EGD showed type 1 esophageal varices without bleeding, and 2 bleeding angiodysplastic lesions int he stomach and oozing duodenal ulcer that were both treated. * Hb was 4.9 on admission, and is s/p transfusion of 2 units of PRBCs. * Hb today is 6.9. * iron studies showed iron deficiency anemia with low iron stores. * GI and critical care on board. * on PPI drip, octreotide drip. * being transfused with one unit of PRBCs. * placed in restraints today because of agitation. * #Multifactorial shock due to GI bleed, but also could be due to sepsis. * remains on levophed. Hb is down to 6.9 today * Titrate levophed to aim for MAP >65. Critical care on board,. * on IV vancomycin and Zosyn. * blood cultures pending. * sputum cultures show no growth #Decompensated alcoholic liver cirrhosis with ascites and possible encephalopathy * has a long history of alcohol abuse. * gastroenterology on board. * diuretics held. * management as per GI. * On thiamine and folic acid. * #Acute hypoxic respiratory failure due to recurrent left pleural effusion. * Chest x-ray on admission showed moderate size left pleural effusion with vascular congestion and mild CHF. * 2D echo showed EF of 65% with no regional wall motion abnormalities with mild aortic stenosis * remains intubated and sedated. * Titrate oxygen to maintain saturation above 90%. * #Afib with RVR * no previous history of afib. Not anticoagulated. * EKG on admission showed A-fib. On Lopressor at home but is currently on hold due to hypotension. * tachycardia is improving. * #History of cocaine abuse * Per patient's son, patient admits to taking crack cocaine at home * also drinks heavily. On thiamine and folic acid for alcohol use disorder. * DVT prophylaxis; SCDs. Charges/Coding Visit Charges Inpatient E&M: 12428 Subs Hosp L3
[2023-10-27] MEDS: Folic Acid 1 MG Tablet GT ×2 (10:18)
[2023-10-27] MEDS: Thiamine Hydrochloride 100 MG Tablet GT (10:18)
[2023-10-27] MEDS: Furosemide 40 MG/4 ML Vial IV ×2 (10:19→17:34)
[2023-10-27] MEDS: Lactulose 20 GM/30 ML UDC PO ×2 (10:21→20:30)
[2023-10-27] MEDS: Propofol 10MG/Ml 1,000 MG/100 ML Bottle 5.09999999999999964 MG CONT INF (10:31)
[2023-10-27] MEDS: Norepinephrine 8 MG in 0.9% Normal Saline (250mL Bag) 242 ML 9.40000000000000036 MG CONT INF (11:54)
[2023-10-27] MEDS: fentaNYL drip 100 ML 10 MCG CONT INF ×3 (12:02→22:18)
--- NOTE | 2023-10-27 12:05 | NURSING ---
fentanyl drip still running at 100mcq/hr despite MAR saying it has infused. 1100 CPOT 0/2 1200 CPOT 0/2 fentanyl at 100mcq/hr
[2023-10-27] MEDS: Vital AF 1.2 Cal Liquid 1,000 ML 10 ML GT (16:33)
[2023-10-27] MEDS: Vancomycin Trough/Random Due 1 LAB MC (16:34)
[2023-10-27 18:14] LABS: Vancomycin, Trough Level 22.6 ug/mL (5.0-15.0)
--- NOTE | 2023-10-27 18:20 | PCM.RX.CS ---
Consult Antibiotic Management Pharmacy has been consulted to manage selected antibiotic: Vancomycin Type of Intervention Type of Consult: Follow-up Labs Labs: Sodium 139 mmol/L (136-145) 10/27/23 03:44 Potassium 3.7 mmol/L (3.5-5.1) 10/27/23 03:44 Chloride 112 mmol/L (98-107) H 10/27/23 03:44 Carbon Dioxide 23.0 mmol/L (21.0-32.0) 10/27/23 03:44 Anion Gap 4 (5-15) L 10/27/23 03:44 BUN 11 mg/dL (7-18) 10/27/23 03:44 Creatinine 0.90 mg/dL (0.70-1.30) 10/27/23 03:44 Est GFR (MDRD) Af Amer 106 mL/min (>60) 10/27/23 03:44 Est GFR (MDRD) Non-Af 87 mL/min (>60) 10/27/23 03:44 BUN/Creatinine Ratio 12.3 RATIO (10-20) 10/27/23 03:44 Glucose 142 mg/dL (74-106) H 10/27/23 03:44 Vancomycin Trough 22.6 ug/mL (5.0-15.0) H 10/27/23 17:30 Random Vancomycin 15.8 ug/mL (0.0-15.0) H 10/26/23 05:10 Microbiology Microbiology: Microbiology 10/26/23 10:03 Sputum, Induced/Lukens Gram Stain - Final 10/26/23 10:03 Sputum, Induced/Lukens Respiratory Culture - Preliminary Culture exhibits no growth. 10/24/23 08:25 Blood Culture (Wb) - Central Line Blood Culture - Preliminary No growth in 48 hours. 10/24/23 09:25 Blood Culture (Wb) - Right Forearm Blood Culture - Preliminary No growth in 48 hours. 10/26/23 09:38 Mucosa - Nasopharyngeal Coronavirus COVID-19 PCR - Final 10/26/23 09:38 Mucosa - Nasopharyngeal Respiratory Panel (PCR) - Final 10/24/23 08:00 Urine Catheter - Saldivar Urine Culture - Final Culture exhibits no growth. 10/24/23 06:00 Sputum, Induced/Lukens Gram Stain - Final 10/24/23 06:00 Sputum, Induced/Lukens Respiratory Culture - Final Estimated Creatinine Clearance Estimated Creatinine Clearance: 70.97 Goal Trough Goal Trough: 15-20 mcg/mL Pharmacy Plan for Drug Dosing Pharmacy Plan for Drug Dosing: VANCOMYCIN LEVEL RECEIVED Current Vancomycin Dose: 1000mg Q12H Number of Doses Received: 1000mg x3 Vancomycin Level: 22.6 Hours Since Last Dose: 12.5 Renal Function: sCr 0.9 / CrCl 70.97 Renal Function Trend: stable Lab/Micro: pending Vancomycin Plan/Comments: HOLD Vancomycin for now to allow clearance Pending Level: Random Vancomycin level @ 09:00 10/28/23 Pharmacy Service will continue to monitor and adjust dosing as required.
[2023-10-27 20:00] LABS: Anion Gap 5 (5-15); BUN 15 mg/dL (7-18); BUN/Creat Ratio 14.3 RATIO (10-20); Calcium,Total 8.5 mg/dL (8.5-10.1); Chloride 113 mmol/L (98-107); Creatinine, Serum 1.05 mg/dL (0.70-1.30); EST Glomerular Filtration Rate 73 mL/min (>60); Est Glom Filt Rate - Afr Amer 88 mL/min (>60); Estimated Creatinine Clearance 60.83 ml/min; Glucose 148 mg/dL (74-106); Magnesium 2.2 mg/dL (1.6-2.6); Phosphorus 3.5 mg/dL (2.5-4.9); Potassium 3.2 mmol/L (3.5-5.1); Sodium Level 142 mmol/L (136-145)
[2023-10-27] MEDS: Pantoprazole Sodium 40 MG in 0.9% Normal Saline (100mL MB+) 100 ML 330 MG IV (20:30)
[2023-10-27] MEDS: Potassium Chloride Oral Soln 20 MEQ/15 ML UDC 40 MEQ GT (20:30)
[2023-10-27] MEDS: Propofol 10MG/Ml 1,000 MG/100 ML Bottle 10.1999999999999993 MG CONT INF (22:22)
[2023-10-28] VITALS (38 sets, daily range): BP systolic 87–124; BP diastolic 47–77; PULSE 67–102; RESP 15–20; TEMP 36.3–37.5; O2SAT 91–98; BMI 26.7
[2023-10-28 03:18] LABS: Absolute Neutrophil Count 5.4 X10^3/uL (2.0-7.7); Basophil# 0.01 X10^3/uL; Basophil% 0.2 % (0-1); Hematocrit 25.5 % (40-54); Lymphocyte % 4.9 % (19-41); Mean Corp Hgb Conc 27.5 g/dL (32-36); Mean Corpuscular Hgb 21.5 pg (27.0-32.0); Mean Corpuscular Volume 78.5 fL (80-94); Mean Platelet Vol. 9.2 fl (6.2-12.0); Monocyte# 0.39 X10^3/uL; Monocyte% 6.3 % (0-10); NRBC Flagged by Analyzer 0.5 % (0-5); Neutrophil # 5.44 X10^3/uL (2.7-7.7); POSITIVE DIFFERENTIAL YES; POSITIVE MORPHOLOGY YES; Platelet Count 104 K/mm3 (150-450); RBC Distribution Width CV 25.8 % (11.6-14.6); Red Blood Count 3.25 M/mm3 (4.6-6.2); White Blood Count 6.2 K/mm3 (4.4-11.0)
[2023-10-28 03:23] LABS: Differential Indicated SCAN CRITERIA MET
[2023-10-28 03:32] LABS: Anion Gap 6 (5-15); BUN 18 mg/dL (7-18); BUN/Creat Ratio 15.3 RATIO (10-20); Calcium,Total 8.5 mg/dL (8.5-10.1); Chloride 113 mmol/L (98-107); Creatinine, Serum 1.18 mg/dL (0.70-1.30); EST Glomerular Filtration Rate 64 mL/min (>60); Est Glom Filt Rate - Afr Amer 77 mL/min (>60); Estimated Creatinine Clearance 54.13 ml/min; Glucose 147 mg/dL (74-106); Potassium 3.4 mmol/L (3.5-5.1); Sodium Level 141 mmol/L (136-145)
[2023-10-28] MEDS: Ipratropium/Albuterol Sulfate 3 ML AMPUL.NEB INHALATION ×6 (03:59→23:25)
[2023-10-28 04:01] LABS: Anisocytosis 1+; Differential Comment SCANNED
[2023-10-28] MEDS: 0.9% Saline Lock 10 ML Syringe IV (04:57)
[2023-10-28] MEDS: Albumin Human 25% (100 mL) 25 GM/100 ML BAG IV (04:57)
[2023-10-28] MEDS: CHLORHEXIDINE GLUC 2% CLOTH 1 EACH TOWELETTE TOPICAL (04:57)
[2023-10-28] MEDS: Piperacil/Tazobactam 3.375 GM in 0.9% Normal Saline (50mL MB+) 50 ML IV ×3 (04:57→20:29)
[2023-10-28] MEDS: Hydrocortisone Sod Succinate 100 MG/2 ML Vial 50 MG IV ×4 (04:58→23:21)
--- NOTE | 2023-10-28 05:17 | NURSING ---
Paused propofol and turned fentanyl down to 50 for attempted breathing trial. Pt became very agitated and started uncontrollably coughing when respiratory switched him over to CPAP mode. Switched back to AC/VC and sedation restarted/increased.
[2023-10-28] MEDS: 0.9% Normal Saline (250mL Bag) 250 ML 15 ML IV (05:42)
[2023-10-28] MEDS: TITRATION PARAMETER CHANGE 1 EACH IV (05:42)
[2023-10-28] MEDS: dexMEDEtomidine 400 MCG in 0.9% Normal Saline (100mL Bag) 96 ML 10.6999999999999993 MCG CONT INF (06:35)
--- NOTE | 2023-10-28 06:53 | PN.CC_ITS ---
Assessment & Plan Assessment/Plan (1) Decompensation of cirrhosis of liver: (2) Acute hypoxemic respiratory failure: PLAN: Plan RECOMMENDATIONS: 1. Continue broad-spectrum antimicrobials. 2. Reinitiate Levophed, if necessary, to maintain a mean arterial pressure at or above 65 mmHg. 3. Continue to monitor H&H. Transfuse if hemoglobin drops below 7 g/dL. Hold on transfusion today 4. Continue PPI therapy at twice daily. 5. Transition to Precedex to facilitate spontaneous breathing trials 6. Discontinue albumin 7. Defer to GI on possible repeat scope IMPRESSIONS: 1. Acute blood loss anemia secondary to upper GI bleed EGD completed on October 23 demonstrated type I isolated gastric varices along with 2 angiodysplastic lesions in the stomach and an oozing duodenal ulcer, all of which was intervened upon. The patient has received multiple units of packed red blood cells with stabilization in his H&H. Patient did not increment appropriately to 1 unit yesterday, but stools appear to be normalizing. Will hold on transfusion for now. Plan to continue to monitor blood counts and transfuse if hemoglobin drops below 7 g/dL. Continue PPI therapy as ordered. 2. Multifactorial shock The patient is profoundly hypotensive, which is likely a combination of sepsis, hemorrhage and hemodynamic effects of sedating medications on presentation. In addition, the patient has known cirrhosis with a tendency to third space fluids. Patient remains off of Levophed at this time. However, status will be tenuous. Will attempt to transition to Precedex now that heart rate is better controlled. 3. Acute combined respiratory failure The patient was initially intubated in the setting of profound metabolic encephalopathy with concern for airway protection and acute CO2 retention and hypoxemia. The patient will be continued on assist-control mode of mechanical ventilation. In light of his history of tobacco dependency, scheduled bronchodilators will be continued. Plan to continue to wean FiO2 to maintain oxygen saturations at or above 90%. Continue antimicrobials as ordered. Recommend daily paired spontaneous awakening and breathing trials, as tolerated. Transition to Precedex to facilitate spontaneous breathing trials. 4. Acute decompensated cirrhosis/hepatic encephalopathy Continue medical management per gastroenterology recommendations. 5. Paroxysmal atrial fibrillation Continue current supportive care. The patient is not a candidate for anticoagulation. 6. History of polysubstance dependency Continue current sedation regimen along with thiamine and folic acid repletion. TIME: 35 minutes of critical care time was spent addressing the patient's acute blood loss anemia secondary to upper GI bleed, multifactorial shock, acute combined respiratory failure, acute decompensated cirrhosis, paroxysmal atrial fibrillation, metabolic encephalopathy, review of all data and collaboration wit h the care team. Subjective Subjective Patient did okay overnight. Patient continues to fail spontaneous breathing trials secondary to agitation. Patient has had bowel movements that are described as hou. Patient's heart rate has somewhat improved. Patient has been taken off of Levophed transiently this morning. Nursing believes patient's abdominal distention is grossly unchanged. Patient did receive 1 unit of packed red blood cells yesterday. Objective Data Objective Data Vital Signs: Vital Signs Temp Pulse Resp BP Pulse Ox O2 Del Method O2 Flow Rate 36.4 C L 84 16 95/54 L 95 Mechanical Ventilator 10 10/28/23 06:00 10/28/23 06:31 10/28/23 06:31 10/28/23 06:00 10/28/23 06:31 10/28/23 06:00 10/24/23 05:00 FiO2 40 10/28/23 06:00 Oxygen Flow Rate (L/min) 10 Oxygen Delivery Method Mechanical Ventilator Weight: 85.8 kg Body Mass Index (BMI) 26.7 Intake & Output: Intake and Output for Last 24 Hours 10/26/23 10/27/23 10/28/23 23:59 23:59 23:59 Intake Total 2405.46 / 2433.03 1540.79 / 1560.99 283.11 / 283.11 Output Total 950 / 1020 1340 / 1360 185 / 185 Balance 1455.46 / 1413.03 200.79 / 200.99 98.11 / 98.11 Lab / Micro Data Attestation: I reviewed the patient's lab results. 10/28/23 03:15 10/28/23 03:15 Labs: Laboratory Results - last 24 hr 10/27/23 10:30: Blood Type A POSITIVE, Antibody Screen NEGATIVE, Crossmatch See Detail 10/27/23 17:30: Vancomycin Trough 22.6 H 10/27/23 19:41: Sodium 142, Potassium 3.2 L, Chloride 113 H, Carbon Dioxide 24.0, Anion Gap 5, BUN 15, Creatinine 1.05, Estim Creat Clear Calc 60.83, Est GFR (MDRD) Af Amer 88, Est GFR (MDRD) Non-Af 73, BUN/Creatinine Ratio 14.3, Glucose 148 H, Calcium 8.5, Phosphorus 3.5, Magnesium 2.2 10/28/23 03:15: WBC 6.2, RBC 3.25 L, Hgb 7.0 L, Hct 25.5 L, MCV 78.5 L, MCH 21.5 L, MCHC 27.5 L, RDW Std Deviation 69.0 H, RDW Coeff of Hilda 25.8 H, Plt Count 104 L, MPV 9.2, Immature Gran % (Auto) 0.600, Neut % (Auto) 88.0 H, Lymph % (Auto) 4.9 L, [place] % (Auto) 6.3, Eos % (Auto) 0.0, Baso % (Auto) 0.2, Absolute Neuts (auto) 5.4, Absolute Lymphs (auto) 0.30 L, Nucleated RBC % 0.5, Differential Comment SCANNED, Anisocytosis 1+, Sodium 141, Potassium 3.4 L, Chloride 113 H, Carbon Dioxide 22.0, Anion Gap 6, BUN 18, Creatinine 1.18, Estim Creat Clear Calc 54.13, Est GFR (MDRD) Af Amer 77, Est GFR (MDRD) Non-Af 64, BUN/Creatinine Ratio 15.3, Glucose 147 H, Calcium 8.5 Micro: Microbiology 10/26/23 10:03 Sputum, Induced/Lukens Gram Stain - Final 10/26/23 10:03 Sputum, Induced/Lukens Respiratory Culture - Preliminary Culture exhibits no growth. 10/24/23 08:25 Blood Culture (Wb) - Central Line Blood Culture - Preliminary No growth in 48 hours. 10/24/23 09:25 Blood Culture (Wb) - Right Forearm Blood Culture - Preliminary No growth in 48 hours. 10/26/23 09:38 Mucosa - Nasopharyngeal Coronavirus COVID-19 PCR - Final 10/26/23 09:38 Mucosa - Nasopharyngeal Respiratory Panel (PCR) - Final 10/24/23 08:00 Urine Catheter - Saldivar Urine Culture - Final Culture exhibits no growth. 10/24/23 06:00 Sputum, Induced/Lukens Gram Stain - Final 10/24/23 06:00 Sputum, Induced/Lukens Respiratory Culture - Final Radiography Diagnostic Testing: Radiology Impression Chest X-Ray 10/27/23 05:55 IMPRESSION: 1. Increase moderate left subpulmonic pleural effusion with compressive atelectasis of left lower lobe. 2. Mixed interstitial and airspace disease in the lungs, left greater than right without obvious significant change. 3. Mild right pleural effusion is unchanged. 4. Satisfactory placement of ET tube and OG tube. Electronically Signed: Landon Pace MD at 12:35 EST , Physical Exam Const Constitutional Narrative: Intubated and sedated. RASS -2. Good vent synchrony. HEENT normocephalic, head/scalp atraumatic and hearing grossly normal bilaterally HEENT Narrative: Temporal wasting noted. Mouth: endotracheal tube in place and OG tube in place Eyes PERRL, EOMs intact bilaterally and conjunctivae normal Eyes Narrative: Slight scleral injection Neck full ROM, no lymphadenopathy and supple Neck Narrative: JVD noted General: trachea midline Lymph Lymphatic: no lymphadenopathy noted and no lymphedema noted Chest inspection of chest normal Resp normal respiratory effort and no use of accessory muscles Auscultation: rales and diminished lung sounds; Negative for rhonchi or wheezes Cardio regular rate, regular rhythm, S1 normal heart sound, S2 normal heart sound, no murmurs and peripheral pulses 2+ throughout GI Inspection: anasarca present and abdominal distention; Negative for ostomy present Palpation: Negative for tender, guarding or rigid Back/Spine normal ROM Extremity no calf tenderness Extremity Narrative: Anasarca with 3+ edema General Extremity: no tenderness to palpation of joints or extremities Skin General Skin Exam: no breakdown and turgor normal Neuro moves all extremities, no focal motor deficits and no sensory deficits noted Psych Mood & Affect: flat affect Charges/Coding Procedures Hospitalists Procedures: 79336 Critical Care 1st Hr
--- NOTE | 2023-10-28 06:56 | PN.HOSP_ITS ---
Subjective Subjective Somnolent. Change from propofol to dexmedetomidine. Objective Data Objective Data Vital Signs: Vital Signs Temp Pulse Resp BP Pulse Ox O2 Del Method O2 Flow Rate 36.4 C L 84 16 95/54 L 95 Mechanical Ventilator 10 10/28/23 06:00 10/28/23 06:31 10/28/23 06:31 10/28/23 06:00 10/28/23 06:31 10/28/23 06:00 10/24/23 05:00 FiO2 40 10/28/23 06:00 Oxygen Flow Rate (L/min) 10 Oxygen Delivery Method Mechanical Ventilator Weight: 85.8 kg Body Mass Index (BMI) 26.7 Intake & Output: Intake and Output for Last 24 Hours 10/26/23 10/27/23 10/28/23 23:59 23:59 23:59 Intake Total 2405.46 / 2433.03 1540.79 / 1560.99 283.11 / 283.11 Output Total 950 / 1020 1340 / 1360 185 / 185 Balance 1455.46 / 1413.03 200.79 / 200.99 98.11 / 98.11 Lab / Micro Data 10/28/23 03:15 10/28/23 03:15 Labs: Laboratory Results - last 24 hr 10/27/23 10:30: Blood Type A POSITIVE, Antibody Screen NEGATIVE, Crossmatch See Detail 10/27/23 17:30: Vancomycin Trough 22.6 H 10/27/23 19:41: Sodium 142, Potassium 3.2 L, Chloride 113 H, Carbon Dioxide 24.0, Anion Gap 5, BUN 15, Creatinine 1.05, Estim Creat Clear Calc 60.83, Est GFR (MDRD) Af Amer 88, Est GFR (MDRD) Non-Af 73, BUN/Creatinine Ratio 14.3, Gl ucose 148 H, Calcium 8.5, Phosphorus 3.5, Magnesium 2.2 10/28/23 03:15: WBC 6.2, RBC 3.25 L, Hgb 7.0 L, Hct 25.5 L, MCV 78.5 L, MCH 21.5 L, MCHC 27.5 L, RDW Std Deviation 69.0 H, RDW Coeff of Hilda 25.8 H, Plt Count 104 L, MPV 9.2, Immature Gran % (Auto) 0.600, Neut % (Auto) 88.0 H, Lymph % (Auto) 4.9 L, [place] % (Auto) 6.3, Eos % (Auto) 0.0, Baso % (Auto) 0.2, Absolute Neuts (auto) 5.4, Absolute Lymphs (auto) 0.30 L, Nucleated RBC % 0.5, Differential Comment SCANNED, Anisocytosis 1+, Sodium 141, Potassium 3.4 L, Chloride 113 H, Carbon Dioxide 22.0, Anion Gap 6, BUN 18, Creatinine 1.18, Estim Creat Clear Calc 54.13, Est GFR (MDRD) Af Amer 77, Est GFR (MDRD) Non-Af 64, BUN/Creatinine Ratio 15.3, Glucose 147 H, Calcium 8.5 Micro: Microbiology 10/26/23 10:03 Sputum, Induced/Lukens Gram Stain - Final 10/26/23 10:03 Sputum, Induced/Lukens Respiratory Culture - Preliminary Culture exhibits no growth. 10/24/23 08:25 Blood Culture (Wb) - Central Line Blood Culture - Preliminary No growth in 48 hours. 10/24/23 09:25 Blood Culture (Wb) - Right Forearm Blood Culture - Preliminary No growth in 48 hours. 10/26/23 09:38 Mucosa - Nasopharyngeal Coronavirus COVID-19 PCR - Final 10/26/23 09:38 Mucosa - Nasopharyngeal Respiratory Panel (PCR) - Final 10/24/23 08:00 Urine Catheter - Saldivar Urine Culture - Final Culture exhibits no growth. 10/24/23 06:00 Sputum, Induced/Lukens Gram Stain - Final 10/24/23 06:00 Sputum, Induced/Lukens Respiratory Culture - Final Radiography Diagnostic Testing: Radiology Impression Chest X-Ray 10/27/23 05:55 IMPRESSION: 1. Increase moderate left subpulmonic pleural effusion with compressive atelectasis of left lower lobe. 2. Mixed interstitial and airspace disease in the lungs, left greater than right without obvious significant change. 3. Mild right pleural effusion is unchanged. 4. Satisfactory placement of ET tube and OG tube. Electronically Signed: Landon Pace MD at 12:35 EST , Physical Exam Const Constitutional Narrative: intubated. sedated. Resp normal respiratory effort, no retractions and no use of accessory muscles Cardio regular rate, regular rhythm, S1 normal heart sound and S2 normal heart sound GI normal to inspection, nondistended, normoactive bowel sounds, soft to palpation, non-tender and non-distended Neuro Sensorium / Orientation: awake and alert Assessment & Plan Assessment/Plan (1) Acute hypoxemic respiratory failure: (2) Cirrhosis of liver: (3) Ascites: (4) Atrial fibrillation with RVR: PLAN: Plan Acute blood loss anemia * 2/2 GI bleed and iron deficiency * Hb was 4.9 on admission, and is s/p transfusion of 2 units of PRBCs. * Hb today is 7. * administer iron sucrose. GI bleed * EGD showed type 1 esophageal varices without bleeding, and 2 bleeding angiodysplastic lesions int he stomach and oozing duodenal ulcer that were both treated. * GI and critical care on board. * on PPI Multifactorial shock * hemorrhagic +/- septic * norepin weaned off this AM. * Titrate levophed to aim for MAP >65. Critical care on board,. * on IV vancomycin and Zosyn. * blood cultures pending. * sputum cultures show no growth * CCM added scheduled albumin (subsequently dc'd) and stress dose hydrocortisone Decompensated alcoholic liver cirrhosis with ascites and possible encephalopathy * has a long history of alcohol abuse. * gastroenterology on board. * diuretics held. * management as per GI. * On thiamine and folic acid. * lactulose Acute hypoxic respiratory failure * 2/2 due to recurrent left pleural effusion and possible pneumonia. * 2D echo showed EF of 65% with no regional wall motion abnormalities with mild aortic stenosis * remains intubated and sedated. * Titrate oxygen to maintain saturation above 90%. Afib with RVR * no previous history of afib. Not anticoagulated. * EKG on admission showed A-fib. On Lopressor at home but is currently on hold due to hypotension. * tachycardia is improving. History of cocaine abuse * Per patient's son, patient admits to taking crack cocaine at home * also drinks heavily. On thiamine and folic acid for alcohol use disorder. DVT prophylaxis; SCDs. Charges/Coding Visit Charges Inpatient E&M: 29739 Subs Hosp L2
[2023-10-28] MEDS: Potassium Chloride Oral Soln 20 MEQ/15 ML UDC 40 MEQ PO (06:59)
--- NOTE | 2023-10-28 09:14 | PCM.RX.CS ---
Consult Antibiotic Management Pharmacy has been consulted to manage selected antibiotic: Vancomycin Type of Intervention Type of Consult: Follow-up Labs Labs: Sodium 141 mmol/L (136-145) 10/28/23 03:15 Potassium 3.4 mmol/L (3.5-5.1) L 10/28/23 03:15 Chloride 113 mmol/L (98-107) H 10/28/23 03:15 Carbon Dioxide 22.0 mmol/L (21.0-32.0) 10/28/23 03:15 Anion Gap 6 (5-15) 10/28/23 03:15 BUN 18 mg/dL (7-18) 10/28/23 03:15 Creatinine 1.18 mg/dL (0.70-1.30) 10/28/23 03:15 Est GFR (MDRD) Af Amer 77 mL/min (>60) 10/28/23 03:15 Est GFR (MDRD) Non-Af 64 mL/min (>60) 10/28/23 03:15 BUN/Creatinine Ratio 15.3 RATIO (10-20) 10/28/23 03:15 Glucose 147 mg/dL (74-106) H 10/28/23 03:15 Vancomycin Trough 22.6 ug/mL (5.0-15.0) H 10/27/23 17:30 Random Vancomycin 17.0 ug/mL (0.0-15.0) H 10/28/23 08:30 Microbiology Microbiology: Microbiology 10/26/23 10:03 Sputum, Induced/Lukens Gram Stain - Final 10/26/23 10:03 Sputum, Induced/Lukens Respiratory Culture - Final Culture exhibits no growth. 10/24/23 08:25 Blood Culture (Wb) - Central Line Blood Culture - Preliminary No growth in 48 hours. 10/24/23 09:25 Blood Culture (Wb) - Right Forearm Blood Culture - Preliminary No growth in 48 hours. 10/26/23 09:38 Mucosa - Nasopharyngeal Coronavirus COVID-19 PCR - Final 10/26/23 09:38 Mucosa - Nasopharyngeal Respiratory Panel (PCR) - Final 10/24/23 08:00 Urine Catheter - Saldivar Urine Culture - Final Culture exhibits no growth. 10/24/23 06:00 Sputum, Induced/Lukens Gram Stain - Final 10/24/23 06:00 Sputum, Induced/Lukens Respiratory Culture - Final Goal Trough Goal Trough: 15-20 mcg/mL Pharmacy Plan for Drug Dosing Pharmacy Plan for Drug Dosing: VANCOMYCIN LEVEL RECEIVED Current Vancomycin Dose: ON HOLD d/t elevated trough (was 1g IV q12hr) Number of Doses Received: ON HOLD - several prior to held dosing regimen Vancomycin Level: 17 Hours Since Last Dose: 27.5hr Renal Function: 1.18 Renal Function Trend: Slight increase in SCr from yesterday (was 0.9) Lab/Micro: All Cx NGTD, repeat cultures pending Vancomycin Plan/Comments: Patient had a random trough drawn which resulted in a value of 17 (goal 15-20). Patient is now within therapeutic goal, so vancomycin will be resumed. Will restart vancomycin at a dose of 1000mg IV Q24hr to start 10/28/23 @1000 Pending Level: 10/30/23 @0930, prior to 3rd dose of new regimen per protocol Pharmacy Service will continue to monitor and adjust dosing as required.
[2023-10-28] MEDS: Furosemide 40 MG/4 ML Vial IV ×2 (09:56→17:12)
[2023-10-28] MEDS: Pantoprazole Sodium 40 MG in 0.9% Normal Saline (100mL MB+) 100 ML 330 MG IV ×2 (09:56→20:29)
[2023-10-28] MEDS: Vancomycin IV 1,000 MG/200 ML BAG 200 MG IV (09:59)
[2023-10-28] MEDS: Chlorhexidine 15 ML PO ×2 (10:05→20:29)
[2023-10-28] MEDS: Thiamine Hydrochloride 100 MG Tablet GT (10:06)
[2023-10-28] MEDS: fentaNYL drip 100 ML 10 MCG CONT INF (10:10)
--- NOTE | 2023-10-28 15:24 | EX.PCM.PN.GI ---
Subjective Subjective No change in patient's mental status. He has been on trickle feeding. He received blood transfusion of 1 packed red blood cells. Objective Data Objective Data Vital Signs: Vital Signs Temp Pulse Resp BP Pulse Ox O2 Del Method O2 Flow Rate 98.7 F 86 16 114/63 95 Mechanical Ventilator 10 10/28/23 15:00 10/28/23 15:00 10/28/23 15:00 10/28/23 15:00 10/28/23 15:00 10/28/23 15:00 10/24/23 05:00 FiO2 40 10/28/23 15:00 Oxygen Flow Rate (L/min) 10 Oxygen Delivery Method Mechanical Ventilator Weight: 189 lb 2.506 oz Body Mass Index (BMI) 26.7 Intake & Output: Intake and Output for Last 24 Hours 10/26/23 10/27/23 10/28/23 23:59 23:59 23:59 Intake Total 2405.46 / 2433.03 1540.79 / 1560.99 1034.17 / 1034.17 Output Total 950 / 1020 1340 / 1360 685 / 685 Balance 1455.46 / 1413.03 200.79 / 200.99 349.17 / 349.17 Lab / Micro Data 10/28/23 03:15 10/28/23 03:15 Labs: Laboratory Results - last 24 hr 10/27/23 10:30: Crossmatch See Detail 10/27/23 17:30: Vancomycin Trough 22.6 H 10/27/23 19:41: Sodium 142, Potassium 3.2 L, Chloride 113 H, Carbon Dioxide 24.0, Anion Gap 5, BUN 15, Creatinine 1.05, Estim Creat Clear Calc 60.83, Est GFR (MDRD) Af Amer 88, Est GFR (MDRD) Non-Af 73, BUN/Creatinine Ratio 14.3, Glucose 148 H, Calcium 8.5, Phosphorus 3.5, Magnesium 2.2 10/28/23 03:15: WBC 6.2, RBC 3.25 L, Hgb 7.0 L, Hct 25.5 L, MCV 78.5 L, MCH 21.5 L, MCHC 27.5 L, RDW Std Deviation 69.0 H, RDW Coeff of Hilda 25.8 H, Plt Count 104 L, MPV 9.2, Immature Gran % (Auto) 0.600, Neut % (Auto) 88.0 H, Lymph % (Auto) 4.9 L, [place] % (Auto) 6.3, Eos % (Auto) 0.0, Baso % (Auto) 0.2, Absolute Neuts (auto) 5.4, Absolute Lymphs (auto) 0.30 L, Nucleated RBC % 0.5, Differential Comment SCANNED, Anisocytosis 1+, Sodium 141, Potassium 3.4 L, Chloride 113 H, Carbon Dioxide 22.0, Anion Gap 6, BUN 18, Creatinine 1.18, Estim Creat Clear Calc 54.13, Est GFR (MDRD) Af Amer 77, Est GFR (MDRD) Non-Af 64, BUN/Creatinine Ratio 15.3, Glucose 147 H, Calcium 8.5 10/28/23 08:30: Random Vancomycin 17.0 H Micro: Microbiology 10/26/23 14:20 Blood Culture (Wb) - Anticubital Right Blood Culture - Preliminary No growth in 48 hours. 10/26/23 10:30 Blood Culture (Wb) - Femoral Artery Blood Culture - Preliminary No growth in 48 hours. 10/26/23 10:03 Sputum, Induced/Lukens Gram Stain - Final 10/26/23 10:03 Sputum, Induced/Lukens Respiratory Culture - Final Culture exhibits no growth. 10/24/23 08:25 Blood Culture (Wb) - Central Line Blood Culture - Preliminary No growth in 48 hours. 10/24/23 09:25 Blood Culture (Wb) - Right Forearm Blood Culture - Preliminary No growth in 48 hours. 10/26/23 09:38 Mucosa - Nasopharyngeal Coronavirus COVID-19 PCR - Final 10/26/23 09:38 Mucosa - Nasopharyngeal Respiratory Panel (PCR) - Final 10/24/23 08:00 Urine Catheter - Saldivar Urine Culture - Final Culture exhibits no growth. 10/24/23 06:00 Sputum, Induced/Lukens Gram Stain - Final 10/24/23 06:00 Sputum, Induced/Lukens Respiratory Culture - Final Physical Exam Const Constitutional Narrative: intubated. sedated. Resp normal respiratory effort, no retractions and no use of accessory muscles Cardio regular rate, regular rhythm, S1 normal heart sound and S2 normal heart sound GI normal to inspection, nondistended, normoactive bowel sounds, soft to palpation, non-tender and non-distended Neuro Sensorium / Orientation: awake and alert Assessment & Plan Assessment/Plan (1) Severe anemia: PLAN: Plan 78-year-old gentleman with past medical history of cirrhosis secondary to hepatitis C and alcohol with concomitant microcytic anemia from unknown source. As per son he has never had a colonoscopy. He presents with upper and lower GI bleeding. -GI bleed: The differential diagnosis for upper GI bleed does include variceal bleed, peptic ulcer disease, angiodysplasia, Nusrat-Manning tear, erosive esophagitis, neoplasia. Differential diagnosis for lower GI bleed does include ischemic disease affecting the colon, upper GI bleed with rapid transit, lower GI bleed secondary to malignancy, diverticular bleed, hemorrhoidal bleed. He should undergo an upper endoscopy and later a colonoscopy to evaluate his severe microcytic anemia. He was explained alternatives, risk, benefit including not withstanding bleeding, infection, sepsis, perforation, need for emergent surgery . He will have an ASA of 3. Recommend to continue PPI drip, octreotide. Recommend ceftriaxone 1 g and keep n.p.o. for emergent endoscopy. - Severe microcytic hypochromic anemia along with leukopenia with lymphocytopenia: H&H 4.9 low MCV MCH and MCHC. RDW 19.5 overall suggestive of chronic iron deficiency anemia. Iron work-up with ferritin ordered. 2 units of PRBC typed and crossmatched and transfused 1 unit today. He should get a colonoscopy. - Decompensated alcoholic and hep C cirrhosis: Previous CT abdomen showed nodular liver along with perihepatic ascites, mild splenomegaly but no varices. No acute pancreatitis. Fluid restriction, 2 g sodium diet, spironolactone 25 mg daily with up titration as per tolerated. He needs CT scan abdomen pelvis to look for signs of ischemia, malignancy. Hepatitis C PCR RNA, chronic hepatitis B PCR DNA, alpha-fetoprotein 4 hepatocellular carcinoma, INR, PTT - Paroxysmal A. fib: Currently EKG shows A-fib with RVR. Heart rate is in the 120s to 150s. Patient was deemed not a candidate for anticoagulant because of current GI bleeding recurrent fall, chronic alcohol use and alcoholic cirrhosis history. - Chronic alcohol use disorder with dependence and tolerance: CIWA monitoring. On CIWA protocol with Ativan 10/24-severely decompensated liver disease with an acute upper GI bleed, new onset ascites, acute renal failure, hypotension with respiratory depression and respiratory failure status postintubation. I called his worsening respiratory status. I also let him know that his MELD score is a little bit more severe today despite that his LFTs are not severely increased but his bilirubin increased which is associated with a worsening outcome in the setting of acute decompensated cirrhosis. A paracentesis was not performed because of his fluid was not sufficient for removal and was not an a safe location in the setting of severe liver disease with coagulopathy. He has been maintained on PPI drip. He has not shown any signs of withdrawal at this time. His blood work is consistent with alcoholic hepatitis. Poor prognosis. 10/26-continued decompensated liver disease with acute hypoxic respiratory failure intubated and sedated. 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 His hemoglobin remains stable which is a good sign on PPI drip and octreotide for stress gastritis associated with intubation and decompensated cirrhosis. His MELD is 20, child Stephenson class C. Carries a 25% mortality rate in 90 days. It is a good sign that his kidney function remains normal. Guarded prognosis. 10/28- Patient was being suctioned and got quite agitated, so he is being switched from precedex to propofol. His hemoglobin trended down and he received 1 unit of packed red blood cells. No plans for thoracentesis at this time. Still decompensated liver disease. Will plan for repeat upper endoscopy to evaluate his previous upper GI bleeding source. Charges/Coding Visit Charges Inpatient E&M: 38560 [facility] Hosp L3
[2023-10-28] MEDS: dexMEDEtomidine 400 MCG in 0.9% Normal Saline (100mL Bag) 96 ML 8.59999999999999964 MCG CONT INF (15:35)
[2023-10-28] MEDS: Sodium Ferric Gluconat 250 MG in 0.9% Normal Saline 250 ML 135 MG IV (15:36)
[2023-10-28] MEDS: Vital AF 1.2 Cal Liquid 1,000 ML 10 ML GT (17:06)
[2023-10-28] MEDS: fentaNYL drip 100 ML 12.5 MCG CONT INF (19:30)
[2023-10-29] VITALS (36 sets, daily range): BP systolic 113–142; BP diastolic 59–95; PULSE 73–104; RESP 16–37; TEMP 37.4–38; O2SAT 90–97; BMI 25.8
[2023-10-29] MEDS: dexMEDEtomidine 400 MCG in 0.9% Normal Saline (100mL Bag) 96 ML 15 MCG CONT INF (00:24)
[2023-10-29 03:14] LABS: Absolute Lymphocyte Count 0.23 X10^3/uL (0.83-4.51); Absolute Neutrophil Count 4.9 X10^3/uL (2.0-7.7); Hematocrit 30.5 % (40-54); Hemoglobin 8.3 g/dL (13.0-16.5); Lymphocyte # 0.23 X10^3/ul (0.83-4.51); Lymphocyte % 4.3 % (19-41); Mean Corp Hgb Conc 27.2 g/dL (32-36); Mean Corpuscular Hgb 21.6 pg (27.0-32.0); Mean Corpuscular Volume 79.2 fL (80-94); Mean Platelet Vol. 8.6 fl (6.2-12.0); Monocyte# 0.28 X10^3/uL; Monocyte% 5.2 % (0-10); NRBC Flagged by Analyzer 0.4 % (0-5); Neutrophil # 4.85 X10^3/uL (2.7-7.7); Neutrophil % 89.8 % (47-70); POSITIVE DIFFERENTIAL YES; POSITIVE MORPHOLOGY YES; Platelet Count 102 K/mm3 (150-450); RBC Distribution Width CV 27.1 % (11.6-14.6); RBC Distribution Width SD 74.4 fl (35.1-43.9); Red Blood Count 3.85 M/mm3 (4.6-6.2); White Blood Count 5.4 K/mm3 (4.4-11.0)
[2023-10-29 03:27] LABS: Anion Gap 5 (5-15); BUN 23 mg/dL (7-18); BUN/Creat Ratio 19.7 RATIO (10-20); Calcium,Total 8.3 mg/dL (8.5-10.1); Chloride 109 mmol/L (98-107); Creatinine, Serum 1.17 mg/dL (0.70-1.30); EST Glomerular Filtration Rate 64 mL/min (>60); Est Glom Filt Rate - Afr Amer 78 mL/min (>60); Estimated Creatinine Clearance 54.59 ml/min; Glucose 146 mg/dL (74-106); Potassium 2.8 mmol/L (3.5-5.1); Sodium Level 141 mmol/L (136-145)
[2023-10-29 03:59] LABS: Differential Indicated SCAN CRITERIA MET
[2023-10-29] MEDS: fentaNYL drip 100 ML 5 MCG CONT INF (04:00)
[2023-10-29] MEDS: Ipratropium/Albuterol Sulfate 3 ML AMPUL.NEB INHALATION ×6 (04:04→23:05)
[2023-10-29] MEDS: CHLORHEXIDINE GLUC 2% CLOTH 1 EACH TOWELETTE TOPICAL (04:08)
[2023-10-29] MEDS: 0.9% Saline Lock 10 ML Syringe IV ×2 (04:08→21:09)
[2023-10-29] MEDS: dexMEDEtomidine 1,000 MCG in 0.9% Normal Saline (250mL Bag) 240 ML 30 MCG CONT INF (04:09)
[2023-10-29 04:30] LABS: Anisocytosis 1+; Differential Comment SCANNED
[2023-10-29 04:54] LABS: Magnesium 1.9 mg/dL (1.6-2.6)
[2023-10-29 05:04] LABS: Phosphorus 3.1 mg/dL (2.5-4.9)
[2023-10-29] MEDS: Piperacil/Tazobactam 3.375 GM in 0.9% Normal Saline (50mL MB+) 50 ML IV ×3 (05:35→21:08)
[2023-10-29] MEDS: Lactulose 20 GM/30 ML UDC PO ×2 (05:35→21:05)
[2023-10-29] MEDS: Hydrocortisone Sod Succinate 100 MG/2 ML Vial 50 MG IV ×3 (05:35→21:06)
[2023-10-29] MEDS: Potassium Chloride Oral Soln 20 MEQ/15 ML UDC 60 MEQ PO (05:35)
--- NOTE | 2023-10-29 06:34 | PCM.PN.INT ---
Assessment & Plan Assessment/Plan (1) Decompensation of cirrhosis of liver: (2) Acute hypoxemic respiratory failure: PLAN: Plan RECOMMENDATIONS: 1. Continue broad-spectrum antimicrobials. 2. Continue diuresis with aggressive electrolyte repletion 3. Continue to monitor H&H. Transfuse if hemoglobin drops below 7 g/dL. Hold on transfusion today 4. Continue PPI therapy at twice daily. 5. Continue spontaneous breathing and awakening trials per protocol 6. Continue mechanical ventilation for another 24 hours to allow for additional diuresis 7. Defer to GI on possible repeat scope IMPRESSIONS: 1. Acute blood loss anemia secondary to upper GI bleed EGD completed on October 23 demonstrated type I isolated gastric varices along with 2 angiodysplastic lesions in the stomach and an oozing duodenal ulcer, all of which was intervened upon. The patient has received multiple units of packed red blood cells with stabilization in his H&H. Patient has had an improvement in H&H, likely secondary to diuresis. Will hold on transfusion for now. Plan to continue to monitor blood counts and transfuse if hemoglobin drops below 7 g/dL. Continue PPI therapy as ordered. Defer to GI on possible repeat scope 2. Multifactorial shock Resolved. The patient is profoundly hypotensive, which is likely a combination of sepsis, hemorrhage and hemodynamic effects of sedating medications on presentation. In addition, the patient has known cirrhosis with a tendency to third space fluids. Blood pressure is significantly improved after transition to Precedex. 3. Acute combined respiratory failure The patient was initially intubated in the setting of profound metabolic encephalopathy with concern for airway protection and acute CO2 retention and hypoxemia. The patient will be continued on assist-control mode of mechanical ventilation. In light of his history of tobacco dependency, scheduled bronchodilators will be continued. Plan to continue to wean FiO2 to maintain oxygen saturations at or above 90%. Continue antimicrobials as ordered. Recommend daily paired spontaneous awakening and breathing trials, as tolerated. Patient appears to have tolerated transition to Precedex. Good diuresis over the last 24 hours, but patient is not a good BiPAP candidate, so we will hold on extubation today 4. Acute decompensated cirrhosis/hepatic encephalopathy Continue medical management per gastroenterology recommendations. 5. Paroxysmal atrial fibrillation Continue current supportive care. The patient is not a candidate for anticoagulation. 6. History of polysubstance dependency Continue current sedation regimen along with thiamine and folic acid repletion. Will initiate patient on Seroquel TIME: 34 minutes of critical care time was spent addressing the patient's acute blood loss anemia secondary to upper GI bleed, multifactorial shock, acute combined respiratory failure, acute decompensated cirrhosis, paroxysmal atrial fibrillation, metabolic encephalopathy, review of all data and collaboration with the care team. Subjective Subjective Patient did well overnight. Patient did tolerate transition to Precedex, but had periods of agitation with tachycardia. Patient was placed on a trial this morning was able to tolerate 1 hour. Patient did have transient desaturations as low as 85% on 45% FiO2, but recovered spontaneously. Patient did have significant ectopy overnight, but no interventions were required Objective Data Objective Data Vital Signs: Vital Signs Temp Pulse Resp BP Pulse Ox O2 Del Method O2 Flow Rate 37.7 C H 89 20 H 129/81 H 96 Mechanical Ventilator 10 10/29/23 05:00 10/29/23 06:15 10/29/23 06:15 10/29/23 05:00 10/29/23 06:15 10/29/23 05:00 10/24/23 05:00 FiO2 45 10/29/23 06:15 Oxygen Flow Rate (L/min) 10 Oxygen Delivery Method Mechanical Ventilator Weight: 82.8 kg Body Mass Index (BMI) 25.8 Intake & Output: Intake and Output for Last 24 Hours 10/27/23 10/28/23 10/29/23 23:59 23:59 23:59 Intake Total 1540.79 / 1560.99 1977.00 / 2004.50 241.54 / 241.54 Output Total 1340 / 1360 2735 / 3110 650 / 650 Balance 200.79 / 200.99 -758.00 / -1105.50 -408.46 / -408.46 Lab / Micro Data Attestation: I reviewed the patient's lab results. 10/29/23 03:06 10/29/23 03:06 Labs: Laboratory Results - last 24 hr 10/28/23 08:30: Random Vancomycin 17.0 H 10/29/23 03:06: WBC 5.4, RBC 3.85 L, Hgb 8.3 L, Hct 30.5 L, MCV 79.2 L, MCH 21.6 L, MCHC 27.2 L, RDW Std Deviation 74.4 H, RDW Coeff of Hilda 27.1 H, Plt Count 102 L, MPV 8.6, Immature Gran % (Auto) 0.700, Neut % (Auto) 89.8 H, Lymph % (Auto) 4.3 L, Esmeralda % (Auto) 5.2, Eos % (Auto) 0.0, Baso % (Auto) 0.0, Absolute Neuts (auto) 4.9, Absolute Lymphs (auto) 0.23 L, Nucleated RBC % 0.4, Differential Comment SCANNED, Anisocytosis 1+, Sodium 141, Potassium 2.8 L, Chloride 109 H, Carbon Dioxide 27.0, Anion Gap 5, BUN 23 H, Creatinine 1.17, Estim Creat Clear Calc 54.59, Est GFR (MDRD) Af Amer 78, Est GFR (MDRD) Non-Af 64, BUN/Creatinine Ratio 19.7, Glucose 146 H, Calcium 8.3 L 10/29/23 03:12: Phosphorus 3.1, Magnesium 1.9 Micro: Microbiology 10/26/23 14:20 Blood Culture (Wb) - Anticubital Right Blood Culture - Preliminary No growth in 48 hours. 10/26/23 10:30 Blood Culture (Wb) - Femoral Artery Blood Culture - Preliminary No growth in 48 hours. 10/26/23 10:03 Sputum, Induced/Lukens Gram Stain - Final 10/26/23 10:03 Sputum, Induced/Lukens Respiratory Culture - Final Culture exhibits no growth. 10/24/23 08:25 Blood Culture (Wb) - Central Line Blood Culture - Preliminary No growth in 48 hours. 10/24/23 09:25 Blood Culture (Wb) - Right Forearm Blood Culture - Preliminary No growth in 48 hours. 10/26/23 09:38 Mucosa - Nasopharyngeal Coronavirus COVID-19 PCR - Final 10/26/23 09:38 Mucosa - Nasopharyngeal Respiratory Panel (PCR) - Final 10/24/23 08:00 Urine Catheter - Saldivar Urine Culture - Final Culture exhibits no growth. 10/24/23 06:00 Sputum, Induced/Lukens Gram Stain - Final 10/24/23 06:00 Sputum, Induced/Lukens Respiratory Culture - Final Physical Exam Const Constitutional Narrative: Intubated and sedated. RASS -1. Good vent synchrony. HEENT normocephalic, head/scalp atraumatic and hearing grossly normal bilaterally Eyes PERRL, EOMs intact bilaterally and conjunctivae normal Eyes Narrative: Slight scleral injection Neck full ROM, no lymphadenopathy and supple Neck Narrative: JVD noted General: trachea midline Lymph Lymphatic: no lymphadenopathy noted and no lymphedema noted Chest inspection of chest normal Resp normal respiratory effort and no use of accessory muscles Auscultation: rales and diminished lung sounds; Negative for rhonchi or wheezes Cardio regular rate, regular rhythm, S1 normal heart sound, S2 normal heart sound, no murmurs and peripheral pulses 2+ throughout GI soft to palpation Inspection: anasarca present and abdominal distention; Negative for ostomy present Palpation: Negative for tender, guarding or rigid Back/Spine normal ROM Extremity no calf tenderness Extremity Narrative: Anasarca with 1+ edema General Extremity: no tenderness to palpation of joints or extremities; Negative for clubbing or edema Skin no rashes or lesions noted General Skin Exam: no breakdown and turgor normal Neuro moves all extremities, no focal motor deficits and no sensory deficits noted Sensorium / Orientation: sedated on vent Psych Mood & Affect: flat affect Charges/Coding Procedures Hospitalists Procedures: 04417 Critical Care 1st Hr
[2023-10-29] MEDS: TITRATION PARAMETER CHANGE 1 EACH IV (06:36)
--- NOTE | 2023-10-29 06:57 | PN.HOSP_ITS ---
Subjective Subjective SBT performed today. Objective Data Objective Data Vital Signs: Vital Signs Temp Pulse Resp BP Pulse Ox O2 Del Method O2 Flow Rate 37.8 C H 89 20 H 132/78 H 96 Mechanical Ventilator 10 10/29/23 06:00 10/29/23 06:15 10/29/23 06:15 10/29/23 06:00 10/29/23 06:15 10/29/23 06:00 10/24/23 05:00 FiO2 45 10/29/23 06:15 Oxygen Flow Rate (L/min) 10 Oxygen Delivery Method Mechanical Ventilator Weight: 82.8 kg Body Mass Index (BMI) 25.8 Intake & Output: Intake and Output for Last 24 Hours 10/27/23 10/28/23 10/29/23 23:59 23:59 23:59 Intake Total 1540.79 / 1560.99 1977.00 / 2004.50 389.29 / 389.29 Output Total 1340 / 1360 2735 / 3110 850 / 850 Balance 200.79 / 200.99 -758.00 / -1105.50 -460.71 / -460.71 Lab / Micro Data 10/29/23 03:06 10/29/23 11:12 Labs: Laboratory Results - last 24 hr 10/28/23 08:30: Random Vancomycin 17.0 H 10/29/23 03:06: WBC 5.4, RBC 3.85 L, Hgb 8.3 L, Hct 30.5 L, MCV 79.2 L, MCH 21.6 L, MCHC 27.2 L, RDW Std Deviation 74.4 H, RDW Coeff of Hilda 27.1 H, Plt Count 102 L, MPV 8.6, Immature Gran % (Auto) 0.700, Neut % (Auto) 89.8 H, Lymph % (Auto) 4.3 L, Gonzales % (Auto) 5.2, Eos % (Auto) 0.0, Baso % (Auto) 0.0, Absolute Neuts (auto) 4.9, Absolute Lymphs (auto) 0.23 L, Nucleated RBC % 0.4, Differential Comment SCANNED, Anisocytosis 1+, Sodium 141, Potassium 2.8 L, Chloride 109 H, Carbon Dioxide 27.0, Anion Gap 5, BUN 23 H, Creatinine 1.17, Estim Creat Clear Calc 54.59, Est GFR (MDRD) Af Amer 78, Est GFR (MDRD) Non-Af 64, BUN/Creatinine Ratio 19.7, Glucose 146 H, Calcium 8.3 L 10/29/23 03:12: Phosphorus 3.1, Magnesium 1.9 Micro: Microbiology 10/26/23 14:20 Blood Culture (Wb) - Anticubital Right Blood Culture - Preliminary No growth in 48 hours. 10/26/23 10:30 Blood Culture (Wb) - Femoral Artery Blood Culture - Preliminary No growth in 48 hours. 10/26/23 10:03 Sputum, Induced/Lukens Gram Stain - Final 10/26/23 10:03 Sputum, Induced/Lukens Respiratory Culture - Final Culture exhibits no growth. 10/24/23 08:25 Blood Culture (Wb) - Central Line Blood Culture - Preliminary No growth in 48 hours. 10/24/23 09:25 Blood Culture (Wb) - Right Forearm Blood Culture - Preliminary No growth in 48 hours. 10/26/23 09:38 Mucosa - Nasopharyngeal Coronavirus COVID-19 PCR - Final 10/26/23 09:38 Mucosa - Nasopharyngeal Respiratory Panel (PCR) - Final 10/24/23 08:00 Urine Catheter - Saldivar Urine Culture - Final Culture exhibits no growth. 10/24/23 06:00 Sputum, Induced/Lukens Gram Stain - Final 10/24/23 06:00 Sputum, Induced/Lukens Respiratory Culture - Final Physical Exam Const Constitutional Narrative: intubated, sedated. HEENT head/scalp atraumatic and moist oral mucous membranes Cardio Cardio Narrative: coarse BS bilaterally GI normal to inspection, nondistended, normoactive bowel sounds Psych affect normal Assessment & Plan Assessment/Plan (1) Acute hypoxemic respiratory failure: (2) Cirrhosis of liver: (3) Ascites: (4) Atrial fibrillation with RVR: PLAN: Plan Acute blood loss anemia * 2/2 GI bleed and iron deficiency * Hb was 4.9 on admission, and is s/p transfusion of 2 units of PRBCs. * Hb today is 8.3 * administer iron sucrose. GI bleed * EGD showed type 1 esophageal varices without bleeding, and 2 bleeding angiodysplastic lesions int he stomach and oozing duodenal ulcer that were both treated. * GI and critical care on board. * on PPI Multifactorial shock * hemorrhagic +/- septic * norepin weaned off this AM. * Titrate levophed to aim for MAP >65. Critical care on board,. * on IV vancomycin and Zosyn. * blood cultures pending. * sputum cultures show no growth * [facility] added scheduled albumin (subsequently dc'd) and stress dose hydrocortisone Decompensated alcoholic liver cirrhosis with ascites and possible encephalopathy * has a long history of alcohol abuse. * gastroenterology on board. * diuretics held. * management as per GI. * On thiamine and folic acid. * lactulose Acute hypoxic respiratory failure * 2/2 due to recurrent left pleural effusion and possible pneumonia. * 2D echo showed EF of 65% with no regional wall motion abnormalities with mild aortic stenosis * remains intubated and sedated. * Titrate oxygen to maintain saturation above 90%. Afib with RVR * no previous history of afib. Not anticoagulated. * EKG on admission showed A-fib. On Lopressor at home but is currently on hold due to hypotension. * tachycardia is improving. History of cocaine abuse * Per patient's son, patient admits to taking crack cocaine at home * also drinks heavily. On thiamine and folic acid for alcohol use disorder. DVT prophylaxis; SCDs. Charges/Coding Visit Charges Inpatient E&M: 40778 Subs Hosp L2
[2023-10-29] MEDS: Thiamine Hydrochloride 100 MG Tablet GT (07:59)
[2023-10-29] MEDS: Folic Acid 1 MG Tablet GT (07:59)
[2023-10-29] MEDS: Chlorhexidine 15 ML PO ×2 (08:07→21:04)
[2023-10-29] MEDS: Vancomycin IV 1,000 MG/200 ML BAG 200 MG IV (08:07)
[2023-10-29] MEDS: Pantoprazole Sodium 40 MG in 0.9% Normal Saline (100mL MB+) 100 ML 330 MG IV ×2 (08:08→21:09)
[2023-10-29] MEDS: Furosemide 40 MG/4 ML Vial IV ×2 (08:08→16:53)
[2023-10-29] MEDS: QUEtiapine 100 MG Tablet PO ×2 (08:08→21:10)
[2023-10-29] MEDS: Potassium Chloride Oral Soln 20 MEQ/15 ML UDC 40 MEQ PO ×2 (08:30→21:05)
[2023-10-29] MEDS: Haloperidol Lactate 5 MG/ML Vial IV (08:30)
--- NOTE | 2023-10-29 09:06 | PCM.RX.CS ---
Consult Antibiotic Management Pharmacy has been consulted to manage selected antibiotic: Vancomycin Type of Intervention Type of Consult: Follow-up Suspected Infection Suspected Infection: Bacteremia Prior Doses of Antibiotics Prior Doses of Antibiotics Received/Current Regimen: 10/24/23 @ 1014 10/25/23 @ 2110 10/26/23 @ 0900 10/27/23 @ 0459 10/28/23@ 1000 Labs Labs: Sodium 141 mmol/L (136-145) 10/29/23 03:06 Potassium 2.8 mmol/L (3.5-5.1) L 10/29/23 03:06 Chloride 109 mmol/L (98-107) H 10/29/23 03:06 Carbon Dioxide 27.0 mmol/L (21.0-32.0) 10/29/23 03:06 Anion Gap 5 (5-15) 10/29/23 03:06 BUN 23 mg/dL (7-18) H 10/29/23 03:06 Creatinine 1.17 mg/dL (0.70-1.30) 10/29/23 03:06 Est GFR (MDRD) Af Amer 78 mL/min (>60) 10/29/23 03:06 Est GFR (MDRD) Non-Af 64 mL/min (>60) 10/29/23 03:06 BUN/Creatinine Ratio 19.7 RATIO (10-20) 10/29/23 03:06 Glucose 146 mg/dL (74-106) H 10/29/23 03:06 Vancomycin Trough 22.6 ug/mL (5.0-15.0) H 10/27/23 17:30 Random Vancomycin 17.0 ug/mL (0.0-15.0) H 10/28/23 08:30 Microbiology Microbiology: Microbiology 10/26/23 10:20 Urine Catheter - Saldivar Urine Culture - Final Culture exhibits no growth. 10/26/23 14:20 Blood Culture (Wb) - Anticubital Right Blood Culture - Preliminary No growth in 48 hours. 10/26/23 10:30 Blood Culture (Wb) - Femoral Artery Blood Culture - Preliminary No growth in 48 hours. 10/26/23 10:03 Sputum, Induced/Lukens Gram Stain - Final 10/26/23 10:03 Sputum, Induced/Lukens Respiratory Culture - Final Culture exhibits no growth. 10/24/23 08:25 Blood Culture (Wb) - Central Line Blood Culture - Preliminary No growth in 48 hours. 10/24/23 09:25 Blood Culture (Wb) - Right Forearm Blood Culture - Preliminary No growth in 48 hours. 10/26/23 09:38 Mucosa - Nasopharyngeal Coronavirus COVID-19 PCR - Final 10/26/23 09:38 Mucosa - Nasopharyngeal Respiratory Panel (PCR) - Final 10/24/23 08:00 Urine Catheter - Saldivar Urine Culture - Final Culture exhibits no growth. 10/24/23 06:00 Sputum, Induced/Lukens Gram Stain - Final 10/24/23 06:00 Sputum, Induced/Lukens Respiratory Culture - Final Dosing Weight Weight used for dosin kg Estimated Creatinine Clearance Estimated Creatinine Clearance: 54 Goal Trough Goal Trough: 15-20 mcg/mL Pharmacy Plan for Drug Dosing Pharmacy Plan for Drug Dosing: Patient will continue on Vancomycin 1000mg every 24 hours Pharmacy Service will continue to monitor and adjust dosing as required. Follow-Up Labs Follow-Up Labs: Trough: Vancomycin Date/Time Labs Ordered Labs to be done on [date and time ordered]: 10/30/23 @ 5289
[2023-10-29 11:40] LABS: Potassium 2.6 mmol/L (3.5-5.1)
[2023-10-29 11:42] LABS: Allen Test Positive; Base Excess -1 mmol/L (-2 to +2); Bicarbonate 23.4 mmol/L (22-26); Blood Gas Specimen Type ART; Mode CPAP/PS; O2 Delivery Device Adult Vent; PEEP 5; PO2 72 mmHG (75-100); SITE R Radial; SO2 95 % (95-99); Total Carbon Dioxide 25 mmol/L; pCO2 35.6 mmHg (35-45); pH 7.43 (7.35-7.45)
[2023-10-29] MEDS: dexMEDEtomidine 1,000 MCG in 0.9% Normal Saline (250mL Bag) 240 ML 31.1000000000000014 MCG CONT INF ×2 (12:50→21:00)
[2023-10-29] MEDS: Potassium Chloride 20mEq/100mL 20 MEQ/100 ML IV.SOLN. 100 MEQ IV BOLUS ×2 (13:04→14:09)
--- NOTE | 2023-10-29 14:10 | CHAPLAIN ---
Type of Pastoral Visit ___ Initial Visit ___ Follow-up Visit ___ On-call Visit ___ General Patient Visit ___ Spiritual Assessment ___ Family Conference ___ Bereavement ___ Rapid Response ___ Code Blue ___ Other (describe below) Pastoral Care Referral From ___ Patient ___ Family ___ Nurse ___ Physician ___ Cyanide Pot Tender ___ Airfreight Loading Supervisor ___ Other (describe below) Sacrament/Intervention ___ Active listening ___ Anointing ___ Faith ___ Bereavement ___ Communion ___ Danielle exploration ___ ___ Life review ___ Prayer ___ Reconciliation ___ Sacrament of Sick ___ Supportive presence ___ Wedding ___ Other (describe below) Pastoral Comments patient is still on the ventilator; no family members are present so far today; silent prayer given and a calling card is left in the room
[2023-10-29] MEDS: Midazolam 2 MG/2 ML Syringe IV (16:19)
[2023-10-29] MEDS: 0.9% Normal Saline (Pres. free 10 ML Vial (16:50)
[2023-10-29] MEDS: fentaNYL drip 100 ML 10 MCG CONT INF (16:53)
--- NOTE | 2023-10-29 17:55 | PN.GI_ITS ---
Subjective Subjective Patient underwent an upper endoscopy. He was discovered to have multiple bleeding ulcers in the stomach and in the small bowel. There were treated endoscopically. Objective Data Objective Data Vital Signs: Vital Signs Temp Pulse Resp BP Pulse Ox O2 Del Method O2 Flow Rate 100.3 F H 76 16 128/59 H 94 Mechanical Ventilator 10 10/29/23 17:00 10/29/23 17:23 10/29/23 17:23 10/29/23 17:00 10/29/23 17:23 10/29/23 17:00 10/24/23 05:00 FiO2 45 10/29/23 17:23 Oxygen Flow Rate (L/min) 10 Oxygen Delivery Method Mechanical Ventilator Weight: 182 lb 8.684 oz Body Mass Index (BMI) 25.8 Intake & Output: Intake and Output for Last 24 Hours 10/27/23 10/28/23 10/29/23 23:59 23:59 23:59 Intake Total 1540.79 / 1560.99 1977.00 / 2004.50 1416.51 / 1416.51 Output Total 1340 / 1360 2735 / 3110 4450 / 4450 Balance 200.79 / 200.99 -758.00 / -1105.50 -3033.49 / -3033.49 Lab / Micro Data 10/29/23 03:06 10/29/23 11:12 Labs: Laboratory Results - last 24 hr 10/29/23 03:06: WBC 5.4, RBC 3.85 L, Hgb 8.3 L, Hct 30.5 L, MCV 79.2 L, MCH 21.6 L, MCHC 27.2 L, RDW Std Deviation 74.4 H, RDW Coeff of Hilda 27.1 H, Plt Count 102 L, MPV 8.6, Immature Gran % (Auto) 0.700, Neut % (Auto) 89.8 H, Lymph % (Auto) 4.3 L, [place] % (Auto) 5.2, Eos % (Auto) 0.0, Baso % (Auto) 0.0, Absolute Neuts (auto) 4.9, Absolute Lymphs (auto) 0.23 L, Nucleated RBC % 0.4, Differential Comment SCANNED, Anisocytosis 1+, Sodium 141, Potassium 2.8 L, Chloride 109 H, Carbon Dioxide 27.0, Anion Gap 5, BUN 23 H, Creatinine 1.17, Estim Creat Clear Calc 54.59, Est GFR (MDRD) Af Amer 78, Est GFR (MDRD) Non-Af 64, BUN/Creatinine Ratio 19.7, Glucose 146 H, Calcium 8.3 L 10/29/23 03:12: Phosphorus 3.1, Magnesium 1.9 10/29/23 11:12: Potassium 2.6 L* Micro: Microbiology 10/24/23 09:25 Blood Culture (Wb) - Right Forearm Blood Culture - Final No growth in 5 days. 10/24/23 08:25 Blood Culture (Wb) - Central Line Blood Culture - Final No growth in 5 days. 10/26/23 10:20 Urine Catheter - Saldivar Urine Culture - Final Culture exhibits no growth. 10/26/23 14:20 Blood Culture (Wb) - Anticubital Right Blood Culture - Preliminary No growth in 48 hours. 10/26/23 10:30 Blood Culture (Wb) - Femoral Artery Blood Culture - Preliminary No growth in 48 hours. 10/26/23 10:03 Sputum, Induced/Lukens Gram Stain - Final 10/26/23 10:03 Sputum, Induced/Lukens Respiratory Culture - Final Culture exhibits no growth. 10/26/23 09:38 Mucosa - Nasopharyngeal Coronavirus COVID-19 PCR - Final 10/26/23 09:38 Mucosa - Nasopharyngeal Respiratory Panel (PCR) - Final 10/24/23 08:00 Urine Catheter - Saldivar Urine Culture - Final Culture exhibits no growth. 10/24/23 06:00 Sputum, Induced/Lukens Gram Stain - Final 10/24/23 06:00 Sputum, Induced/Lukens Respiratory Culture - Final ABG Data ABG results: ABG 10/29/23 06:09 Specimen Type ART Sample Site R Radial pH 7.43 Bicarbonate Actual 23.4 Total CO2 25 Base Excess -1 O2 Saturation 95 O2 % 45.0 ABG pCO2 35.6 ABG pO2 72 L Josef Test Positive O2 Delivery Device Adult Vent Vent Mode CPAP/PS POC PEEP 5 Physical Exam Const Constitutional Narrative: intubated, sedated. HEENT head/scalp atraumatic and moist oral mucous membranes Cardio Cardio Narrative: coarse BS bilaterally GI normal to inspection, nondistended, normoactive bowel sounds Psych affect normal Assessment & Plan Assessment/Plan (1) Severe anemia: PLAN: Plan 78-year-old gentleman with past medical history of cirrhosis secondary to hepatitis C and alcohol with concomitant microcytic anemia from unknown source. As per son he has never had a colonoscopy. He presents with upper and lower GI bleeding. -GI bleed: The differential diagnosis for upper GI bleed does include variceal bleed, peptic ulcer disease, angiodysplasia, Nusrat-Manning tear, erosive esophagitis, neoplasia. Differential diagnosis for lower GI bleed does include ischemic disease affecting the colon, upper GI bleed with rapid transit, lower GI bleed secondary to malignancy, diverticular bleed, hemorrhoidal bleed. He should undergo an upper endoscopy and later a colonoscopy to evaluate his severe microcytic anemia. He was explained alternatives, risk, benefit including not withstanding bleeding, infection, sepsis, perforation, need for emergent surgery . He will have an ASA of 3. Recommend to continue PPI drip, octreotide. Recommend ceftriaxone 1 g and keep n.p.o. for emergent endoscopy. - Severe microcytic hypochromic anemia along with leukopenia with lymphocytopenia: H&H 4.9 low MCV MCH and MCHC. RDW 19.5 overall suggestive of chronic iron deficiency anemia. Iron work-up with ferritin ordered. 2 units of PRBC typed and crossmatched and transfused 1 unit today. He should get a colonoscopy. - Decompensated alcoholic and hep C cirrhosis: Previous CT abdomen showed nodular liver along with perihepatic ascites, mild splenomegaly but no varices. No acute pancreatitis. Fluid restriction, 2 g sodium diet, spironolactone 25 mg daily with up titration as per tolerated. He needs CT scan abdomen pelvis to look for signs of ischemia, malignancy. Hepatitis C PCR RNA, chronic hepatitis B PCR DNA, alpha-fetoprotein 4 hepatocellular carcinoma, INR, PTT - Paroxysmal A. fib: Currently EKG shows A-fib with RVR. Heart rate is in the 120s to 150s. Patient was deemed not a candidate for anticoagulant because of current GI bleeding recurrent fall, chronic alcohol use and alcoholic cirrhosis history. - Chronic alcohol use disorder with dependence and tolerance: CIWA monitoring. On CIWA protocol with Ativan 10/24-severely decompensated liver disease with an acute upper GI bleed, new o nset ascites, acute renal failure, hypotension with respiratory depression and respiratory failure status postintubation. I called his worsening respiratory status. I also let him know that his MELD score is a little bit more severe today despite that his LFTs are not severely increased but his bilirubin increased which is associated with a worsening outcome in the setting of acute decompensated cirrhosis. A paracentesis was not performed because of his fluid was not sufficient for removal and was not an a safe location in the setting of severe liver disease with coagulopathy. He has been maintained on PPI drip. He has not shown any signs of withdrawal at this time. His blood work is consistent with alcoholic hepatitis. Poor prognosis. 10/26-continued decompensated liver disease with acute hypoxic respiratory failure intubated and sedated. 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 His hemoglobin remains stable which is a good sign on PPI drip and octreotide for stress gastritis associated with intubation and decompensated cirrhosis. His MELD is 20, child Stephenson class C. Carries a 25% mortality rate in 90 days. It is a good sign that his kidney function remains normal. Guarded prognosis. 10/28- Patient was being suctioned and got quite agitated, so he is being switched from precedex to propofol. His hemoglobin trended down and he received 1 unit of packed red blood cells. No plans for thoracentesis at this time. Still decompensated liver disease. Will plan for repeat upper endoscopy to evaluate his previous upper GI bleeding source. 10/29-she can continue GI bleed secondary to gastric ulcers secondary to stress gastritis with ulceration in the duodenum. Tube feeds can be restarted. Continue PPI. Charges/Coding Visit Charges Inpatient E&M: 08897 [facility] Hosp L3
[2023-10-29] MEDS: Vital AF 1.2 Cal Liquid 1,000 ML 10 ML GT (18:41)
[2023-10-29] MEDS: 0.9% Normal Saline (250mL Bag) 250 ML 15 ML IV (21:06)
[2023-10-29] MEDS: fentaNYL drip 100 ML 20 MCG CONT INF (23:49)
[2023-10-30] VITALS (35 sets, daily range): BP systolic 111–173; BP diastolic 62–95; PULSE 77–122; RESP 11–30; TEMP 37.2–38.2; O2SAT 90–98; BMI 24.5
[2023-10-30] MEDS: Ipratropium/Albuterol Sulfate 3 ML AMPUL.NEB INHALATION ×6 (02:58→23:03)
--- NOTE | 2023-10-30 03:02 | CPS ---
decreased fio2 from 55% to 50%
[2023-10-30 03:09] LABS: Absolute Neutrophil Count 2.7 X10^3/uL (2.0-7.7); Hematocrit 32.9 % (40-54); Hemoglobin 9.1 g/dL (13.0-16.5); Mean Corp Hgb Conc 27.7 g/dL (32-36); Mean Corpuscular Hgb 21.9 pg (27.0-32.0); Mean Corpuscular Volume 79.1 fL (80-94); Mean Platelet Vol. 8.7 fl (6.2-12.0); Monocyte# 0.29 X10^3/uL; Monocyte% 8.7 % (0-10); NRBC Flagged by Analyzer 0 % (0-5); Neutrophil # 2.74 X10^3/uL (2.7-7.7); Neutrophil % 81.7 % (47-70); POSITIVE COUNT YES; POSITIVE DIFFERENTIAL YES; POSITIVE MORPHOLOGY YES; Platelet Count 88 K/mm3 (150-450); RBC Distribution Width CV 27.9 % (11.6-14.6); RBC Distribution Width SD 76.8 fl (35.1-43.9); Red Blood Count 4.16 M/mm3 (4.6-6.2); White Blood Count 3.4 K/mm3 (4.4-11.0)
[2023-10-30 03:14] LABS: Differential Indicated SCAN CRITERIA MET
[2023-10-30 03:26] LABS: Anion Gap 5 (5-15); BUN 21 mg/dL (7-18); BUN/Creat Ratio 23.6 RATIO (10-20); Calcium,Total 8.2 mg/dL (8.5-10.1); Chloride 107 mmol/L (98-107); Creatinine, Serum 0.89 mg/dL (0.70-1.30); EST Glomerular Filtration Rate 88 mL/min (>60); Est Glom Filt Rate - Afr Amer 107 mL/min (>60); Estimated Creatinine Clearance 71.77 ml/min; Glucose 152 mg/dL (74-106); Potassium 2.3 mmol/L (3.5-5.1); Sodium Level 144 mmol/L (136-145)
[2023-10-30 03:29] LABS: Differential Comment SCANNED
[2023-10-30 03:30] LABS: Anisocytosis 3+; Macrocytosis 1+; Microcytosis 2+; Ovalocyte RARE; Polychromasia RARE; Target Cells RARE
[2023-10-30 03:31] LABS: Hypochromasia 2+
--- NOTE | 2023-10-30 03:40 | PCM.HOSP.N ---
Hospitalist Note I was called due to significant hypokalemia with potassium of 2.3 despite aggressive replacement yesterday. Magnesium level was normal yesterday. No need to repeat again today. It does appear that his potassium level started to drop after trophic feeds were initiated and I do wonder whether he is refeeding some. 60 mill equivalents of potassium has given now and he is also scheduled another 80 today. Repeat potassium ordered for 8 AM.
[2023-10-30] MEDS: Potassium Chloride Oral Soln 20 MEQ/15 ML UDC 80 MEQ PO (03:50)
--- NOTE | 2023-10-30 04:47 | CPS ---
Patient does not meet weaning criteria d/t increased oxygen demands. Patient currently at 50% FIO2.
[2023-10-30] MEDS: fentaNYL drip 100 ML 20 MCG CONT INF ×4 (05:00→22:00)
[2023-10-30] MEDS: Lactulose 20 GM/30 ML UDC PO ×3 (05:07→19:49)
[2023-10-30] MEDS: dexMEDEtomidine 1,000 MCG in 0.9% Normal Saline (250mL Bag) 240 ML 31.1000000000000014 MCG CONT INF (05:08)
[2023-10-30] MEDS: Piperacil/Tazobactam 3.375 GM in 0.9% Normal Saline (50mL MB+) 50 ML IV ×3 (05:08→19:48)
[2023-10-30] MEDS: TITRATION PARAMETER CHANGE 1 EACH IV (06:38)
--- NOTE | 2023-10-30 07:05 | PN.HOSP_ITS ---
Subjective Subjective Still on the ventilator. Requiring potassium for severe hypokalemia. Objective Data Objective Data Vital Signs: Vital Signs Temp Pulse Resp BP Pulse Ox O2 Del Method O2 Flow Rate 37.2 C 89 16 131/72 H 90 Mechanical Ventilator 10 10/30/23 04:00 10/30/23 06:37 10/30/23 06:37 10/30/23 06:00 10/30/23 06:37 10/30/23 06:00 10/24/23 05:00 FiO2 50 10/30/23 06:37 Oxygen Flow Rate (L/min) 10 Oxygen Delivery Method Mechanical Ventilator Weight: 78.5 kg Body Mass Index (BMI) 24.5 Intake & Output: Intake and Output for Last 24 Hours 10/28/23 10/29/23 10/30/23 23:59 23:59 23:59 Intake Total 1977. / 2003.50 195. / 2016. 534.75 / 534.75 Output Total 2735 / 3110 6050 / 6550 1625 / 1625 Balance -758.00 / -1105.50 -4097.76 / -4532.99 -1090.25 / -1090.25 Lab / Micro Data 10/30/23 03:00 10/30/23 08:56 Labs: Laboratory Results - last 24 hr 10/29/23 11:12: Potassium 2.6 L* 10/30/23 03:00: WBC 3.4 L, RBC 4.16 L, Hgb 9.1 L, Hct 32.9 L, MCV 79.1 L, MCH 21.9 L, MCHC 27.7 L, RDW Std Deviation 76.8 H, RDW Coeff of Hilda 27.9 H, Plt Coun t 88 L, MPV 8.7, Immature Gran % (Auto) 0.600, Neut % (Auto) 81.7 H, Lymph % (Auto) 9.0 L, Travis % (Auto) 8.7, Eos % (Auto) 0.0, Baso % (Auto) 0.0, Absolute Neuts (auto) 2.7, Absolute Lymphs (auto) 0.30 L, Nucleated RBC % 0, Differential Comment SCANNED, Polychromasia RARE, Hypochromasia 2+, Anisocytosis 3+, Microcytosis 2+, Macrocytosis 1+, Target Cells RARE, Ovalocytes RARE, Sodium 144, Potassium 2.3 L*, Chloride 107, Carbon Dioxide 32.0, Anion Gap 5, BUN 21 H, Creatinine 0.89, Estim Creat Clear Calc 71.77, Est GFR (MDRD) Af Amer 107, Est GFR (MDRD) Non-Af 88, BUN/Creatinine Ratio 23.6 H, Glucose 152 H, Calcium 8.2 L Micro: Microbiology 10/24/23 09:25 Blood Culture (Wb) - Right Forearm Blood Culture - Final No growth in 5 days. 10/24/23 08:25 Blood Culture (Wb) - Central Line Blood Culture - Final No growth in 5 days. 10/26/23 10:20 Urine Catheter - Saldivar Urine Culture - Final Culture exhibits no growth. 10/26/23 14:20 Blood Culture (Wb) - Anticubital Right Blood Culture - Preliminary No growth in 48 hours. 10/26/23 10:30 Blood Culture (Wb) - Femoral Artery Blood Culture - Preliminary No growth in 48 hours. 10/26/23 10:03 Sputum, Induced/Lukens Gram Stain - Final 10/26/23 10:03 Sputum, Induced/Lukens Respiratory Culture - Final Culture exhibits no growth. 10/26/23 09:38 Mucosa - Nasopharyngeal Coronavirus COVID-19 PCR - Final 10/26/23 09:38 Mucosa - Nasopharyngeal Respiratory Panel (PCR) - Final 10/24/23 08:00 Urine Catheter - Saldivar Urine Culture - Final Culture exhibits no growth. 10/24/23 06:00 Sputum, Induced/Lukens Gram Stain - Final 10/24/23 06:00 Sputum, Induced/Lukens Respiratory Culture - Final ABG Data ABG results: ABG 10/29/23 06:09 Specimen Type ART Sample Site R Radial pH 7.43 Bicarbonate Actual 23.4 Total CO2 25 Base Excess -1 O2 Saturation 95 O2 % 45.0 ABG pCO2 35.6 ABG pO2 72 L Josef Test Positive O2 Delivery Device Adult Vent Vent Mode CPAP/PS POC PEEP 5 Physical Exam Const Constitutional Narrative: intubated. sedated. afebrile. Resp normal respiratory effort, no retractions, no use of accessory muscles and clear to auscultation bilaterally Cardio regular rate, regular rhythm, S1 normal heart sound and S2 normal heart sound GI normal to inspection, nondistended, normoactive bowel sounds Extremity normal to inspection Assessment & Plan Assessment/Plan (1) Acute hypoxemic respiratory failure: (2) Cirrhosis of liver: (3) Ascites: (4) Atrial fibrillation with RVR: PLAN: Plan Acute blood loss anemia * stable * 2/2 GI bleed and iron deficiency * Hb was 4.9 on admission, and is s/p transfusion of 2 units of PRBCs. * Hb today is 9.1 * administer iron sucrose. GI bleed * EGD showed type 1 esophageal varices without bleeding, and 2 bleeding angiodysplastic lesions int he stomach and oozing duodenal ulcer that were both treated. * GI and critical care on board. * on PPI Multifactorial shock * hemorrhagic +/- septic * norepin weaned off this AM. * on IV vancomycin and Zosyn. * blood cultures pending. * sputum cultures show no growth * [facility] added scheduled albumin (subsequently dc'd) and stress dose hydrocortisone Decompensated alcoholic liver cirrhosis with ascites and possible encephalopathy * has a long history of alcohol abuse. * gastroenterology on board. * diuretics held. * management as per GI. * On thiamine and folic acid. * lactulose Acute hypoxic respiratory failure * 2/2 due to recurrent left pleural effusion and possible pneumonia. * 2D echo showed EF of 65% with no regional wall motion abnormalities with mild aortic stenosis * remains intubated and sedated. * Titrate oxygen to maintain saturation above 90%. Afib with RVR * no previous history of afib. Not anticoagulated. * EKG on admission showed A-fib. On Lopressor at home but is currently on hold due to hypotension. * tachycardia is improving. DVT prophylaxis; SCDs. Charges/Coding Visit Charges Inpatient E&M: 35550 Subs Hosp L2
--- NOTE | 2023-10-30 07:11 | PN.CC_ITS ---
Assessment & Plan Assessment/Plan (1) Decompensation of cirrhosis of liver: (2) Acute hypoxemic respiratory failure: PLAN: Plan RECOMMENDATIONS: 1. Complete course of broad-spectrum antimicrobials. 2. Hold diuresis for now to allow for aggressive electrolyte repletion 3. Continue to monitor H&H. Transfuse if hemoglobin drops below 7 g/dL. 4. Continue PPI therapy at twice daily. 5. Continue spontaneous breathing and awakening trials per protocol 6. Advance tube feeds per GI IMPRESSIONS: 1. Acute blood loss anemia secondary to upper GI bleed EGD completed on October 23 demonstrated type I isolated gastric varices along with 2 angiodysplastic lesions in the stomach and an oozing duodenal ulcer, all of which was intervened upon. The patient has received multiple units of packed red blood cells with stabilization in his H&H. Repeat endoscopy yesterday showed recurrent bleeding treated with cautery. Patient has had an improvement in H&H, likely secondary to diuresis. Will hold on transfusion for now. Plan to continue to monitor blood counts and transfuse if hemoglobin drops below 7 g/dL. Continue PPI therapy as ordered. Defer to GI on possible repeat scope 2. Multifactorial shock Resolved. The patient is profoundly hypotensive, which is likely a combination of sepsis, hemorrhage and hemodynamic effects of sedating medications on presentation. In addition, the patient has known cirrhosis with a tendency to third space fluids. Blood pressure is significantly improved after transition to Precedex. 3. Acute combined respiratory failure The patient was initially intubated in the setting of profound metabolic encephalopathy with concern for airway protection and acute CO2 retention and hypoxemia. The patient will be continued on assist-control mode of mechanical ventilation. In light of his history of tobacco dependency, scheduled bronchodilators will be continued. Plan to continue to wean FiO2 to maintain oxygen saturations at or above 90%. Continue antimicrobials to complete course. Recommend daily paired spontaneous awakening and breathing trials, as tolerated. Patient appears to have tolerated transition to Precedex. Likely resume diuretics tomorrow 4. Acute decompensated cirrhosis/hepatic encephalopathy Continue medical management per gastroenterology recommendations. 5. Paroxysmal atrial fibrillation Continue current supportive care. The patient is not a candidate for anticoagulation. 6. History of polysubstance dependency Continue current sedation regimen along with thiamine and folic acid repletion. Will initiate patient on Seroquel 7. Hypokalemia with ectopy Patient with significant ectopy over the last 48 hours. Patient has been started on trophic feeds, so an element of refeeding syndrome could be complicating repletion. Patient also has had significant diuresis with over 4 L out in the last 24 hours. Will hold diuretics for now to allow repletion of potassium. TIME: 37 minutes of critical care time was spent addressing the patient's acute blood loss anemia secondary to upper GI bleed, multifactorial shock, acute combined respiratory failure, acute decompensated cirrhosis, paroxysmal atrial fibrillation, metabolic encephalopathy, review of all data and collaboration with the care team. Subjective Subjective Patient did okay overnight. Patient continues to have significant ectopy. Patient did have an increase in FiO2 requirements, but no increased secretions noted. Patient has received significant potassium repletion over the last 24 hours and still had hypokalemia this morning. Patient continues to have periods of significant agitation resulting in tachycardia and hypoxia. Patient did not have a spontaneous breathing trial this morning secondary to increased oxygen requirements. Objective Data Objective Data Patient did have an endoscopy yesterday showing multiple bleeding ulcers that were addressed with cautery. Vital Signs: Vital Signs Temp Pulse Resp BP Pulse Ox O2 Del Method O2 Flow Rate 37.2 C 89 16 131/72 H 90 Mechanical Ventilator 10 10/30/23 04:00 10/30/23 06:37 10/30/23 06:37 10/30/23 06:00 10/30/23 06:37 10/30/23 06:00 10/24/23 05:00 FiO2 50 10/30/23 06:37 Oxygen Flow Rate (L/min) 10 Oxygen Delivery Method Mechanical Ventilator Weight: 78.5 kg Body Mass Index (BMI) 24.5 Intake & Output: Intake and Output for Last 24 Hours 10/28/23 10/29/23 10/30/23 23:59 23:59 23:59 Intake Total 1977.00 / 2003.50 1951. / 2016. 534.75 / 534.75 Output Total 2735 / 3110 6050 / 6550 1625 / 1625 Balance -758.00 / -1105.50 -4097.76 / -4532.99 -1090.25 / -1090.25 Lab / Micro Data 10/30/23 03:00 10/30/23 03:00 Labs: Laboratory Results - last 24 hr 10/29/23 11:12: Potassium 2.6 L* 10/30/23 03:00: WBC 3.4 L, RBC 4.16 L, Hgb 9.1 L, Hct 32.9 L, MCV 79.1 L, MCH 21.9 L, MCHC 27.7 L, RDW Std Deviation 76.8 H, RDW Coeff of Hilda 27.9 H, Plt Count 88 L, MPV 8.7, Immature Gran % (Auto) 0.600, Neut % (Auto) 81.7 H, Lymph % (Auto) 9.0 L, Craven % (Auto) 8.7, Eos % (Auto) 0.0, Baso % (Auto) 0.0, Absolute Neuts (auto) 2.7, Absolute Lymphs (auto) 0.30 L, Nucleated RBC % 0, Differential Comment SCANNED, Polychromasia RARE, Hypochromasia 2+, Anisocytosis 3+, Microcytosis 2+, Macrocytosis 1+, Target Cells RARE, Ovalocytes RARE, Sodium 144, Potassium 2.3 L*, Chloride 107, Carbon Dioxide 32.0, Anion Gap 5, BUN 21 H, Creatinine 0.89, Estim Creat Clear Calc 71.77, Est GFR (MDRD) Af Amer 107, Est GFR (MDRD) Non-Af 88, BUN/Creatinine Ratio 23.6 H, Glucose 152 H, Calcium 8.2 L Micro: Microbiology 10/24/23 09:25 Blood Culture (Wb) - Right Forearm Blood Culture - Final No growth in 5 days. 10/24/23 08:25 Blood Culture (Wb) - Central Line Blood Culture - Final No growth in 5 days. 10/26/23 10:20 Urine Catheter - Saldivar Urine Culture - Final Culture exhibits no growth. 10/26/23 14:20 Blood Culture (Wb) - Anticubital Right Blood Culture - Pre liminary No growth in 48 hours. 10/26/23 10:30 Blood Culture (Wb) - Femoral Artery Blood Culture - Preliminary No growth in 48 hours. 10/26/23 10:03 Sputum, Induced/Lukens Gram Stain - Final 10/26/23 10:03 Sputum, Induced/Lukens Respiratory Culture - Final Culture exhibits no growth. 10/26/23 09:38 Mucosa - Nasopharyngeal Coronavirus COVID-19 PCR - Final 10/26/23 09:38 Mucosa - Nasopharyngeal Respiratory Panel (PCR) - Final 10/24/23 08:00 Urine Catheter - Saldivar Urine Culture - Final Culture exhibits no growth. 10/24/23 06:00 Sputum, Induced/Lukens Gram Stain - Final 10/24/23 06:00 Sputum, Induced/Lukens Respiratory Culture - Final ABG Data ABG results: ABG 10/29/23 06:09 Specimen Type ART Sample Site R Radial pH 7.43 Bicarbonate Actual 23.4 Total CO2 25 Base Excess -1 O2 Saturation 95 O2 % 45.0 ABG pCO2 35.6 ABG pO2 72 L Josef Test Positive O2 Delivery Device Adult Vent Vent Mode CPAP/PS POC PEEP 5 Physical Exam Const Constitutional Narrative: Intubated and sedated. RASS -1. Good vent synchrony. Slight jaundice noted HEENT normocephalic, head/scalp atraumatic and hearing grossly normal bilaterally Eyes PERRL, EOMs intact bilaterally and conjunctivae normal Eyes Narrative: Slight scleral icterus Neck full ROM, no lymphadenopathy and supple Neck Narrative: JVD noted General: trachea midline Lymph Lymphatic: no lymphadenopathy noted and no lymphedema noted Chest inspection of chest normal Resp normal respiratory effort and no use of accessory muscles Resp Narrative: Coarse mechanical breath sounds. Auscultation: rales and diminished lung sounds; Negative for rhonchi or wheezes Cardio regular rate, regular rhythm, S1 normal heart sound, S2 normal heart sound, no murmurs and peripheral pulses 2+ throughout GI soft to palpation Inspection: anasarca present and abdominal distention; Negative for ostomy present Palpation: ascites; Negative for tender, guarding or rigid Back/Spine normal ROM Extremity no calf tenderness Extremity Narrative: Anasarca with 1+ edema General Extremity: no tenderness to palpation of joints or extremities; Negative for clubbing or edema Skin no rashes or lesions noted General Skin Exam: no breakdown and turgor normal Neuro moves all extremities, no focal motor deficits and no sensory deficits noted Sensorium / Orientation: sedated on vent Psych Mood & Affect: flat affect Charges/Coding Procedures Hospitalists Procedures: 80742 Critical Care 1st Hr
[2023-10-30] MEDS: 0.9% Saline Lock 10 ML Syringe IV ×2 (08:35→19:49)
[2023-10-30] MEDS: Pantoprazole Sodium 40 MG in 0.9% Normal Saline (100mL MB+) 100 ML 330 MG IV ×2 (08:41→19:48)
[2023-10-30] MEDS: Hydrocortisone Sod Succinate 100 MG/2 ML Vial 50 MG IV ×2 (08:42→19:48)
[2023-10-30] MEDS: Chlorhexidine 15 ML PO ×2 (08:42→19:47)
[2023-10-30] MEDS: QUEtiapine 100 MG Tablet PO ×2 (08:42→19:48)
[2023-10-30] MEDS: Folic Acid 1 MG Tablet GT (08:42)
[2023-10-30] MEDS: Thiamine Hydrochloride 100 MG Tablet GT (08:42)
[2023-10-30] MEDS: Vancomycin Trough/Random Due 1 LAB MC ×2 (08:43→08:59)
[2023-10-30] MEDS: Potassium Chloride Oral Soln 20 MEQ/15 ML UDC 40 MEQ PO ×2 (08:43→19:48)
[2023-10-30] MEDS: CHLORHEXIDINE GLUC 2% CLOTH 1 EACH TOWELETTE TOPICAL (08:50)
[2023-10-30 09:46] LABS: Potassium 2.7 mmol/L (3.5-5.1)
[2023-10-30] MEDS: Potassium Chloride 10mEq/100mL 10 MEQ/100 ML IV.SOLN. 100 MEQ IV BOLUS ×4 (10:36→15:09)
[2023-10-30] MEDS: Vancomycin IV 1,000 MG/200 ML BAG 200 MG IV (10:36)
--- NOTE | 2023-10-30 10:40 | PCM.RX.CS ---
Consult Antibiotic Management Pharmacy has been consulted to manage selected antibiotic: Vancomycin Type of Intervention Type of Consult: Follow-up Prior Doses of Antibiotics Prior Doses of Antibiotics Received/Current Regimen: current dose is vanc 1000mg IV q24h Labs Labs: Sodium 144 mmol/L (136-145) 10/30/23 03:00 Potassium 2.7 mmol/L (3.5-5.1) L* 10/30/23 08:56 Chloride 107 mmol/L (98-107) 10/30/23 03:00 Carbon Dioxide 32.0 mmol/L (21.0-32.0) 10/30/23 03:00 Anion Gap 5 (5-15) 10/30/23 03:00 BUN 21 mg/dL (7-18) H 10/30/23 03:00 Creatinine 0.89 mg/dL (0.70-1.30) 10/30/23 03:00 Est GFR (MDRD) Af Amer 107 mL/min (>60) 10/30/23 03:00 Est GFR (MDRD) Non-Af 88 mL/min (>60) 10/30/23 03:00 BUN/Creatinine Ratio 23.6 RATIO (10-20) H 10/30/23 03:00 Glucose 152 mg/dL (74-106) H 10/30/23 03:00 Vancomycin Trough 9.0 ug/mL (5.0-15.0) 10/30/23 08:56 Random Vancomycin 17.0 ug/mL (0.0-15.0) H 10/28/23 08:30 Microbiology Microbiology: Microbiology 10/24/23 09:25 Blood Culture (Wb) - Right Forearm Blood Culture - Final No growth in 5 days. 10/24/23 08:25 Blood Culture (Wb) - Central Line Blood Culture - Final No growth in 5 days. 10/26/23 10:20 Urine Catheter - Saldivar Urine Culture - Final Culture exhibits no growth. 10/26/23 14:20 Blood Culture (Wb) - Anticubital Right Blood Culture - Preliminary No growth in 48 hours. 10/26/23 10:30 Blood Culture (Wb) - Femoral Artery Blood Culture - Preliminary No growth in 48 hours. 10/26/23 10:03 Sputum, Induced/Lukens Gram Stain - Final 10/26/23 10:03 Sputum, Induced/Lukens Respiratory Culture - Final Culture exhibits no growth. 10/26/23 09:38 Mucosa - Nasopharyngeal Coronavirus COVID-19 PCR - Final 10/26/23 09:38 Mucosa - Nasopharyngeal Respiratory Panel (PCR) - Final 10/24/23 08:00 Urine Catheter - Saldivar Urine Culture - Final Culture exhibits no growth. 10/24/23 06:00 Sputum, Induced/Lukens Gram Stain - Final 10/24/23 06:00 Sputum, Induced/Lukens Respiratory Culture - Final Dosing Weight Weight used for dosin.5 kg Estimated Creatinine Clearance Estimated Creatinine Clearance: 71.8ml/min Goal Trough Goal Trough: 15-20 mcg/mL Pharmacy Plan for Drug Dosing Pharmacy Plan for Drug Dosing: The vanc trough drawn at 08:56 today (approx 25 hours after the previous dose) was 9.0. This would've been a litle higher if drawn closer to the 24-hr peng but still below goal. However, will leave the patient on the same dose to finish out one more dose for today since the stop date is later ton. Will not schedule another trough at this time due to the same reason. Pharmacy Service will continue to monitor and adjust dosing as required.
[2023-10-30] MEDS: dexMEDEtomidine 1,000 MCG in 0.9% Normal Saline (250mL Bag) 240 ML 29.3999999999999986 MCG CONT INF ×2 (13:29→22:00)
--- NOTE | 2023-10-30 16:33 | EX.PCM.PN.GI ---
Subjective Subjective Patient an endoscopy at the bedside while patient was intubated and sedated. He was discovered to have multiple active bleeding gastric ulcers that were treated endoscopically. His hemoglobin seems to be improving. Tube feedings were restarted. Patient is still on the ventilator being managed by pulmonary critical care. Objective Data Objective Data Vital Signs: Vital Signs Temp Pulse Resp BP Pulse Ox O2 Del Method O2 Flow Rate 99.9 F H 81 16 111/95 H 96 Mechanical Ventilator 10 10/30/23 12:00 10/30/23 15:44 10/30/23 15:44 10/30/23 15:00 10/30/23 15:44 10/30/23 15:00 10/24/23 05:00 FiO2 50 10/30/23 15:44 Oxygen Flow Rate (L/min) 10 Oxygen Delivery Method Mechanical Ventilator Weight: 173 lb 1.006 oz Body Mass Index (BMI) 24.5 Intake & Output: Intake and Output for Last 24 Hours 10/28/23 10/29/23 10/30/23 23:59 23:59 23:59 Intake Total 1976. / 2003.50 1951. / 2128.30 / 2128.30 Output Total 2735 / 3110 6050 / 6550 2275 / 2275 Balance -758.00 / -1105.50 -4097.76 / -4532.99 -146.70 / -146.70 Lab / Micro Data 10/30/23 03:00 10/30/23 08:56 Labs: Laboratory Results - last 24 hr 10/30/23 03:00: WBC 3.4 L, RBC 4.16 L, Hgb 9.1 L, Hct 32.9 L, MCV 79.1 L, MCH 21.9 L, MCHC 27.7 L, RDW Std Deviation 76.8 H, RDW Coeff of Hilda 27.9 H, Plt Count 88 L, MPV 8.7, Immature Gran % (Auto) 0.600, Neut % (Auto) 81.7 H, Lymph % (Auto) 9.0 L, [place] % (Auto) 8.7, Eos % (Auto) 0.0, Baso % (Auto) 0.0, Absolute Neuts (auto) 2.7, Absolute Lymphs (auto) 0.30 L, Nucleated RBC % 0, Differential Comment SCANNED, Polychromasia RARE, Hypochromasia 2+, Anisocytosis 3+, Microcytosis 2+, Macrocytosis 1+, Target Cells RARE, Ovalocytes RARE, Sodium 144, Potassium 2.3 L*, Chloride 107, Carbon Dioxide 32.0, Anion Gap 5, BUN 21 H, Creatinine 0.89, Estim Creat Clear Calc 71.77, Est GFR (MDRD) Af Amer 107, Est GFR (MDRD) Non-Af 88, BUN/Creatinine Ratio 23.6 H, Glucose 152 H, Calcium 8.2 L 10/30/23 08:56: Potassium 2.7 L*, Vancomycin Trough 9.0 Micro: Microbiology 10/24/23 09:25 Blood Culture (Wb) - Right Forearm Blood Culture - Final No growth in 5 days. 10/24/23 08:25 Blood Culture (Wb) - Central Line Blood Culture - Final No growth in 5 days. 10/26/23 10:20 Urine Catheter - Saldivar Urine Culture - Final Culture exhibits no growth. 10/26/23 14:20 Blood Culture (Wb) - Anticubital Right Blood Culture - Preliminary No growth in 48 hours. 10/26/23 10:30 Blood Culture (Wb) - Femoral Artery Blood Culture - Preliminary No growth in 48 hours. 10/26/23 10:03 Sputum, Induced/Lukens Gram Stain - Final 10/26/23 10:03 Sputum, Induced/Lukens Respiratory Culture - Final Culture exhibits no growth. 10/26/23 09:38 Mucosa - Nasopharyngeal Coronavirus COVID-19 PCR - Final 10/26/23 09:38 Mucosa - Nasopharyngeal Respiratory Panel (PCR) - Final 10/24/23 08:00 Urine Catheter - Saldivar Urine Culture - Final Culture exhibits no growth. 10/24/23 06:00 Sputum, Induced/Lukens Gram Stain - Final 10/24/23 06:00 Sputum, Induced/Lukens Respiratory Culture - Final Physical Exam Const Constitutional Narrative: Intubated and sedated. RASS -1. Good vent synchrony. Slight jaundice noted HEENT normocephalic, head/scalp atraumatic and hearing grossly normal bilaterally Eyes PERRL, EOMs intact bilaterally and conjunctivae normal Eyes Narrative: Slight scleral icterus Neck full ROM, no lymphadenopathy and supple Neck Narrative: JVD noted General: trachea midline Lymph Lymphatic: no lymphadenopathy noted and no lymphedema noted Chest inspection of chest normal Resp normal respiratory effort and no use of accessory muscles Resp Narrative: Coarse mechanical breath sounds. Auscultation: rales and diminished lung sounds; Negative for rhonchi or wheezes Cardio regular rate, regular rhythm, S1 normal heart sound, S2 normal heart sound, no murmurs and peripheral pulses 2+ throughout GI soft to palpation Inspection: anasarca present and abdominal distention; Negative for ostomy present Palpation: ascites; Negative for tender, guarding or rigid Back/Spine normal ROM Extremity no calf tenderness Extremity Narrative: Anasarca with 1+ edema General Extremity: no tenderness to palpation of joints or extremities; Negative for clubbing or edema Skin no rashes or lesions noted General Skin Exam: no breakdown and turgor normal Neuro moves all extremities, no focal motor deficits and no sensory deficits noted Sensorium / Orientation: sedated on vent Psych Mood & Affect: flat affect Assessment & Plan Assessment/Plan (1) Severe anemia: PLAN: Plan 78-year-old gentleman with past medical history of cirrhosis secondary to hepatitis C and alcohol with concomitant microcytic anemia from unknown source. As per son he has never had a colonoscopy. He presents with upper and lower GI bleeding. -GI bleed: The differential diagnosis for upper GI bleed does include variceal bleed, peptic ulcer disease, angiodysplasia, Nusrat-Manning tear, erosive esophagitis, neoplasia. Differential diagnosis for lower GI bleed does include ischemic disease affecting the colon, upper GI bleed with rapid transit, lower GI bleed secondary to malignancy, diverticular bleed, hemorrhoidal bleed. He should undergo an upper endoscopy and later a colonoscopy to evaluate his severe microcytic anemia. He was explained alternatives, risk, benefit including not withstanding bleeding, infection, sepsis, perforation, need for emergent surgery . He will have an ASA of 3. Recommend to continue PPI drip, octreotide. Recommend ceftriaxone 1 g and keep n.p.o. for emergent endoscopy. - Severe microcytic hypochromic anemia along with leukopenia with lymphocytopenia: H&H 4.9 low MCV MCH and MCHC. RDW 19.5 overall suggestive of chronic iron deficiency anemia. Iron work-up with ferritin ordered. 2 units of PRBC typed and crossmatched and transfused 1 unit today. He should get a colonoscopy. - Decompensated alcoholic and hep C cirrhosis: Previous CT abdomen showed nodular liver along with perihepatic ascites, mild splenomegaly but no varices. No acute pancreatitis. Fluid restriction, 2 g sodium diet, spironolactone 25 mg daily with up titration as per tolerated. He needs CT scan abdomen pelvis to look for signs of ischemia, malignancy. Hepatitis C PCR RNA, chronic hepatitis B PCR DNA, alpha-fetoprotein 4 hepatocellular carcinoma, INR, PTT - Paroxysmal A. fib: Currently EKG shows A-fib with RVR. Heart rate is in the 120s to 150s. Patient was deemed not a candidate for anticoagulant because of current GI bleeding recurrent fall, chronic alcohol use and alcoholic cirrhosis history. - Chronic alcohol use disorder with dependence and tolerance: CIWA monitoring. On CIWA protocol with Ativan 10/24-severely decompensated liver disease with an acute upper GI bleed, new onset ascites, acute renal failure, hypotension with respiratory depression and respiratory failure status postintubation. I called his worsening respiratory status. I also let him know that his MELD score is a little bit more severe today despite that his LFTs are not severely increased but his bilirubin increased which is associated with a worsening outcome in the setting of acute decompensated cirrhosis. A paracentesis was not performed because of his fluid was not sufficient for removal and was not an a safe location in the setting of severe liver disease with coagulopathy. He has been maintained on PPI drip. He has not shown any signs of withdrawal at this time. His blood work is consistent with alcoholic hepatitis. Poor prognosis. 10/26-continued decompensated liver disease with acute hypoxic respiratory failure intubated and sedated. 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 His hemoglobin remains stable which is a good sign on PPI drip and octreotide for stress gastritis associated with intubation and decompensated cirrhosis. His MELD is 20, child Stephenson class C. Carries a 25% mortality rate in 90 days. It is a good sign that his kidney function remains normal. Guarded prognosis. 10/28- Patient was being suctioned and got quite agitated, so he is being switched from precedex to propofol. His hemoglobin trended down and he received 1 unit of packed red blood cells. No plans for thoracentesis at this time. Still decompensated liver disease. Will plan for repeat upper endoscopy to evaluate his previous upper GI bleeding source. 10/29-she can continue GI bleed secondary to gastric ulcers secondary to stress gastritis with ulceration in the duodenum. Tube feeds can be restarted. Continue PPI. 10/30-his hemoglobin continues to improve. It is up to 9.1. Unfortunately, he still intubated. Very poor prognosis. Charges/Coding Visit Charges Inpatient E&M: 69149 Subs Hosp L3
[2023-10-30] MEDS: Menthol/Lanolin/Calamine/Znox 113 GM Tube 1 APPLIC TOPICAL (19:47)
[2023-10-31] VITALS (38 sets, daily range): BP systolic 100–155; BP diastolic 54–94; PULSE 81–115; RESP 15–20; TEMP 37.4–38.3; O2SAT 88–98; BMI 24.5
[2023-10-31] MEDS: Ipratropium/Albuterol Sulfate 3 ML AMPUL.NEB INHALATION ×6 (02:28→22:58)
[2023-10-31] MEDS: fentaNYL drip 100 ML 20 MCG CONT INF ×2 (03:00→07:55)
[2023-10-31 03:16] LABS: Absolute Lymphocyte Count 0.37 X10^3/uL (0.83-4.51); Absolute Neutrophil Count 3.4 X10^3/uL (2.0-7.7); Hematocrit 32.2 % (40-54); Hemoglobin 8.7 g/dL (13.0-16.5); Lymphocyte # 0.37 X10^3/ul (0.83-4.51); Lymphocyte % 8.9 % (19-41); Mean Corpuscular Hgb 21.9 pg (27.0-32.0); Mean Corpuscular Volume 80.9 fL (80-94); Mean Platelet Vol. 9.5 fl (6.2-12.0); Monocyte# 0.34 X10^3/uL; Monocyte% 8.2 % (0-10); NRBC Flagged by Analyzer 0 % (0-5); Neutrophil # 3.44 X10^3/uL (2.7-7.7); Neutrophil % 82.4 % (47-70); POSITIVE COUNT YES; POSITIVE DIFFERENTIAL YES; POSITIVE MORPHOLOGY YES; Platelet Count 78 K/mm3 (150-450); RBC Distribution Width CV 28.6 % (11.6-14.6); RBC Distribution Width SD 81.4 fl (35.1-43.9); Red Blood Count 3.98 M/mm3 (4.6-6.2); White Blood Count 4.2 K/mm3 (4.4-11.0)
[2023-10-31 03:21] LABS: Differential Indicated SCAN CRITERIA MET
[2023-10-31 03:27] LABS: Anion Gap 3 (5-15); BUN 19 mg/dL (7-18); Calcium,Total 8.3 mg/dL (8.5-10.1); Chloride 112 mmol/L (98-107); EST Glomerular Filtration Rate 87 mL/min (>60); Est Glom Filt Rate - Afr Amer 105 mL/min (>60); Estimated Creatinine Clearance 70.97 ml/min; Glucose 144 mg/dL (74-106); Magnesium 1.8 mg/dL (1.6-2.6); Potassium 3.2 mmol/L (3.5-5.1); Sodium Level 146 mmol/L (136-145)
[2023-10-31 03:37] LABS: Phosphorus 2.3 mg/dL (2.5-4.9)
[2023-10-31 03:50] LABS: Anisocytosis 3+
[2023-10-31] MEDS: Menthol/Lanolin/Calamine/Znox 113 GM Tube 1 APPLIC TOPICAL ×3 (05:14→22:02)
[2023-10-31] MEDS: Lactulose 20 GM/30 ML UDC PO ×3 (05:14→22:01)
[2023-10-31] MEDS: Vital AF 1.2 Cal Liquid 1,000 ML 10 ML GT (05:58)
[2023-10-31] MEDS: dexMEDEtomidine 1,000 MCG in 0.9% Normal Saline (250mL Bag) 240 ML 29.3999999999999986 MCG CONT INF ×3 (06:00→22:39)
[2023-10-31] MEDS: Propofol 10MG/Ml 1,000 MG/100 ML Bottle 4.70000000000000018 MG CONT INF ×2 (06:30→17:24)
[2023-10-31] MEDS: Potassium Phosphate 40 MM in 0.9% Normal Saline (500mL Bag) 500 ML 62.5 MM IV (06:40)
--- NOTE | 2023-10-31 07:06 | PN.CC_ITS ---
Assessment & Plan Assessment/Plan (1) Decompensation of cirrhosis of liver: (2) Acute hypoxemic respiratory failure: PLAN: Plan RECOMMENDATIONS: 1. Complete course of broad-spectrum antimicrobials. 2. Resume diuresis with aggressive electrolyte repletion 3. Continue to monitor H&H. Transfuse if hemoglobin drops below 7 g/dL. 4. Continue PPI therapy at twice daily. 5. Continue spontaneous breathing and awakening trials per protocol 6. Advance tube feeds per GI 7. Consider suppository for bowel movement if okay with GI IMPRESSIONS: 1. Acute blood loss anemia secondary to upper GI bleed EGD completed on October 23 demonstrated type I isolated gastric varices along with 2 angiodysplastic lesions in the stomach and an oozing duodenal ulcer, all of which was intervened upon. The patient has received multiple units of packed red blood cells with stabilization in his H&H. Repeat endoscopy 10/29/2023 showed recurrent bleeding treated with cautery. Patient has had an improvement in H&H, likely contributed by diuresis. Will hold on transfusion for now. Plan to continue to monitor blood counts and transfuse if hemoglobin drops below 7 g/dL. Continue PPI therapy as ordered. Defer to GI on possible repeat scope. Will defer to GI on possible suppository for bowel movements 2. Multifactorial shock Resolved. The patient is profoundly hypotensive, which is likely a combination of sepsis, hemorrhage and hemodynamic effects of sedating medications on presentation. In addition, the patient has known cirrhosis with a tendency to third space fluids. Blood pressure is significantly improved after transition to Precedex. 3. Acute combined respiratory failure The patient was initially intubated in the setting of profound metabolic encephalopathy with concern for airway protection and acute CO2 retention and hypoxemia. The patient will be continued on assist-control mode of mechanical ventilation. In light of his history of tobacco dependency, scheduled bronchodilators will be continued. Plan to continue to wean FiO2 to maintain oxygen saturations at or above 90%. Continue antimicrobials to complete course. Recommend daily paired spontaneous awakening and breathing trials, as tolerated. Patient appears to have tolerated transition to Precedex. Diuretics have been resumed. Will add propofol to help with agitation during the day, but continue Precedex to facilitate spontaneous awakening and breathing trials. 4. Acute decompensated cirrhosis/hepatic encephalopathy Continue medical management per gastroenterology recommendations. 5. Paroxysmal atrial fibrillation Continue current supportive care. The patient is not a candidate for anticoagulation. 6. History of polysubstance dependency Continue current sedation regimen along with thiamine and folic acid repletion. Will initiate patient on Seroquel 7. Hypokalemia with ectopy Patient with significant ectopy over the last 48 hours. Patient has been started on trophic feeds, so an element of refeeding syndrome could be complicating repletion. Patient also has had significant diuresis with over 4 L out in the last 24 hours. Will hold diuretics for now to allow repletion of potassium. TIME: 33 minutes of critical care time was spent addressing the patient's acute blood loss anemia secondary to upper GI bleed, multifactorial shock, acute combined respiratory failure, acute decompensated cirrhosis, paroxysmal atrial fibrillation, metabolic encephalopathy, review of all data and collaboration with the care team. Subjective Subjective Patient did okay overnight from a hemodynamic standpoint. Patient has continued to have urine output despite lack of diuretics. Patient continues to have periods of intermittent agitation that have led to some bruising. Patient unable to tolerate spontaneous awakening trial this morning. Patient continues to tolerate tube feeds, but has not had a bowel movement. Objective Data Objective Data Vital Signs: Vital Signs Temp Pulse Resp BP Pulse Ox O2 Del Method O2 Flow Rate 38.3 C H 86 16 140/59 H 93 Mechanical Ventilator 40 10/31/23 04:00 10/31/23 06:57 10/31/23 06:57 10/31/23 06:00 10/31/23 06:57 10/31/23 06:00 10/30/23 23:00 FiO2 40 10/31/23 06:57 Oxygen Flow Rate (L/min) 40 Oxygen Delivery Method Mechanical Ventilator Weight: 78.5 kg Body Mass Index (BMI) 24.5 Intake & Output: Intake and Output for Last 24 Hours 10/29/23 10/30/23 10/31/23 23:59 23:59 23:59 Intake Total 2831.36 / 2910.76 666.65 / 666.65 Output Total 6050 / 6550 2450 / 3150 1150 / 1150 Balance -4097.76 / -4532.99 381.36 / -239.24 -483.35 / -483.35 Lab / Micro Data Attestation: I reviewed the patient's lab results. 10/31/23 03:05 10/31/23 03:05 Labs: Laboratory Results - last 24 hr 10/30/23 08:56: Potassium 2.7 L*, Vancomycin Trough 9.0 10/31/23 03:05: WBC 4.2 L, RBC 3.98 L, Hgb 8.7 L, Hct 32.2 L, MCV 80.9, MCH 21.9 L, MCHC 27.0 L, RDW Std Deviation 81.4 H, RDW Coeff of Hilda 28.6 H, Plt Count 78 L, MPV 9.5, Immature Gran % (Auto) 0.500, Neut % (Auto) 82.4 H, Lymph % (Auto) 8.9 L, [place] % (Auto) 8.2, Eos % (Auto) 0.0, Baso % (Auto) 0.0, Absolute Neuts (auto) 3.4, Absolute Lymphs (auto) 0.37 L, Nucleated RBC % 0, Anisocytosis 3+, Sodium 146 H, Potassium 3.2 L, Chloride 112 H, Carbon Dioxide 31.0, Anion Gap 3 L, BUN 19 H, Creatinine 0.90, Estim Creat Clear Calc 70.97, Est GFR (MDRD) Af Amer 105, Est GFR (MDRD) Non-Af 87, BUN/Creatinine Ratio 21.0 H, Glucose 144 H, Calcium 8.3 L, Phosphorus 2.3 L, Magnesium 1.8 Micro: Microbiology 10/24/23 09:25 Blood Culture (Wb) - Right Forearm Blood Culture - Final No growth in 5 days. 10/24/23 08:25 Blood Culture (Wb) - Central Line Blood Culture - Final No growth in 5 days. 10/26/23 10:20 Urine Catheter - Saldivar Urine Culture - Final Culture exhibits no growth. 10/26/23 14:20 Blood Culture (Wb) - Anticubital Right Blood Culture - Preliminary No growth in 48 hours. 10/26/23 10:30 Blood Culture (Wb) - Femoral Artery Blood Culture - Prelimina ry No growth in 48 hours. 10/26/23 10:03 Sputum, Induced/Lukens Gram Stain - Final 10/26/23 10:03 Sputum, Induced/Lukens Respiratory Culture - Final Culture exhibits no growth. 10/26/23 09:38 Mucosa - Nasopharyngeal Coronavirus COVID-19 PCR - Final 10/26/23 09:38 Mucosa - Nasopharyngeal Respiratory Panel (PCR) - Final 10/24/23 08:00 Urine Catheter - Saldivar Urine Culture - Final Culture exhibits no growth. 10/24/23 06:00 Sputum, Induced/Lukens Gram Stain - Final 10/24/23 06:00 Sputum, Induced/Lukens Respiratory Culture - Final Physical Exam Const Constitutional Narrative: Intubated and sedated. RASS -1. Good vent synchrony. Slight jaundice noted HEENT normocephalic, head/scalp atraumatic and hearing grossly normal bilaterally Eyes PERRL, EOMs intact bilaterally and conjunctivae normal Eyes Narrative: Slight scleral icterus Neck full ROM, no lymphadenopathy and supple Neck Narrative: JVD noted General: trachea midline Lymph Lymphatic: no lymphadenopathy noted and no lymphedema noted Chest inspection of chest normal Resp normal respiratory effort and no use of accessory muscles Resp Narrative: Coarse mechanical breath sounds. Auscultation: rales and diminished lung sounds; Negative for rhonchi or wheezes Cardio regular rate, regular rhythm, S1 normal heart sound, S2 normal heart sound, no murmurs and peripheral pulses 2+ throughout GI soft to palpation GI Narrative: Abdominal distention appears to be slightly worse compared to previous Inspection: anasarca present and abdominal distention; Negative for ostomy present Palpation: ascites; Negative for tender, guarding or rigid Back/Spine normal ROM Extremity no calf tenderness Extremity Narrative: Anasarca with 1+ edema General Extremity: no tenderness to palpation of joints or extremities; Negative for clubbing or edema Skin no rashes or lesions noted General Skin Exam: no breakdown and turgor normal Neuro moves all extremities, no focal motor deficits and no sensory deficits noted Sensorium / Orientation: sedated on vent Psych Mood & Affect: flat affect Charges/Coding Procedures Hospitalists Procedures: 38404 Critical Care 1st Hr
--- NOTE | 2023-10-31 07:31 | PN.HOSP_ITS ---
Subjective Subjective Failed SBT. Propofol added to fentanyl and dexmedetomidine due to ongoing agitation. Objective Data Objective Data Vital Signs: Vital Signs Temp Pulse Resp BP Pulse Ox O2 Del Method O2 Flow Rate 38.3 C H 86 16 140/59 H 93 Mechanical Ventilator 40 10/31/23 04:00 10/31/23 06:57 10/31/23 06:57 10/31/23 06:00 10/31/23 06:57 10/31/23 06:00 10/30/23 23:00 FiO2 40 10/31/23 06:57 Oxygen Flow Rate (L/min) 40 Oxygen Delivery Method Mechanical Ventilator Weight: 78.5 kg Body Mass Index (BMI) 24.5 Intake & Output: Intake and Output for Last 24 Hours 10/29/23 10/30/23 10/31/23 23:59 23:59 23:59 Intake Total 1951. 2831.36 / 2910.76 666.65 / 666.65 Output Total 6050 / 6550 2450 / 3150 1150 / 1150 Balance -4097.76 / -4532.99 381.36 / -239.24 -483.35 / -483.35 Lab / Micro Data 10/31/23 03:05 10/31/23 03:05 Labs: Laboratory Results - last 24 hr 10/30/23 08:56: Potassium 2.7 L*, Vancomycin Trough 9.0 10/31/23 03:05: WBC 4.2 L, RBC 3.98 L, Hgb 8.7 L, Hct 32.2 L, MCV 80.9, MCH 21.9 L, MCHC 27.0 L, RDW Std Deviation 81.4 H, RDW Coeff of Hilda 28.6 H, Plt Count 78 L, MPV 9.5, Immature Gran % (Auto) 0.500, Neut % (Auto) 82.4 H, Lymph % (Auto) 8.9 L, [place] % (Auto) 8.2, Eos % (Auto) 0.0, Baso % (Auto) 0.0, Absolute Neuts (auto) 3.4, Absolute Lymphs (auto) 0.37 L, Nucleated RBC % 0, Anisocytosis 3+, Sodium 146 H, Potassium 3.2 L, Chloride 112 H, Carbon Dioxide 31.0, Anion Gap 3 L, BUN 19 H, Creatinine 0.90, Estim Creat Clear Calc 70.97, Est GFR (MDRD) Af Amer 105, Est GFR (MDRD) Non-Af 87, BUN/Creatinine Ratio 21.0 H, Glucose 144 H, Calcium 8.3 L, Phosphorus 2.3 L, Magnesium 1.8 Micro: Microbiology 10/24/23 09:25 Blood Culture (Wb) - Right Forearm Blood Culture - Final No growth in 5 days. 10/24/23 08:25 Blood Culture (Wb) - Central Line Blood Culture - Final No growth in 5 days. 10/26/23 10:20 Urine Catheter - Saldivar Urine Culture - Final Culture exhibits no growth. 10/26/23 14:20 Blood Culture (Wb) - Anticubital Right Blood Culture - Preliminary No growth in 48 hours. 10/26/23 10:30 Blood Culture (Wb) - Femoral Artery Blood Culture - Preliminary No growth in 48 hours. 10/26/23 10:03 Sputum, Induced/Lukens Gram Stain - Final 10/26/23 10:03 Sputum, Induced/Lukens Respiratory Culture - Final Culture exhibits no growth. 10/26/23 09:38 Mucosa - Nasopharyngeal Coronavirus COVID-19 PCR - Final 10/26/23 09:38 Mucosa - Nasopharyngeal Respiratory Panel (PCR) - Final 10/24/23 08:00 Urine Catheter - Saldivar Urine Culture - Final Culture exhibits no growth. 10/24/23 06:00 Sputum, Induced/Lukens Gram Stain - Final 10/24/23 06:00 Sputum, Induced/Lukens Respiratory Culture - Final Physical Exam Const Constitutional Narrative: intubated sedated. cachectic. afebrile. HEENT head/scalp atraumatic and moist oral mucous membranes Resp normal respiratory effort and no retractions Cardio regular rate, regular rhythm, S1 normal heart sound and S2 normal heart sound GI normal to inspection, nondistended, normoactive bowel sounds, soft to palpation and non-tender Extremity normal to inspection Neuro Sensorium / Orientation: awake and alert Assessment & Plan Assessment/Plan (1) Acute hypoxemic respiratory failure: (2) Cirrhosis of liver: (3) Ascites: (4) Atrial fibrillation with RVR: PLAN: Plan Acute blood loss anemia * stable * 2/2 GI bleed and iron deficiency * Hb was 4.9 on admission, and is s/p transfusion of 2 units of PRBCs. * Hb today is 8.7 GI bleed * EGD showed type 1 esophageal varices without bleeding, and 2 bleeding angiodysplastic lesions int he stomach and oozing duodenal ulcer that were both treated. * GI and critical care on board. * on PPI Multifactorial shock * hemorrhagic +/- septic * norepin weaned off this AM. * on IV vancomycin and Zosyn. * blood cultures pending. * sputum cultures show no growth * [facility] added scheduled albumin (subsequently dc'd) and stress dose hydrocortisone Decompensated alcoholic liver cirrhosis with ascites and possible encephalopathy * has a long history of alcohol abuse. * gastroenterology on board. * diuretics held. * management as per GI. * On thiamine and folic acid. * lactulose Acute hypoxic respiratory failure * 2/2 due to recurrent left pleural effusion and possible pneumonia. * 2D echo showed EF of 65% with no regional wall motion abnormalities with mild aortic stenosis * remains intubated and sedated. * Titrate oxygen to maintain saturation above 90%. * continues to fail SBT Afib with RVR * no previous history of afib. Not anticoagulated. * EKG on admission showed A-fib. * tachycardia is improving. DVT prophylaxis; SCDs. Charges/Coding Visit Charges Inpatient E&M: 73667 Subs Hosp L2
[2023-10-31] MEDS: Pantoprazole Sodium 40 MG in 0.9% Normal Saline (100mL MB+) 100 ML 330 MG IV ×2 (07:44→22:02)
[2023-10-31] MEDS: Chlorhexidine 15 ML PO ×2 (07:45→22:02)
[2023-10-31] MEDS: QUEtiapine 100 MG Tablet PO ×2 (07:46→22:03)
[2023-10-31] MEDS: Thiamine Hydrochloride 100 MG Tablet GT (07:46)
[2023-10-31] MEDS: Folic Acid 1 MG Tablet GT (07:46)
[2023-10-31] MEDS: Potassium Chloride Oral Soln 20 MEQ/15 ML UDC 40 MEQ PO ×2 (07:46→22:02)
[2023-10-31] MEDS: Hydrocortisone Sod Succinate 100 MG/2 ML Vial 50 MG IV ×2 (07:49→22:03)
[2023-10-31] MEDS: Furosemide 40 MG/4 ML Vial IV ×2 (08:16→17:23)
[2023-10-31] MEDS: CHLORHEXIDINE GLUC 2% CLOTH 1 EACH TOWELETTE TOPICAL (08:18)
[2023-10-31] MEDS: Bisacodyl 10 MG Suppository RC (11:06)
[2023-10-31] MEDS: fentaNYL drip 100 ML 115 MCG CONT INF (13:17)
[2023-10-31] MEDS: fentaNYL drip 100 ML 15 MCG CONT INF ×2 (14:15→19:46)
[2023-10-31] MEDS: 0.9% Normal Saline (250mL Bag) 250 ML 15 ML IV (14:32)
[2023-11-01] VITALS (38 sets, daily range): BP systolic 80–132; BP diastolic 48–88; PULSE 83–188; RESP 16–93; TEMP 37.6–42.2; O2SAT 90–100; BMI 24.4
[2023-11-01] MEDS: Ipratropium/Albuterol Sulfate 3 ML AMPUL.NEB INHALATION ×6 (02:19→22:36)
[2023-11-01 03:45] LABS: Absolute Lymphocyte Count 0.25 X10^3/uL (0.83-4.51); Absolute Neutrophil Count 4.7 X10^3/uL (2.0-7.7); Hematocrit 33.4 % (40-54); Lymphocyte # 0.25 X10^3/ul (0.83-4.51); Lymphocyte % 4.7 % (19-41); Mean Corp Hgb Conc 26.9 g/dL (32-36); Mean Corpuscular Hgb 22.2 pg (27.0-32.0); Mean Corpuscular Volume 82.5 fL (80-94); Mean Platelet Vol. 9.7 fl (6.2-12.0); Monocyte# 0.29 X10^3/uL; Monocyte% 5.5 % (0-10); NRBC Flagged by Analyzer 0 % (0-5); Neutrophil # 4.71 X10^3/uL (2.7-7.7); Neutrophil % 89.4 % (47-70); POSITIVE COUNT YES; POSITIVE DIFFERENTIAL YES; POSITIVE MORPHOLOGY YES; Platelet Count 77 K/mm3 (150-450); RBC Distribution Width CV 29.6 % (11.6-14.6); RBC Distribution Width SD 84.8 fl (35.1-43.9); Red Blood Count 4.05 M/mm3 (4.6-6.2); White Blood Count 5.3 K/mm3 (4.4-11.0)
[2023-11-01 03:48] LABS: Differential Indicated SCAN CRITERIA MET
[2023-11-01] MEDS: fentaNYL drip 100 ML 12.5 MCG CONT INF (03:54)
[2023-11-01 03:58] LABS: Anion Gap 2 (5-15); BUN 20 mg/dL (7-18); BUN/Creat Ratio 21.4 RATIO (10-20); Calcium,Total 8.1 mg/dL (8.5-10.1); Chloride 110 mmol/L (98-107); Creatinine, Serum 0.94 mg/dL (0.70-1.30); EST Glomerular Filtration Rate 83 mL/min (>60); Est Glom Filt Rate - Afr Amer 101 mL/min (>60); Estimated Creatinine Clearance 67.95 ml/min; Glucose 134 mg/dL (74-106); Potassium 2.6 mmol/L (3.5-5.1); Sodium Level 147 mmol/L (136-145)
[2023-11-01 04:19] LABS: Differential Comment SCANNED
[2023-11-01 04:20] LABS: Anisocytosis 3+
[2023-11-01 04:40] LABS: Magnesium 1.8 mg/dL (1.6-2.6); Phosphorus 3.3 mg/dL (2.5-4.9)
[2023-11-01] MEDS: Menthol/Lanolin/Calamine/Znox 113 GM Tube 1 APPLIC TOPICAL ×3 (04:54→21:42)
[2023-11-01] MEDS: 0.9% Saline Lock 10 ML Syringe IV ×2 (04:54→21:42)
[2023-11-01] MEDS: Lactulose 20 GM/30 ML UDC PO ×3 (04:55→21:45)
[2023-11-01] MEDS: Potassium Chloride Oral Soln 20 MEQ/15 ML UDC 80 MEQ PO (05:15)
[2023-11-01] MEDS: Acetaminophen 650 MG/20 ML UDC GT ×2 (05:16→21:54)
[2023-11-01] MEDS: Propofol 10MG/Ml 1,000 MG/100 ML Bottle 4.70000000000000018 MG CONT INF (06:15)
[2023-11-01] MEDS: Potassium Chloride 10mEq/100mL 10 MEQ/100 ML IV.SOLN. 100 MEQ IV BOLUS ×3 (06:47→10:14)
--- NOTE | 2023-11-01 07:00 | PN.HOSP_ITS ---
Reason for Visit Reason for Visit: Diagnoses Acute posthemorrhagic anemia (10/23/23) Anemia, unspecified (10/23/23) Alcohol abuse, in remission (10/23/23) Unspecified atrial fibrillation (10/23/23) Unspecified diastolic (congestive) heart failure (10/23/23) Acute respiratory failure with hypoxia (10/23/23) Hepatic failure, unspecified without coma (10/23/23) Unspecified cirrhosis of liver (10/23/23) Gastrointestinal hemorrhage, unspecified (10/23/23) Hypoxemia (10/23/23) Other ascites (10/23/23) Objective Data Objective Data Vital Signs: Vital Signs Temp Pulse Resp BP Pulse Ox O2 Del Method O2 Flow Rate 38.6 C H 188 H 34 H 91/63 98 Mechanical Ventilator 40 11/01/23 06:00 11/01/23 06:07 11/01/23 06:07 11/01/23 06:00 11/01/23 06:07 11/01/23 06:00 10/31/23 11:00 FiO2 45 11/01/23 06:07 Oxygen Flow Rate (L/min) 40 Oxygen Delivery Method Mechanical Ventilator Weight: 78.4 kg Body Mass Index (BMI) 24.4 Intake & Output: Intake and Output for Last 24 Hours 10/30/23 10/31/23 11/01/23 23:59 23:59 23:59 Intake Total 2831.36 / 2910.76 2843.6933 / 2950.2933 661.80 / 661.80 Output Total 2450 / 3150 5225 / 5225 300 / 300 Balance 381.36 / -239.24 -2381.3067 / -2274.7067 361.80 / 361.80 Lab / Micro Data 11/01/23 03:30 11/01/23 03:30 Labs: Laboratory Results - last 24 hr 11/01/23 03:30: WBC 5.3, RBC 4.05 L, Hgb 9.0 L, Hct 33.4 L, MCV 82.5, MCH 22.2 L , MCHC 26.9 L, RDW Std Deviation 84.8 H, RDW Coeff of Hilda 29.6 H, Plt Count 77 L , MPV 9.7, Immature Gran % (Auto) 0.400, Neut % (Auto) 89.4 H, Lymph % (Auto) 4.7 L, [place] % (Auto) 5.5, Eos % (Auto) 0.0, Baso % (Auto) 0.0, Absolute Neuts (auto) 4.7, Absolute Lymphs (auto) 0.25 L, Nucleated RBC % 0, Differential Comment SCANNED, Anisocytosis 3+, Sodium 147 H, Potassium 2.6 L*, Chloride 110 H , Carbon Dioxide 35.0 H, Anion Gap 2 L, BUN 20 H, Creatinine 0.94, Estim Creat Clear Calc 67.95, Est GFR (MDRD) Af Amer 101, Est GFR (MDRD) Non-Af 83, BUN/ Creatinine Ratio 21.4 H, Glucose 134 H, Calcium 8.1 L, Phosphorus 3.3, Magnesium 1.8 Micro: Microbiology 10/26/23 14:20 Blood Culture (Wb) - Anticubital Right Blood Culture - Final No growth in 5 days. 10/26/23 10:30 Blood Culture (Wb) - Femoral Artery Blood Culture - Final No growth in 5 days. 10/24/23 09:25 Blood Culture (Wb) - Right Forearm Blood Culture - Final No growth in 5 days. 10/24/23 08:25 Blood Culture (Wb) - Central Line Blood Culture - Final No growth in 5 days. 10/26/23 10:20 Urine Catheter - Saldivar Urine Culture - Final Culture exhibits no growth. 10/26/23 10:03 Sputum, Induced/Lukens Gram Stain - Final 10/26/23 10:03 Sputum, Induced/Lukens Respiratory Culture - Final Culture exhibits no growth. 10/26/23 09:38 Mucosa - Nasopharyngeal Coronavirus COVID-19 PCR - Final 10/26/23 09:38 Mucosa - Nasopharyngeal Respiratory Panel (PCR) - Final 10/24/23 08:00 Urine Catheter - Saldivar Urine Culture - Final Culture exhibits no growth. 10/24/23 06:00 Sputum, Induced/Lukens Gram Stain - Final 10/24/23 06:00 Sputum, Induced/Lukens Respiratory Culture - Final Assessment & Plan Assessment/Plan (1) Acute hypoxemic respiratory failure: (2) Cirrhosis of liver: (3) Ascites: (4) Atrial fibrillation with RVR: PLAN: Plan Acute blood loss anemia * stable * 2/2 GI bleed and iron deficiency * Hb was 4.9 on admission, and is s/p transfusion of 2 units of PRBCs. * Hb today is 8.7 GI bleed * EGD showed type 1 esophageal varices without bleeding, and 2 bleeding angiodysplastic lesions int he stomach and oozing duodenal ulcer that were both treated. * GI and critical care on board. * on PPI Multifactorial shock * hemorrhagic +/- septic * norepin weaned off this AM. * on IV vancomycin and Zosyn. * blood cultures pending. * sputum cultures show no growth * [facility] added scheduled albumin (subsequently dc'd) and stress dose hydrocortisone Decompensated alcoholic liver cirrhosis with ascites and possible encephalopathy * has a long history of alcohol abuse. * gastroenterology on board. * diuretics held. * management as per GI. * On thiamine and folic acid. * lactulose Acute hypoxic respiratory failure * 2/2 due to recurrent left pleural effusion and possible pneumonia. * 2D echo showed EF of 65% with no regional wall motion abnormalities with mild aortic stenosis * remains intubated and sedated on multiple agents. * Titrate oxygen to maintain saturation above 90%. * continues to fail SBT Afib with RVR * no previous history of afib. Not anticoagulated. * EKG on admission showed A-fib. * tachycardia is improving. DVT prophylaxis; SCDs. Prognosis: guarded.
--- NOTE | 2023-11-01 07:00 | PCM.PN.HOSP ---
Subjective Subjective Failed SBT today with tachycardia with rates up to 200. Objective Data Objective Data Vital Signs: Vital Signs Temp Pulse Resp BP Pulse Ox O2 Del Method O2 Flow Rate 38.6 C H 188 H 34 H 91/63 98 Mechanical Ventilator 40 11/01/23 06:00 11/01/23 06:07 11/01/23 06:07 11/01/23 06:00 11/01/23 06:07 11/01/23 06:00 10/31/23 11:00 FiO2 45 11/01/23 06:07 Oxygen Flow Rate (L/min) 40 Oxygen Delivery Method Mechanical Ventilator Weight: 78.4 kg Body Mass Index (BMI) 24.4 Intake & Output: Intake and Output for Last 24 Hours 10/30/23 10/31/23 11/01/23 23:59 23:59 23:59 Intake Total 2831.36 / 2910.76 2843.6933 / 2950.2933 661.80 / 661.80 Output Total 2450 / 3150 5225 / 5225 300 / 300 Balance 381.36 / -239.24 -2381.3067 / -2274.7067 361.80 / 361.80 Lab / Micro Data 11/01/23 03:30 11/01/23 03:30 Labs: Laboratory Results - last 24 hr 11/01/23 03:30: WBC 5.3, RBC 4.05 L, Hgb 9.0 L, Hct 33.4 L, MCV 82.5, MCH 22.2 L, MCHC 26.9 L, RDW Std Deviation 84.8 H, RDW Coeff of Hilda 29.6 H, Plt Count 77 L, MPV 9.7, Immature Gran % (Auto) 0.400, Neut % (Auto) 89.4 H, Lymph % (Auto) 4.7 L, [place] % (Auto) 5.5, Eos % (Auto) 0.0, Baso % (Auto) 0.0, Absolute Neuts (auto) 4.7, Absolute Lymphs (auto) 0.25 L, Nucleated RBC % 0, Differential Comment SCANNED, Anisocytosis 3+, Sodium 147 H, Potassium 2.6 L*, Chloride 110 H, Carbon Dioxide 35.0 H, Anion Gap 2 L, BUN 20 H, Creatinine 0.94, Estim Creat Clear Calc 67.95, Est GFR (MDRD) Af Amer 101, Est GFR (MDRD) Non-Af 83, BUN/Creatinine Ratio 21.4 H, Glucose 134 H, Calcium 8.1 L, Phosphorus 3.3, Magnesium 1.8 Micro: Microbiology 10/26/23 14:20 Blood Culture (Wb) - Anticubital Right Blood Culture - Final No growth in 5 days. 10/26/23 10:30 Blood Culture (Wb) - Femoral Artery Blood Culture - Final No growth in 5 days. 10/24/23 09:25 Blood Culture (Wb) - Right Forearm Blood Culture - Final No growth in 5 days. 10/24/23 08:25 Blood Culture (Wb) - Central Line Blood Culture - Final No growth in 5 days. 10/26/23 10:20 Urine Catheter - Saldivar Urine Culture - Final Culture exhibits no growth. 10/26/23 10:03 Sputum, Induced/Lukens Gram Stain - Final 10/26/23 10:03 Sputum, Induced/Lukens Respiratory Culture - Final Culture exhibits no growth. 10/26/23 09:38 Mucosa - Nasopharyngeal Coronavirus COVID-19 PCR - Final 10/26/23 09:38 Mucosa - Nasopharyngeal Respiratory Panel (PCR) - Final 10/24/23 08:00 Urine Catheter - Saldivar Urine Culture - Final Culture exhibits no growth. 10/24/23 06:00 Sputum, Induced/Lukens Gram Stain - Final 10/24/23 06:00 Sputum, Induced/Lukens Respiratory Culture - Final Physical Exam Const Constitutional Narrative: intubated. sedated. afebrile. Resp normal respiratory effort, no retractions, no use of accessory muscles and clear to auscultation bilaterally Cardio regular rate and regular rhythm Cardio Narrative: coarse breath sounds. GI normal to inspection, nondistended, normoactive bowel sounds and soft to palpation Assessment & Plan Assessment/Plan (1) Acute hypoxemic respiratory failure: (2) Cirrhosis of liver: (3) Ascites: (4) Atrial fibrillation with RVR: PLAN: Plan Acute blood loss anemia stable 2/2 GI bleed and iron deficiency Hb was 4.9 on admission, and is s/p transfusion of 2 units of PRBCs. Hb today is 8.7 GI bleed EGD showed type 1 esophageal varices without bleeding, and 2 bleeding angiodysplastic lesions int he stomach and oozing duodenal ulcer that were both treated. GI and critical care on board. on PPI Multifactorial shock hemorrhagic +/- septic norepin weaned off this AM. on IV vancomycin and Zosyn. blood cultures pending. sputum cultures show no growth [facility] added scheduled albumin (subsequently dc'd) and stress dose hydrocortisone Decompensated alcoholic liver cirrhosis with ascites and possible encephalopathy has a long history of alcohol abuse. gastroenterology on board. diuretics held. management as per GI. On thiamine and folic acid. lactulose Acute hypoxic respiratory failure 2/2 due to recurrent left pleural effusion and possible pneumonia. 2D echo showed EF of 65% with no regional wall motion abnormalities with mild aortic stenosis remains intubated and sedated on multiple agents. Titrate oxygen to maintain saturation above 90%. continues to fail SBT Afib with RVR no previous history of afib. Not anticoagulated. EKG on admission showed A-fib. tachycardia is improving. DVT prophylaxis; SCDs. Prognosis: guarded. Charges/Coding Visit Charges Inpatient E&M: 09854 Subs Hosp L2
--- NOTE | 2023-11-01 07:05 | PN.CC_ITS ---
Assessment & Plan Assessment/Plan (1) Decompensation of cirrhosis of liver: (2) Acute hypoxemic respiratory failure: PLAN: Plan RECOMMENDATIONS: 1. Complete course of broad-spectrum antimicrobials. 2. Decrease diuresis with aggressive electrolyte repletion 3. Continue to monitor H&H. Transfuse if hemoglobin drops below 7 g/dL. 4. Continue PPI therapy at twice daily. 5. Continue spontaneous breathing and awakening trials per protocol 6. Advance tube feeds per GI 7. Consider additional suppository for bowel movement. If unsuccessful, enema can be considered IMPRESSIONS: 1. Acute blood loss anemia secondary to upper GI bleed EGD completed on October 23 demonstrated type I isolated gastric varices along with 2 angiodysplastic lesions in the stomach and an oozing duodenal ulcer, all of which was intervened upon. The patient has received multiple units of packed red blood cells with stabilization in his H&H. Repeat endoscopy 10/29/2023 showed recurrent bleeding treated with cautery. Patient has had an improvement and stability in H&H since procedure. Will hold on transfusions for now. Plan to continue to monitor blood counts and transfuse if hemoglobin drops below 7 g/dL. Continue PPI therapy as ordered. Defer to GI on possible repeat scope. Will defer to GI on possible additional suppository for bowel movements 2. Multifactorial shock Resolved. The patient is profoundly hypotensive, which is likely a combination of sepsis, hemorrhage and hemodynamic effects of sedating medications on presentation. In addition, the patient has known cirrhosis with a tendency to third space fluids. Blood pressure is significantly improved after transition to Precedex. Patient has been having some fevers lately, but no leukocytosis. High clinical suspicion for drug fever with Seroquel and Precedex. 3. Acute combined respiratory failure The patient was initially intubated in the setting of profound metabolic encephalopathy with concern for airway protection and acute CO2 retention and hypoxemia. The patient will be continued on assist-control mode of mechanical ventilation. In light of his history of tobacco dependency, scheduled bronchodilators will be continued. Plan to continue to wean FiO2 to maintain oxygen saturations at or above 90%. Continue antimicrobials to complete course. Recommend daily paired spontaneous awakening and breathing trials, as tolerated. Patient appears to have tolerated transition to Precedex. Patient continues to have significant potassium wasting with diuresis, so we will change to daily dosing. Will continue propofol to help with agitation during the day, but continue Precedex to facilitate spontaneous awakening and breathing trials. Patient may ultimately require a conversation with family to determine goals of therapy prior to a trial of extubation. 4. Acute decompensated cirrhosis/hepatic encephalopathy Continue medical management per gastroenterology recommendations. 5. Paroxysmal atrial fibrillation Continue current supportive care. The patient is not a candidate for anticoagulation. 6. History of polysubstance dependency Continue current sedation regimen along with thiamine and folic acid repletion. Will initiate patient on Seroquel 7. Hypokalemia with ectopy Patient with significant ectopy over the last 48 hours. Patient has been on feeds, so an element of refeeding syndrome could be complicating repletion. Aggressive repletion has been ordered and diuretics have been decreased to daily TIME: 35 minutes of critical care time was spent addressing the patient's acute blood loss anemia secondary to upper GI bleed, multifactorial shock, acute combined respiratory failure, acute decompensated cirrhosis, paroxysmal atrial fibrillation, metabolic encephalopathy, review of all data and collaboration with the care team. Subjective Subjective Patient did okay overnight. Patient did start to develop a fever this morning prior to his spontaneous breathing trial. Patient was able to make it approximately an hour but then became significantly tachycardic with heart rates greater than 200 and hypoxic. Patient was placed back on sedation and ventilator with improvement. Patient patient did not have a bowel movement despite a suppository yesterday. Objective Data Objective Data Vital Signs: Vital Signs Temp Pulse Resp BP Pulse Ox O2 Del Method O2 Flow Rate 38.6 C H 188 H 34 H 91/63 98 Mechanical Ventilator 40 11/01/23 06:00 11/01/23 06:07 11/01/23 06:07 11/01/23 06:00 11/01/23 06:07 11/01/23 06:00 10/31/23 11:00 FiO2 45 11/01/23 06:07 Oxygen Flow Rate (L/min) 40 Oxygen Delivery Method Mechanical Ventilator Weight: 78.4 kg Body Mass Index (BMI) 24.4 Intake & Output: Intake and Output for Last 24 Hours 10/30/23 10/31/23 11/01/23 23:59 23:59 23:59 Intake Total 2831.36 / 2910.76 2843.6933 / 2950.2933 661.80 / 661.80 Output Total 2450 / 3150 5225 / 5225 300 / 300 Balance 381.36 / -239.24 -2381.3067 / -2274.7067 361.80 / 361.80 Lab / Micro Data 11/01/23 03:30 11/01/23 03:30 Labs: Laboratory Results - last 24 hr 11/01/23 03:30: WBC 5.3, RBC 4.05 L, Hgb 9.0 L, Hct 33.4 L, MCV 82.5, MCH 22.2 L , MCHC 26.9 L, RDW Std Deviation 84.8 H, RDW Coeff of Hilda 29.6 H, Plt Count 77 L , MPV 9.7, Immature Gran % (Auto) 0.400, Neut % (Auto) 89.4 H, Lymph % (Auto) 4. 7 L, [place] % (Auto) 5.5, Eos % (Auto) 0.0, Baso % (Auto) 0.0, Absolute Neuts (auto) 4.7, Absolute Lymphs (auto) 0.25 L, Nucleated RBC % 0, Differential Comment SCANNED, Anisocytosis 3+, Sodium 147 H, Potassium 2.6 L*, Chloride 110 H , Carbon Dioxide 35.0 H, Anion Gap 2 L, BUN 20 H, Creatinine 0.94, Estim Creat Clear Calc 67.95, Est GFR (MDRD) Af Amer 101, Est GFR (MDRD) Non-Af 83, BUN/Creatinine Ratio 21.4 H, Glucose 134 H, Calcium 8.1 L, Phosphorus 3.3, Ma gnesium 1.8 Micro: Microbiology 10/26/23 14:20 Blood Culture (Wb) - Anticubital Right Blood Culture - Final No growth in 5 days. 10/26/23 10:30 Blood Culture (Wb) - Femoral Artery Blood Culture - Final No growth in 5 days. 10/24/23 09:25 Blood Culture (Wb) - Right Forearm Blood Culture - Final No growth in 5 days. 10/24/23 08:25 Blood Culture (Wb) - Central Line Blood Culture - Final No growth in 5 days. 10/26/23 10:20 Urine Catheter - Saldivar Urine Culture - Final Culture exhibits no growth. 10/26/23 10:03 Sputum, Induced/Lukens Gram Stain - Final 10/26/23 10:03 Sputum, Induced/Lukens Respiratory Culture - Final Culture exhibits no growth. 10/26/23 09:38 Mucosa - Nasopharyngeal Coronavirus COVID-19 PCR - Final 10/26/23 09:38 Mucosa - Nasopharyngeal Respiratory Panel (PCR) - Final 10/24/23 08:00 Urine Catheter - Saldivar Urine Culture - Final Culture exhibits no growth. 10/24/23 06:00 Sputum, Induced/Lukens Gram Stain - Final 10/24/23 06:00 Sputum, Induced/Lukens Respiratory Culture - Final Physical Exam Const Constitutional Narrative: Intubated and sedated. RASS -1. Good vent synchrony. Slight jaundice noted HEENT normocephalic, head/scalp atraumatic and hearing grossly normal bilaterally Eyes PERRL, EOMs intact bilaterally and conjunctivae normal Eyes Narrative: Slight scleral icterus Neck full ROM, no lymphadenopathy and supple Neck Narrative: JVD noted General: trachea midline Lymph Lymphatic: no lymphadenopathy noted and no lymphedema noted Chest inspection of chest normal Resp normal respiratory effort and no use of accessory muscles Resp Narrative: Coarse mechanical breath sounds. Auscultation: rales and diminished lung sounds; Negative for rhonchi or wheezes Cardio regular rate, regular rhythm, S1 normal heart sound, S2 normal heart sound, no murmurs and peripheral pulses 2+ throughout GI soft to palpation GI Narrative: Abdominal distention appears to be slightly worse compared to previous Inspection: anasarca present and abdominal distention; Negative for ostomy present Palpation: ascites; Negative for tender, guarding or rigid Back/Spine normal ROM Extremity no calf tenderness Extremity Narrative: Anasarca with 1+ edema General Extremity: no tenderness to palpation of joints or extremities; Negative for clubbing or edema Skin no rashes or lesions noted General Skin Exam: no breakdown and turgor normal Neuro moves all extremities, no focal motor deficits and no sensory deficits noted Sensorium / Orientation: sedated on vent Psych Mood & Affect: flat affect Charges/Coding Procedures Hospitalists Procedures: 97967 Critical Care 1st Hr
[2023-11-01] MEDS: dexMEDEtomidine 1,000 MCG in 0.9% Normal Saline (250mL Bag) 240 ML 29.3999999999999986 MCG CONT INF ×2 (07:40→16:00)
[2023-11-01] MEDS: Chlorhexidine 15 ML PO ×2 (07:43→21:43)
[2023-11-01] MEDS: Thiamine Hydrochloride 100 MG Tablet GT (07:45)
[2023-11-01] MEDS: Potassium Chloride Oral Soln 20 MEQ/15 ML UDC 40 MEQ PO ×2 (07:45→21:43)
[2023-11-01] MEDS: Folic Acid 1 MG Tablet GT (07:45)
[2023-11-01] MEDS: CHLORHEXIDINE GLUC 2% CLOTH 1 EACH TOWELETTE TOPICAL (07:45)
[2023-11-01] MEDS: QUEtiapine 100 MG Tablet PO ×2 (07:45→21:44)
[2023-11-01] MEDS: Furosemide 40 MG/4 ML Vial IV (07:46)
[2023-11-01] MEDS: Hydrocortisone Sod Succinate 100 MG/2 ML Vial 50 MG IV ×2 (07:46→21:44)
[2023-11-01] MEDS: Pantoprazole Sodium 40 MG in 0.9% Normal Saline (100mL MB+) 100 ML 330 MG IV ×2 (07:48→21:42)
[2023-11-01] MEDS: Polyethylene Glycol 3350 17 GM PACKET GT (10:39)
[2023-11-01] MEDS: Magnesium Sulfate 4gm/100mL 4 GM/100 ML IV.SOLN. IV (11:30)
[2023-11-01] MEDS: fentaNYL drip 100 ML 10 MCG CONT INF (16:01)
[2023-11-01] MEDS: Propofol 10MG/Ml 1,000 MG/100 ML Bottle 7.09999999999999964 MG CONT INF (16:06)
--- NOTE | 2023-11-01 20:35 | NURSING ---
All drsgs to pt's sharlene arms changed; Rfa skin tear - vaseline gauze/drain pad placed and secured by kerlix wrap. LUE skin tear - left open to air as no drng apparent. Lwrist IV site puncture - vaseline gauze/drain pad placed; L hand - vaseline gauze over large, clear fluid-filled blister on first dorsal interosseous muscle; LW and LH drsgs secured w/kerlix and then HAYLEE wrap loosely. Both IV sites cleaned and redressed, changed J loop to LUE IV site.
[2023-11-01] MEDS: Vital AF 1.2 Cal Liquid 1,000 ML 30 ML GT (21:54)
[2023-11-02] VITALS (29 sets, daily range): BP systolic 76–115; BP diastolic 46–74; PULSE 86–121; RESP 15–42; TEMP 38.1–38.8; O2SAT 86–97; BMI 25.0
[2023-11-02] MEDS: dexMEDEtomidine 1,000 MCG in 0.9% Normal Saline (250mL Bag) 240 ML 29.3999999999999986 MCG CONT INF (00:31)
[2023-11-02] MEDS: Propofol 10MG/Ml 1,000 MG/100 ML Bottle 4.70000000000000018 MG CONT INF (01:20)
[2023-11-02] MEDS: fentaNYL drip 100 ML 10 MCG CONT INF (01:20)
[2023-11-02] MEDS: Ipratropium/Albuterol Sulfate 3 ML AMPUL.NEB INHALATION ×3 (02:48→11:33)
[2023-11-02 04:53] LABS: Absolute Lymphocyte Count 0.19 X10^3/uL (0.83-4.51); Absolute Neutrophil Count 8.6 X10^3/uL (2.0-7.7); Basophil# 0.01 X10^3/uL; Basophil% 0.1 % (0-1); Hematocrit 33.5 % (40-54); Lymphocyte # 0.19 X10^3/ul (0.83-4.51); Lymphocyte % 2.1 % (19-41); Mean Corp Hgb Conc 26.9 g/dL (32-36); Mean Corpuscular Hgb 22.3 pg (27.0-32.0); Mean Corpuscular Volume 83.1 fL (80-94); Monocyte# 0.39 X10^3/uL; Monocyte% 4.2 % (0-10); NRBC Flagged by Analyzer 0 % (0-5); Neutrophil % 93.1 % (47-70); POSITIVE COUNT YES; POSITIVE DIFFERENTIAL YES; POSITIVE MORPHOLOGY YES; Platelet Count 73 K/mm3 (150-450); RBC Distribution Width CV 30.5 % (11.6-14.6); Red Blood Count 4.03 M/mm3 (4.6-6.2); White Blood Count 9.2 K/mm3 (4.4-11.0)
[2023-11-02 05:07] LABS: Anion Gap 1 (5-15); BUN 32 mg/dL (7-18); BUN/Creat Ratio 21.1 RATIO (10-20); Calcium,Total 8.3 mg/dL (8.5-10.1); Chloride 114 mmol/L (98-107); Creatinine, Serum 1.52 mg/dL (0.70-1.30); EST Glomerular Filtration Rate 48 mL/min (>60); Est Glom Filt Rate - Afr Amer 58 mL/min (>60); Estimated Creatinine Clearance 42.02 ml/min; Glucose 163 mg/dL (74-106); Potassium 4.3 mmol/L (3.5-5.1); Sodium Level 148 mmol/L (136-145)
[2023-11-02] MEDS: Acetaminophen 650 MG/20 ML UDC GT (05:15)
[2023-11-02] MEDS: Lactulose 20 GM/30 ML UDC PO (05:15)
[2023-11-02] MEDS: 0.9% Saline Lock 10 ML Syringe IV ×2 (05:15→19:34)
[2023-11-02] MEDS: Menthol/Lanolin/Calamine/Znox 113 GM Tube 1 APPLIC TOPICAL (05:15)
[2023-11-02 05:17] LABS: Differential Indicated SCAN CRITERIA MET
[2023-11-02 05:25] LABS: Anisocytosis 3+
--- NOTE | 2023-11-02 07:08 | PN.HOSP_ITS ---
Subjective Subjective Was doing well with SBT. Started vomiting then became tachypneic. Objective Data Objective Data Vital Signs: Vital Signs Temp Pulse Resp BP Pulse Ox O2 Del Method O2 Flow Rate 38.6 C H 119 H 26 H 85/59 L 92 Mechanical Ventilator 40 11/02/23 06:00 11/02/23 07:00 11/02/23 07:00 11/02/23 07:00 11/02/23 07:00 11/02/23 07:00 10/31/23 11:00 FiO2 45 11/02/23 07:00 Oxygen Flow Rate (L/min) 40 Oxygen Delivery Method Mechanical Ventilator Weight: 80.1 kg Body Mass Index (BMI) 25.0 Intake & Output: Intake and Output for Last 24 Hours 10/31/23 11/01/23 11/02/23 23:59 23:59 23:59 Intake Total 2843.6933 / 2950.2933 2582.18 / 2726.28 707.41 / 707.41 Output Total 5225 / 5225 1500 / 1600 200 / 200 Balance -2381.3067 / -2274.7067 1082.18 / 1126.28 507.41 / 507.41 Lab / Micro Data 11/02/23 04:40 11/02/23 04:40 Labs: Laboratory Results - last 24 hr 11/02/23 04:40: WBC 9.2, RBC 4.03 L, Hgb 9.0 L, Hct 33.5 L, MCV 83.1, MCH 22.3 L , MCHC 26.9 L, RDW Std Deviation 91.0 H, RDW Coeff of Hilda 30.5 H, Plt Count 73 L , Immature Gran % (Auto) 0.500, Neut % (Auto) 93.1 H, Lymph % (Auto) 2.1 L, [place] % (Auto) 4.2, Eos % (Auto) 0.0, Baso % (Auto) 0.1, Absolute Neuts (auto) 8.6 H, Absolute Lymphs (auto) 0.19 L, Nucleated RBC % 0, Anisocytosis 3+, Sodium 148 H, Potassium 4.3, Chloride 114 H, Carbon Dioxide 33.0 H, Anion Gap 1 L, BUN 32 H, Creatinine 1.52 H, Estim Creat Clear Calc 42.02, Est GFR (MDRD) Af Amer 58 L, Est GFR (MDRD) Non-Af 48 L, BUN/Creatinine Ratio 21.1 H, Glucose 163 H, Calcium 8.3 L Micro: Microbiology 10/26/23 14:20 Blood Culture (Wb) - Anticubital Right Blood Culture - Final No growth in 5 days. 10/26/23 10:30 Blood Culture (Wb) - Femoral Artery Blood Culture - Final No growth in 5 days. 10/24/23 09:25 Blood Culture (Wb) - Right Forearm Blood Culture - Final No growth in 5 days. 10/24/23 08:25 Blood Culture (Wb) - Central Line Blood Culture - Final No growth in 5 days. 10/26/23 10:20 Urine Catheter - Saldivar Urine Culture - Final Culture exhibits no growth. 10/26/23 10:03 Sputum, Induced/Lukens Gram Stain - Final 10/26/23 10:03 Sputum, Induced/Lukens Respiratory Culture - Final Culture exhibits no growth. 10/26/23 09:38 Mucosa - Nasopharyngeal Coronavirus COVID-19 PCR - Final 10/26/23 09:38 Mucosa - Nasopharyngeal Respiratory Panel (PCR) - Final 10/24/23 08:00 Urine Catheter - Saldivar Urine Culture - Final Culture exhibits no growth. 10/24/23 06:00 Sputum, Induced/Lukens Gram Stain - Final 10/24/23 06:00 Sputum, Induced/Lukens Respiratory Culture - Final Physical Exam Const Constitutional Narrative: intubated. sedated. afebrile. Resp normal respiratory effort, no retractions, no use of accessory muscles and clear to auscultation bilaterally Cardio regular rate, regular rhythm, S1 normal heart sound and S2 normal heart sound GI normal to inspection, nondistended, normoactive bowel sounds, soft to palpation, non-tender and non-distended Neuro Sensorium / Orientation: awake and alert Assessment & Plan Assessment/Plan (1) Acute hypoxemic respiratory failure: PLAN: Plan Acute blood loss anemia * stable * 2/2 GI bleed and iron deficiency * Hb was 4.9 on admission, and is s/p transfusion of 2 units of PRBCs. * Hb today is 8.7 GI bleed * EGD showed type 1 esophageal varices without bleeding, and 2 bleeding angiodysplastic lesions int he stomach and oozing duodenal ulcer that were both treated. * GI and critical care on board. * on PPI Multifactorial shock * hemorrhagic +/- septic * norepin weaned off * on IV vancomycin and Zosyn. * blood cultures pending. * sputum cultures show no growth * [facility] added scheduled albumin (subsequently dc'd) and stress dose hydrocortisone Decompensated alcoholic liver cirrhosis with ascites and possible encephalopathy * has a long history of alcohol abuse. * gastroenterology on board. * diuretics held. * management as per GI. * On thiamine and folic acid. * lactulose Acute hypoxic respiratory failure * 2/2 due to recurrent left pleural effusion and possible pneumonia. * 2D echo showed EF of 65% with no regional wall motion abnormalities with mild aortic stenosis * remains intubated and sedated on multiple agents. * Titrate oxygen to maintain saturation above 90%. * continues to fail SBT Small bowel obstruction versus ileus * X-ray showing large bowel loops. CAT scan performed, results pending * Patient on intermittent suction. * Await final results of the CAT scan. May need general surgery input. Afib with RVR * no previous history of afib. Not anticoagulated. * EKG on admission showed A-fib. * tachycardia is improving. DVT prophylaxis; SCDs. Prognosis: guarded. Discussed with the patient's son at bedside. Informed him that the patient would not be extubated today given his respiratory distress. This was before any of the results of the x-ray. Did confirm with him that we will eventually the patient is extubated if he is to be reintubated and he has started without hesitation that the patient is to be intubated. He states that he is eldest son and the power of trademark attorney. Charges/Coding Visit Charges Inpatient E&M: 99795 Subs Hosp L2
[2023-11-02] MEDS: TITRATION PARAMETER CHANGE 1 EACH IV (07:53)
[2023-11-02] MEDS: QUEtiapine 100 MG Tablet PO (08:17)
[2023-11-02] MEDS: Furosemide 40 MG/4 ML Vial IV (08:17)
[2023-11-02] MEDS: Folic Acid 1 MG Tablet GT (08:17)
[2023-11-02] MEDS: Thiamine Hydrochloride 100 MG Tablet GT (08:17)
[2023-11-02] MEDS: Potassium Chloride Oral Soln 20 MEQ/15 ML UDC 40 MEQ PO (08:18)
[2023-11-02] MEDS: Chlorhexidine 15 ML PO (08:24)
[2023-11-02] MEDS: dexMEDEtomidine 1,000 MCG in 0.9% Normal Saline (250mL Bag) 240 ML 30 MCG CONT INF ×2 (09:17→17:00)
--- NOTE | 2023-11-02 09:45 | RAD_ITS ---
STUDY: X-RAY - ABDOMEN/PELVIS REASON FOR EXAM: Male, 78 years old. Abdominal distention TECHNIQUE: Portable upright chest and 2 views of the abdomen COMPARISON: 10/27/2023 FINDINGS: Patient is intubated with the tip of the ET tube 2 cm above the leah, NG tube tip in the body of the stomach. EKG leads overlie the chest. Lungs are underexpanded with chronic elevation of the right hemidiaphragm and bibasilar opacification suggesting interstitial edema or inflammatory process. Borderline distended air-filled loops of small and large bowel throughout the abdomen consistent with obstructive process. Transition point is not clearly identified, there is no evidence of free air. The visualized liver, spleen and kidneys are grossly normal in size and morphology. Bladder catheter noted. Degenerative bony changes are noted RAD/Abd Decub and/or Erect(Portabl IMPRESSION: Distended air-filled loops of small and large bowel throughout all 4 quadrants of the abdomen consistent with obstruction. Etiology is unclear on this study, consider CT for further evaluation Satisfactory appearance of the ET tube, NG tube, and Saldivar catheter Lungs are underexpanded with chronic elevation of the right hemidiaphragm and bibasilar opacification suggesting interstitial edema or inflammation Degenerative bony changes Electronically Signed: Yonatan Berry MD at 10:23 EST ,
[2023-11-02] MEDS: Pantoprazole Sodium 40 MG in 0.9% Normal Saline (100mL MB+) 100 ML 330 MG IV (09:51)
--- NOTE | 2023-11-02 10:05 | PN.CC_ITS ---
Subjective Subjective Pt seen and examined. Remains intubated/sedated. Failed SBT yesterday due to tachycardia into 200s after 1h. Tolerated 3h in at 5/5 this AM but developed agitation/tachycadia and was placed back on sedation earlier this AM. Also remains febrile 101.5. Sig abd distention persists with 1L output after OGT placed to LIWS. Still no recent BMs despite lactulose TID & other bowel regimen (docusate, Miralax). TFs on hold and pending abd CT per GI. Diminishing UOP- remains on Lasix BID. No sig secretions from ETT Prop @ 10 Fent @ 100 Precedex @ 1.5 TFs @ 30 + 100 q4h currently on hold 16 450 5 45 Physical Exam: Gen - NAD, ill-appearing HEENT - MMM. ETT in place Resp - Diminished BS. Mechanically ventilated CV - Tachycardic. No m/g/r Abd - Soft, distended Ext - No c/c. +nonpitting edema in extremities Skin - warm, multiple skin tears on arms Neuro - Sedated, intubated I have reviewed the pertinent vital sign, laboratory, and imaging data. ASSESSMENT: #Shock - multifactorial, septic, hemorrhagic #Acute hypoxic respiratory failure #UGIB - s/p EGD with treatment of duodenal ulcer and gastric angiodysplagia #Possible PNA #Pleural effusion #EtOH cirrhosis #Acute encephalopathy #Afib w/ RVR #Acute blood loss anemia #Polysubstance abuse - EtOH, tobacco, cocaine PLAN: -Cont MV; settings reviewed/adjusted; tolerated 3h 5/5 PS/CPAP per hospital protocol before failing but this was early in the AM and RT was unable to get ABG due to patient agitation; will try again in AM with instructions given to james larsonk ABG & notify critical care after 2h completed to assess extubation readiness but given concurrent abd issues/fever & prolonged MV duration he is likely headed towards trach/PEG early next week if family wishes -Cont sedation/analgesia -Wean levophed to keep MAP > 65. Add scheduled albumin, stress dose hydrocortisone -SP IV Abx -F/U CT A/P; paracentesis if sig fluid -Follow CBC, monitor for recurrent bleeding. Cont PPI. GI following -Cont lactulose + bowel regimen; F/U abd imaging -Thiamine/folate -TFs on hold due to above issues NPO SCDs, PPI Poor overall prognosis Critical Care Time: 50 mins The entirety of this encounter was completed via telemedicine Objective Data Objective Data Vital Signs: Vital Signs Temp Pulse Resp BP Pulse Ox O2 Del Method O2 Flow Rate 38.7 C H 116 H 40 H 100/54 L 94 Mechanical Ventilator 40 11/02/23 08:00 11/02/23 08:08 11/02/23 08:08 11/02/23 08:00 11/02/23 08:08 11/02/23 08:22 10/31/23 11:00 FiO2 45 11/02/23 08:22 Oxygen Flow Rate (L/min) 40 Oxygen Delivery Method Mechanical Ventilator Weight: 80.1 kg Body Mass Index (BMI) 25.0 Intake & Output: Intake and Output for Last 24 Hours 10/31/23 11/01/23 11/02/23 23:59 23:59 23:59 Intake Total 2843.6933 / 2950.2933 2582.18 / 2726.28 910.00 / 910.00 Output Total 5225 / 5225 1500 / 1600 200 / 200 Balance -2381.3067 / -2274.7067 1082.18 / 1126.28 710.00 / 710.00 Lab / Micro Data 11/02/23 04:40 11/02/23 04:40 Labs: Laboratory Results - last 24 hr 11/02/23 04:40: WBC 9.2, RBC 4.03 L, Hgb 9.0 L, Hct 33.5 L, MCV 83.1, MCH 22.3 L , MCHC 26.9 L, RDW Std Deviation 91.0 H, RDW Coeff of Hilda 30.5 H, Plt Count 73 L , Immature Gran % (Auto) 0.500, Neut % (Auto) 93.1 H, Lymph % (Auto) 2.1 L, Blanco % (Auto) 4.2, Eos % (Auto) 0.0, Baso % (Auto) 0.1, Absolute Neuts (auto) 8.6 H, Absolute Lymphs (auto) 0.19 L, Nucleated RBC % 0, Anisocytosis 3+, Sodium 148 H, Potassium 4.3, Chloride 114 H, Carbon Dioxide 33.0 H, Anion Gap 1 L, BUN 32 H, Creatinine 1.52 H, Estim Creat Clear Calc 42.02, Est GFR (MDRD) Af Amer 58 L, Est GFR (MDRD) Non-Af 48 L, BUN/Creatinine Ratio 21.1 H, Glucose 163 H, Calcium 8.3 L Micro: Microbiology 10/26/23 14:20 Blood Culture (Wb) - Anticubital Right Blood Culture - Final No growth in 5 days. 10/26/23 10:30 Blood Culture (Wb) - Femoral Artery Blood Culture - Final No growth in 5 days. 10/24/23 09:25 Blood Culture (Wb) - Right Forearm Blood Culture - Final No growth in 5 days. 10/24/23 08:25 Blood Culture (Wb) - Central Line Blood Culture - Final No growth in 5 days. 10/26/23 10:20 Urine Catheter - Saldivar Urine Culture - Final Culture exhibits no growth. 10/26/23 10:03 Sputum, Induced/Lukens Gram Stain - Final 10/26/23 10:03 Sputum, Induced/Lukens Respiratory Culture - Final Culture exhibits no growth. 10/26/23 09:38 Mucosa - Nasopharyngeal Coronavirus COVID-19 PCR - Final 10/26/23 09:38 Mucosa - Nasopharyngeal Respiratory Panel (PCR) - Final 10/24/23 08:00 Urine Catheter - Saldivar Urine Culture - Final Culture exhibits no growth. 10/24/23 06:00 Sputum, Induced/Lukens Gram Stain - Final 10/24/23 06:00 Sputum, Induced/Lukens Respiratory Culture - Final
--- NOTE | 2023-11-02 10:46 | CT_ITS ---
STUDY: CT ABDOMEN AND PELVIS WITH CONTRAST REASON FOR EXAM: Male, 78 years old. abdominal distention RADIATION DOSAGE (If Supplied By Facility): CTDIvol = ( 20.47 ) mGy, DLP = ( 1286.39 ) mGycm TECHNIQUE: Transaxial images were obtained from the dome of the diaphragm to the symphysis pubis without oral contrast. IV 100mL Isovue-370 was administered. Sagittal and coronal images were reconstructed. Individualized dose optimization techniques were used for this CT. COMPARISON: 2019 FINDINGS: Patient is intubated, tip of the ET tube is at the leah and slightly pointing towards the right mainstem bronchus and needs to be retracted 3 to 4 cm. NG tube tip in the body the stomach Prominent free-flowing bilateral pleural effusions with bibasilar atelectasis. The visualized portions of the heart are within normal limits. Liver is cirrhotic with heterogeneous enhancement and no discrete lesion is identified but there is a suggestion of a possible lesion in the inferior right lobe of the liver. There is diffuse associated four-quadrant ascites. Normal gallbladder and extrahepatic biliary system. Normal spleen. Normal pancreas. Normal bilateral adrenal glands. No obstructive uropathy or suspicious solid renal lesion or there is a simple 1 cm left renal cyst. Stomach is decompressed by the NG tube. Fluid distended small bowel loops consistent with obstruction. Transition point not clearly identified but is likely due to impacted stool in the abnormally distended ascending colon. The cecum is distended measuring 9.9 cm. Appendix not clearly visualized. Scattered colonic diverticula noted in the descending and sigmoid colon without evidence of acute diverticulitis. There is an abrupt transition between the distended air-filled transverse colon and the normally calibered descending colon no discrete lesion is identified on this study but colonoscopy is recommended for further evaluation. Normal abdominal aorta. Normal inferior vena cava. Normal retroperitoneum. Bladder contains a Saldivar catheter. There is a right-sided inguinal hernia containing adipose tissue. There are diffuse degenerative changes of the visualized lumbar spine, and pelvis with a grade 1 spondylolisthesis at L4-5. CT/Abdomen/Pelvis W IV Cont ONLY IMPRESSION: Abnormally distended fluid-filled small bowel loops throughout the abdomen consistent with obstruction. No transition point is identified as this is likely due to impacted stool in a distended cecum. Cecum and ascending colon measure up to 9 cm. There is a transition between the stool distended ascending colon and the air distended transverse colon and a normally calibered descending colon this area is difficult to evaluate on this study due to the presence of diffuse ascites. Recommend further evaluation with colonoscopy. Cirrhotic liver with diffuse four-quadrant ascites Simple left renal cyst, no specific follow-up needed. Bilateral free-flowing pleural effusions with bibasilar atelectasis Degenerative bony changes Electronically Signed: Yonatan Berry MD at 12:47 EST ,
[2023-11-02 10:54] LABS: Base Excess 6 mmol/L (-2 to +2); Bicarbonate 29.5 mmol/L (22-26); Blood Gas Specimen Type ART; Mode Not entered; O2 Delivery Device Not entered; PEEP 5; PO2 67 mmHG (75-100); RR 16; SITE L Brach; SO2 95 % (95-99); Total Carbon Dioxide 31 mmol/L; pCO2 38.8 mmHg (35-45); pH 7.49 (7.35-7.45)
[2023-11-02] MEDS: fentaNYL drip 100 ML 7.5 MCG CONT INF (13:36)
--- NOTE | 2023-11-02 15:51 | EX.PCM.CON.S ---
Assessment & Plan Assessment/Plan (1) Perforated bowel: PLAN: The patient has a large amount of free air as well as pneumatosis of the cecum. There is a caliber change in the mid transverse colon and the CT report believes that there is no transition point of the small bowel and that the small bowel distention is due to impaction of stool in this cecum. Patient was originally admitted with GI bleed. He had EGD but never colonoscopy. It is possible that the patient has a transverse colon mass that is obstructing him and he has had distention of the cecum so long that it perforated. I reviewed his medical history with the GI doctor and with the cattle farmer. The patient is a child C cirrhotic and he has been on a ventilator with no nutrition for several days. The patient has become very tachycardic with breathing trials and the patient has required Precedex for the last 9 days. The patient has also been febrile since Saturday. This was attributed to the Precedex but unsure if he is septic or if this is due to the perforation. The patient up until the day before coming in was still using alcohol and crack cocaine as well. I reviewed the patient's CT scan and it appears he has a large amount of free air and I believe that he perforated his cecum. Given his cirrhotic status and CHF and the fact that he has malnutrition and septic and febrile I think that he would have a very low chance of surviving surgery. I called the patient's son Delphine and discussed this with him at length. I recommended hospice care and the patient is talking to his family in trying to get family numbers to come visit him tonight. I do not recommend surgery in this patient. I think he is too high risk and in too critical of condition and I do not think he would survive the surgery or the postoperative complications. The patient's family is discussing and will come in to see him later today. If the patient's family is absolutely insistent on surgery then I would recommend transfer to a tertiary center but I do not think this would be fruitful and I do not think you will save his life and I informed him of this. I also discussed this with GI and with the cattle farmer on-call today. They are both in agreement and do not believe surgery would be helpful. Vasu Cervantes MD Pager: [facility] [address] [place] [address], [address] [place] [address] Office: HPI Consult Data Date of Consult: 11/02/23 HPI Narrative HPI Narrative: DELPHINE QUIROZ, is a 78 M who is in the ICU with respiratory failure. I was called for bowel obstruction today. The patient was admitted on October 23 with anemia and GI bleeding. He was taken for EGD and had cauterization of stomach ulcer. He had developed flash pulmonary edema during transfusion. He has been intubated and then went into withdrawal from crack cocaine and alcohol. The patient has been febrile since Saturday. He has failed breathing trial every day including today. He started vomiting during his breathing trial today which was why the CAT scan was ordered. Patient also has hepatitis C and cirrhosis and diffuse ascites. Patient also has CHF. REPLACED BY [facility] Medical History (Updated 11/02/23 @ 15:[address] Vasu Cervantes MD) Acute on chronic diastolic (congestive) heart failure Alcohol abuse with intoxication Alcoholism Cirrhosis Closed fracture of glenoid cavity of right scapula Closed head injury without concussion Hepatitis C History of CHF (congestive heart failure) Microcytic anemia Multiple fractures of ribs, left side, initial encounter for closed fracture New onset atrial fibrillation Nicotine dependence Pleural effusion Home Medications ferrous sulfate 325 mg (65 mg iron) tablet 325 mg PO BID #60 tabs 12/23/21 [Rx Last Taken Unknown] furosemide 20 mg tablet (Lasix) 20 mg PO DAILY #30 tabs 12/23/21 [Rx Last Taken Unknown] metoprolol tartrate 25 mg tablet 12.5 mg (1/2 x 25 mg) PO BID #30 tabs 12/23/21 [Rx Last Taken Unknown] pantoprazole 40 mg tablet,delayed release (Protonix) 40 mg PO DAILY #30 tabs 12/23/21 [Rx Last Taken Unknown] spironolactone 25 mg tablet 25 mg PO DAILY #30 tabs 12/23/21 [Rx Last Taken Unknown] Allergy/AdvReac Type Severity Reaction Status Date / Time No Known Allergies Allergy Verified 10/23/23 13:09 Family History Father Alcoholism Mother Diabetes Surgical History History of herniorrhaphy Social History Smoking Status: Current every day smoker tobacco type: cigarettes alcohol intake: current alcohol intake frequency: 3 or more drinks per day ROS Review of Systems ROS Unobtainable: due to endotracheal tube and due to mental status Physical Exam Narrative Patient intubated and sedated. Abdomen is very distended and tender. Patient is having involuntary guarding on Precedex with palpation of the abdomen. Lab / Micro Data 11/02/23 04:40 11/02/23 04:40 Labs: Laboratory Results - last 24 hr 11/02/23 04:40: WBC 9.2, RBC 4.03 L, Hgb 9.0 L, Hct 33.5 L, MCV 83.1, MCH 22.3 L, MCHC 26.9 L, RDW Std Deviation 91.0 H, RDW Coeff of Hilda 30.5 H, Plt Count 73 L, MPV Not Reportable, Immature Gran % (Auto) 0.500, Neut % (Auto) 93.1 H, Lymph % (Auto) 2.1 L, Wake % (Auto) 4.2, Eos % (Auto) 0.0, Baso % (Auto) 0.1, Absolute Neuts (auto) 8.6 H, Absolute Lymphs (auto) 0.19 L, Nucleated RBC % 0, Anisocytosis 3+, Sodium 148 H, Potassium 4.3, Chloride 114 H, Carbon Dioxide 33.0 H, Anion Gap 1 L, BUN 32 H, Creatinine 1.52 H, Estim Creat Clear Calc 42.02, Est GFR (MDRD) Af Amer 58 L, Est GFR (MDRD) Non-Af 48 L, BUN/Creatinine Ratio 21.1 H, Glucose 163 H, Calcium 8.3 L ABG Data ABG results: ABG 11/02/23 10:50 Specimen Type ART Sample Site L Brach pH 7.49 H Bicarbonate Actual 29.5 H Total CO2 31 Base Excess 6 H O2 Saturation 95 O2 % 45.0 ABG pCO2 38.8 ABG pO2 67 L Respiration Rate 16 O2 Delivery Device Not entered Vent Mode Not entered Tidal Volume 450.0 POC PEEP 5 Imaging Radiology Impression Abdomen X-Ray 11/02/23 09:45 IMPRESSION: Distended air-filled loops of small and large bowel throughout all 4 quadrants of the abdomen consistent with obstruction. Etiology is unclear on this study, consider CT for further evaluation Satisfactory appearance of the ET tube, NG tube, and Saldivar catheter Lungs are underexpanded with chronic elevation of the right hemidiaphragm and bibasilar opacification suggesting interstitial edema or inflammation Degenerative bony changes Electronically Signed: Yonatan Berry MD at 10:23 EST , Abdomen/Pelvis CT 11/02/23 10:46 IMPRESSION: Abnormally distended fluid-filled small bowel loops throughout the abdomen consistent with obstruction. No transition point is identified as this is likely due to impacted stool in a distended cecum. Cecum and ascending colon measure up to 9 cm. There is a transition between the stool distended ascending colon and the air distended transverse colon and a normally calibered descending colon this area is difficult to evaluate on this study due to the presence of diffuse ascites. Recommend further evaluation with colonoscopy. Cirrhotic liver with diffuse four-quadrant ascites Simple left renal cyst, no specific follow-up needed. Bilateral free-flowing pleural effusions with bibasilar atelectasis Degenerative bony changes Electronically Signed: Yonatan Berry MD at 12:47 EST ,
[2023-11-02] MEDS: Piperacil/Tazobactam 3.375 GM in 0.9% Normal Saline (50mL MB+) 50 ML IV (16:46)
[2023-11-02] MEDS: Acetaminophen 650 MG Suppository RC (17:48)
--- NOTE | 2023-11-02 18:32 | PN_ITS ---
Progress Note Dr. Orona and I met with the family in the waiting room of the ICU. I discussed the situation with the patient family. I informed them that he likely has perforated colon and that with his cirrhosis he did not have a very good chance of making it through surgery. After long discussion with the patient's family agreed to DNR comfort care and terminal extubation. Hospice will be consulted. DNR paperwork was filled out. Vasu Cervantes MD Pager: [facility] [address] [place] [address] [address] [place] [address] Office:
--- NOTE | 2023-11-02 18:51 | NURSING ---
Terminally extubated at 18:45pm. Patient tolerated well.
[2023-11-02] MEDS: LORazepam 2 MG/ML Syringe 1 MG IV ×2 (19:34→22:08)
[2023-11-02] MEDS: Morphine 4 MG/ML Syringe IV ×2 (19:34→22:08)
--- NOTE | 2023-11-02 19:41 | PN.HOSP_ITS ---
Hospitalist Note General surgeon Dr. Cervantes asked me to see the patient and discussed with the family regarding the overall poor prognosis with high perioperative risk for bowel perforation and intestinal obstruction. We also gas present along the wall of ascending colon. There is suspicion that patient had abdominal obstruction with colonic wall gas which might have distended wall resulting into perforation although this is the clinical case. Patient is not a good candidate for laparotomy surgery with high risk of on the table because of decom pensated cirrhosis. Patient is still actively drinking alcohol. Patient is still intubated and has been feeling trial for spontaneous breathing for the last 5 days. On fentanyl and Precedex drip. There is high risk of perioperative complication even if patient survives surgery including fistulization, poor healing decompensation of liver which necessitates liver transportation but is not a candidate. This was discussed in detail by Dr. Cervantes and I and family member agreed. Of all the options given, all family members agreed for DNR CC hospice care. His POA, his son Mr. Maximus Roman signed the DNR CC paperwork. CODE STATUS changed to DNR CC. Living will/advanced directive/end of life care: Patient does have living will or advanced directive. His son, as mentioned above is POA. After discussion of benefits/risks procedures involved with full code, DNR CC arrest and DNR CC, all family members including patient's POA agreed for DNR CC hospice care. Patient is intubated with restricted understanding therefore cannot make decision himself. Patient doesn't want artificial life support including intubation, tube feed, ventilator and/chest compression, central venous catheter, vasopressor and DC shock if needed. Total time spent in [id number] encounter in discussion of advanced directive 17 minutes. Procedures Hospitalists Procedures: 36442 Advncd Care Plan 30 Min
--- NOTE | 2023-11-02 22:49 | NURSING ---
This RN went into assess patient after noting a change to cardiac rhythm on the monitor. After assessing patient no lung sounds or apical heart beat auscultated. Puplis fixed and dilated. Second RN Jimenez Ortez RN came in to auscultate as well and confirmed these findings. Dr. Quinn notified. Patient's time of 2239.
--- NOTE | 2023-11-02 22:56 | PN.HOSP_ITS ---
Hospitalist Note I was contacted by the COLD MILL INSPECTOR and informed that this patient at 22:40 hours.
--- NOTE | 2023-11-02 22:56 | PCM.HOSP.N ---
Hospitalist Note I was contacted by the TAKE OUT WAITER and informed that this patient at 22:40 hours.
--- NOTE | 2023-11-03 13:01 | PCM.DEATH ---
Preliminary Cause of Preliminary Cause of Preliminary Cause of : Bowel perforation. Date of Admission: 10/23/23 Date of : 11/02/23 (2240) Principle Diagnosis Problem List: Active and Suspected Problems (Updated 11/02/23 @ 15:[address] Vasu Cervantes MD) Perforated bowel (Acute) Hypoxia (Acute) Decompensation of cirrhosis of liver (Acute) Acute hypoxemic respiratory failure (Acute) Diastolic congestive heart failure (Acute) Cirrhosis of liver (Acute) Ascites (Acute) Atrial fibrillation with RVR (Acute) Symptomatic anemia (Acute) Signs and symptoms of anemia (Acute) Anemia due to acute blood loss (Acute) Acute upper gastrointestinal bleeding (Acute) Severe anemia (Acute) History of alcohol abuse (Acute) Hospital Course Patient presented October 23 tachypnea. Patient underwent the EGD on the showed type I varices without bleeding, 2 bleeding angiodysplastic lesions in the stomach and duodenal ulcer treated. Patient had acute blood loss anemia with a hemoglobin of 4.9. Did receive blood promptly. Initially, patient required nasal cannula for oxygen. Concern also, with varices, his extensive history of alcohol abuse with, and drinking as much as he could get his hands on, there is some concern for alcoholic cirrhosis. Additionally, patient was in atrial fibrillation with RVR. Heart rate did improve after IV fluids and blood provided. Patient was intubated after admission on the as his respiratory status worsened, he was unresponsive and had absent gag reflex and was not managing his secretions. Concerns for pneumonia patient was started on vancomycin and pip-tazo. Patient also developed shock and was started on norepinephrine. Patient did have a triple-lumen catheter placed in his neck in the right IJ on the . Patient did have echocardiogram performed on the that showed an EF of 65%. Patient did receive abdomen and hydrocortisone for the refractory hypertension. Spontaneous breathing trials were initiated on the of patient did not pass due to agitation. Patient was diagnosed as having hou bowel movements. On the , patient tolerated spontaneous breathing about an hour but then desaturations. Patient tolerated tube feeds but without having bowel movements. Suppositories was administered on the first but the patient did not have a bowel movement. On the third, patient did pretty well with the spontaneous breathing trial but then started becoming tachypneic and actively vomiting. X-ray showed what was concerning for ileus or small bowel obstruction. CAT scan was subsequent performed that showed abnormally distended fluid-filled small bowel loops throughout the abdomen consistent with an obstruction. No transition point identified. Cecum and ascending colon measure up to 9 cm. Transition between the stool distended ascending colon and air distended transverse colon and normally calibrated descending colon, this area is difficult to evaluate study due to presence of diffuse ascites. I then consulted with Dr. Cervantes for concern for small bowel obstruction. Patient's OG was returned to intermittent suction. He evaluated the patient and noted a large amount of free air as well as pneumatosis in the cecum. He spoke to the family extensively and about this and did not recommend surgery as patient is status post. Critical stenosis arrival further discussions were held with the family and the patient was made DNR Comfort Care. Patient was terminally extubated at 1845. Patient at 2039November 02, 2023. Visit Charges Inpatient E&M: 62544 Disch Hosp >30min
== END 2023-11-02 23:50 | DRG 377 ==
LOC: ED 14:33 → SDC 14:36 → ICU 15:23
PROVIDERS: Family Medicine; Internal Medicine; Internal Medicine Critical Care Medicine; Internal Medicine Gastroenterology; Internal Medicine Pulmonary Disease; Student in an Organized Health Care Education/Training Program; Admitting Provider Hospitalist; Emergency Provider Emergency Medicine
PROC: 0DJ08ZZ Inspection of Upper Intestinal Tract, Via Natural or Artificial Opening Endoscopic (ICD-10-PCS; CPT 43235; principal; 2023-10-23 15:00)
DX: K31.811 Angiodysplasia of stomach and duodenum with bleeding (principal); J96.01 Acute respiratory failure with hypoxia; K63.1 Perforation of intestine (nontraumatic); A41.9 Sepsis, unspecified organism; I50.33 Acute on chronic diastolic (congestive) heart failure; G93.41 Metabolic encephalopathy; R65.21 Severe sepsis with septic shock; J81.0 Acute pulmonary edema; K65.2 Spontaneous bacterial peritonitis; J18.9 Pneumonia, unspecified organism; N17.9 Acute kidney failure, unspecified; J94.8 Other specified pleural conditions; D62 Acute posthemorrhagic anemia; J90 Pleural effusion, not elsewhere classified; R57.8 Other shock; K70.31 Alcoholic cirrhosis of liver with ascites; I48.0 Paroxysmal atrial fibrillation; K76.82 Hepatic encephalopathy; F14.19 Cocaine abuse with unspecified cocaine-induced disorder; F10.20 Alcohol dependence, uncomplicated; K70.11 Alcoholic hepatitis with ascites; I86.4 Gastric varices; F17.210 Nicotine dependence, cigarettes, uncomplicated; E87.6 Hypokalemia; E87.71 Transfusion associated circulatory overload; K26.4 Chronic or unspecified duodenal ulcer with hemorrhage; K29.61 Other gastritis with bleeding; Z66 Do not resuscitate; Y90.0 Blood alcohol level of less than 20 mg/100 ml; Z79.899 Other long term (current) drug therapy
CPT/HCPCS: 31500; 31720; 36600; 71045; 74018; 74019; 74177; 76705; 80048; 80053; 80076; 80202; 80320; 81001; 82140; 82550; 82607; 82728; 82746; 82803; 83540; 83550; 83605; 83735; 83880; 84100; 84132; 84145; 84478; 84484; 85025; 85027; 85384; 85610; 85730; 86850; 86900; 86901; 86920; 86922; 87040; 87070; 87086; 87205; 87633; 87635; 87641; 93005; 93306; 94002; 94003; 94640; 94660; 94762; 97110; 97162; 97166; 97802; 97803; 99152; 99153; 99252; 99285; J7040; J7050; J7120; P9016; P9047; Q9967; A4216; C1751; G0463; G0480; J1940; J2354; J2405; J2916; J3490